=== PATIENT | female | born 1975 | race Caucasian/White ===

== ENCOUNTER 2024-03-18 07:40 | Day surgery (SDC) | payer OTHER ==
[2024-03-17 15:15] LABS: Absolute Basophils 0.1 K/uL (0-0.5); Absolute Eosinophils 0.1 K/uL (0-0.5); Absolute Lymphocytes (CBC) 3.2 K/uL (0.7-4.9); Absolute Monocytes 0.6 K/uL (0.1-1.3); Absolute Neutrophil 4.3 K/uL (1.8-8.0); Basophils % 0.9 % (0-1.3); Eosinophils % 1.2 % (0-4.4); Lymphocytes % 38.6 % (15.3-44.8); MCHC 34.9 g/dL (32.0-36.0); MCV 91.7 fL (80-100); MPV 6.8 fL (7.6-11.3); Monocytes % 6.7 % (3.3-12.3); Neutrophils % 52.6 % (41.7-73.7); Platelets 291 thou/uL (152-406); RBC Red Blood Cell Count 4.36 M/uL (3.86-4.86); Red Cell Distribution Width 12.4 % (12.1-15.2)
--- NOTE | 2024-03-17 15:21 | RAD REPORT ---
EXAM DESCRIPTION: RAD - Chest Pa And Lat (2 Views) - 03/17/2024 2:57 pm CLINICAL HISTORY: Pre op pending mass excisions Chest pain. COMPARISON: CHEST SINGLE VIEW dated 10/07/2009; CHEST SINGLE VIEW dated 10/06/2009 FINDINGS: The lungs are clear. The heart is upper limit of normal in size. No displaced fractures. M oderate dextroscoliosis thoracic spine. IMPRESSION: No acute or concerning finding suspected.
[2024-03-17 15:25] LABS: PT Prothrombin Time 11.1 SECONDS (9.5-12.5); PTT, Activated Partial Thromb 35.7 SECONDS (24.3-36.9); Protime INR 1.01
[2024-03-18] MEDS: Ringers Lactate 1,000 ML IV ONE (08:45)
[2024-03-18] MEDS ORDERED: FAMOTIDINE 20 MG/2 ML VIAL IV ONE (09:24)
[2024-03-18] MEDS ORDERED: SUGAMMADEX SODIUM 200 MG/2 ML VIAL IV ONE (09:24)
[2024-03-18] MEDS ORDERED: SUCCINYLCHOLINE 20 MG/ML (10 ML) IV ONE (09:24)
[2024-03-18] MEDS ORDERED: MIDAZOLAM HCL 2 MG/2 ML INJ ONE (09:29)
[2024-03-18] MEDS ORDERED: FENTANYL CITR 100 MCG/2 ML ONE (09:29)
[2024-03-18] MEDS ORDERED: propofoL 200 MG/20 ML VIAL IV ONE (09:29)
[2024-03-18] MEDS: ONDANSETRON 4 MG/2 ML VIAL ONE (09:29)
[2024-03-18] MEDS ORDERED: LIDOCAINE 1% MPF 5 ML VIAL ONE (09:45)
[2024-03-18] MEDS: CEFAZOLIN SODIUM 1 GM/VIAL ONE (10:04)
[2024-03-18] MEDS ORDERED: dexAMETHasone 4 MG/ML VIAL ONE (10:18)
[2024-03-18] MEDS ORDERED: Mastisol Adhesive Liq ONE (10:59)
--- NOTE | 2024-03-18 11:09 | P.BOP ---
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 Right post arm 3x3cm, Secondary procedure: 2. Left upper ant arm 3x3cm, 3. Left lower medial arm 2x2cm Other procedure(s): 4. Left lower lateral arm 2x2cm, 5. Upper back [id number] Estimated blood loss: <20cc Specimen: mass x 5 Findings: as above Anesthesia: General Complications: None Transferred to: Recovery Room Condition: Good
[2024-03-18] MEDS: FENTANYL CITR 100 MCG/2 ML ONE (11:39)
[2024-03-18] MEDS: PROMETHAZINE INJ 25 MG/ML AMP ONE (11:57)
[2024-03-18] MEDS: HYDROMORPHONE HCL 1 MG/ML INJ ONE ×2 (12:07→12:22)
[2024-03-18 12:51] VITALS: TEMP 97
--- NOTE | 2024-03-18 13:10 | EKG ---
Test Date: 2024-03-17 Test Time: 14:27:50 Operator Specialist Communications: PREO MEASUREMENT RESULTS: Intervals: Rate: 72 AK: 142 QRSD: 84 QT: 406 QTc: 444 Sophia: P: 52 AK: 142 QRS: 5 T: 35 INTERPRETIVE STATEMENTS: Normal sinus rhythm Normal ECG Compared to ECG 10/07/2009 06:32:13 Sinus arrhythmia no longer present Electronically Signed On 03-18-24 13:06:12 CDT by Eran Goins
[2024-03-18 14:07] VITALS: BP 140/100; O2SAT 98
== END 2024-03-18 13:39 | disposition home or self-care (01) ==
LOC: OR 07:40
PROVIDERS: ATTEND Surgery
PROC: 0JBD0ZZ Excision of Right Upper Arm Subcutaneous Tissue and Fascia, Open Approach (ICD-10-PCS; 2024-03-18)
PROC: 0JBF0ZZ Excision of Left Upper Arm Subcutaneous Tissue and Fascia, Open Approach (ICD-10-PCS; 2024-03-18)
PROC: 0JB70ZZ Excision of Back Subcutaneous Tissue and Fascia, Open Approach (ICD-10-PCS; 2024-03-18)
PROC: 0JBH0ZZ Excision of Left Lower Arm Subcutaneous Tissue and Fascia, Open Approach (ICD-10-PCS; principal; 2024-03-18 09:45)
DX: D17.22 Benign lipomatous neoplasm of skin and subcutaneous tissue of left arm (principal); D17.21 Benign lipomatous neoplasm of skin and subcutaneous tissue of right arm; D17.1 Benign lipomatous neoplasm of skin and subcutaneous tissue of trunk
CPT/HCPCS: 93005; 85025; 80048; 36415; 85610; 88304; 85730; 71046; 11403 ×2; 11402 ×2; 21931; J2550; J2704; J1100; J2001; J2250; J3010 ×2; J1170 ×2; J2405; J7120; J0690

== ENCOUNTER 2024-06-24 07:30 | Day surgery (SDC) | payer OTHER ==
[2024-06-19 11:54] LABS: Absolute Basophils 0.1 K/uL (0-0.5); Absolute Eosinophils 0.1 K/uL (0-0.5); Absolute Lymphocytes (CBC) 2.4 K/uL (0.7-4.9); Absolute Monocytes 0.5 K/uL (0.1-1.3); Absolute Neutrophil 4.3 K/uL (1.8-8.0); Basophils % 1.2 % (0-1.3); Eosinophils % 1.3 % (0-4.4); Hematocrit 43.2 % (36.0-45.0); Hemoglobin 14.6 g/dL (12.0-15.0); Lymphocytes % 32.4 % (15.3-44.8); MCHC 33.7 g/dL (32.0-36.0); MCV 91.9 fL (80-100); MPV 6.7 fL (7.6-11.3); Monocytes % 6.7 % (3.3-12.3); Neutrophils % 58.4 % (41.7-73.7); Platelets 288 thou/uL (152-406)
[2024-06-19 12:05] LABS: PT Prothrombin Time 11.1 SECONDS (9.4-12.5); PTT, Activated Partial Thromb 34.1 SECONDS (24.3-36.9); Protime INR 0.99
[2024-06-19 12:07] LABS: Anion Gap 8.1 mEq/L (5.0-15.0); Potassium 4.1 mEq/L (3.5-5.1)
[2024-06-24] MEDS ORDERED: propofoL 200 MG/20 ML VIAL IV ONE (08:11)
[2024-06-24] MEDS ORDERED: FENTANYL CITR 100 MCG/2 ML ONE (08:11)
[2024-06-24] MEDS ORDERED: ONDANSETRON 4 MG/2 ML VIAL ONE (08:11)
[2024-06-24] MEDS ORDERED: MIDAZOLAM HCL 2 MG/2 ML INJ ONE (08:12)
[2024-06-24] MEDS ORDERED: LIDOCAINE 2% MPF 5 ML VIAL ONE (08:12)
[2024-06-24] MEDS: Ringers Lactate 1,000 ML IV ONE (08:20)
[2024-06-24] MEDS: ONDANSETRON 4 MG/2 ML VIAL ONE (08:21)
[2024-06-24] MEDS: CEFAZOLIN SODIUM 1 GM/VIAL ONE (09:03)
[2024-06-24] MEDS ORDERED: dexAMETHasone 10 MG/ML VIAL ONE (09:42)
[2024-06-24] MEDS: Mastisol Adhesive Liq ONE (09:49)
--- NOTE | 2024-06-24 10:07 | P.BOP ---
Preoperative diagnosis: Right medial and lateral posterior elbow tender subq mass Postoperative diagnosis: sameq Primary procedure: 1. Excisional biopsy lateral posterior elbow tender subq mass 2x2cm Secondary procedure: 2. Excisional biopsy medial posterior elbow tender subq mass 2x2cm Estimated blood loss: <10cc Specimen: mass x 2 Findings: as above Anesthesia: General Complications: None Transferred to: Recovery Room Condition: Good
[2024-06-24] MEDS: HYDROMORPHONE HCL 1 MG/ML INJ ONE (10:12)
[2024-06-24] MEDS: PROMETHAZINE INJ 25 MG/ML AMP ONE (10:15)
--- NOTE | 2024-06-24 10:31 | OP ---
Date of Procedure: 06/24/2024 Surgeon: Gregory Jesus MD Preoperative Diagnosis: Right medial and lateral posterior elbow tender subcutaneous masses. Postoperative Diagnosis: Right medial and lateral posterior elbow tender subcutaneous masses. Procedures: 1.Excisional biopsy of lateral posterior elbow tender subcutaneous mass, 2 x 2 cm. 2.Excisional biopsy of medial posterior elbow tender subcutaneous mass, 2 x 2 cm. Estimated Blood Loss: Less than 10 cc. Anesthesia: General plus local. Findings: As above. Specimen: Mass x2. Indications: This is the case of a 49-year-old patient with 2 masses on the elbow giving her pain an d discomfort. She has been trying to do everything she can to minimize pain. It is getting worse. She wants them excised. The benefits, alternatives, and risks of excision fully explained, which inc lude, but not limited to, infection, bleeding, damage to adjacent structures, anesthesia complication , recurrence, AR, and even . She also understands this may not relieve any symptoms. She might need more than one surgical intervention. She understood, signed a consent. The area of concern wa s marked by me and the patient in the holding room. Description Of Procedure: The patient was brought to the operating room, placed in supine position. Anesthesia was done without complication. Right elbow, arm area was prepped and draped in a sterile fashion. A time-out was called. The local anesthetic was applied to the arm to minimize the chance of not feeling the mass, so we did the medial and lateral side, both of them using the same techniqu e, different incisions, though. An incision was made in the skin all the way down to subcutaneous ti ssue and then we identified a fatty tumor present. This fatty tumor was dissected free with the help of blunt dissection. Hemostasis was obtained. The mass was enucleated, sent to the pathologist and then we proceeded to close this deep layers with 3-0 chromic and then subcuticular 3-0 chromic and S [place] on top. The same mass was removed using the same technique, just with different incision . Sponge counts and instrument counts were correct. Hemostasis was obtained before closure and also local anesthetic was applied before closure. The patient sent to recovery in stable condition. DANYEL/FATOU Voice ID: [id number] Report ID: [id number]
--- NOTE | 2024-06-24 10:38 | DS ---
Diagnosis: Right medial and lateral posterior elbow tender subcutaneous masses. Procedure: Excisional biopsy of lateral and medial posterior elbow tender subcutaneous masses. Disposition: Home. Activity: As tolerated. Condition: Stable. Plan: Follow up in my office in 1 week. Call for appointment at [phone]. Keep area dry and keep i t intact until she see us again in the office. SERENE Voice ID: [id number] Report ID: [id number]
[2024-06-24] MEDS ORDERED: HYDROCODONE/APAP 10/325 TAB ONE (10:41)
[2024-06-24] MEDS: HYDROCODONE/APAP 10/325 TAB PO ONE (10:44)
[2024-06-24 11:30] VITALS: BP 123/86; TEMP 97; O2SAT 95
== END 2024-06-24 11:20 | disposition home or self-care (01) ==
LOC: OR 07:30
PROVIDERS: ATTEND Surgery
PROC: 0JBG0ZZ Excision of Right Lower Arm Subcutaneous Tissue and Fascia, Open Approach (ICD-10-PCS; principal; 2024-06-24 09:15)
DX: D17.21 Benign lipomatous neoplasm of skin and subcutaneous tissue of right arm (principal); M25.521 Pain in right elbow; I25.2 Old myocardial infarction; I10 Essential (primary) hypertension; E78.00 Pure hypercholesterolemia, unspecified; E78.5 Hyperlipidemia, unspecified; K52.9 Noninfective gastroenteritis and colitis, unspecified; Z79.01 Long term (current) use of anticoagulants; Z79.82 Long term (current) use of aspirin
CPT/HCPCS: 11402; 85025; 80048; 36415; 85610; 88305; 85730; J2550; J2704; J2001; J2250; J3010; J1100; J1170; J2405 ×2; J7120; J0690; 88304

== ENCOUNTER 2025-01-19 18:18 | Emergency (ER) | payer OTHER ==
--- OUTSIDE RECORDS SUMMARY | 2025-01-19 18:43 | XMS REPORT | Continuity of Care Document ---
Author Name Unknown Address [address] [facility] [address] [place] [address] [facility] thconnect Address [address] [facility] [address] [place] [address] Care Team Providers Care Torch Cutter Name Role Phone Shayedmitry Gaby MARION Primary Care Physician DARRYN SEYMOUR Attending Clinician Unavailable SHAYLA GARAY Attending Clinician SHAYLA Ortiz Attending Clinician Unav ailMINAL AshHKiki Attending Clinician Unavaila kristin LY, APRIL Attending Clinician Unavailable GIULIANA FIGUEROA Attending Clinician Unavailable Doctor Unassigned, Amesti Attending Clinician U efrain Manning MD, Minal K.HKiki Attending Clinician [phone] Avery milk collector, Shena Attending Clinician Unavaila kristin Garay MD, Shayla Attending Clinician + Giuliana Dueñas Attending Clinician + [phone] Aliyah ANP, April Attending Clinician [phone] GABY PRATHER Attending Clinician Unavailable Crescencio [employer]OM[employer] COACH, Gaby Attending Clinician +[phone] FRANCES RUBY Attending Clinician Unavailable FLAKO CAMPBELL Attending Clinician Unavailmauro stack Unknown, Attending Attending Clinician Unavailab le Yulisa [employer] COACH, Flako Attending Clinician [phone] OTILIO CHANDLER Attending Clinician Unavailable Reuben HOWELLhT, Karely Stack Attending Clinician Unava xeniaable Otilio Chandler DNP Attending Clinician [phone] Lab, Ang - Db Attending Clinician Unavailable Ashley Choe MA Attending Clinician Unavailab le Anejodee BALESP, Juan Miguel Attending Clinician [phone] VANDANA GREEN Attending Clinician Unavailable Norma [employer] COACH, Cynjasiel Attending Clinician [phone] JUAN MIGUEL ANGUIANO Attending Clinician Unavailable Arley [facility], Aleksandra Casarez Attending Clinician Unavailab JUDITH Leigh Attending Clinician Unavailable Jt [facility], Alexandra Attending Clinician Unavailable Darryn Seymour MD Attending Clinician [phone] Doctor Unassigned, Amesti Attending Clinician U CURTIS Boyd Attending Clinician Unavailable CURITS WISE Attending Clinician Unavailable Kerri CACERES, Sendil K.H. Attending Clinician +[phone] Aliyah LIVINGSTON, April Attending Clinician [phone] Robbi Torres MD Attending Clinician [phone] Gaby Cobos Attending Clinician [phone] Giuliana Dueñas Attending Clinician [phone] AARON SHELBY Attending Clinician Unavailable BEATRIZ SIMON Attending Clinician Unavailable Anene [employer]ACH, Juan Miguel Attending Clinician [phone] ALYSSIA ISABEL Attending Clinician Unavailable 2, Adc Lab Attending Clinician Unavailable Alyssia Isabel MD Attending Clinician [phone] Lab, Ang - Db Attending Clinician Unavailable Nurse, Clc Bls Neuro Attending Clinician Unavail able Alon ARNOLD, Yenifer Attending Clinician UnavailYASIR Bolanos Attending Clinician Unavailmauro Allen MD, Yasir Attending Clinician [phone] Lai [employer]ACH, Meme Attending Clinician [phone] Attending Clinician Unavailable Abedlrahman Warren Attending Clinician [phone] Unknown, Attending Attending Clinician Unavailab MEME Choi Attending Clinician Unavailable KAMILLE PLASCENCIA Attending Clinician Unavailable Kamille Plascencia MD Attending Clinician [phone] Kirsten [facility] Attending Clinician Unava Ashley Patrick RN Attending Clinician Unavailable MELODIE ASHRAF Attending Clinician UnavailJason Lorenzana MD Attending Clinician [phone] Vicky Nolan MD Attending Clinician [phone] Melodie Ashraf MD Attending Clinician [phone] Franklin Waddell PA-C Attending Clinician +[phone] FRANKLIN WADDELL Attending Clinician Unavailable Darryn Seymour MD Attending Clinician +[phone] Nurse, [facility] Bariatric Attending Clinician Unavail able BENITO KING Attending Clinician Unavailable Benito King MD Attending Clinician +[phone] Keren Meyer Attending Clinician [phone] KEREN PIMENTEL Attending Clinician Unavailable [facility]_SWHATBIC_Cone_S Attending Clinician Unavailab Rowdy Kenney MD Attending Clinician [phone] ROWDY LAM Attending Clinician Unavailable DANA JAIMES Attending Clinician Unavaila ble Counseling, Nutrition Attending Clinician Dana Bobby MD Attending Clinician + [phone] Salty Toussaint MD Attending Clinician [phone] GERARDO MARIE Attending Clinician UnavailGerardo Almaraz MD Attending Clinician [phone] Darshana Medina Attending Clinician +[phone] DARSHANA LANGSTON Attending Clinician Unavailable Loree Harper DO Attending Clinician +[phone] Shukri Mario Attending Clinician + [phone] Unassigned, Cath/Ep Attending Clinician Unavaila kristin Parra, Adc Lab Main Attending Clinician Unavailabl GRADY Lynne Attending Clinician Unavailable Jose Merchant MD, Grady Attending Clinician [phone] Sejal PT, Naomi Salvador Attending Clinician Unavail able Hali [facility], Favian Attending Clinician Unavailable VENKATESH ALVARADO Attending Clinician Unavailable Krysten Naylor PT Attending Clinician Unavailab thomas Simon MD, Beatriz Attending Clinician [phone] TRENT CHAWLA Attending Clinician Unavaila ROBBI Jones Attending Clinician Unavailable WILMAR MILLER Attending Clinician Unavailable VIN PEDRO Attending Clinician Unavailable ARACELY BEVERLY Attending Clinician Unavailabl AD Rico Attending Clinician UnavailAd Padron MD Attending Clinician [phone] Long Araujo MD Attending Clinician [phone] SHUKRI ANSARI Attending Clinician Unavailab [facility] Attending Clinician Un available Provider, [facility] Attending Clinician Unavailable HAROLDO VEGA Attending Clinician Unavailable JOVON CARO Attending Clinician Unavailabl CHELSI Wick Attending Clinician Unavailab Yady Staplse MA Attending Clinician Unavailabl e Vls-Lab Attending Clinician Unavailable LOREE HARPER Attending Clinician Unavailable LOREE HARPER Attending Clinician Unavailable MARIE MARTINO Attending Clinician Unavailable Nurse, Ken Cottrell Attending Clinician Unavailable Geeta Clark MD Attending Clinician + [phone] GEETA CLARK Attending Clinician UnavailKristopher Ortega MD Attending Clinician [phone] KRISTOPHER BLACKWELL Attending Clinician UnavailDARIUS Lema Attending Clinician Unavailable Keesha [employer]ACH, Lory Andres Attending Clinician [phone] LORY THAO Attending Clinician Unavailable GALILEO KINCAID Attending Clinician Unavailable Only, Ang Db Test Attending Clinician Unavailmauro Beverly MD, Aracely Contreras Attending Clinician [phone] Benito Eric Attending Clinician Unavailable Jonas CACERES, Karli Schmdi Attending Clinician [phone] René ACNDillon, Juliocesar Attending Clinician + [phone] Erlin Nguyễn Attending Clinician +[phone] ERLIN NGUYỄN Attending Clinician Unavailable Valentin CACERES, Veronica Quevedo Attending Clinician [phone] CIRSTY TEMPLE Attending Clinician Unavailable Provider, [facility] Attending Clinician Un available Shaun Bahena MD Attending Clinician + [phone] SHAUN BAHENA Attending Clinician UnavaYASIR Bowen Attending Clinician Unav ailable CELINA COWAN Attending Clinician Unavailable Chapo CACERES, Celina Attending Clinician [phone] Room, [facility] Uro Procedure Attending Clinician Unav ailable KARLI BARROS Attending Clinician Unavailable AFSANEH MARTIN Attending Clinician Unavailab le Pob1, Acute [facility] Attending Clinician Unav ailable Nurse, Bls Cbc Endo Attending Clinician Unavaila kristin Draw, Clc-Bls Lab Attending Clinician UnavailDannie MARION, Darius Anderson Attending Clinician [phone] Philip Suresh MD Attending Clinician [phone] MARII CATHERINE Attending Clinician Unavailable Marii Catherine NP Attending Clinician [phone] PHILIP SURESH Attending Clinician Unava ilable LILIAM JORDAN Attending Clinician Unavailable Rayne [employer]ACH, Mireille Attending Clinician [phone] Anesthesia-Yanira, Ep Lab Attending Clinician Unava ilable Outpt-Yanira, Ep Lab Attending Clinician Unavailmauro Evans RN, Shelly Attending Clinician Unavailmauro Mcwilliams [facility], Kamille Attending Clinician [phone] Eva Garces RN Attending Clinician ILAN LINDER Attending Clinician Unavailable Yeny CACERES, Mireille Martin Attending Clinician + Alice CACERES, Krysten Attending Clinician [phone] Ilan Linder MD Attending Clinician [phone] Katerina Saldana MD Attending Clinician [phone] 1, [facility] Lab Attending Clinician Unavailable DARRYN SEYMOUR Admitting Clinician Unavailable SHAYLA GARAY Admitting Clinician Unav Shayla Allen MD Admitting Clinician + VANDANA GREEN Admitting Clinician Unavailable MELODIE ASHRAF Admitting Clinician Unavailmauro Ashraf MD, Melodie Amin Admitting Clinician [phone] Darryn Seymour MD Admitting Clinician +[phone] [facility]_S Admitting Clinician Unavailab YASIR Haskins Admitting Clinician Unavailmauro MANNING, SENDIL K.H. Admitting Clinician Unavaildmitry Manning MD, Sendil K.H. Admitting Clinician +[phone] GERARDO MARIE Admitting Clinician UnavailAD Padron Admitting Clinician UnavailMEME Romero Admitting Clinician Unavailable ROBBI TORRES Admitting Clinician Unavailable AMBER CONNOR Admitting Clinician UnavailMARII Xie Admitting Clinician Unavailable GEETA CLARK Admitting Clinician UnavailALYSSIA [place] Admitting Clinician Unavailable ILAN LINDER Admitting Clinician Unavailable Payers Payer Name Policy Type Policy Number Effective Date Expirati on Date Source [employer] CHOICE [id number] 2020 00:00:00 [place] [id number] 2021 00:00:00 [employer] CLAIMS OFFICE [id number] [employer] (MEDICARE REPLACEMENT/ADVANT AGE - PPO) [id number] [employer] MEDICARE ADV [id number] 00:00:00 Problems Condition Name Condition Details Condition Category Status Onset Date Resolution Date Last Treatment Date Treating Clinician Comments Source Palpitatio ns Palpitatio ns Disease Active 2023-11 2- 00:00: 00 [facility] Near syncope Near syncope Disease Active 2023-11 2- 00:00: 00 [facility] LLQ pain LLQ pain Disease Active 2023-11 00:00: 00 [facility] Hx of endometrio sis Hx of endometrio sis Disease Active 2023-11 00:00: 00 [facility] Hx of emergency section Hx of emergency section Disease Active 2023-11 00:00: 00 [facility] Lipoma, unspecifie d site Lipoma, unspecifie d site Disease Active 7- 00:00: 00 [facility] Chest pain, unspecifie d type Chest pain, unspecifie d type Disease Active 2022-11 0-28 00:00: 00 [facility] Hemorrhagi c cystitis Hemorrhagi c cystitis Disease Active 9-06 00:00: 00 [facility] Acute non-recurr ent maxillary sinusitis Acute non-recurr ent maxillary sinusitis Disease Active 9-06 00:00: 00 [facility] Acute recurrent maxillary sinusitis Acute recurrent maxillary sinusitis Disease Active 9-06 00:00: 00 [facility] Allergy, initial encounter Allergy, initial encounter Disease Active 7-11 00:00: 00 [facility] Obesity Obesity Disease Active 6-13 00:00: 00 [facility] Morbid obesity Morbid obesity Disease Active 6-13 00:00: 00 [facility] Chronic diastolic heart failure Chronic diastolic heart failure Disease Active 2021-11 2-12 00:00: 00 Overview: Formattin g of this note might be different from the original. Added automatic ally from request for surgery [id number] [facility] Dyslipidem ia Dyslipidem ia Disease Active 2021-11 2-12 00:00: 00 Overview: Formattin g of this note might be different from the original. Added automatic ally from request for surgery [id number] [facility] Family history of premature CAD Family history of premature CAD Disease Active 2021-11 00:00: 00 Overview: Formattin g of this note might be different from the original. Added automatic ally from request for surgery [id number] [facility] ESPINO (dyspnea on exertion) ESPINO (dyspnea on exertion) Disease Active 2021-11 00:00: 00 Overview: Formattin g of this note might be different from the original. Added automatic ally from request for surgery [id number] [facility] Abnormal nuclear stress test Abnormal nuclear stress test Disease Active 2021-11 00:00: 00 Overview: Formattin g of this note might be different from the original. Added automatic ally from request for surgery [id number] [facility] Chronic bilateral low back pain without sciatica Chronic bilateral low back pain without sciatica Disease Active 2021-11 00:00: 00 [facility] Abnormal gait Abnormal gait Disease Active 2021-11 00:00: 00 [facility] Encounter for gynecologi edda examinatio n (general) (routine) with abnormal findings Encounter for gynecologi edda examinatio n (general) (routine) with abnormal findings Disease Active 2021-11 00:00: 00 [facility] Scapulotho racic bursitis of left shoulder Scapulotho racic bursitis of left shoulder Disease Active 2021-11 00:00: 00 [facility] Cellulitis of right lower extremity Cellulitis of right lower extremity Disease Active 2021-11 0-10 00:00: 00 [facility] Urinary symptom or sign Urinary symptom or sign Disease Active 8-17 00:00: 00 [facility] Acute vaginitis Acute vaginitis Disease Active 8-17 00:00: 00 [facility] Rash and other nonspecifi c skin eruption Rash and other nonspecifi c skin eruption Disease Active 8-17 00:00: 00 [facility] Skin tear of right elbow without complicati on, initial encounter Skin tear of right elbow without complicati on, initial encounter Disease Active 8-17 00:00: 00 [facility] Migraine without aura and without status migrainosu s, not intractabl e Migraine without aura and without status migrainosu s, not intractabl e Disease Active 3-02 00:00: 00 [facility] Intractabl e episodic tension-ty pe headache Intractabl e episodic tension-ty pe headache Disease Active 3-02 00:00: 00 [facility] Essential tremor Essential tremor Disease Active 3-02 00:00: 00 [facility] Abnormal liver function tests Abnormal liver function tests Disease Active 2-28 00:00: 00 [facility] Fatty liver Fatty liver Disease Active 2-25 00:00: 00 [facility] Microscopi c hematuria Microscopi c hematuria Disease Active 2-18 00:00: 00 [facility] RLQ abdominal pain RLQ abdominal pain Disease Active 9-27 00:00: 00 [facility] Chronic pain of both shoulders Chronic pain of both shoulders Disease Active 2019-11 0-30 00:00: 00 [facility] Chronic pain of both shoulders Chronic pain of both shoulders Disease Active 2019-11 0-30 00:00: 00 [facility] Premenopau ivon patient Premenopau ivon patient Disease Active 7 00:00: 00 [facility] Hair changes Hair changes Disease Active 7 00:00: 00 [facility] Euthyroid goiter Euthyroid goiter Disease Active 0 7- 00:00: 00 [facility] Adnexal mass Adnexal mass Disease Active 05-19 00:00: 00 Overview: Formattin g of this note might be different from the original. left [facility] Left nephrolith iasis Left nephrolith iasis Disease Active 7- 00:00: 00 [facility] Chronic inflammati on of colon Chronic inflammati on of colon Disease Active 05-19 00:00: 00 [facility] Intertrigo Intertrigo Disease Active 7 00:00: 00 [facility] Fatigue, unspecifie d type Fatigue, unspecifie d type Disease Active 05-09 00:00: 00 [facility] Low serum cortisol level Low serum cortisol level Disease Active 6 00:00: 00 [facility] Essential hypertensi on Essential hypertensi on Disease Active 2018-11 00:00: 00 [facility] Other hyperlipid emia Other hyperlipid emia Disease Active 2018-11 00:00: 00 [facility] Vertigo Vertigo Disease Active 03-18 00:00: 00 [facility] Amenorrhea Amenorrhea Disease Active 01-26 00:00: 00 [facility] Trigger finger of right thumb Trigger finger of right thumb Disease Active 2017-11 00:00: 00 [facility] Radial styloid tenosynovi tis Radial styloid tenosynovi tis Disease Active 2017-11 00:00: 00 [facility] HSV-2 seropositi ve HSV-2 seropositi ve Disease Active 01-10 00:00: 00 [facility] Care plan discussed with patient Care plan discussed with patient Disease Active 01-06 00:00: 00 Overview: Formattin g of this note might be different from the original. 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) Disease Active 2- 00:00: 00 [facility] POTS (postural orthostati c tachycardi a syndrome) POTS (postural orthostati c tachycardi a syndrome) Disease Active 1 00:00: 00 [facility] TIA (transient ischemic attack) TIA (transient ischemic attack) Disease Active 2016-11 0 00:00: 00 [facility] Glaucoma suspect of both eyes Glaucoma suspect of both eyes Disease Active 02-22 00:00: 00 [facility] Congenital nasolacrim al duct obstructio n, 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, bilateral Disease Active 02-22 00:00: 00 [facility] Glaucoma suspect of both eyes Glaucoma suspect of both eyes Disease Active 02-22 00:00: 00 [facility] Ischemic chest pain Ischemic chest pain Disease Active 01-14 00:00: 00 [facility] Chest pain Chest pain Disease Active 01-14 00:00: 00 [facility] Colon polyps Colon polyps Disease Active 12-22 00:00: 00 [facility] Pseudoseiz ures Pseudoseiz ures Disease Active 12-22 00:00: 00 [facility] Shaking Shaking Disease Active 12-22 00:00: 00 [facility] Depression Depression Disease Active 12-22 00:00: 00 [facility] Insomnia Insomnia Disease Active 12-19 00:00: 00 [facility] MARY on CPAP MARY on CPAP Disease Active 12-19 00:00: 00 [facility] Morbid obesity with BMI of 50.0-59.9, adult Morbid obesity with BMI of 50.0-59.9, adult Disease Active 2015-11 214 00:00: 00 [facility] Prinzmetal variant angina Prinzmetal variant angina Disease Active 11-18 00:00: 00 [facility] CAD (coronary artery disease) CAD (coronary artery disease) Disease Active [facility] Spinal stenosis Spinal stenosis Disease Active [facility] Atheroscle rosis of artery Atheroscle rosis of artery Disease Active [facility] Bulging lumbar disc Bulging lumbar disc Disease Active [facility] KS (mitral incompeten ce) KS (mitral incompeten ce) Disease Active [facility] Polycystic ovarian disease Polycystic ovarian disease Disease Active [facility] GERD (gastroeso phageal reflux disease) GERD (gastroeso phageal reflux disease) Disease Active [facility] Anxiety Anxiety Disease Active [facility] Agoraphobi a Agoraphobi a Disease Active [facility] Panic disorder Panic disorder Disease Active [facility] HTN (hypertens ion) HTN (hypertens ion) Disease Active [facility] Gastric polyp Gastric polyp Disease Active [facility] Asthma Asthma Disease Active Overview: Formattin g of this note might be different from the original. As a child [facility] Allergic rhinitis Allergic rhinitis Disease Active [facility] Dysuria Dysuria Disease Resolve d 2022-0 9-06 00:00: 00 2024-10-19 00:00:00 2024-10-19 11:45:59 [facility] Nausea Nausea Disease Resolve d 2022-0 7-11 00:00: 00 2024-10-19 00:00:00 2024-10-19 11:45:55 [facility] Diarrhea, unspecifie d type Diarrhea, unspecifie d type Disease Resolve d 2022-0 7-11 00:00: 00 2024-10-19 00:00:00 2024-10-19 11:46:00 [facility] Yeast infection Yeast infection Disease Resolve d 2021-1 0-10 00:00: 00 2024-10-19 00:00:00 2024-10-19 11:46:12 [facility] Urinary symptom or sign Urinary symptom or sign Disease Resolve d 2021-0 8-17 00:00: 00 2024-10-19 00:00:00 2024-10-19 11:46:17 [facility] Need for hepatitis A and B vaccinatio n Need for hepatitis A and B vaccinatio n Disease Resolve d 2021-0 3-14 00:00: 00 2024-10-19 00:00:00 2024-10-19 11:46:19 [facility] Nicotine use disorder Nicotine use disorder Disease Resolve d 2018-0 3-11 00:00: 00 2019-04-07 00:00:00 2019-04-07 18:20:55 [facility] Postprandi al vomiting Postprandi al vomiting Disease Resolve d 2016-0 2-04 00:00: 00 2018-01-06 00:00:00 2018-01-06 23:23:50 [facility] Allergies, Adverse Reactions, Alerts Allergy Name Allergy Type Status Severity Reaction(s) Onset Date Inactive Date Treating Clinician Comments Source ALBUTERO L DRUG INGREDI Active High Palpitations 2023-11- 00:00: 00 [facility] Albutero l Propensi ty to adverse reaction s to drug Active Palpitations 2023-11 00:00: 00 Prinzmeta l angina [facility] AMOXICIL PERLA-POT CLAVULAN ATE DRUG Active Med Rash 1- 00:00: 00 [facility] Amoxicil perla-Pot Clavulan ate Propensi ty to adverse reaction s Active Rash 2023-0 1-11 00:00: 00 [facility] BEE STING / VENOM DRUG INGREDI Active High Rash 0 6- 00:00: 00 [facility] Bee Sting / Venom Propensi ty to adverse reaction s Active Swelling 6- 00:00: 00 [facility] bupropio n DA Active U 2020-11 0-19 00:00: 00 [facility] soy FA Active U 2020-11 0- 00:00: 00 [facility] MUSHROOM S DA Active SV THROAT CLOSES 2020-11 0-19 00:00: 00 [facility] doxycycl ine DA Active SV 2020-11 0-19 00:00: 00 [facility] amitript yline DA Active SV 2020-11 0-19 00:00: 00 [facility] bupropio n DA Active U BAD THOUGHTS 2020-11 00:00: 00 [facility] soy FA Active U THROAT CLOSES 2020-11 00:00: 00 [facility] doxycycl ine DA Active SV 2020-11 0 00:00: 00 [facility] amitript yline DA Active SV 2020-11 00:00: 00 [facility] Doxycycl ine Propensi ty to adverse reaction s Active Shortness of Breath 02-17 00:00: 00 [facility] DOXYCYCL INE DRUG INGREDI Active SOB 02-17 00:00: 00 [facility] erythrom ycin base DA Active MO 06-09 00:00: 00 [facility] adhesive tape DA Active MO 06-09 00:00: 00 [facility] pregabal in DA Active MO 06-09 00:00: 00 [facility] adhesive tape DA Active MO BLISTERS 06-09 00:00: 00 [facility] pregabal in DA Active MO SUICIDAL THOUGHTS 06-09 00:00: 00 [facility] Amitript yline Propensi ty to adverse reaction s Active Other - See comments 07-07 00:00: 00 Made headaches worse [facility] AMITRIPT YLINE DRUG INGREDI Active Other-Cmnt 07-07 00:00: 00 [facility] Mushroom Propensi ty to adverse reaction s Active Unknown - See comments 01-16 00:00: 00 Allergy listed per nurses screen and pt's father - unable to confirm with pt, unknown reaction. [facility] Soy Propensi ty to adverse reaction s Active Swelling 01-16 00:00: 00 [facility] SOY DRUG INGREDI Active High N/V 01-16 00:00: 00 [facility] MUSHROOM DRUG INGREDI Active Unknown-Cmnt 01-16 00:00: 00 [facility] Pregabal in Propensi ty to adverse reaction s Active Other - See comments 2 00:00: 00 [facility] PREGABAL IN DRUG INGREDI Active Other-Cmnt 0 2 00:00: 00 [facility] Adhesive Tape-Erma icones Propensi ty to adverse reaction s Active Hives 0 02-27 00:00: 00 [facility] Erythrom ycin Propensi ty to adverse reaction s Active Swelling 02-27 00:00: 00 [facility] ADHESIVE TAPE-ERMA ICONES DRUG Active Hives 02-27 00:00: 00 [facility] ERYTHROM YCIN DRUG Active Hives 02-27 00:00: 00 [facility] erythrom ycin base DA Active SV 06-20 00:00: 00 [facility] erythrom ycin base DA Active SV HIVES THROAT SWELLS 06-20 00:00: 00 [facility] TAPE DA Active SV BAD RASH HIVES PAPER TAPE [place] 06-19 00:00: 00 [facility] Family History Family Member Diagnosis Comments Start Date Stop Date Sourc e Natural father Coronary Heart Disease [facility] Natural [facility] Maternal aunt [facility]ian [facility] Maternal grandfather Cataracts [facility] Maternal grandmother Arthritis [facility] Maternal grandmother Asthma [facility] Maternal grandmother Breast Cancer [facility] Maternal grandmother Cancer [facility] Maternal grandmother Cataracts [facility] Natural mother Arthritis Unive [facility] Natural [facility] Asthma [facility] Natural [facility] Natural mother Colon [facility] Natural mother Depression [facility] Natural mother Hypert[facility] Natural mother Kidney disease [facility] Natural mother Miscarriages / Stillbirths [facility] Natural mother Stroke [facility] Natural mother Thyroid [facility] Natural mother Uterine Cancer [facility] Paternal grandfather Cancer [facility] Paternal grandfather Coronary Heart Disease [facility] Paternal grandfather Stroke [facility] Paternal grandmother Diabetes [facility] Social History Social Habit Start Date Stop Date Quantity Comments Source History of tobacco use Passive smoker [facility] History SDOH Alcohol Std Drinks [facility] History SDOH Alcohol Binge [facility] History SDOH Social Connections Get Together [facility] History SDOH Social Connections [facility] History SDOH Social Connections Membership [facility] History SDOH Social Connections Meetings [facility] History of Social function 2024-12-02 00:00:00 2024-12-02 00:00:00 [facility] Alcoholic beverage intake 2024-12-02 00:00:00 2024-12-02 00:00:00 0 /d [facility] Cigarettes smoked current (pack per day) - Reported 2024-04-30 00:00:00 2024-04-30 00:00:00 [facility] Cigarette pack-years 2024-04-30 00:00:00 2024-04-30 00:00:00 [facility] Tobacco use and exposure 2024-04-30 00:00:00 2024-04-30 00:00:00 Smokeless tobacco non-user [facility] Alcohol intake 2024-02-18 00:00:00 2024-02-18 00:00:00 0 /d [facility] Education 2023-09-14 00:00:00 2023-09-14 00:00:00 17 [facility] History SDOH Alcohol Frequency 2023-05-01 00:00:00 2023-05-01 00:00:00 1 [facility] History SDOH Social Connections Phone 2023-05-01 00:00:00 2023-05-01 00:00:00 5 [facility] History SDOH Social Connections Living 2023-05-01 00:00:00 2023-05-01 00:00:00 7 [facility] History SDOH Physical Activity DPW 2023-05-01 00:00:00 2023-05-01 00:00:00 0 [facility] History SDOH Physical Activity MPS 2023-05-01 00:00:00 2023-05-01 00:00:00 0 [facility] History SDOH Financial 2023-05-01 00:00:00 2023-05-01 00:00:00 4 [facility] History SDOH Food Worry 2023-05-01 00:00:00 2023-05-01 00:00:00 1 [facility] History SDOH Food Scarcity 2023-05-01 00:00:00 2023-05-01 00:00:00 1 [facility] History SDOH Transport Med 2023-05-01 00:00:00 2023-05-01 00:00:00 2 [facility] History SDOH Transport Non-Med 2023-05-01 00:00:00 2023-05-01 00:00:00 2 [facility] History SDOH Housing Unable to Pay 2023-05-01 00:00:00 2023-05-01 00:00:00 2 [facility] History SDOH Housing Places Lived 2023-05-01 00:00:00 2023-05-01 00:00:00 1 [facility] History SDOH Housing Homeless Last Year 2023-05-01 00:00:00 2023-05-01 00:00:00 2 [facility] Exposure to SARS-CoV-2 (event) 2023-04-07 00:00:00 2023-04-17 15:45:00 Not sure [facility] Tobacco Comment 2022-07-05 00:00:00 2022-07-05 00:00:00 quit tobacco in 02/2018, quit vaping too 02/2019 [facility] Sex assigned at 1975 00:00:00 1975 00:00:00 [facility] Smoking Status Start Date Stop Date Source Ex-smoker 2024-04-30 00:00:00 2024-04-30 00:00:00 [facility] Medications Ordered Medication Name Filled Medication Name Start Date Stop Date Current Medication? Ordering Clinician Indication Dosage Frequency Signature (SIG) Comments Components Source losartan 25 mg tablet 01-15 00:00: 00 Yes [id number] 50mg Take 2 tablets by mouth in the morning and 2 tablets in the evening. [facility] losartan 25 mg tablet 01-01 00:00: 00 01-15 00:00 :00 No [id number] TAKE 1 TABLET BY MOUTH AT NOON. [facility] amLODIPine 5 mg tablet 12-18 00:00: 00 Yes [id number] 5mg Take 1 tablet by mouth in the morning. [facility] methylPREDN ISolone 4 mg tablets 12-01 00:00: 00 12-01 00:00 :00 Yes [id number] 84mg Take 21 tablets by mouth SEE-INSTRU CTIONS. follow package directions [facility] MONTELUKAST 10 mg tablet 11-30 00:00: 00 Yes [id number] 10mg TAKE 1 TABLET BY MOUTH EVERY EVENING [facility] ciprofloxac in-dexameth asone 0.3-0.1 % otic drops 11-20 00:00: [address] in right ear 2 (two) times daily. [facility] ciprofloxac in-dexameth asone 0.3-0.1 % otic drops 11-19 00:00: 00 11-30 05:59 :00 Yes [id number] 4[drp] Place 4 Drops in left ear in the morning and 4 Drops in the evening. Do all this for 10 days. [facility] LORATADINE 10 mg tablet 2023-11 2- 00:00: 00 Yes [id number] 10mg TAKE 1 TABLET BY MOUTH IN THE MORNING [facility] Ranolazine 1,000 mg tablet 2023-11 2 00:00: 00 Yes [id number] 1000mg Take 1 tablet by mouth in the morning and 1 tablet in the evening. [facility] nitroglycer in 0.4 mg sublingual tablet 2023-11 00:00: [id number] 1 tablet under the tongue every 5 (five) minutes as needed for Chest pain. [facility] isosorbide mononitrate 60 mg 24 hr tablet 2023-11 00:00: 00 Yes [id number] 120mg Take 2 tablets by mouth every morning. [facility] bumetanide 1 mg tablet 2023-11 00:00: 00 Yes [id number] 1mg Take 1 tablet by mouth every 2 (two) days. [facility] atorvastati n 80 mg tablet 2023-11 00:00: 00 Yes [id number] 80mg Take 1 tablet by mouth at bedtime. [facility] clopidogreL 75 mg tablet 2023-11 00:00: 00 Yes [id number] 75mg Take 1 tablet by mouth in the morning. [facility] spironolact one 50 mg tablet 2023-11 00:00: 00 Yes [id number] 50mg Take 1 tablet by mouth in the morning and 1 tablet in the evening. [facility] losartan 25 mg tablet 2023-11 00:00: 00 01-01 00:00 :00 No [id number] 50mg Take 2 tablets by mouth every morning and evening. [facility] diclofenac sodium 1 % gel 2023-11 00:00: 00 Yes [id number] 1g Apply 1 g to area(s) 4 (four) times daily as needed for Pain. [facility] iopamidol (ISOVUE 370-500 mL) injection 100 mL 2023-11 23:45: 00 10-14 22:54 :00 No [id number] 100mL 100 mL, Intravenou s, ONCE, 1 dose, On Sat10/14/24 at 1745, Routine [facility] levalbutero l 0.63 mg/3 mL nebulizer solution 2023-11 00:00: 00 Yes [id number] USE 1 VIAL BY NEBULATION THREE TIMES DAILY NEEDED FOR WHEEZING, SHORTNESS OF BREATH OR CHEST TIGHTNESS [facility] Nebulizer & Compressor For Neb Sonia 2023-11 00:00: 00 Yes [id number] Use as directed [facility] levalbutero l (XOPENEX HFA) 45 mcg/actuati on inhaler 2023-11 00:00: 00 12-02 00:00 :00 No [id number] 2{puff} Inhale 2 Puffs every 6 (six) hours as needed for Wheezing. [facility] benzonatate 200 mg capsule 2023-11 00:00: 00 Yes [id number] 200mg Take 1 capsule by mouth 3 (three) times daily as needed for Cough. [facility] albuterol (VENTOLIN HFA) 90 mcg/actuati on inhaler 2023-11 00:00: 00 12-02 00:00 :00 No [id number] 2{puff} Inhale 2 Puffs every 6 (six) hours as needed for Bronchospa sm. [facility] levalbutero l (XOPENEX HFA) 45 mcg/actuati on inhaler 2023-11 00:00: 00 10-14 00:00 :00 No [id number] 2{puff} Inhale 2 Puffs every 6 (six) hours as needed for Wheezing. [facility] benzonatate 200 mg capsule 2023-11 00:00: 00 10-09 00:00 :00 No [id number] 200mg Take 1 capsule by mouth 3 (three) times daily as needed for Cough. [facility] cephALEXin 500 mg capsule 2023-11 00:00: 00 10-09 05:59 :00 No [id number] 500mg Take 1 capsule by mouth 4 (four) times daily for 7 days. [facility] isosorbide mononitrate 60 mg 24 hr tablet 2023-11 0-31 00:00: 00 10-22 00:00 :00 No [id number] 120mg Take 2 tablets by mouth every morning. [facility] Ranolazine 1,000 mg tablet 2023-11 0- 00:00: 00 10-22 00:00 :00 No [id number] 1000mg Take 1 tablet by mouth in the morning and 1 tablet in the evening. [facility] MONTELUKAST 10 mg tablet 2023-11 0-14 00:00: 00 11-30 00:00 :00 No [id number] 10mg TAKE 1 TABLET BY MOUTH EVERY EVENING [facility] CLOPIDOGREL 75 mg tablet 930 00:00: 00 10-22 00:00 :00 No [id number] 75mg TAKE 1 TABLET BY MOUTH IN THE MORNING [facility] LORATADINE 10 mg tablet 07-30 00:00: 00 10-27 00:00 :00 No [id number] 10mg TAKE 1 TABLET BY MOUTH IN THE MORNING [facility] SPIRONOLACT ONE 50 mg tablet 15 00:00: 00 10-22 00:00 :00 No [id number] 50mg TAKE 1 TABLET BY MOUTH TWICE DAILY [facility] clopidogreL 75 mg tablet 14 00:00: 00 Yes [id number] 75mg TAKE 1 TABLET BY MOUTH IN THE MORNING [facility] isosorbide mononitrate 60 mg 24 hr tablet 8 00:00: 00 09-17 00:00 :00 No [id number] 120mg Take 2 tablets by mouth every morning. [facility] ranolazine 1,000 mg tablet 7 00:00: 00 09-09 00:00 :00 No [id number] 1000mg Take 1 tablet by mouth in the morning and 1 tablet in the evening. [facility] ondansetron 8 mg disintegrat ing tablet 19 00:00: 00 12-02 00:00 :00 No [id number] 8mg Take 1 tablet by mouth every 8 (eight) hours as needed for Nausea and Vomiting (N/V) (or migraine). [facility] MONTELUKAST 10 mg tablet 06-01 00:00: 00 Yes [id number] 10mg TAKE 1 TABLET BY MOUTH EVERY EVENING [facility] LOSARTAN 25 mg tablet 06-01 00:00: 00 10-22 00:00 :00 No [id number] 25mg TAKE 1 TABLET BY MOUTH IN THE MORNING AND IN THE EVENING [facility] LORATADINE 10 mg tablet 06-01 00:00: 00 07-30 00:00 :00 No [id number] 10mg TAKE 1 TABLET BY MOUTH IN THE MORNING [facility] triamcinolo ne acetonide (KENALOG) injection 20 mg 05-14 22:15: 00 05-14 21:05 :00 No [id number] 20mg 20 mg, Infiltrati on, ONCE, 1 dose, On Libertad 05/14/24 at 1715, Routine [facility] bupivacaine (preserv free) (SENSORCAIN E MPF) 0.25 % (2.5 mg/mL) injection 4 mL 05-14 22:15: 00 05-14 21:05 :00 No [id number] 4mL 4 mL, Infiltrati on, ONCE, 1 dose, On [place] 05/14/24 at 1715, Routine [facility] proMETHazin e 25 mg tablet 05-14 00:00: 00 Yes [id number] 25mg Take 1 tablet by mouth every 4 (four) hours as needed for Nausea and Vomiting (N/V). [facility] ubrogepant 100 mg tablet 05-14 00:00: 00 Yes [id number] Take 1 tablet by mouth at onset of migraine symptoms. may repeat in 2 hours if needed. Max of 2 tablets per 24 hours. [facility] primidone 250 mg tablet 05-14 00:00: 00 Yes [id number] 250mg Take 1 tablet by mouth every 8 (eight) hours as needed (tremor). [facility] methocarbam oL 750 mg tablet 05-14 00:00: 00 Yes [id number] 750mg Take 1 tablet by mouth 3 (three) times daily as needed. alternatin g with tizanidine [facility] cyanocobala min, vitamin B-12, 1,000 mcg Lozg 05-14 00:00: 00 Yes [id number] 1{each} Place 1 Each under the tongue in the morning. [facility] carBAMazepi ne 200 mg tablet 05-14 00:00: 00 Yes [id number] 200mg Take 1 tablet by mouth every 8 (eight) hours as needed (cranial neuralgia) . Do not take with gabapentin [facility] baclofen 10 mg tablet 05-14 00:00: 00 Yes [id number] 10mg Take 1 tablet by mouth 3 (three) times daily as needed (cranial neuralgia) . Alternate with methocarba mol and tizanidine [facility] atogepant (QULIPTA) 60 mg Tab tablet 05-14 00:00: 00 Yes [id number] 60mg Take 1 tablet by mouth in the morning. [facility] ATORVASTATI N 80 mg tablet 05-04 00:00: 00 10-22 00:00 :00 No [id number] 9108 80mg TAKE 1 TABLET BY MOUTH AT BEDTIME [facility] ATORVASTATI N 80 mg tablet 20 00:00: 00 Yes [id number] 80mg TAKE 1 TABLET BY MOUTH AT BEDTIME [facility] ranolazine 500 mg 12 hr tablet 5-09 00:00: 00 06-11 00:00 :00 No [id number] 500mg Take 1 tablet by mouth in the morning and 1 tablet in the evening. [facility] loratadine 10 mg tablet 03-12 00:00: 00 06-01 00:00 :00 No [id number] 10mg TAKE 1 TABLET BY MOUTH IN THE MORNING. [facility] Cholecalcif shabana, Vitamin D3, 1,250 mcg (50,000 unit) capsule 02-17 00:00: 12-02 00:00 :00 No [id number] 92493A Take 1 capsule by mouth weekly. For 6 month then restart OTC D3 [facility] cyanocobala min, vitamin B-12, 1,000 mcg Lozg 02-17 00:00: 05-14 00:00 :00 No [id number] 1{each} Place 1 Each under the tongue in the morning. [facility] baclofen 10 mg tablet 02-17 00:00: 05-14 00:00 :00 No [id number] 10mg Take 1 tablet by mouth 3 (three) times daily as needed (cranial neuralgia) . Alternate with methocarba mol and tizanidine [facility] carBAMazepi ne 200 mg tablet 02-17 00:00: 00 05-14 00:00 :00 No [id number] 200mg Take 1 tablet by mouth every 8 (eight) hours as needed (cranial neuralgia) . Do not take with gabapentin [facility] primidone 250 mg tablet 02-17 00:00: 00 05-14 00:00 :00 No [id number] 250mg Take 1 tablet by mouth every 8 (eight) hours as needed (tremor). [facility] MONTELUKAST 10 mg tablet 02-10 00:00: 00 06-01 00:00 :00 No [id number] 10mg TAKE 1 TABLET BY MOUTH EVERY EVENING [facility] LORATADINE 10 mg tablet 02-10 00:00: 00 03-12 00:00 :00 No [id number] 10mg TAKE 1 TABLET BY MOUTH IN THE MORNING. [facility] levalbutero l (XOPENEX HFA) 45 mcg/actuati on inhaler 01-20 00:00: 00 10-01 00:00 :00 No [id number] 2{puff} Inhale 2 Puffs every 6 (six) hours as needed for Wheezing. [facility] SPIRONOLACT ONE 50 mg tablet 01-19 00:00: 00 Yes [id number] 50mg TAKE 1 TABLET BY MOUTH TWICE DAILY [facility] atorvastati n 80 mg tablet 01-16 00:00: 00 Yes [id number] 80mg TAKE 1 TABLET BY MOUTH AT BEDTIME [facility] LORATADINE 10 mg tablet 01-16 00:00: 00 Yes [id number] 10mg TAKE 1 TABLET BY MOUTH IN THE MORNING. [facility] losartan 25 mg tablet 00:00: 00 Yes [id number] 25mg Take 1 tablet by mouth in the morning and 1 tablet in the evening. [facility] proMETHazin e 25 mg tablet 01-08 00:00: 00 05-14 00:00 :00 No 25mg Take 1 tablet by mouth every 4 (four) hours as needed for Nausea and Vomiting (N/V). [facility] cefdinir 300 mg capsule 12-30 00:00: 00 01-07 05:59 :00 No [id number] 300mg Take 1 capsule by mouth every 12 (twelve) hours for 7 days. [facility] ketorolac (TORADOL) injection 60 mg 12-26 20:30: 00 12-26 20:12 :00 No [id number] 60mg [facility] diphenhydrA MINE (BENADRYL) injection 50 mg 08 20:30: 00 12-26 20:10 :00 No [id number] 50mg [facility] proMETHazin e (PHENERGAN) injection 25 mg 2-08 20:30: 00 12-26 20:11 :00 No [id number] 25mg [facility] methylPREDN ISolone (MEDROL, [place],) 4 mg tablets 12-04 00:00: 00 12-01 00:00 :00 No [id number] Take by mouth SEE-INSTRU CTIONS. follow package directions [facility] loratadine 10 mg tablet 12-04 00:00: 01-16 00:00 :00 No [id number] 10mg Take 1 tablet by mouth in the morning. [facility] triamcinolo ne acetonide 0.1 % ointment 11-28 00:00: 00 Yes [id number] Apply to area(s) 2 (two) times daily. [facility] levalbutero l (XOPENEX HFA) 45 mcg/actuati on inhaler 11-28 00:00: 00 01-20 00:00 :00 No [id number] 2{puff} Inhale 2 Puffs every 6 (six) hours as needed for Wheezing. [facility] losartan 25 mg tablet 11-28 00:00: 00 00:00 :00 No [id number] 25mg Take 1 tablet by mouth every day at 1200 (noon). [facility] bromphenira mine-pseudo ephedrine-D M (BROMFED DM) 2-30-10 mg/5 mL syrup 11-28 00:00: 00 12-09 05:59 :00 No [id number] 5mL Take 5 mL by mouth 4 (four) times daily as needed for Cough for up to 10 days. [facility] azithromyci n 250 mg tablet 11-28 00:00: 00 12-05 05:59 :00 No [id number] 250mg Take 1 tablet by mouth in the morning for 6 days. Take 500 mg day 1, then 250 mg days 2 to 5. Denies allergy to Z-pack [facility] montelukast 10 mg tablet 11-25 00:00: 00 Yes [id number] 10mg TAKE 1 TABLET BY MOUTH EVERY EVENING [facility] amoxicillin -clavulanat e (AUGMENTIN) 875-125 mg per tablet 11-21 00:00: 00 11-28 00:00 :00 No [id number] 1{tbl} Take 1 tablet by mouth in the morning and 1 tablet in the evening. Do all this for 7 days. [facility] benzonatate (TESSALON PERLES) 100 mg capsule 11-21 00:00: 00 11-28 00:00 :00 No [id number] 100mg Take 1 capsule by mouth every 8 (eight) hours as needed for Cough. [facility] diltiazem (CARDIZEM CD) 120 mg 24 hr capsule 2022-11 00:00: 00 10-22 00:00 :00 No [id number] 120mg Take 1 capsule by mouth every evening. [facility] diltiazem (CARDIZEM CD) 120 mg 24 hr capsule 2022-11 00:00: 00 10-22 00:00 :00 No [id number] 120mg Take 1 capsule by mouth every evening. [facility] ranolazine 500 mg 12 hr tablet 2022-11 00:00: 00 03-26 00:00 :00 No [id number] 500mg Take 1 tablet by mouth in the morning and 1 tablet in the evening. [facility] spironolact one 50 mg tablet 2022-11 00:00: 00 01-19 00:00 :00 No [id number] 50mg Take 1 tablet by mouth in the morning. [facility] losartan 25 mg tablet 2022-11 00:00: 00 11-28 00:00 :00 No [id number] 25mg Take 1 tablet by mouth every day at 1200 (noon). [facility] azelastine 137 mcg (0.1 %) nasal spray 2022-11 00:00: 00 12-02 00:00 :00 No [id number] 1{spray } Use 1 [place] in each nostril in the morning and 1 [place] in the evening. Use in each nostril as directed [facility] amoxicillin -clavulanat e (AUGMENTIN) 875-125 mg per tablet 2022-11 00:00: 00 11-21 00:00 :00 No [id number] 1{tbl} Take 1 tablet by mouth in the morning and 1 tablet in the evening. [facility] ranolazine 500 mg 12 hr tablet 2022-11 2 00:00: 00 10-22 00:00 :00 No [id number] 500mg Take 1 tablet by mouth in the morning and 1 tablet in the evening. [facility] hydrOXYzine 10 mg tablet 2022-11 00:00: 00 11-28 00:00 :00 No 10mg Take 1 tablet by mouth every 6 (six) hours as needed for Anxiety. [facility] bromphenira mine-pseudo ephedrine-D M (BROMFED DM) 2-30-10 mg/5 mL syrup 2022-11 00:00: 00 11-21 00:00 :00 No [id number] 10mL Take 10 mL by mouth 4 (four) times daily as needed for Congestion /Allergies . [facility] diltiazem (CARDIZEM CD) 240 mg 24 hr capsule 2022-11 00:00: 00 11-03 00:00 :00 No [id number] 240mg Take 1 capsule by mouth every morning. [facility] diltiazem (CARDIZEM CD) 120 mg 24 hr capsule 2022-11 00:00: 00 10-31 00:00 :00 No [id number] 120mg Take 1 capsule by mouth every evening. [facility] ketorolac (TORADOL) injection 60 mg 2022-11 17:15: 00 10-03 16:26 :00 No [id number] 60mg [facility] proMETHazin e (PHENERGAN) injection 25 mg 2022-11 17:15: 00 10-03 16:28 :00 No [id number] 25mg [facility] diphenhydrA MINE (BENADRYL) injection 50 mg 2022-11 17:00: 00 10-03 16:25 :00 No [id number] 50mg [facility] gabapentin 600 mg tablet 2022-11 09:46: 51 Yes 600mg Take 1 tablet by mouth 5 (five) times daily. [facility] busPIRone 15 mg tablet 2022-11 09:46: 51 Yes 15mg Take 1 tablet by mouth in the morning and 1 tablet at noon and 1 tablet in the evening. [facility] methocarbam oL 750 mg tablet 2022-11 00:00: 00 05-14 00:00 :00 No [id number] 1 po TID prn alternatin g with tizanidine [facility] primidone 250 mg tablet 2022-11 00:00: 00 02-17 00:00 :00 No [id number] 1 tab po BID [facility] isosorbide mononitrate 60 mg 24 hr tablet 2022-11 00:00: 00 06-19 00:00 :00 No [id number] 120mg Take 2 tablets by mouth every morning. [facility] losartan 25 mg tablet 2022-11 00:00: 00 10-22 00:00 :00 No [id number] 25mg Take 1 tablet by mouth in the morning and 1 tablet in the evening. [facility] Ranolazine 1,000 mg tablet 2022-11 00:00: 00 10-18 00:00 :00 No [id number] 1000mg Take 1 tablet by mouth in the morning and 1 tablet in the evening. [facility] proMETHazin e (PHENERGAN) injection 25 mg 2022-11 22:45: 00 09-24 21:51 :00 No [id number] 25mg [facility] ketorolac (TORADOL) injection 60 mg 2022-11 22:30: 00 09-24 21:49 :00 No [id number] 60mg [facility] diphenhydrA MINE (BENADRYL) injection 50 mg 2022-11 22:30: 00 09-24 21:50 :00 No [id number] 50mg [facility] atogepant (QULIPTA) 60 mg Tab 2022-11 00:00: 00 05-14 00:00 :00 No [id number] 60mg Take 1 tablet by mouth in the morning. [facility] ubrogepant 100 mg tablet 2022-11 00:00: 00 05-14 00:00 :00 No [id number] 100mg Take 1 tablet by mouth at onset of migraine symptoms. may repeat in 2 hours if needed. Max of 2 tablets per 24 hours. [facility] diltiazem (CARDIZEM CD) 120 mg 24 hr capsule 2022-11 00:00: 00 10-14 00:00 :00 No [id number] 120mg Take 1 capsule by mouth every evening. [facility] diltiazem (CARDIZEM CD) 240 mg 24 hr capsule 2022-11 00:00: 00 10-14 00:00 :00 No [id number] 240mg Take 1 capsule by mouth every morning. [facility] isosorbide mononitrate 60 mg 24 hr tablet 2022-11 00:00: 00 09-26 00:00 :00 No [id number] 120mg Take 2 tablets by mouth every morning. [facility] losartan 25 mg tablet 2022-11 00:00: 00 09-26 00:00 :00 No [id number] 25mg Take 1 tablet by mouth in the morning and 1 tablet in the evening. [facility] Ranolazine 1,000 mg tablet 2022-11 00:00: 00 09-26 00:00 :00 No [id number] 1000mg Take 1 tablet by mouth in the morning and 1 tablet in the evening. [facility] atorvastati n (LIPITOR) tablet 80 mg 2022-11 02:00: 00 Yes 80mg 80 mg, Oral, QHS, First dose on 09/15/23 at 2100, Until Discontinu ed, Routine [facility] pantoprazol e (PROTONIX) EC tablet 40 mg 2022-11 01:00: 00 Yes 40mg 40 mg, Oral, BID, First dose on 09/15/23 at 2000, Until Discontinu ed [facility] montelukast (SINGULAIR) tablet 10 mg 2022-11 22:00: 00 Yes 10mg 10 mg, Oral, QPM, First dose on 09/15/23 at 1700, Until Discontinu ed, Routine [facility] primidone (MYSOLINE) tablet 50 mg 2022-11 17:00: 00 Yes 50mg 50 mg, Oral, Q6H, First dose on 09/15/23 at 1200, Until Discontinu ed, Routine [facility] sucralfate (CARAFATE) 100 mg/mL suspension 1,000 mg 2022-11 16:30: 00 Yes 1g 1,000 mg (1 g), Oral, AC+HS, First dose on 09/15/23 at 1130, Until Discontinu ed, Routine [facility] busPIRone (BUSPAR) tablet 15 mg 2022-11 16:15: 00 Yes 15mg 15 mg, Oral, TID, First dose on 09/15/23 at 1115, Until Discontinu ed, Routine [facility] diltiazem (CARDIZEM) tablet 60 mg 2022-11 15:15: 00 Yes 60mg 60 mg, Oral, Q6H, First dose on 09/15/23 at 1015, Until Discontinu ed, Routine [facility] gabapentin (NEURONTIN) tablet 600 mg 2022-11 15:00: 00 Yes 600mg 600 mg, Oral, 5X DAY, First dose on 09/15/23 at 1000, Until Discontinu ed, Routine [facility] losartan (COZAAR) tablet 25 mg 2022-11 14:00: 00 Yes 25mg 25 mg, Oral, QAM, First dose on 09/15/23 at 0900, Until Discontinu ed, Routine [facility] clopidogreL (PLAVIX) 75 mg tablet 75 mg 2022-11 14:00: 00 Yes 75mg 75 mg, Oral, DAILY, First dose on 09/15/23 at 0900, Until Discontinu ed, Routine [facility] aspirin chewable tablet 81 mg 2022-11 14:00: 00 Yes 81mg 81 mg, Oral, DAILY, First dose on 09/15/23 at 0900, Until Discontinu ed, Routine [facility] docusate (COLACE) capsule 100 mg 2022-11 14:00: 00 Yes 100mg 100 mg, Oral, DAILY, First dose on 09/15/23 at 0900, Until Discontinu ed, Routine [facility] enoxaparin (LOVENOX) injection 40 mg 2022-11 14:00: 00 Yes 40mg 40 mg, Subcutaneo us, DAILY, First dose on 09/15/23 at 0900, Until Discontinu ed, Routine [facility] gabapentin 600 mg tablet 2022-11 13:51: 12 Yes 600mg Take 1 tablet by mouth 5 (five) times daily. [facility] busPIRone 15 mg tablet 2022-11 13:51: 12 Yes 15mg Take 1 tablet by mouth in the morning and 1 tablet at noon and 1 tablet in the evening. [facility] HYDROcodone -acetaminop hen (NORCO) 10-325 mg tablet 1 tablet 2022-11 13:50: 51 Yes 1{tbl} 1 tablet, Oral, Q6HPRN, Starting on 09/15/23 at 0850, Until Discontinu ed, Pain (scale 7-10) [facility] sulfur hexafluorid e microsphr (LUMASON) injection 5 mL 2022-11 13:45: 00 09-15 13:34 :00 No [id number] 5mL 5 mL, Intravenou s, ONCE, 1 dose, On 09/15/23 at 0845, Routine
membership administrator approving Restricted medication : BEATRIZ SIMON [facility] ranolazine (RANEXA) 12 hr tablet 1,000 mg 2022-11 13:00: 00 Yes 1000mg 1,000 mg, Oral, BID, First dose on 09/15/23 at 0800, Until Discontinu ed [facility] isosorbide mononitrate (IMDUR) 24 hr tablet 60 mg 2022-11 13:00: 00 Yes 60mg 60 mg, Oral, BID, First dose on Sat09/15/23 at 0800, Until Discontinu ed, Routine [facility] magnesium oxide (MAG-OX 400) tablet 400 mg 2022-11 13:00: 00 Yes 400mg 400 mg, Oral, BID, First dose on Sat09/15/23 at 0800, Until Discontinu ed, Routine [facility] topiramate (TOPAMAX) tablet 50 mg 2022-11 13:00: 00 Yes 50mg 50 mg, Oral, BID, First dose on 09/15/23 at 0800, Until Discontinu ed, Routine
membership administrator approving Restricted medication : MELODIE ASHRAF [facility] Fluticasone -Salmeterol (ADVAIR) 500-50 mcg/dose inhalation disk 1 Puff 2022-11 13:00: 00 Yes 1{puff} 1 Puff, Inhalation , Q12H, First dose on Sat09/15/23 at 0800, Until Discontinu ed, [facility] tart[facility] (LOPRESSOR) tablet 12.5 mg 2022-11 13:00: 00 Yes 12.5mg 12.5 mg, Oral, BID, First dose on Sat09/15/23 at 0800, Until Discontinu ed, Routine [facility] tiZANidine (ZANAFLEX) tablet 4 mg 2022-11 12:39: 20 Yes 4mg 4 mg, Oral, Q6HPRN, Starting on Sat09/15/23 at 0739, Until Discontinu ed, Routine, Muscle Spasms [facility] nitroglycer in (NITROSTAT) sublingual tablet 0.4 mg 2022-11 12:38: 21 Yes .4mg 0.4 mg, Sublingual , Q5MIN PRN, 3 doses, Starting on 09/15/23 at 0738, Until Discontinu ed, Routine, Chest pain [facility] ondansetron (ZOFRAN) tablet 8 mg 2022-11 12:37: 40 Yes 8mg 8 mg, Oral, Q6HPRN, Starting on 09/15/23 at 0737, Until Discontinu ed, Routine, Nausea and Vomiting (N/V) [facility] proMETHazin e (PHENERGAN) tablet 25 mg 2022-11 12:37: 40 Yes 25mg 25 mg, Oral, Q6HPRN, Starting on 09/15/23 at 0737, Until Discontinu ed, Routine, Nausea and Vomiting (N/V), N/V or migraine headache [facility] benzonatate (TESSALON PERLES) capsule 200 mg 2022-11 12:37: 39 Yes 200mg 200 mg, Oral, Q8HPRN, Starting on 09/15/23 at 0737, Until Discontinu ed, Routine, Cough [facility] levalbutero l (XOPENEX) nebulizer solution 1.25 mg 2022-11 12:36: 16 Yes 1.25mg 1.25 mg, Inhalation , TIDPRN, Starting on 09/15/23 at 0736, Until Discontinu ed, Routine, Wheezing, Shortness of Breath [facility] diphenhydrA MINE (BENADRYL) tablet 25 mg 2022-11 07:45: 00 09-15 06:52 :00 No 25mg 25 mg, Oral, ONCE, 1 dose, On 09/15/23 at 0245, Routine [facility] NaCl 0.9% (NS) IV infusion 1,000 mL 2022-11 03:45: 00 Yes 1000mL at 50 mL/hr, IV Infusion, CONTINUOUS , Starting on 09/14/23 at 2245, Until Discontinu ed, Routine [facility] HYDROcodone -acetaminop hen (NORCO) 10-325 mg tablet 1 tablet 2022-11 03:28: 54 09-15 12:46 :36 No 1{tbl} 1 tablet, Oral, Q6HPRN, Starting on 09/14/23 at 2228, Until 09/15/23 at 0746, Routine, Pain (scale 7-10) [facility] HYDROcodone -acetaminop hen (NORCO 5) 5-325 mg tablet 1 tablet 2022-11 03:28: 52 09-17 03:27 :52 No 1{tbl} 1 tablet, Oral, Q6HPRN, Starting on 09/14/23 at 2228, Until 09/16/23 at 2227, Routine, Pain (scale 4-6) [facility] acetaminoph en (TYLENOL) tablet 650 mg 2022-11 03:28: 50 Yes 650mg 650 mg, Oral, Q6HPRN, Starting on 09/14/23 at 2228, Until Discontinu ed, Routine, Pain (scale 1-3) [facility] topiramate 50 mg tablet 2022-11 00:00: 00 09-24 00:00 :00 No [id number] 100mg Take 2 tablets by mouth in the morning and 2 tablets in the evening. [facility] diltiazem (CARDIZEM CD) 240 mg 24 hr capsule 2022-11 00:00: 00 09-18 00:00 :00 No [id number] 240mg Take 1 capsule by mouth in the morning for 30 days. [facility] FENTanyl PF (SUBLIMAZE (PF)) injection 50 mcg 2022-11 00:00: 00 09-15 00:34 :00 No 50ug 50 mcg, Slow IV Push, ONCE, 1 dose, On 09/14/23 at 1900, Routine [facility] levoFLOXaci n 750 mg tablet 07-24 00:00: 00 09-14 00:00 :00 No [id number] 750mg Take 1 tablet by mouth every 24 (twenty-fo ur) hours. [facility] fluconazole (DIFLUCAN) 150 mg tablet 07-24 00:00: 00 07-25 04:59 :00 No [id number] 150mg Take 1 tablet by mouth once now for 1 dose. [facility] amoxicillin -clavulanat e (AUGMENTIN) 875-125 mg per tablet 07-14 00:00: 00 09-15 00:00 :00 No [id number] 1{tbl} Take 1 tablet by mouth in the morning and 1 tablet in the evening. [facility] ondansetron 4 mg disintegrat ing tablet 07-05 00:00: 00 11-28 00:00 :00 No 4mg Take 1 tablet by mouth every 8 (eight) hours as needed for Nausea and Vomiting (N/V) for up to 45 doses. [facility] SPIRONOLACT ONE 50 mg tablet 07-04 00:00: 00 10-22 00:00 :00 No [id number] TAKE 1 TABLET BY MOUTH TWICE DAILY [facility] losartan 25 mg tablet 07-04 00:00: 00 09-18 00:00 :00 No [id number] 25mg TAKE 1 TABLET BY MOUTH DAILY [facility] LOSARTAN 25 mg tablet 06-21 00:00: 00 Yes [id number] TAKE 1 TABLET BY MOUTH IN THE MORNING AND IN THE EVENING [facility] clopidogreL 75 mg tablet 06-13 00:00: 00 Yes [id number] 75mg Take 1 tablet by mouth in the morning. [facility] Ranolazine 1,000 mg tablet 06-13 00:00: 00 09-18 00:00 :00 No [id number] 1000mg Take 1 tablet by mouth in the morning and 1 tablet in the evening. [facility] isosorbide mononitrate 60 mg 24 hr tablet 06-13 00:00: 00 09-18 00:00 :00 No [id number] 60mg Take 1 tablet by mouth in the morning and 1 tablet in the evening. [facility] losartan 25 mg tablet 06-13 00:00: 00 06-21 00:00 :00 No [id number] 25mg Take 1 tablet by mouth every morning and evening. [facility] ondansetron (ZOFRAN) 8 mg tablet 06-12 00:00: 00 10-18 00:00 :00 No [id number] 8mg Take 1 tablet by mouth every 6 (six) hours as needed for Nausea and Vomiting (N/V). [facility] sucralfate 100 mg/mL suspension 05-30 00:00: 00 Yes [facility] azelastine 137 mcg (0.1 %) nasal spray 05-28 00:00: 00 10-18 00:00 :00 No [id number] 1{spray } Use 1 [place] in each nostril in the morning and 1 [place] in the evening. Use in each nostril as directed [facility] gabapentin 600 mg tablet 05-23 14:16: 15 Yes 600mg Take 1 tablet by mouth 5 (five) times daily. [facility] busPIRone 15 mg tablet 05-23 14:16: 15 Yes 15mg Take 1 tablet by mouth in the morning and 1 tablet at noon and 1 tablet in the evening. [facility] proMETHazin e 25 mg tablet 05-23 00:00: 00 11-28 00:00 :00 No [id number] 25mg Take 1 tablet by mouth every 6 (six) hours as needed for Nausea and Vomiting (N/V) (N/V or migraine headache). [facility] primidone 50 mg tablet 05-23 00:00: 00 10-03 00:00 :00 No [id number] 2-3 tab po BID [facility] rimegepant (NURTEC ODT) 75 mg TbDL 05-23 00:00: 00 09-24 00:00 :00 No [id number] 75mg Dissolve 1 tablet by mouth every other day. [facility] topiramate 50 mg tablet 05-23 00:00: 00 09-14 00:00 :00 No [id number] 100mg Take 2 tablets by mouth in the morning and 2 tablets in the evening. [facility] sulfamethox azole-trime thoprim (BACTRIM DS) 800-160 mg per tablet 05-15 00:00: 00 05-23 04:59 :00 No 1{tbl} Take 1 tablet by mouth in the morning and 1 tablet in the evening. Do all this for 7 days. [facility] omeprazole 40 mg capsule 05-03 00:00: 00 Yes [id number] 40mg Take 1 capsule by mouth in the morning. [facility] gabapentin 600 mg tablet 05-01 17:44: 12 Yes 600mg Take 1 tablet by mouth 5 (five) times daily. [facility] busPIRone 15 mg tablet 05-01 17:44: 12 Yes 15mg Take 1 tablet by mouth in the morning and 1 tablet at noon and 1 tablet in the evening. [facility] gabapentin 600 mg tablet 05-01 12:45: 32 Yes 600mg Take 1 tablet by mouth 5 (five) times daily. [facility] busPIRone 15 mg tablet 05-01 12:45: 32 Yes 15mg Take 1 tablet by mouth in the morning and 1 tablet at noon and 1 tablet in the evening. [facility] enoxaparin (LOVENOX) injection 30 mg 05-01 01:00: 00 Yes 30mg 30 mg, Subcutaneo us, Q12H, First dose on Sat04/30/23 at 2000, Until Discontinu ed, Routine [facility] traMADoL 50 mg tablet 05-01 00:00: 00 09-14 00:00 :00 No [id number] 50mg Take 1 tablet by mouth every 6 (six) hours as needed for Pain (scale 7-10). Indication s: acute pain [facility] M-PAP 160 mg/5 mL liquid 05-01 00:00: 00 06-12 00:00 :00 No TAKE 10 ML BY MOUTH THREE TIMES DAILY. DO THIS FOR 3 DAYS [facility] ondansetron 4 mg disintegrat ing tablet 05-01 00:00: 00 05-16 04:59 :00 No [id number] 104 4mg Take 1 tablet by mouth every 8 (eight) hours as needed for Nausea and Vomiting (N/V) for up to 14 days. [facility] acetaminoph en 160 mg/5 mL (5 mL) oral suspension 05-01 00:00: 00 05-05 04:59 :00 No [id number] 104 325.001 6mg Take 10.1563 mL by mouth in the morning and 10.1563 mL at noon and 10.1563 mL in the evening. Do all this for 3 days. [facility] omeprazole (PRILOSEC) 2 mg/mL oral suspension 05-01 00:00: 00 05-03 00:00 :00 No [id number] 104 40mg Take 20 mL by mouth in the morning for 90 days. [facility] metoclopram janie HCl (REGLAN) injection 10 mg 04-30 23:00: 00 Yes 10mg 10 mg, Slow IV Push, Q6H, First dose on Sat04/30/23 at 1800, Until Discontinu ed, Routine [facility] ketorolac (TORADOL) injection 15 mg 04-30 23:00: 00 05-02 10:59 :00 No 15mg 15 mg, Slow IV Push, Q6H, 6 doses, First dose on Sat04/30/23 at 1800, Last dose on Sat05/02/23 at 0000, Routine [facility] losartan (COZAAR) tablet 25 mg 04-30 22:00: 00 Yes 25mg 25 mg, Oral, QAM+PM, First dose on Sat04/30/23 at 1700, Until Discontinu ed, Routine [facility] gabapentin (NEURONTIN) 300 mg/6 mL oral solution 600 mg 04-30 19:00: 00 Yes 600mg 600 mg, Oral, TID, First dose on Sat04/30/23 at 1400, Until Discontinu ed, Routine [facility] acetaminoph en ADULT (OFIRMEV) injection 1,000 mg 04-30 19:00: 00 05-01 10:13 :00 No 1000mg 1,000 mg, IV Infusion, at 400 mL/hr Administer over 15 Minutes, Q8H, 3 doses, First dose on Sat04/30/23 at 1400, Last dose on Sat05/01/23 at 0600, Routine
Indicatio n: Perioperat lars Patient [facility] HYDROmorpho ne (DILAUDID) injection 0.2 mg 04-30 18:43: 00 04-30 21:06 :07 No .2mg 0.2 mg, Slow IV Push, Q5MIN PRN, 10 doses, Starting on Sat04/30/23 at 1343, Until Sat04/30/23 at 1606, Routine, Pain (scale 7-10), PACU
Us e approved by (Faculty): PACU USE -ANESTHESI A SERVICE-HY DROMORPHON E INJECTIONS [facility] pantoprazol e (PROTONIX) injection 40 mg 04-30 18:00: 00 Yes 40mg 40 mg, Slow IV Push, DAILY, First dose on Sat04/30/23 at 1300, Until Discontinu ed [facility] D5W 0.45% NaCl (1/2NS) 1 L + KCL 20 mEq 04-30 18:00: 00 Yes 1000mL IV Infusion, at 100 mL/hr, CONTINUOUS , Starting on Sat04/30/23 at 1300, Until Discontinu ed, Routine [facility] oxyCODONE (ROXYCONE) 5 mg/5 mL solution 5 mg 04-30 17:51: 43 Yes 5mg 5 mg, Oral, Q6HPRN, Starting on Sat04/30/23 at 1251, Until Discontinu ed, Routine, Pain (scale 7-10)
F aculty member approving Restricted medication : DARRYN SEYMOUR [facility] ondansetron (ZOFRAN (PF)) injection 4 mg 04-30 17:51: 43 Yes 4mg 4 mg, Slow IV Push, Q6HPRN, Starting on Sat04/30/23 at 1251, Until Discontinu ed, Routine, Nausea and Vomiting (N/V) [facility] levalbutero l (XOPENEX HFA) inhaler 2 Puff 04-30 17:49: 57 Yes 2{puff} 2 Puff, Inhalation , Q6HPRN, Starting on Sat04/30/23 at 1249, Until Discontinu ed, Routine, Wheezing, Shortness of Breath
Is this order for a patient with suspected or confirmed COVID-19 infection? No
Does this order have Pulmonary/ Critical Care approval? No [facility] budesonide- formoteroL (SYMBICORT) 160-4.5 mcg/actuati on inhaler 2 Puff 04-30 17:48: 22 Yes 2{puff} 2 Puff, Inhalation , BIDPRN, Starting on Sat04/30/23 at 1248, Until Discontinu ed, coughing weezing [facility] bupivacaine (preserv free) (SENSORCAIN E MPF) 0.25 % (2.5 mg/mL) 30 mL, lidocaine-e pinephrine (XYLOCAINE WITH EPINEPHRINE ) 1 %-1:100,000 20 mL 04-30 15:47: 00 04-30 17:50 :17 No PRN, Starting on Sat04/30/23 at 1047, Intra-op [facility] heparin (porcine) injection 5,000 Units 04-30 13:30: 00 04-30 14:28 :00 No 5000U 5,000 Units, Subcutaneo us, ONCE, 1 dose, On Sat04/30/23 at 0830, Routine, DSU Pre-op [facility] traZODone 150 mg tablet 04-25 00:00: 00 Yes [facility] escitalopra m oxalate 10 mg tablet 04-25 00:00: 00 06-12 00:00 :00 No [facility] SPIRONOLACT ONE 50 mg tablet 5-24 00:00: 00 07-04 00:00 :00 No TAKE 1 TABLET BY MOUTH TWICE DAILY [facility] topiramate 50 mg tablet 03-25 00:00: 00 05-23 00:00 :00 No [id number] 100mg Take 2 tablets by mouth in the morning and 2 tablets in the evening. [facility] NITROGLYCER IN 0.4 mg sublingual tablet 03-18 00:00: 00 10-22 00:00 :[id number] 1 TABLET UNDER THE TONGUE EVERY 5 MINUTES NEEDED FOR CHEST PAIN. [facility] RANOLAZINE 1,000 mg tablet 03-18 00:00: 00 06-13 00:00 :00 No [id number] TAKE 1 TABLET BY MOUTH TWICE DAILY [facility] diazePAM 10 mg tablet 02-22 00:00: 00 02-23 04:59 :00 No [id number] 10mg Take 1 tablet by mouth once now for 1 dose. [facility] cefdinir 300 mg capsule 02-20 00:00: 00 02-28 04:59 :00 No [id number] 300mg Take 1 capsule by mouth every 12 (twelve) hours for 7 days. [facility] triamcinolo ne acetonide (KENALOG) injection 40 mg 02-04 20:30: 00 02-04 20:30 :00 No [id number] 40mg [facility] amoxicillin -clavulanat e (AUGMENTIN) 875-125 mg per tablet 01-28 00:00: 00 04-30 00:00 :00 No [id number] 1{tbl} Take 1 tablet by mouth in the morning and 1 tablet in the evening. [facility] amoxicillin -clavulanat e (AUGMENTIN) 875-125 mg per tablet 01-26 00:00: 00 02-06 04:59 :00 No [id number] 1{tbl} Take 1 tablet by mouth in the morning and 1 tablet in the evening. Do all this for 10 days. [facility] ATORVASTATI N 80 mg tablet 01-14 00:00: 00 01-16 00:00 :00 No [id number] 80mg TAKE 1 TABLET BY MOUTH AT BEDTIME [facility] LOSARTAN 25 mg tablet 01-14 00:00: 00 06-13 00:00 :00 No [id number] TAKE 1 TABLET BY MOUTH IN THE MORNING AND IN THE EVENING [facility] MONTELUKAST 10 mg tablet 2-14 00:00: 00 11-25 00:00 :00 No [id number] 10mg TAKE 1 TABLET BY MOUTH EVERY EVENING [facility] NITROGLYCER IN 0.4 mg sublingual tablet 12-21 00:00: 00 03-18 00:00 :[id number] 1 TABLET UNDER THE TONGUE EVERY 5 MINUTES NEEDED FOR CHEST PAIN. [facility] magnesium oxide 400 mg (241.3 mg magnesium) tablet 1- 00:00: 00 Yes [id number] 400mg Take 1 tablet by mouth in the morning and 1 tablet in the evening. [facility] iopamidol (ISOVUE 370-500 mL) injection 2021-11 17:06: 43 11-14 17:19 :18 No ONCE INTRA PROCEDURE, Starting on Sat11/14/22 at 1106, Until Sat11/14/22 at 1119, Routine, CV Intraproce dure [facility] lidocaine 1% (PF) (XYLOCAINE) injection 2021-11 16:24: 31 11-14 17:19 :18 No ONCE INTRA PROCEDURE, Starting on Sat11/14/22 at 1024, Until Sat11/14/22 at 1119, Routine, CV Intraproce dure [facility] gabapentin 600 mg tablet 2021-11 16:20: 43 Yes 600mg Take 600 mg by mouth 5 (five) times daily. [facility] Fluticasone -Salmeterol (ADVAIR DISKUS) 500-50 mcg/dose inhalation disk 2021-11 00:00: 00 Yes [id number] 1{puff} Inhale 1 Puff every 12 (twelve) hours. [facility] levalbutero l 0.63 mg/3 mL nebulizer solution 2021-11 00:00: 00 10-14 00:00 :00 No [id number] USE 1 VIAL BY NEBULATION THREE TIMES DAILY NEEDED FOR WHEEZING, SHORTNESS OF BREATH OR CHEST TIGHTNESS [facility] levalbutero l (XOPENEX HFA) 45 mcg/actuati on inhaler 2021-11 00:00: 00 11-28 00:00 :00 No [id number] 2{puff} Inhale 2 Puffs every 6 (six) hours as needed for Wheezing. [facility] benzonatate 100 mg capsule 2021-11 00:00: 00 10-18 00:00 :00 No [id number] 200mg Take 2 capsules by mouth every 8 (eight) hours as needed for Cough. [facility] guaiFENesin 400 mg tablet 2021-11 00:00: 00 06-12 00:00 :00 No [id number] 400mg Take 1 tablet by mouth every 4 (four) hours as needed for Cough. [facility] azelastine 137 mcg (0.1 %) nasal spray 2021-11 00:00: 00 04-30 00:00 :00 No [id number] 1{spray } Use 1 [place] in each nostril in the morning and 1 [place] in the evening. Use in each nostril as directed [facility] fluticasone propionate 50 mcg/actuati on nasal spray 2021-11 00:00: 00 04-30 00:00 :00 No [id number] 1{spray } Use 1 [place] in each nostril in the morning. [facility] tc 99m-tetrofo smin (MYOVIEW) injection 34.1 millicurie 2021-11 15:15: 00 10-23 15:10 :00 No [id number] 34.1mCi 34.1 millicurie , Intravenou s, ONCE, 1 dose, On Sat10/23/22 at 0915, Routine [facility] regadenoson (LEXISCAN) injection 0.4 mg 2021-11 15:00: 00 10-23 15:10 :00 No [id number] .4mg 0.4 mg, IV Push, ONCE, 1 dose, On Sat10/23/22 at 0900, Routine
membership administrator approving Restricted medication : BEATRIZ SIMON [facility] CLOPIDOGREL 75 mg tablet 2021-11 00:00: 00 05-01 00:00 :00 No [id number] TAKE 1 TABLET BY MOUTH DAILY [facility] ketorolac (TORADOL) injection 60 mg 2021-11 21:30: 00 10-15 20:52 :00 No [id number] 60mg [facility] proMETHazin e (PHENERGAN) injection 25 mg 2021-11 21:30: 00 10-15 20:51 :00 No [id number] 25mg [facility] diphenhydrA MINE (BENADRYL) injection 50 mg 2021-11 21:15: 00 10-15 20:53 :00 No [id number] 50mg [facility] proMETHazin e 25 mg tablet 2021-11 00:00: 00 05-23 00:00 :00 No [id number] 25mg Take 1 tablet by mouth every 6 (six) hours as needed for Nausea and Vomiting (N/V) (N/V or migraine headache). [facility] rimegepant (NURTEC ODT) 75 mg TbDL 2021-11 00:00: 00 05-23 00:00 :00 No [id number] 75mg Take 1 tablet by mouth every other day. [facility] SPIRONOLACT ONE 50 mg tablet 2021-11 00:00: 00 04-10 00:00 :00 No TAKE 1 TABLET BY MOUTH TWICE DAILY [facility] topiramate 50 mg tablet 2021-11 00:00: 00 03-25 00:00 :00 No [id number] 100mg Take 2 tablets by mouth in the morning and 2 tablets in the evening. [facility] ondansetron (ZOFRAN-ODT ) disintegrat ing tablet 4 mg 2021-11 22:14: 00 10-10 22:15 :00 No [id number] 4mg [facility] ondansetron (ZOFRAN (PF)) injection 4 mg 2021-11 22:04: 00 10-10 22:13 :43 No [id number] 4mg [facility] ketorolac (TORADOL) injection 60 mg 2021-11 22:03: 00 10-10 22:16 :00 No [id number] 60mg [facility] proMETHazin e 25 mg tablet 2021-11 00:00: 00 10-15 00:00 :00 No [id number] 25mg Take 1 tablet by mouth every 6 (six) hours as needed for Nausea and Vomiting (N/V) (N/V or migraine headache) for up to 5 days. [facility] isosorbide mononitrate 60 mg 24 hr tablet 2021-11 08:27: 01 09-28 00:00 :00 No 60mg Take 60 mg by mouth in the morning and 60 mg in the evening. [facility] isosorbide mononitrate 60 mg 24 hr tablet 2021-11 00:00: 00 06-13 00:00 :00 No [id number] TAKE 1 TABLET BY MOUTH TWICE DAILY [facility] Cholecalcif shabana, Vitamin D3, (VITAMIN D3) 25 mcg (1,000 unit) Chew 2021-11 00:00: 00 06-12 00:00 :00 No [id number] 1000U Take 1,000 Units by mouth daily. [facility] mupirocin 2 % ointment 2021-11 0-10 00:00: 00 09-11 04:59 :00 No [id number] Apply to area(s) 3 (three) times daily for 14 days. [facility] sulfamethox azole-trime thoprim (BACTRIM DS) 800-160 mg per tablet 2021-11 00:00: 00 09-04 04:59 :00 No [id number] 1{tbl} Take 1 tablet by mouth in the morning and 1 tablet in the evening. Do all this for 7 days. [facility] fluconazole (DIFLUCAN) 150 mg tablet 2021-11 00:00: 00 08-28 04:59 :00 No [id number] 150mg Take 1 tablet by mouth once now for 1 dose. [facility] fluconazole (DIFLUCAN) 150 mg tablet 2021-11 00:00: 00 08-25 04:59 :00 No [id number] 150mg Take 1 tablet by mouth once now for 1 dose. [facility] NITROSTAT 0.4 mg sublingual tablet 2021-11 0 00:00: 00 12-21 00:00 :00 [id number] 1 tablet under the tongue every 5 (five) minutes as needed for Chest pain. [facility] bumetanide 1 mg tablet 07-30 00:00: 00 05-01 00:00 :00 No [id number] 1mg Take 1 tablet by mouth every 2 (two) days. [facility] losartan 25 mg tablet 07-30 00:00: 00 01-14 00:00 :00 No [id number] 25mg Take 1 tablet by mouth in the morning and 1 tablet in the evening. [facility] isosorbide mononitrate 60 mg 24 hr tablet 07-28 00:16: 32 Yes 60mg Take 60 mg by mouth in the morning and 60 mg in the evening. [facility] bumetanide 1 mg tablet 07-28 00:00: 00 07-30 00:00 :00 No [id number] 1mg Take 1 tablet by mouth every 2 (two) days. [facility] losartan 25 mg tablet 07-26 00:00: 00 07-30 00:00 :00 No [id number] 25mg Take 1 tablet by mouth in the morning and 1 tablet in the evening. [facility] clopidogreL 75 mg tablet 07-19 00:00: 00 10-18 00:00 :00 No [id number] TAKE 1 TABLET BY MOUTH DAILY [facility] fluconazole (DIFLUCAN) 150 mg tablet 07-04 00:00: 00 06-12 00:00 :00 No [id number] Repeat dose in 72 hrs. [facility] triamcinolo ne acetonide 0.1 % ointment 07-04 00:00: 00 06-12 00:00 :00 No [id number] Apply to area(s) 2 (two) times daily. [facility] famotidine 40 mg tablet 06-18 00:00: 00 Yes [facility] magnesium oxide 400 mg (241.3 mg magnesium) tablet 06-15 00:00: 00 11-30 00:00 :00 No [id number] 400mg Take 1 tablet by mouth in the morning. [facility] cephALEXin (KEFLEX) 500 mg capsule 06-15 00:00: 00 08-27 00:00 :00 No [id number] 500mg Take 1 capsule by mouth 4 (four) times daily. [facility] busPIRone 10 mg tablet 05-30 00:00: 00 Yes 10mg Take 10 mg by mouth 3 (three) times daily as needed. [facility] busPIRone 10 mg tablet 05-30 00:00: 00 06-12 00:00 :00 No 15mg Take 1.5 tablets by mouth 3 (three) times daily as needed. [facility] pantoprazol e 40 mg EC tablet 05-28 00:00: 00 05-01 00:00 :00 No 40mg Take 40 mg by mouth in the morning and 40 mg in the evening. [facility] primidone 50 mg tablet 05-19 00:00: 00 05-23 00:00 :00 No [id number] 1-2 tab po BID [facility] ATORVASTATI N 80 mg tablet 05-17 00:00: 00 01-14 00:00 :00 No [id number] 80mg TAKE 1 TABLET BY MOUTH AT BEDTIME [facility] Ranolazine (RANEXA) 1,000 mg tablet 05-11 00:00: 00 03-18 00:00 :00 No [id number] 1000mg Take 1 tablet by mouth 2 (two) times daily. [facility] losartan 25 mg tablet 05-11 00:00: 00 07-26 00:00 :00 No [id number] 25mg Take 1 tablet by mouth daily. [facility] gabapentin 600 mg tablet 04-27 13:05: 25 Yes 600mg Take 1 tablet by mouth 5 (five) times daily. [facility] ranitidine 150 mg capsule 04-27 00:00: 00 10-18 00:00 :00 No [id number] 150mg Take 1 capsule by mouth 2 (two) times daily. [facility] DEXILANT 60 mg capsule 04-18 00:00: 00 Yes 1{capsu le} Take 1 capsule by mouth daily. [facility] DEXILANT 60 mg capsule 04-18 00:00: 00 Yes 60mg Take 1 capsule by mouth in the morning. [facility] sucralfate 1 gram tablet 04-17 00:00: 00 06-13 00:00 :00 No 1g Take 1 tablet by mouth in the morning and 1 tablet in the evening. [facility] spironolact one 50 mg tablet 04-17 00:00: 00 10-15 00:00 :00 No 50mg Take 1 tablet by mouth 2 (two) times daily. [facility] MAG-G tablet -08 00:00: 00 06-12 00:00 :00 No [id number] TAKE 1 TABLET BY MOUTH TWICE DAILY [facility] butalbital- acetaminoph en-caff 50-325-40 mg tablet 01-17 00:00: 00 05-23 00:00 :00 No [id number] 1{tbl} Take 1 tablet by mouth every 6 (six) hours as needed (migraine) . DO NOT TAKE WITH HYDROCODON E [facility] topiramate 50 mg tablet 01-17 00:00: 00 10-15 00:00 :00 No [id number] 50mg po QAM and 100mg QHS for 1 week, then 100mg po BID [facility] proMETHazin e 25 mg tablet 01-17 00:00: 00 10-10 00:00 :00 No [id number] 9105 25mg Take 1 tablet by mouth every 4 (four) hours as needed (N/V or migraine headache). [facility] montelukast 10 mg tablet 12-28 00:00: 00 Yes [id number] 10mg Take 1 tablet by mouth every evening. [facility] levalbutero l (XOPENEX HFA) 45 mcg/actuati on inhaler 12-28 00:00: 00 11-05 00:00 :00 No [id number] 2{puff} Inhale 2 Puffs every 6 (six) hours as needed for Wheezing. [facility] Fluticasone -Salmeterol (ADVAIR DISKUS) 500-50 mcg/dose inhalation disk 06-29 00:00: 00 11-05 00:00 :00 No [id number] 1{puff} Inhale 1 Puff every 12 (twelve) hours. [facility] levalbutero l 0.63 mg/3 mL nebulizer solution 06-16 00:00: 00 11-05 00:00 :00 No [id number] USE 1 VIAL BY NEBULATION THREE TIMES DAILY NEEDED FOR WHEEZING, SHORTNESS OF BREATH OR CHEST TIGHTNESS [facility] traZODone 100 mg tablet 14 00:00: 00 09-14 00:00 :00 No [id number] 105 50mg Take 0.5 tablets by mouth at bedtime as needed for Insomnia. [facility] nitroglycer in (NITROSTAT) 0.4 mg sublingual tablet 24 00:00: 00 08-20 00:00 :[id number] 1 tablet under the tongue every 5 (five) minutes as needed for Chest pain. [facility] HYDROcodone -acetaminop hen 7.5-325 mg per tablet 2018-11 00:00: 00 Yes TK 1 T PO BID. [facility] Diclofenac Sodium 1 % gel 2018-11 00:00: 00 10-19 00:00 :00 No TINA 2 GRAMS EXT AA QID [facility] aspirin 81 mg chewable tablet 2018-11 00:00: 00 Yes 81mg Take 1 tablet by mouth daily. [facility] tiZANidine 4 mg tablet 2018-11 00:00: 00 Yes TK 1 T PO TID [facility] Immunizations Ordered Immunization Name Filled Immunization Name Date Status Comments Source Influenza Virus Vaccine Quad IM, Preserv and ABX Free 6 MO-64 YRS 2022-09-04 00:00:00 Completed [facility] Influenza Virus Vaccine Quad IM, Preserv and ABX Free 6 MO-64 YRS 2022-09-04 00:00:00 Completed [facility] Influenza Virus Vaccine Quad IM, Preserv and ABX Free 6 MO-64 YRS 2022-09-04 00:00:00 Completed [facility] Influenza Virus Vaccine Quad IM, Preserv and ABX Free 6 MO-64 YRS 2022-09-04 00:00:00 Completed [facility] Influenza Virus Vaccine Quad IM, Preserv and ABX Free 6 MO-64 YRS 2022-09-04 00:00:00 Completed [facility] Influenza Virus Vaccine Quad IM, Preserv and ABX Free 6 MO-64 YRS 2022-09-04 00:00:00 Completed [facility] Influenza Virus Vaccine Quad IM, Preserv and ABX Free 6 MO-64 YRS 2022-09-04 00:00:00 Completed [facility] Influenza Virus Vaccine Quad IM, Preserv and ABX Free 6 MO-64 YRS 2022-09-04 00:00:00 Completed [facility] Influenza Virus Vaccine Quad IM, Preserv and ABX Free 6 MO-64 YRS 2022-09-04 00:00:00 Completed [facility] Influenza Virus Vaccine Quad IM, Preserv and ABX Free 6 MO-64 YRS 2022-09-04 00:00:00 Completed [facility] Influenza Virus Vaccine Quad IM, Preserv and ABX Free 6 MO-64 YRS 2022-09-04 00:00:00 Completed [facility] Influenza Virus Vaccine Quad IM, Preserv and ABX Free 6 MO-64 YRS 2022-09-04 00:00:00 Completed [facility] Influenza Virus Vaccine Quad IM, Preserv and ABX Free 6 MO-64 YRS 2022-09-04 00:00:00 Completed [facility] Influenza Virus Vaccine Quad IM, Preserv and ABX Free 6 MO-64 YRS 2022-09-04 00:00:00 Completed [facility] Influenza Virus Vaccine Quad IM, Preserv and ABX Free 6 MO-64 YRS 2022-09-04 00:00:00 Completed [facility] Influenza Virus Vaccine Quad IM, Preserv and ABX Free 6 MO-64 YRS 2022-09-04 00:00:00 Completed [facility] Influenza Virus Vaccine Quad IM, Preserv and ABX Free 6 MO-64 YRS 2022-09-04 00:00:00 Completed [facility] Influenza Virus Vaccine Quad IM, Preserv and ABX Free 6 MO-64 YRS 2022-09-04 00:00:00 Completed [facility] Influenza Virus Vaccine Quad IM, Preserv and ABX Free 6 MO-64 YRS 2022-09-04 00:00:00 Completed [facility] Influenza Virus Vaccine Quad IM, Preserv and ABX Free 6 MO-64 YRS 2022-09-04 00:00:00 Completed [facility] Influenza Virus Vaccine Quad IM, Preserv and ABX Free 6 MO-64 YRS 2022-09-04 00:00:00 Completed [facility] Influenza Virus Vaccine Quad IM, Preserv and ABX Free 6 MO-64 YRS 2022-09-04 00:00:00 Completed [facility] Influenza Virus Vaccine Quad IM, Preserv and ABX Free 6 MO-64 YRS 2022-09-04 00:00:00 Completed [facility] Influenza Virus Vaccine Quad IM, Preserv and ABX Free 6 MO-64 YRS 2022-09-04 00:00:00 Completed [facility] Influenza Virus Vaccine Quad IM, Preserv and ABX Free 6 MO-64 YRS 2022-09-04 00:00:00 Completed [facility] Influenza Virus Vaccine Quad IM, Preserv and ABX Free 6 MO-64 YRS 2022-09-04 00:00:00 Completed [facility] Influenza Virus Vaccine Quad IM, Preserv and ABX Free 6 MO-64 YRS 2022-09-04 00:00:00 Completed [facility] Influenza Virus Vaccine Quad IM, Preserv and ABX Free 6 MO-64 YRS 2022-09-04 00:00:00 Completed [facility] Influenza Virus Vaccine Quad IM, Preserv and ABX Free 6 MO-64 YRS 2022-09-04 00:00:00 Completed [facility] Influenza Virus Vaccine Quad IM, Preserv and ABX Free 6 MO-64 YRS 2022-09-04 00:00:00 Completed [facility] Influenza Virus Vaccine Quad IM, Preserv and ABX Free 6 MO-64 YRS 2022-09-04 00:00:00 Completed [facility] Influenza Virus Vaccine Quad IM, Preserv and ABX Free 6 MO-64 YRS 2022-09-04 00:00:00 Completed [facility] Influenza Virus Vaccine Quad IM, Preserv and ABX Free 6 MO-64 YRS 2022-09-04 00:00:00 Completed [facility] Influenza Virus Vaccine Quad IM, Preserv and ABX Free 6 MO-64 YRS 2022-09-04 00:00:00 Completed [facility] Influenza Virus Vaccine Quad IM, Preserv and ABX Free 6 MO-64 YRS 2022-09-04 00:00:00 Completed [facility] Influenza Virus Vaccine Quad IM, Preserv and ABX Free 6 MO-64 YRS 2022-09-04 00:00:00 Completed [facility] Influenza Virus Vaccine Quad IM, Preserv and ABX Free 6 MO-64 YRS 2022-09-04 00:00:00 Completed [facility] Influenza Virus Vaccine Quad IM, Preserv and ABX Free 6 MO-64 YRS 2022-09-04 00:00:00 Completed [facility] Influenza Virus Vaccine Quad IM, Preserv and ABX Free 6 MO-64 YRS 2022-09-04 00:00:00 Completed [facility] Influenza Virus Vaccine Quad IM, Preserv and ABX Free 6 MO-64 YRS 2022-09-04 00:00:00 Completed [facility] Influenza Virus Vaccine Quad IM, Preserv and ABX Free 6 MO-64 YRS 2022-09-04 00:00:00 Completed [facility] Influenza Virus Vaccine Quad IM, Preserv and ABX Free 6 MO-64 YRS 2022-09-04 00:00:00 Completed [facility] Influenza Virus Vaccine Quad IM, Preserv and ABX Free 6 MO-64 YRS 2022-09-04 00:00:00 Completed [facility] Influenza Virus Vaccine Quad IM, Preserv and ABX Free 6 MO-64 YRS 2022-09-04 00:00:00 Completed [facility] Influenza Virus Vaccine Quad IM, Preserv and ABX Free 6 MO-64 YRS 2022-09-04 00:00:00 Completed [facility] Influenza Virus Vaccine Quad IM, Preserv and ABX Free 6 MO-64 YRS 2022-09-04 00:00:00 Completed [facility] Influenza Virus Vaccine Quad IM, Preserv and ABX Free 6 MO-64 YRS 2022-09-04 00:00:00 Completed [facility] Influenza Virus Vaccine Quad IM, Preserv and ABX Free 6 MO-64 YRS 2022-09-04 00:00:00 Completed [facility] Influenza Virus Vaccine Quad IM, Preserv and ABX Free 6 MO-64 YRS 2022-09-04 00:00:00 Completed [facility] Influenza Virus Vaccine Quad IM, Preserv and ABX Free 6 MO-64 YRS 2022-09-04 00:00:00 Completed [facility] Influenza Virus Vaccine Quad IM, Preserv and ABX Free 6 MO-64 YRS 2022-09-04 00:00:00 Completed [facility] Influenza Virus Vaccine Quad IM, Preserv and ABX Free 6 MO-64 YRS 2022-09-04 00:00:00 Completed [facility] Influenza Virus Vaccine Quad IM, Preserv and ABX Free 6 MO-64 YRS 2022-09-04 00:00:00 Completed [facility] Influenza Virus Vaccine Quad IM, Preserv and ABX Free 6 MO-64 YRS 2022-09-04 00:00:00 Completed [facility] Influenza Virus Vaccine Quad IM, Preserv and ABX Free 6 MO-64 YRS 2022-09-04 00:00:00 Completed [facility] Influenza Virus Vaccine Quad IM, Preserv and ABX Free 6 MO-64 YRS 2022-09-04 00:00:00 Completed [facility] Influenza Virus Vaccine Quad IM, Preserv and ABX Free 6 MO-64 YRS 2022-09-04 00:00:00 Completed [facility] Influenza Virus Vaccine Quad IM, Preserv and ABX Free 6 MO-64 YRS 2022-09-04 00:00:00 Completed [facility] Influenza Virus Vaccine Quad IM, Preserv and ABX Free 6 MO-64 YRS 2022-09-04 00:00:00 Completed [facility] Influenza Virus Vaccine Quad IM, Preserv and ABX Free 6 MO-64 YRS 2022-09-04 00:00:00 Completed [facility] Influenza Virus Vaccine Quad IM, Preserv and ABX Free 6 MO-64 YRS 2022-09-04 00:00:00 Completed [facility] Influenza Virus Vaccine Quad IM, Preserv and ABX Free 6 MO-64 YRS 2022-09-04 00:00:00 Completed [facility] Influenza Virus Vaccine Quad IM, Preserv and ABX Free 6 MO-64 YRS 2022-09-04 00:00:00 Completed [facility] Influenza Virus Vaccine Quad IM, Preserv and ABX Free 6 MO-64 YRS 2022-09-04 00:00:00 Completed [facility] Influenza Virus Vaccine Quad IM, Preserv and ABX Free 6 MO-64 YRS 2022-09-04 00:00:00 Completed [facility] Influenza Virus Vaccine Quad IM, Preserv and ABX Free 6 MO-64 YRS 2022-09-04 00:00:00 Completed [facility] Influenza Virus Vaccine Quad IM, Preserv and ABX Free 6 MO-64 YRS 2022-09-04 00:00:00 Completed [facility] Influenza Virus Vaccine Quad IM, Preserv and ABX Free 6 MO-64 YRS 2022-09-04 00:00:00 Completed [facility] Influenza Virus Vaccine Quad IM, Preserv and ABX Free 6 MO-64 YRS 2022-09-04 00:00:00 Completed [facility] Influenza Virus Vaccine Quad IM, Preserv and ABX Free 6 MO-64 YRS 2022-09-04 00:00:00 Completed [facility] Influenza Virus Vaccine Quad IM, Preserv and ABX Free 6 MO-64 YRS 2022-09-04 00:00:00 Completed [facility] Influenza Virus Vaccine Quad IM, Preserv and ABX Free 6 MO-64 YRS 2022-09-04 00:00:00 Completed [facility] Influenza Virus Vaccine Quad IM, Preserv and ABX Free 6 MO-64 YRS 2022-09-04 00:00:00 Completed [facility] Influenza Virus Vaccine Quad IM, Preserv and ABX Free 6 MO-64 YRS 2022-09-04 00:00:00 Completed [facility] Influenza Virus Vaccine Quad IM, Preserv and ABX Free 6 MO-64 YRS 2022-09-04 00:00:00 Completed [facility] Influenza Virus Vaccine Quad IM, Preserv and ABX Free 6 MO-64 YRS 2022-09-04 00:00:00 Completed [facility] Influenza Virus Vaccine Quad IM, Preserv and ABX Free 6 MO-64 YRS 2022-09-04 00:00:00 Completed [facility] Influenza Virus Vaccine Quad IM, Preserv and ABX Free 6 MO-64 YRS 2022-09-04 00:00:00 Completed [facility] Influenza Virus Vaccine Quad IM, Preserv and ABX Free 6 MO-64 YRS 2022-09-04 00:00:00 Completed [facility] Influenza Virus Vaccine Quad IM, Preserv and ABX Free 6 MO-64 YRS 2022-09-04 00:00:00 Completed [facility] Influenza Virus Vaccine Quad IM, Preserv and ABX Free 6 MO-64 YRS 2022-09-04 00:00:00 Completed [facility] Influenza Virus Vaccine Quad IM, Preserv and ABX Free 6 MO-64 YRS 2022-09-04 00:00:00 Completed [facility] Influenza Virus Vaccine Quad IM, Preserv and ABX Free 6 MO-64 YRS 2022-09-04 00:00:00 Completed [facility] Influenza Virus Vaccine Quad IM, Preserv and ABX Free 6 MO-64 YRS 2022-09-04 00:00:00 Completed [facility] Influenza Virus Vaccine Quad IM, Preserv and ABX Free 6 MO-64 YRS 2022-09-04 00:00:00 Completed [facility] Influenza Virus Vaccine Quad IM, Preserv and ABX Free 6 MO-64 YRS 2022-09-04 00:00:00 Completed [facility] Influenza Virus Vaccine Quad IM, Preserv and ABX Free 6 MO-64 YRS 2022-09-04 00:00:00 Completed [facility] Influenza Virus Vaccine Quad IM, Preserv and ABX Free 6 MO-64 YRS 2022-09-04 00:00:00 Completed [facility] Influenza Virus Vaccine Quad IM, Preserv and ABX Free 6 MO-64 YRS 2022-09-04 00:00:00 Completed [facility] Influenza Virus Vaccine Quad IM, Preserv and ABX Free 6 MO-64 YRS 2022-09-04 00:00:00 Completed [facility] Influenza Virus Vaccine Quad IM, Preserv and ABX Free 6 MO-64 YRS 2022-09-04 00:00:00 Completed [facility] Influenza Virus Vaccine Quad IM, Preserv and ABX Free 6 MO-64 YRS 2022-09-04 00:00:00 Completed [facility] Influenza Virus Vaccine Quad IM, Preserv and ABX Free 6 MO-64 YRS 2022-09-04 00:00:00 Completed [facility] Influenza Virus Vaccine Quad IM, Preserv and ABX Free 6 MO-64 YRS 2022-09-04 00:00:00 Completed [facility] Influenza Virus Vaccine Quad IM, Preserv and ABX Free 6 MO-64 YRS 2022-09-04 00:00:00 Completed [facility] Influenza Virus Vaccine Quad IM, Preserv and ABX Free 6 MO-64 YRS 2022-09-04 00:00:00 Completed [facility] Influenza Virus Vaccine Quad IM, Preserv and ABX Free 6 MO-64 YRS 2022-09-04 00:00:00 Completed [facility] Influenza Virus Vaccine Quad IM, Preserv and ABX Free 6 MO-64 YRS (FLUCELVAX) 2022-09-04 00:00:00 Completed [facility] Influenza Virus Vaccine Quad IM, Preserv and ABX Free 6 MO-64 YRS (FLUCELVAX) 2022-09-04 00:00:00 Completed [facility] Influenza Virus Vaccine Quad IM, Preserv and ABX Free 6 MO-64 YRS (FLUCELVAX) 2022-09-04 00:00:00 Completed [facility] Twinrix (hep a/hep b) 2022-03-01 00:00:00 Completed [facility] Twinrix (hep a/hep b) 2022-03-01 00:00:00 Completed [facility] Twinrix (hep a/hep b) 2022-03-01 00:00:00 Completed [facility] Twinrix (hep a/hep b) 2022-03-01 00:00:00 Completed [facility] Twinrix (hep a/hep b) 2022-03-01 00:00:00 Completed [facility] Twinrix (hep a/hep b) 2022-03-01 00:00:00 Completed [facility] Twinrix (hep a/hep b) 2022-03-01 00:00:00 Completed [facility] Twinrix (hep a/hep b) 2022-03-01 00:00:00 Completed [facility] Twinrix (hep a/hep b) 2022-03-01 00:00:00 Completed [facility] Twinrix (hep a/hep b) 2022-03-01 00:00:00 Completed [facility] Twinrix (hep a/hep b) 2022-03-01 00:00:00 Completed [facility] Twinrix (hep a/hep b) 2022-03-01 00:00:00 Completed [facility] Twinrix (hep a/hep b) 2022-03-01 00:00:00 Completed [facility] Twinrix (hep a/hep b) 2022-03-01 00:00:00 Completed [facility] Twinrix (hep a/hep b) 2022-03-01 00:00:00 Completed [facility] Twinrix (hep a/hep b) 2022-03-01 00:00:00 Completed [facility] Twinrix (hep a/hep b) 2022-03-01 00:00:00 Completed [facility] Twinrix (hep a/hep b) 2022-03-01 00:00:00 Completed [facility] Twinrix (hep a/hep b) 2022-03-01 00:00:00 Completed [facility] Twinrix (hep a/hep b) 2022-03-01 00:00:00 Completed [facility] Twinrix (hep a/hep b) 2022-03-01 00:00:00 Completed [facility] Twinrix (hep a/hep b) 2022-03-01 00:00:00 Completed [facility] Twinrix (hep a/hep b) 2022-03-01 00:00:00 Completed [facility] Twinrix (hep a/hep b) 2022-03-01 00:00:00 Completed [facility] Twinrix (hep a/hep b) 2022-03-01 00:00:00 Completed [facility] Twinrix (hep a/hep b) 2022-03-01 00:00:00 Completed [facility] Twinrix (hep a/hep b) 2022-03-01 00:00:00 Completed [facility] Twinrix (hep a/hep b) 2022-03-01 00:00:00 Completed [facility] Twinrix (hep a/hep b) 2022-03-01 00:00:00 Completed [facility] Twinrix (hep a/hep b) 2022-03-01 00:00:00 Completed [facility] Twinrix (hep a/hep b) 2022-03-01 00:00:00 Completed [facility] Twinrix (hep a/hep b) 2022-03-01 00:00:00 Completed [facility] Twinrix (hep a/hep b) 2022-03-01 00:00:00 Completed [facility] Twinrix (hep a/hep b) 2022-03-01 00:00:00 Completed [facility] Twinrix (hep a/hep b) 2022-03-01 00:00:00 Completed [facility] Twinrix (hep a/hep b) 2022-03-01 00:00:00 Completed [facility] Twinrix (hep a/hep b) 2022-03-01 00:00:00 Completed [facility] Twinrix (hep a/hep b) 2022-03-01 00:00:00 Completed [facility] Twinrix (hep a/hep b) 2022-03-01 00:00:00 Completed [facility] Twinrix (hep a/hep b) 2022-03-01 00:00:00 Completed [facility] Twinrix (hep a/hep b) 2022-03-01 00:00:00 Completed [facility] Twinrix (hep a/hep b) 2022-03-01 00:00:00 Completed [facility] Twinrix (hep a/hep b) 2022-03-01 00:00:00 Completed [facility] Twinrix (hep a/hep b) 2022-03-01 00:00:00 Completed [facility] Twinrix (hep a/hep b) 2022-03-01 00:00:00 Completed [facility] Twinrix (hep a/hep b) 2022-03-01 00:00:00 Completed [facility] Twinrix (hep a/hep b) 2022-03-01 00:00:00 Completed [facility] Twinrix (hep a/hep b) 2022-03-01 00:00:00 Completed [facility] Twinrix (hep a/hep b) 2022-03-01 00:00:00 Completed [facility] Twinrix (hep a/hep b) 2022-03-01 00:00:00 Completed [facility] Twinrix (hep a/hep b) 2022-03-01 00:00:00 Completed [facility] Twinrix (hep a/hep b) 2022-03-01 00:00:00 Completed [facility] Twinrix (hep a/hep b) 2022-03-01 00:00:00 Completed [facility] Twinrix (hep a/hep b) 2022-03-01 00:00:00 Completed [facility] Twinrix (hep a/hep b) 2022-03-01 00:00:00 Completed [facility] Twinrix (hep a/hep b) 2022-03-01 00:00:00 Completed [facility] Twinrix (hep a/hep b) 2022-03-01 00:00:00 Completed [facility] Twinrix (hep a/hep b) 2022-03-01 00:00:00 Completed [facility] Twinrix (hep a/hep b) 2022-03-01 00:00:00 Completed [facility] Twinrix (hep a/hep b) 2022-03-01 00:00:00 Completed [facility] Twinrix (hep a/hep b) 2022-03-01 00:00:00 Completed [facility] Twinrix (hep a/hep b) 2022-03-01 00:00:00 Completed [facility] Twinrix (hep a/hep b) 2022-03-01 00:00:00 Completed [facility] (hep a/hep b) 2022-03-01 00:00:00 Completed [facility] (hep a/hep b) 2022-03-01 00:00:00 Completed [facility] (hep a/hep b) 2022-03-01 00:00:00 Completed [facility] (hep a/hep b) 2022-03-01 00:00:00 Completed [facility] (hep a/hep b) 2022-03-01 00:00:00 Completed [facility] (hep a/hep b) 2022-03-01 00:00:00 Completed [facility] (hep a/hep b) 2022-03-01 00:00:00 Completed [facility] (hep a/hep b) 2022-03-01 00:00:00 Completed [facility] (hep a/hep b) 2022-03-01 00:00:00 Completed [facility] (hep a/hep b) 2022-03-01 00:00:00 Completed [facility] (hep a/hep b) 2022-03-01 00:00:00 Completed [facility] (hep a/hep b) 2022-03-01 00:00:00 Completed [facility] (hep a/hep b) 2022-03-01 00:00:00 Completed [facility] (hep a/hep b) 2022-03-01 00:00:00 Completed [facility] (hep a/hep b) 2022-03-01 00:00:00 Completed [facility] (hep a/hep b) 2022-03-01 00:00:00 Completed [facility] (hep a/hep b) 2022-03-01 00:00:00 Completed [facility] (hep a/hep b) 2022-03-01 00:00:00 Completed [facility] (hep a/hep b) 2022-03-01 00:00:00 Completed [facility] (hep a/hep b) 2022-03-01 00:00:00 Completed [facility] (hep a/hep b) 2022-03-01 00:00:00 Completed [facility] (hep a/hep b) 2022-03-01 00:00:00 Completed [facility] (hep a/hep b) 2022-03-01 00:00:00 Completed [facility] (hep a/hep b) 2022-03-01 00:00:00 Completed [facility] (hep a/hep b) 2022-03-01 00:00:00 Completed [facility] (hep a/hep b) 2022-03-01 00:00:00 Completed [facility] (hep a/hep b) 2022-03-01 00:00:00 Completed [facility] (hep a/hep b) 2022-03-01 00:00:00 Completed [facility] (hep a/hep b) 2022-03-01 00:00:00 Completed [facility] (hep a/hep b) 2022-03-01 00:00:00 Completed [facility] (hep a/hep b) 2022-03-01 00:00:00 Completed [facility] (hep a/hep b) 2022-03-01 00:00:00 Completed [facility] (hep a/hep b) 2022-03-01 00:00:00 Completed [facility] (hep a/hep b) 2022-03-01 00:00:00 Completed [facility] (hep a/hep b) 2022-03-01 00:00:00 Completed [facility] (hep a/hep b) 2022-03-01 00:00:00 Completed [facility] (hep a/hep b) 2022-03-01 00:00:00 Completed [facility] (hep a/hep b) 2022-03-01 00:00:00 Completed [facility] (hep a/hep b) 2022-03-01 00:00:00 Completed [facility] (hep a/hep b) 2022-03-01 00:00:00 Completed [facility] (hep a/hep b) 2022-03-01 00:00:00 Completed [facility] (hep a/hep b) 2022-03-01 00:00:00 Completed [facility] (hep a/hep b) 2022-03-01 00:00:00 Completed [facility] (hep a/hep b) 2022-03-01 00:00:00 Completed [facility] (hep a/hep b) 2022-03-01 00:00:00 Completed [facility] (hep a/hep b) 2022-03-01 00:00:00 Completed [facility] (hep a/hep b) 2022-03-01 00:00:00 Completed [facility] (hep a/hep b) 2022-03-01 00:00:00 Completed [facility] (hep a/hep b) 2022-03-01 00:00:00 Completed [facility] (hep a/hep b) 2022-03-01 00:00:00 Completed [facility] (hep a/hep b) 2022-03-01 00:00:00 Completed [facility] (hep a/hep b) 2022-01-31 00:00:00 Completed [facility] Influenza Virus Vaccine Quad IM, Preserv and ABX Free 6 MO-64 YRS 2022-01-31 00:00:00 Completed [facility] (hep a/hep b) 2022-01-31 00:00:00 Completed [facility] Influenza Virus Vaccine Quad IM, Preserv and ABX Free 6 MO-64 YRS 2022-01-31 00:00:00 Completed [facility] (hep a/hep b) 2022-01-31 00:00:00 Completed [facility] Influenza Virus Vaccine Quad IM, Preserv and ABX Free 6 MO-64 YRS 2022-01-31 00:00:00 Completed [facility] (hep a/hep b) 2022-01-31 00:00:00 Completed [facility] Influenza Virus Vaccine Quad IM, Preserv and ABX Free 6 MO-64 YRS 2022-01-31 00:00:00 Completed [facility] (hep a/hep b) 2022-01-31 00:00:00 Completed [facility] Influenza Virus Vaccine Quad IM, Preserv and ABX Free 6 MO-64 YRS 2022-01-31 00:00:00 Completed [facility] (hep a/hep b) 2022-01-31 00:00:00 Completed [facility] Influenza Virus Vaccine Quad IM, Preserv and ABX Free 6 MO-64 YRS 2022-01-31 00:00:00 Completed [facility] (hep a/hep b) 2022-01-31 00:00:00 Completed [facility] Influenza Virus Vaccine Quad IM, Preserv and ABX Free 6 MO-64 YRS 2022-01-31 00:00:00 Completed [facility] (hep a/hep b) 2022-01-31 00:00:00 Completed [facility] Influenza Virus Vaccine Quad IM, Preserv and ABX Free 6 MO-64 YRS 2022-01-31 00:00:00 Completed [facility] (hep a/hep b) 2022-01-31 00:00:00 Completed [facility] Influenza Virus Vaccine Quad IM, Preserv and ABX Free 6 MO-64 YRS 2022-01-31 00:00:00 Completed [facility] (hep a/hep b) 2022-01-31 00:00:00 Completed [facility] Influenza Virus Vaccine Quad IM, Preserv and ABX Free 6 MO-64 YRS 2022-01-31 00:00:00 Completed [facility] (hep a/hep b) 2022-01-31 00:00:00 Completed [facility] Influenza Virus Vaccine Quad IM, Preserv and ABX Free 6 MO-64 YRS 2022-01-31 00:00:00 Completed [facility] (hep a/hep b) 2022-01-31 00:00:00 Completed [facility] Influenza Virus Vaccine Quad IM, Preserv and ABX Free 6 MO-64 YRS 2022-01-31 00:00:00 Completed [facility] (hep a/hep b) 2022-01-31 00:00:00 Completed [facility] Influenza Virus Vaccine Quad IM, Preserv and ABX Free 6 MO-64 YRS 2022-01-31 00:00:00 Completed [facility] (hep a/hep b) 2022-01-31 00:00:00 Completed [facility] Influenza Virus Vaccine Quad IM, Preserv and ABX Free 6 MO-64 YRS 2022-01-31 00:00:00 Completed [facility] (hep a/hep b) 2022-01-31 00:00:00 Completed [facility] Influenza Virus Vaccine Quad IM, Preserv and ABX Free 6 MO-64 YRS 2022-01-31 00:00:00 Completed [facility] (hep a/hep b) 2022-01-31 00:00:00 Completed [facility] Influenza Virus Vaccine Quad IM, Preserv and ABX Free 6 MO-64 YRS 2022-01-31 00:00:00 Completed [facility] (hep a/hep b) 2022-01-31 00:00:00 Completed [facility] Influenza Virus Vaccine Quad IM, Preserv and ABX Free 6 MO-64 YRS 2022-01-31 00:00:00 Completed [facility] (hep a/hep b) 2022-01-31 00:00:00 Completed [facility] Influenza Virus Vaccine Quad IM, Preserv and ABX Free 6 MO-64 YRS 2022-01-31 00:00:00 Completed [facility] (hep a/hep b) 2022-01-31 00:00:00 Completed [facility] Influenza Virus Vaccine Quad IM, Preserv and ABX Free 6 MO-64 YRS 2022-01-31 00:00:00 Completed [facility] (hep a/hep b) 2022-01-31 00:00:00 Completed [facility] Influenza Virus Vaccine Quad IM, Preserv and ABX Free 6 MO-64 YRS 2022-01-31 00:00:00 Completed [facility] (hep a/hep b) 2022-01-31 00:00:00 Completed [facility] Influenza Virus Vaccine Quad IM, Preserv and ABX Free 6 MO-64 YRS 2022-01-31 00:00:00 Completed [facility] (hep a/hep b) 2022-01-31 00:00:00 Completed [facility] Influenza Virus Vaccine Quad IM, Preserv and ABX Free 6 MO-64 YRS 2022-01-31 00:00:00 Completed [facility] (hep a/hep b) 2022-01-31 00:00:00 Completed [facility] Influenza Virus Vaccine Quad IM, Preserv and ABX Free 6 MO-64 YRS 2022-01-31 00:00:00 Completed [facility] (hep a/hep b) 2022-01-31 00:00:00 Completed [facility] Influenza Virus Vaccine Quad IM, Preserv and ABX Free 6 MO-64 YRS 2022-01-31 00:00:00 Completed [facility] (hep a/hep b) 2022-01-31 00:00:00 Completed [facility] Influenza Virus Vaccine Quad IM, Preserv and ABX Free 6 MO-64 YRS 2022-01-31 00:00:00 Completed [facility] (hep a/hep b) 2022-01-31 00:00:00 Completed [facility] Influenza Virus Vaccine Quad IM, Preserv and ABX Free 6 MO-64 YRS 2022-01-31 00:00:00 Completed [facility] (hep a/hep b) 2022-01-31 00:00:00 Completed [facility] Influenza Virus Vaccine Quad IM, Preserv and ABX Free 6 MO-64 YRS 2022-01-31 00:00:00 Completed [facility] (hep a/hep b) 2022-01-31 00:00:00 Completed [facility] Influenza Virus Vaccine Quad IM, Preserv and ABX Free 6 MO-64 YRS 2022-01-31 00:00:00 Completed [facility] (hep a/hep b) 2022-01-31 00:00:00 Completed [facility] Influenza Virus Vaccine Quad IM, Preserv and ABX Free 6 MO-64 YRS 2022-01-31 00:00:00 Completed [facility] (hep a/hep b) 2022-01-31 00:00:00 Completed [facility] Influenza Virus Vaccine Quad IM, Preserv and ABX Free 6 MO-64 YRS 2022-01-31 00:00:00 Completed [facility] (hep a/hep b) 2022-01-31 00:00:00 Completed [facility] Influenza Virus Vaccine Quad IM, Preserv and ABX Free 6 MO-64 YRS 2022-01-31 00:00:00 Completed [facility] (hep a/hep b) 2022-01-31 00:00:00 Completed [facility] Influenza Virus Vaccine Quad IM, Preserv and ABX Free 6 MO-64 YRS 2022-01-31 00:00:00 Completed [facility] (hep a/hep b) 2022-01-31 00:00:00 Completed [facility] Influenza Virus Vaccine Quad IM, Preserv and ABX Free 6 MO-64 YRS 2022-01-31 00:00:00 Completed [facility] (hep a/hep b) 2022-01-31 00:00:00 Completed [facility] Influenza Virus Vaccine Quad IM, Preserv and ABX Free 6 MO-64 YRS 2022-01-31 00:00:00 Completed [facility] (hep a/hep b) 2022-01-31 00:00:00 Completed [facility] Influenza Virus Vaccine Quad IM, Preserv and ABX Free 6 MO-64 YRS 2022-01-31 00:00:00 Completed [facility] (hep a/hep b) 2022-01-31 00:00:00 Completed [facility] Influenza Virus Vaccine Quad IM, Preserv and ABX Free 6 MO-64 YRS 2022-01-31 00:00:00 Completed [facility] (hep a/hep b) 2022-01-31 00:00:00 Completed [facility] Influenza Virus Vaccine Quad IM, Preserv and ABX Free 6 MO-64 YRS 2022-01-31 00:00:00 Completed [facility] (hep a/hep b) 2022-01-31 00:00:00 Completed [facility] Influenza Virus Vaccine Quad IM, Preserv and ABX Free 6 MO-64 YRS 2022-01-31 00:00:00 Completed [facility] (hep a/hep b) 2022-01-31 00:00:00 Completed [facility] Influenza Virus Vaccine Quad IM, Preserv and ABX Free 6 MO-64 YRS 2022-01-31 00:00:00 Completed [facility] (hep a/hep b) 2022-01-31 00:00:00 Completed [facility] Influenza Virus Vaccine Quad IM, Preserv and ABX Free 6 MO-64 YRS 2022-01-31 00:00:00 Completed [facility] (hep a/hep b) 2022-01-31 00:00:00 Completed [facility] Influenza Virus Vaccine Quad IM, Preserv and ABX Free 6 MO-64 YRS 2022-01-31 00:00:00 Completed [facility] (hep a/hep b) 2022-01-31 00:00:00 Completed [facility] Influenza Virus Vaccine Quad IM, Preserv and ABX Free 6 MO-64 YRS 2022-01-31 00:00:00 Completed [facility] (hep a/hep b) 2022-01-31 00:00:00 Completed [facility] Influenza Virus Vaccine Quad IM, Preserv and ABX Free 6 MO-64 YRS 2022-01-31 00:00:00 Completed [facility] (hep a/hep b) 2022-01-31 00:00:00 Completed [facility] Influenza Virus Vaccine Quad IM, Preserv and ABX Free 6 MO-64 YRS 2022-01-31 00:00:00 Completed [facility] (hep a/hep b) 2022-01-31 00:00:00 Completed [facility] Influenza Virus Vaccine Quad IM, Preserv and ABX Free 6 MO-64 YRS 2022-01-31 00:00:00 Completed [facility] (hep a/hep b) 2022-01-31 00:00:00 Completed [facility] Influenza Virus Vaccine Quad IM, Preserv and ABX Free 6 MO-64 YRS 2022-01-31 00:00:00 Completed [facility] (hep a/hep b) 2022-01-31 00:00:00 Completed [facility] Influenza Virus Vaccine Quad IM, Preserv and ABX Free 6 MO-64 YRS 2022-01-31 00:00:00 Completed [facility] (hep a/hep b) 2022-01-31 00:00:00 Completed [facility] Influenza Virus Vaccine Quad IM, Preserv and ABX Free 6 MO-64 YRS 2022-01-31 00:00:00 Completed [facility] (hep a/hep b) 2022-01-31 00:00:00 Completed [facility] Influenza Virus Vaccine Quad IM, Preserv and ABX Free 6 MO-64 YRS 2022-01-31 00:00:00 Completed [facility] (hep a/hep b) 2022-01-31 00:00:00 Completed [facility] Influenza Virus Vaccine Quad IM, Preserv and ABX Free 6 MO-64 YRS 2022-01-31 00:00:00 Completed [facility] (hep a/hep b) 2022-01-31 00:00:00 Completed [facility] Influenza Virus Vaccine Quad IM, Preserv and ABX Free 6 MO-64 YRS 2022-01-31 00:00:00 Completed [facility] (hep a/hep b) 2022-01-31 00:00:00 Completed [facility] Influenza Virus Vaccine Quad IM, Preserv and ABX Free 6 MO-64 YRS 2022-01-31 00:00:00 Completed [facility] (hep a/hep b) 2022-01-31 00:00:00 Completed [facility] Influenza Virus Vaccine Quad IM, Preserv and ABX Free 6 MO-64 YRS 2022-01-31 00:00:00 Completed [facility] (hep a/hep b) 2022-01-31 00:00:00 Completed [facility] Influenza Virus Vaccine Quad IM, Preserv and ABX Free 6 MO-64 YRS 2022-01-31 00:00:00 Completed [facility] (hep a/hep b) 2022-01-31 00:00:00 Completed [facility] Influenza Virus Vaccine Quad IM, Preserv and ABX Free 6 MO-64 YRS 2022-01-31 00:00:00 Completed [facility] (hep a/hep b) 2022-01-31 00:00:00 Completed [facility] Influenza Virus Vaccine Quad IM, Preserv and ABX Free 6 MO-64 YRS 2022-01-31 00:00:00 Completed [facility] (hep a/hep b) 2022-01-31 00:00:00 Completed [facility] Influenza Virus Vaccine Quad IM, Preserv and ABX Free 6 MO-64 YRS 2022-01-31 00:00:00 Completed [facility] (hep a/hep b) 2022-01-31 00:00:00 Completed [facility] Influenza Virus Vaccine Quad IM, Preserv and ABX Free 6 MO-64 YRS 2022-01-31 00:00:00 Completed [facility] (hep a/hep b) 2022-01-31 00:00:00 Completed [facility] Influenza Virus Vaccine Quad IM, Preserv and ABX Free 6 MO-64 YRS 2022-01-31 00:00:00 Completed [facility] (hep a/hep b) 2022-01-31 00:00:00 Completed [facility] Influenza Virus Vaccine Quad IM, Preserv and ABX Free 6 MO-64 YRS 2022-01-31 00:00:00 Completed [facility] (hep a/hep b) 2022-01-31 00:00:00 Completed [facility] Influenza Virus Vaccine Quad IM, Preserv and ABX Free 6 MO-64 YRS 2022-01-31 00:00:00 Completed [facility] (hep a/hep b) 2022-01-31 00:00:00 Completed [facility] Influenza Virus Vaccine Quad IM, Preserv and ABX Free 6 MO-64 YRS 2022-01-31 00:00:00 Completed [facility] (hep a/hep b) 2022-01-31 00:00:00 Completed [facility] Influenza Virus Vaccine Quad IM, Preserv and ABX Free 6 MO-64 YRS 2022-01-31 00:00:00 Completed [facility] (hep a/hep b) 2022-01-31 00:00:00 Completed [facility] Influenza Virus Vaccine Quad IM, Preserv and ABX Free 6 MO-64 YRS 2022-01-31 00:00:00 Completed [facility] (hep a/hep b) 2022-01-31 00:00:00 Completed [facility] Influenza Virus Vaccine Quad IM, Preserv and ABX Free 6 MO-64 YRS 2022-01-31 00:00:00 Completed [facility] (hep a/hep b) 2022-01-31 00:00:00 Completed [facility] Influenza Virus Vaccine Quad IM, Preserv and ABX Free 6 MO-64 YRS 2022-01-31 00:00:00 Completed [facility] (hep a/hep b) 2022-01-31 00:00:00 Completed [facility] Influenza Virus Vaccine Quad IM, Preserv and ABX Free 6 MO-64 YRS 2022-01-31 00:00:00 Completed [facility] (hep a/hep b) 2022-01-31 00:00:00 Completed [facility] Influenza Virus Vaccine Quad IM, Preserv and ABX Free 6 MO-64 YRS 2022-01-31 00:00:00 Completed [facility] (hep a/hep b) 2022-01-31 00:00:00 Completed [facility] Influenza Virus Vaccine Quad IM, Preserv and ABX Free 6 MO-64 YRS 2022-01-31 00:00:00 Completed [facility] (hep a/hep b) 2022-01-31 00:00:00 Completed [facility] Influenza Virus Vaccine Quad IM, Preserv and ABX Free 6 MO-64 YRS 2022-01-31 00:00:00 Completed [facility] (hep a/hep b) 2022-01-31 00:00:00 Completed [facility] Influenza Virus Vaccine Quad IM, Preserv and ABX Free 6 MO-64 YRS 2022-01-31 00:00:00 Completed [facility] (hep a/hep b) 2022-01-31 00:00:00 Completed [facility] Influenza Virus Vaccine Quad IM, Preserv and ABX Free 6 MO-64 YRS 2022-01-31 00:00:00 Completed [facility] (hep a/hep b) 2022-01-31 00:00:00 Completed [facility] Influenza Virus Vaccine Quad IM, Preserv and ABX Free 6 MO-64 YRS 2022-01-31 00:00:00 Completed [facility] (hep a/hep b) 2022-01-31 00:00:00 Completed [facility] Influenza Virus Vaccine Quad IM, Preserv and ABX Free 6 MO-64 YRS 2022-01-31 00:00:00 Completed [facility] (hep a/hep b) 2022-01-31 00:00:00 Completed [facility] Influenza Virus Vaccine Quad IM, Preserv and ABX Free 6 MO-64 YRS 2022-01-31 00:00:00 Completed [facility] (hep a/hep b) 2022-01-31 00:00:00 Completed [facility] Influenza Virus Vaccine Quad IM, Preserv and ABX Free 6 MO-64 YRS 2022-01-31 00:00:00 Completed [facility] (hep a/hep b) 2022-01-31 00:00:00 Completed [facility] Influenza Virus Vaccine Quad IM, Preserv and ABX Free 6 MO-64 YRS 2022-01-31 00:00:00 Completed [facility] (hep a/hep b) 2022-01-31 00:00:00 Completed [facility] Influenza Virus Vaccine Quad IM, Preserv and ABX Free 6 MO-64 YRS 2022-01-31 00:00:00 Completed [facility] (hep a/hep b) 2022-01-31 00:00:00 Completed [facility] Influenza Virus Vaccine Quad IM, Preserv and ABX Free 6 MO-64 YRS 2022-01-31 00:00:00 Completed [facility] (hep a/hep b) 2022-01-31 00:00:00 Completed [facility] Influenza Virus Vaccine Quad IM, Preserv and ABX Free 6 MO-64 YRS 2022-01-31 00:00:00 Completed [facility] (hep a/hep b) 2022-01-31 00:00:00 Completed [facility] Influenza Virus Vaccine Quad IM, Preserv and ABX Free 6 MO-64 YRS 2022-01-31 00:00:00 Completed [facility] (hep a/hep b) 2022-01-31 00:00:00 Completed [facility] Influenza Virus Vaccine Quad IM, Preserv and ABX Free 6 MO-64 YRS 2022-01-31 00:00:00 Completed [facility] (hep a/hep b) 2022-01-31 00:00:00 Completed [facility] Influenza Virus Vaccine Quad IM, Preserv and ABX Free 6 MO-64 YRS 2022-01-31 00:00:00 Completed [facility] (hep a/hep b) 2022-01-31 00:00:00 Completed [facility] Influenza Virus Vaccine Quad IM, Preserv and ABX Free 6 MO-64 YRS 2022-01-31 00:00:00 Completed [facility] (hep a/hep b) 2022-01-31 00:00:00 Completed [facility] Influenza Virus Vaccine Quad IM, Preserv and ABX Free 6 MO-64 YRS 2022-01-31 00:00:00 Completed [facility] (hep a/hep b) 2022-01-31 00:00:00 Completed [facility] Influenza Virus Vaccine Quad IM, Preserv and ABX Free 6 MO-64 YRS 2022-01-31 00:00:00 Completed [facility] (hep a/hep b) 2022-01-31 00:00:00 Completed [facility] Influenza Virus Vaccine Quad IM, Preserv and ABX Free 6 MO-64 YRS 2022-01-31 00:00:00 Completed [facility] (hep a/hep b) 2022-01-31 00:00:00 Completed [facility] Influenza Virus Vaccine Quad IM, Preserv and ABX Free 6 MO-64 YRS 2022-01-31 00:00:00 Completed [facility] (hep a/hep b) 2022-01-31 00:00:00 Completed [facility] Influenza Virus Vaccine Quad IM, Preserv and ABX Free 6 MO-64 YRS 2022-01-31 00:00:00 Completed [facility] (hep a/hep b) 2022-01-31 00:00:00 Completed [facility] Influenza Virus Vaccine Quad IM, Preserv and ABX Free 6 MO-64 YRS 2022-01-31 00:00:00 Completed [facility] (hep a/hep b) 2022-01-31 00:00:00 Completed [facility] Influenza Virus Vaccine Quad IM, Preserv and ABX Free 6 MO-64 YRS 2022-01-31 00:00:00 Completed [facility] (hep a/hep b) 2022-01-31 00:00:00 Completed [facility] Influenza Virus Vaccine Quad IM, Preserv and ABX Free 6 MO-64 YRS 2022-01-31 00:00:00 Completed [facility] (hep a/hep b) 2022-01-31 00:00:00 Completed [facility] Influenza Virus Vaccine Quad IM, Preserv and ABX Free 6 MO-64 YRS 2022-01-31 00:00:00 Completed [facility] (hep a/hep b) 2022-01-31 00:00:00 Completed [facility] Influenza Virus Vaccine Quad IM, Preserv and ABX Free 6 MO-64 YRS 2022-01-31 00:00:00 Completed [facility] (hep a/hep b) 2022-01-31 00:00:00 Completed [facility] Influenza Virus Vaccine Quad IM, Preserv and ABX Free 6 MO-64 YRS 2022-01-31 00:00:00 [facility] [facility] (hep a/hep b) 2022-01-31 00:00:00 Completed [facility] Influenza Virus Vaccine Quad IM, Preserv and ABX Free 6 MO-64 YRS 2022-01-31 00:00:00 Completed [facility] (hep a/hep b) 2022-01-31 00:00:00 Completed [facility] Influenza Virus Vaccine Quad IM, Preserv and ABX Free 6 MO-64 YRS 2022-01-31 00:00:00 Completed [facility] (hep a/hep b) 2022-01-31 00:00:00 Completed [facility] Influenza Virus Vaccine Quad IM, Preserv and ABX Free 6 MO-64 YRS 2022-01-31 00:00:00 Completed [facility] (hep a/hep b) 2022-01-31 00:00:00 Completed [facility] Influenza Virus Vaccine Quad IM, Preserv and ABX Free 6 MO-64 YRS 2022-01-31 00:00:00 Completed [facility] (hep a/hep b) 2022-01-31 00:00:00 Completed [facility] Influenza Virus Vaccine Quad IM, Preserv and ABX Free 6 MO-64 YRS 2022-01-31 00:00:00 Completed [facility] (hep a/hep b) 2022-01-31 00:00:00 Completed [facility] Influenza Virus Vaccine Quad IM, Preserv and ABX Free 6 MO-64 YRS 2022-01-31 00:00:00 Completed [facility] (hep a/hep b) 2022-01-31 00:00:00 Completed [facility] Influenza Virus Vaccine Quad IM, Preserv and ABX Free 6 MO-64 YRS 2022-01-31 00:00:00 Completed [facility] (hep a/hep b) 2022-01-31 00:00:00 Completed [facility] Influenza Virus Vaccine Quad IM, Preserv and ABX Free 6 MO-64 YRS 2022-01-31 00:00:00 Completed [facility] (hep a/hep b) 2022-01-31 00:00:00 Completed [facility] Influenza Virus Vaccine Quad IM, Preserv and ABX Free 6 MO-64 YRS 2022-01-31 00:00:00 Completed [facility] (hep a/hep b) 2022-01-31 00:00:00 Completed [facility] Influenza Virus Vaccine Quad IM, Preserv and ABX Free 6 MO-64 YRS 2022-01-31 00:00:00 Completed [facility] (hep a/hep b) 2022-01-31 00:00:00 Completed [facility] Influenza Virus Vaccine Quad IM, Preserv and ABX Free 6 MO-64 YRS 2022-01-31 00:00:00 Completed [facility] (hep a/hep b) 2022-01-31 00:00:00 Completed [facility] Influenza Virus Vaccine Quad IM, Preserv and ABX Free 6 MO-64 YRS 2022-01-31 00:00:00 Completed [facility] (hep a/hep b) 2022-01-31 00:00:00 Completed [facility] Influenza Virus Vaccine Quad IM, Preserv and ABX Free 6 MO-64 YRS 2022-01-31 00:00:00 Completed [facility] (hep a/hep b) 2022-01-31 00:00:00 Completed [facility] Influenza Virus Vaccine Quad IM, Preserv and ABX Free 6 MO-64 YRS 2022-01-31 00:00:00 Completed [facility] (hep a/hep b) 2022-01-31 00:00:00 Completed [facility] Influenza Virus Vaccine Quad IM, Preserv and ABX Free 6 MO-64 YRS 2022-01-31 00:00:00 Completed [facility] (hep a/hep b) 2022-01-31 00:00:00 Completed [facility] Influenza Virus Vaccine Quad IM, Preserv and ABX Free 6 MO-64 YRS 2022-01-31 00:00:00 Completed [facility] (hep a/hep b) 2022-01-31 00:00:00 Completed [facility] Influenza Virus Vaccine Quad IM, Preserv and ABX Free 6 MO-64 YRS (FLUCELVAX) 2022-01-31 00:00:00 Completed [facility] (hep a/hep b) 2022-01-31 00:00:00 Completed [facility] Influenza Virus Vaccine Quad IM, Preserv and ABX Free 6 MO-64 YRS (FLUCELVAX) 2022-01-31 00:00:00 Completed [facility] (hep a/hep b) 2022-01-31 00:00:00 Completed Influenza Virus Vaccine Quad IM, Preserv and ABX Free 6 MO-64 YRS (FLUCELVAX) 2022-01-31 00:00:00 Completed SARS-COV-2 COVID-19 MODERNA 12+ YRS VACCINE 2020-12-26 00:00:00 Completed [facility] SARS-COV-2 COVID-19 MODERNA 12+ YRS VACCINE 2020-12-26 00:00:00 Completed [facility] SARS-COV-2 COVID-19 MODERNA 12+ YRS VACCINE 2020-12-26 00:00:00 Completed [facility] SARS-COV-2 COVID-19 MODERNA 12+ YRS VACCINE 2020-12-26 00:00:00 Completed [facility] SARS-COV-2 COVID-19 MODERNA 12+ YRS VACCINE 2020-12-26 00:00:00 Completed [facility] SARS-COV-2 COVID-19 MODERNA 12+ YRS VACCINE 2020-12-26 00:00:00 Completed [facility] SARS-COV-2 COVID-19 MODERNA 12+ YRS VACCINE 2020-12-26 00:00:00 Completed [facility] SARS-COV-2 COVID-19 MODERNA 12+ YRS VACCINE 2020-12-26 00:00:00 Completed [facility] SARS-COV-2 COVID-19 MODERNA 12+ YRS VACCINE 2020-12-26 00:00:00 Completed [facility] SARS-COV-2 COVID-19 MODERNA 12+ YRS VACCINE 2020-12-26 00:00:00 Completed [facility] SARS-COV-2 COVID-19 MODERNA 12+ YRS VACCINE 2020-12-26 00:00:00 Completed [facility] SARS-COV-2 COVID-19 MODERNA 12+ YRS VACCINE 2020-12-26 00:00:00 Completed [facility] SARS-COV-2 COVID-19 MODERNA 12+ YRS VACCINE 2020-12-26 00:00:00 Completed [facility] SARS-COV-2 COVID-19 MODERNA 12+ YRS VACCINE 2020-12-26 00:00:00 Completed [facility] SARS-COV-2 COVID-19 MODERNA 12+ YRS VACCINE 2020-12-26 00:00:00 Completed [facility] SARS-COV-2 COVID-19 MODERNA 12+ YRS VACCINE 2020-12-26 00:00:00 Completed [facility] SARS-COV-2 COVID-19 MODERNA 12+ YRS VACCINE 2020-12-26 00:00:00 Completed [facility] SARS-COV-2 COVID-19 MODERNA 12+ YRS VACCINE 2020-12-26 00:00:00 Completed [facility] SARS-COV-2 COVID-19 MODERNA 12+ YRS VACCINE 2020-12-26 00:00:00 Completed [facility] SARS-COV-2 COVID-19 MODERNA 12+ YRS VACCINE 2020-12-26 00:00:00 Completed [facility] SARS-COV-2 COVID-19 MODERNA 12+ YRS VACCINE 2020-12-26 00:00:00 Completed [facility] SARS-COV-2 COVID-19 MODERNA 12+ YRS VACCINE 2020-12-26 00:00:00 Completed [facility] SARS-COV-2 COVID-19 MODERNA 12+ YRS VACCINE 2020-12-26 00:00:00 Completed [facility] SARS-COV-2 COVID-19 MODERNA 12+ YRS VACCINE 2020-12-26 00:00:00 Completed [facility] SARS-COV-2 COVID-19 MODERNA 12+ YRS VACCINE 2020-12-26 00:00:00 Completed [facility] SARS-COV-2 COVID-19 MODERNA 12+ YRS VACCINE 2020-12-26 00:00:00 Completed [facility] SARS-COV-2 COVID-19 MODERNA 12+ YRS VACCINE 2020-12-26 00:00:00 Completed [facility] SARS-COV-2 COVID-19 MODERNA 12+ YRS VACCINE 2020-12-26 00:00:00 Completed [facility] SARS-COV-2 COVID-19 MODERNA 12+ YRS VACCINE 2020-12-26 00:00:00 Completed [facility] SARS-COV-2 COVID-19 MODERNA 12+ YRS VACCINE 2020-12-26 00:00:00 Completed [facility] SARS-COV-2 COVID-19 MODERNA 12+ YRS VACCINE 2020-12-26 00:00:00 Completed [facility] SARS-COV-2 COVID-19 MODERNA 12+ YRS VACCINE 2020-12-26 00:00:00 Completed [facility] SARS-COV-2 COVID-19 MODERNA 12+ YRS VACCINE 2020-12-26 00:00:00 Completed [facility] SARS-COV-2 COVID-19 MODERNA 12+ YRS VACCINE 2020-12-26 00:00:00 Completed [facility] SARS-COV-2 COVID-19 MODERNA 12+ YRS VACCINE 2020-12-26 00:00:00 Completed [facility] SARS-COV-2 COVID-19 MODERNA 12+ YRS VACCINE 2020-12-26 00:00:00 Completed [facility] SARS-COV-2 COVID-19 MODERNA 12+ YRS VACCINE 2020-12-26 00:00:00 Completed [facility] SARS-COV-2 COVID-19 MODERNA 12+ YRS VACCINE 2020-12-26 00:00:00 Completed [facility] SARS-COV-2 COVID-19 MODERNA 12+ YRS VACCINE 2020-12-26 00:00:00 Completed [facility] SARS-COV-2 COVID-19 MODERNA 12+ YRS VACCINE 2020-12-26 00:00:00 Completed [facility] SARS-COV-2 COVID-19 MODERNA 12+ YRS VACCINE 2020-12-26 00:00:00 Completed [facility] SARS-COV-2 COVID-19 MODERNA 12+ YRS VACCINE 2020-12-26 00:00:00 Completed [facility] SARS-COV-2 COVID-19 MODERNA 12+ YRS VACCINE 2020-12-26 00:00:00 Completed [facility] SARS-COV-2 COVID-19 MODERNA 12+ YRS VACCINE 2020-12-26 00:00:00 Completed [facility] SARS-COV-2 COVID-19 MODERNA 12+ YRS VACCINE 2020-12-26 00:00:00 Completed [facility] SARS-COV-2 COVID-19 MODERNA 12+ YRS VACCINE 2020-12-26 00:00:00 Completed [facility] SARS-COV-2 COVID-19 MODERNA 12+ YRS VACCINE 2020-12-26 00:00:00 Completed [facility] SARS-COV-2 COVID-19 MODERNA 12+ YRS VACCINE 2020-12-26 00:00:00 Completed [facility] SARS-COV-2 COVID-19 MODERNA 12+ YRS VACCINE 2020-12-26 00:00:00 Completed [facility] SARS-COV-2 COVID-19 MODERNA 12+ YRS VACCINE 2020-12-26 00:00:00 Completed [facility] SARS-COV-2 COVID-19 MODERNA 12+ YRS VACCINE 2020-12-26 00:00:00 Completed [facility] SARS-COV-2 COVID-19 MODERNA 12+ YRS VACCINE 2020-12-26 00:00:00 Completed [facility] SARS-COV-2 COVID-19 MODERNA 12+ YRS VACCINE 2020-12-26 00:00:00 Completed [facility] SARS-COV-2 COVID-19 MODERNA 12+ YRS VACCINE 2020-12-26 00:00:00 Completed [facility] SARS-COV-2 COVID-19 MODERNA 12+ YRS VACCINE 2020-12-26 00:00:00 Completed [facility] SARS-COV-2 COVID-19 MODERNA 12+ YRS VACCINE 2020-12-26 00:00:00 Completed [facility] SARS-COV-2 COVID-19 MODERNA 12+ YRS VACCINE 2020-12-26 00:00:00 Completed [facility] SARS-COV-2 COVID-19 MODERNA 12+ YRS VACCINE 2020-12-26 00:00:00 Completed [facility] SARS-COV-2 COVID-19 MODERNA 12+ YRS VACCINE 2020-12-26 00:00:00 Completed [facility] SARS-COV-2 COVID-19 MODERNA 12+ YRS VACCINE 2020-12-26 00:00:00 Completed [facility] SARS-COV-2 COVID-19 MODERNA 12+ YRS VACCINE 2020-12-26 00:00:00 Completed [facility] SARS-COV-2 COVID-19 MODERNA 12+ YRS VACCINE 2020-12-26 00:00:00 Completed [facility] SARS-COV-2 COVID-19 MODERNA 12+ YRS VACCINE 2020-12-26 00:00:00 Completed [facility] SARS-COV-2 COVID-19 MODERNA 12+ YRS VACCINE 2020-12-26 00:00:00 Completed [facility] SARS-COV-2 COVID-19 MODERNA 12+ YRS VACCINE 2020-12-26 00:00:00 Completed [facility] SARS-COV-2 COVID-19 MODERNA 12+ YRS VACCINE 2020-12-26 00:00:00 Completed [facility] SARS-COV-2 COVID-19 MODERNA 12+ YRS VACCINE 2020-12-26 00:00:00 Completed [facility] SARS-COV-2 COVID-19 MODERNA 12+ YRS VACCINE 2020-12-26 00:00:00 Completed [facility] SARS-COV-2 COVID-19 MODERNA 12+ YRS VACCINE 2020-12-26 00:00:00 Completed [facility] SARS-COV-2 COVID-19 MODERNA 12+ YRS VACCINE 2020-12-26 00:00:00 Completed [facility] SARS-COV-2 COVID-19 MODERNA 12+ YRS VACCINE 2020-12-26 00:00:00 Completed [facility] SARS-COV-2 COVID-19 MODERNA 12+ YRS VACCINE 2020-12-26 00:00:00 Completed [facility] SARS-COV-2 COVID-19 MODERNA 12+ YRS VACCINE 2020-12-26 00:00:00 Completed [facility] SARS-COV-2 COVID-19 MODERNA 12+ YRS VACCINE 2020-12-26 00:00:00 Completed [facility] SARS-COV-2 COVID-19 MODERNA 12+ YRS VACCINE 2020-12-26 00:00:00 Completed [facility] SARS-COV-2 COVID-19 MODERNA 12+ YRS VACCINE 2020-12-26 00:00:00 Completed [facility] SARS-COV-2 COVID-19 MODERNA 12+ YRS VACCINE 2020-12-26 00:00:00 Completed [facility] SARS-COV-2 COVID-19 MODERNA 12+ YRS VACCINE 2020-12-26 00:00:00 Completed [facility] SARS-COV-2 COVID-19 MODERNA 12+ YRS VACCINE 2020-12-26 00:00:00 Completed [facility] SARS-COV-2 COVID-19 MODERNA 12+ YRS VACCINE 2020-12-26 00:00:00 Completed [facility] SARS-COV-2 COVID-19 MODERNA 12+ YRS VACCINE 2020-12-26 00:00:00 Completed [facility] SARS-COV-2 COVID-19 MODERNA 12+ YRS VACCINE 2020-12-26 00:00:00 Completed [facility] SARS-COV-2 COVID-19 MODERNA 12+ YRS VACCINE 2020-12-26 00:00:00 Completed [facility] SARS-COV-2 COVID-19 MODERNA 12+ YRS VACCINE 2020-12-26 00:00:00 Completed [facility] SARS-COV-2 COVID-19 MODERNA 12+ YRS VACCINE 2020-12-26 00:00:00 Completed [facility] SARS-COV-2 COVID-19 MODERNA 12+ YRS VACCINE 2020-12-26 00:00:00 Completed [facility] SARS-COV-2 COVID-19 MODERNA 12+ YRS VACCINE 2020-12-26 00:00:00 Completed [facility] SARS-COV-2 COVID-19 MODERNA 12+ YRS VACCINE 2020-12-26 00:00:00 Completed [facility] SARS-COV-2 COVID-19 MODERNA 12+ YRS VACCINE 2020-12-26 00:00:00 Completed [facility] SARS-COV-2 COVID-19 MODERNA 12+ YRS VACCINE 2020-12-26 00:00:00 Completed [facility] SARS-COV-2 COVID-19 MODERNA 12+ YRS VACCINE 2020-12-26 00:00:00 Completed [facility] SARS-COV-2 COVID-19 MODERNA 12+ YRS VACCINE 2020-12-26 00:00:00 Completed [facility] SARS-COV-2 COVID-19 MODERNA 12+ YRS VACCINE 2020-12-26 00:00:00 Completed [facility] SARS-COV-2 COVID-19 MODERNA 12+ YRS VACCINE 2020-12-26 00:00:00 Completed [facility] SARS-COV-2 COVID-19 MODERNA 12+ YRS VACCINE 2020-12-26 00:00:00 Completed [facility] SARS-COV-2 COVID-19 MODERNA 12+ YRS VACCINE 2020-12-26 00:00:00 Completed [facility] SARS-COV-2 COVID-19 MODERNA 12+ YRS VACCINE 2020-12-26 00:00:00 Completed [facility] SARS-COV-2 COVID-19 MODERNA 12+ YRS VACCINE 2020-12-26 00:00:00 Completed [facility] SARS-COV-2 COVID-19 MODERNA 12+ YRS VACCINE 2020-12-26 00:00:00 Completed [facility] SARS-COV-2 COVID-19 MODERNA 12+ YRS VACCINE 2020-12-26 00:00:00 Completed [facility] SARS-COV-2 COVID-19 MODERNA 12+ YRS VACCINE 2020-12-26 00:00:00 Completed [facility] SARS-COV-2 COVID-19 MODERNA 12+ YRS VACCINE 2020-12-26 00:00:00 Completed [facility] SARS-COV-2 COVID-19 MODERNA 12+ YRS VACCINE 2020-12-26 00:00:00 Completed [facility] SARS-COV-2 COVID-19 MODERNA 12+ YRS VACCINE 2020-12-26 00:00:00 Completed [facility] SARS-COV-2 COVID-19 MODERNA 12+ YRS VACCINE 2020-12-26 00:00:00 Completed [facility] SARS-COV-2 COVID-19 MODERNA 12+ YRS VACCINE 2020-12-26 00:00:00 Completed [facility] SARS-COV-2 COVID-19 MODERNA 12+ YRS VACCINE 2020-12-26 00:00:00 Completed [facility] SARS-COV-2 COVID-19 MODERNA 12+ YRS VACCINE 2020-12-26 00:00:00 Completed [facility] SARS-COV-2 COVID-19 MODERNA 12+ YRS VACCINE 2020-12-26 00:00:00 Completed [facility] SARS-COV-2 COVID-19 MODERNA 12+ YRS VACCINE 2020-12-26 00:00:00 Completed [facility] SARS-COV-2 COVID-19 MODERNA 12+ YRS VACCINE 2020-12-26 00:00:00 Completed [facility] SARS-COV-2 COVID-19 MODERNA 12+ YRS VACCINE 2020-12-26 00:00:00 Completed [facility] SARS-COV-2 COVID-19 MODERNA 12+ YRS VACCINE 2020-12-26 00:00:00 Completed [facility] SARS-COV-2 COVID-19 MODERNA 12+ YRS VACCINE 2020-12-26 00:00:00 Completed [facility] SARS-COV-2 COVID-19 MODERNA 12+ YRS VACCINE 2020-11-28 00:00:00 Completed [facility] SARS-COV-2 COVID-19 MODERNA 12+ YRS VACCINE 2020-11-28 00:00:00 Completed [facility] SARS-COV-2 COVID-19 MODERNA 12+ YRS VACCINE 2020-11-28 00:00:00 Completed [facility] SARS-COV-2 COVID-19 MODERNA 12+ YRS VACCINE 2020-11-28 00:00:00 Completed [facility] SARS-COV-2 COVID-19 MODERNA 12+ YRS VACCINE 2020-11-28 00:00:00 Completed [facility] SARS-COV-2 COVID-19 MODERNA 12+ YRS VACCINE 2020-11-28 00:00:00 Completed [facility] SARS-COV-2 COVID-19 MODERNA 12+ YRS VACCINE 2020-11-28 00:00:00 Completed [facility] SARS-COV-2 COVID-19 MODERNA 12+ YRS VACCINE 2020-11-28 00:00:00 Completed [facility] SARS-COV-2 COVID-19 MODERNA 12+ YRS VACCINE 2020-11-28 00:00:00 Completed [facility] SARS-COV-2 COVID-19 MODERNA 12+ YRS VACCINE 2020-11-28 00:00:00 Completed [facility] SARS-COV-2 COVID-19 MODERNA 12+ YRS VACCINE 2020-11-28 00:00:00 Completed [facility] SARS-COV-2 COVID-19 MODERNA 12+ YRS VACCINE 2020-11-28 00:00:00 Completed [facility] SARS-COV-2 COVID-19 MODERNA 12+ YRS VACCINE 2020-11-28 00:00:00 Completed [facility] SARS-COV-2 COVID-19 MODERNA 12+ YRS VACCINE 2020-11-28 00:00:00 Completed [facility] SARS-COV-2 COVID-19 MODERNA 12+ YRS VACCINE 2020-11-28 00:00:00 Completed [facility] SARS-COV-2 COVID-19 MODERNA 12+ YRS VACCINE 2020-11-28 00:00:00 Completed [facility] SARS-COV-2 COVID-19 MODERNA 12+ YRS VACCINE 2020-11-28 00:00:00 Completed [facility] SARS-COV-2 COVID-19 MODERNA 12+ YRS VACCINE 2020-11-28 00:00:00 Completed [facility] SARS-COV-2 COVID-19 MODERNA 12+ YRS VACCINE 2020-11-28 00:00:00 Completed [facility] SARS-COV-2 COVID-19 MODERNA 12+ YRS VACCINE 2020-11-28 00:00:00 Completed [facility] SARS-COV-2 COVID-19 MODERNA 12+ YRS VACCINE 2020-11-28 00:00:00 Completed [facility] SARS-COV-2 COVID-19 MODERNA 12+ YRS VACCINE 2020-11-28 00:00:00 Completed [facility] SARS-COV-2 COVID-19 MODERNA 12+ YRS VACCINE 2020-11-28 00:00:00 Completed [facility] SARS-COV-2 COVID-19 MODERNA 12+ YRS VACCINE 2020-11-28 00:00:00 Completed [facility] SARS-COV-2 COVID-19 MODERNA 12+ YRS VACCINE 2020-11-28 00:00:00 Completed [facility] SARS-COV-2 COVID-19 MODERNA 12+ YRS VACCINE 2020-11-28 00:00:00 Completed [facility] SARS-COV-2 COVID-19 MODERNA 12+ YRS VACCINE 2020-11-28 00:00:00 Completed [facility] SARS-COV-2 COVID-19 MODERNA 12+ YRS VACCINE 2020-11-28 00:00:00 Completed [facility] SARS-COV-2 COVID-19 MODERNA 12+ YRS VACCINE 2020-11-28 00:00:00 Completed [facility] SARS-COV-2 COVID-19 MODERNA 12+ YRS VACCINE 2020-11-28 00:00:00 Completed [facility] SARS-COV-2 COVID-19 MODERNA 12+ YRS VACCINE 2020-11-28 00:00:00 Completed [facility] SARS-COV-2 COVID-19 MODERNA 12+ YRS VACCINE 2020-11-28 00:00:00 Completed [facility] SARS-COV-2 COVID-19 MODERNA 12+ YRS VACCINE 2020-11-28 00:00:00 Completed [facility] SARS-COV-2 COVID-19 MODERNA 12+ YRS VACCINE 2020-11-28 00:00:00 Completed [facility] SARS-COV-2 COVID-19 MODERNA 12+ YRS VACCINE 2020-11-28 00:00:00 Completed [facility] SARS-COV-2 COVID-19 MODERNA 12+ YRS VACCINE 2020-11-28 00:00:00 Completed [facility] SARS-COV-2 COVID-19 MODERNA 12+ YRS VACCINE 2020-11-28 00:00:00 Completed [facility] SARS-COV-2 COVID-19 MODERNA 12+ YRS VACCINE 2020-11-28 00:00:00 Completed [facility] SARS-COV-2 COVID-19 MODERNA 12+ YRS VACCINE 2020-11-28 00:00:00 Completed [facility] SARS-COV-2 COVID-19 MODERNA 12+ YRS VACCINE 2020-11-28 00:00:00 Completed [facility] SARS-COV-2 COVID-19 MODERNA 12+ YRS VACCINE 2020-11-28 00:00:00 Completed [facility] SARS-COV-2 COVID-19 MODERNA 12+ YRS VACCINE 2020-11-28 00:00:00 Completed [facility] SARS-COV-2 COVID-19 MODERNA 12+ YRS VACCINE 2020-11-28 00:00:00 Completed [facility] SARS-COV-2 COVID-19 MODERNA 12+ YRS VACCINE 2020-11-28 00:00:00 Completed [facility] SARS-COV-2 COVID-19 MODERNA 12+ YRS VACCINE 2020-11-28 00:00:00 Completed [facility] SARS-COV-2 COVID-19 MODERNA 12+ YRS VACCINE 2020-11-28 00:00:00 Completed [facility] SARS-COV-2 COVID-19 MODERNA 12+ YRS VACCINE 2020-11-28 00:00:00 Completed [facility] SARS-COV-2 COVID-19 MODERNA 12+ YRS VACCINE 2020-11-28 00:00:00 Completed [facility] SARS-COV-2 COVID-19 MODERNA 12+ YRS VACCINE 2020-11-28 00:00:00 Completed [facility] SARS-COV-2 COVID-19 MODERNA 12+ YRS VACCINE 2020-11-28 00:00:00 Completed [facility] SARS-COV-2 COVID-19 MODERNA 12+ YRS VACCINE 2020-11-28 00:00:00 Completed [facility] SARS-COV-2 COVID-19 MODERNA 12+ YRS VACCINE 2020-11-28 00:00:00 Completed [facility] SARS-COV-2 COVID-19 MODERNA 12+ YRS VACCINE 2020-11-28 00:00:00 Completed [facility] SARS-COV-2 COVID-19 MODERNA 12+ YRS VACCINE 2020-11-28 00:00:00 Completed [facility] SARS-COV-2 COVID-19 MODERNA 12+ YRS VACCINE 2020-11-28 00:00:00 Completed [facility] SARS-COV-2 COVID-19 MODERNA 12+ YRS VACCINE 2020-11-28 00:00:00 Completed [facility] SARS-COV-2 COVID-19 MODERNA 12+ YRS VACCINE 2020-11-28 00:00:00 Completed [facility] SARS-COV-2 COVID-19 MODERNA 12+ YRS VACCINE 2020-11-28 00:00:00 Completed [facility] SARS-COV-2 COVID-19 MODERNA 12+ YRS VACCINE 2020-11-28 00:00:00 Completed [facility] SARS-COV-2 COVID-19 MODERNA 12+ YRS VACCINE 2020-11-28 00:00:00 Completed [facility] SARS-COV-2 COVID-19 MODERNA 12+ YRS VACCINE 2020-11-28 00:00:00 Completed [facility] SARS-COV-2 COVID-19 MODERNA 12+ YRS VACCINE 2020-11-28 00:00:00 Completed [facility] SARS-COV-2 COVID-19 MODERNA 12+ YRS VACCINE 2020-11-28 00:00:00 Completed [facility] SARS-COV-2 COVID-19 MODERNA 12+ YRS VACCINE 2020-11-28 00:00:00 Completed [facility] SARS-COV-2 COVID-19 MODERNA 12+ YRS VACCINE 2020-11-28 00:00:00 Completed [facility] SARS-COV-2 COVID-19 MODERNA 12+ YRS VACCINE 2020-11-28 00:00:00 Completed [facility] SARS-COV-2 COVID-19 MODERNA 12+ YRS VACCINE 2020-11-28 00:00:00 Completed [facility] SARS-COV-2 COVID-19 MODERNA 12+ YRS VACCINE 2020-11-28 00:00:00 Completed [facility] SARS-COV-2 COVID-19 MODERNA 12+ YRS VACCINE 2020-11-28 00:00:00 Completed [facility] SARS-COV-2 COVID-19 MODERNA 12+ YRS VACCINE 2020-11-28 00:00:00 Completed [facility] SARS-COV-2 COVID-19 MODERNA 12+ YRS VACCINE 2020-11-28 00:00:00 Completed [facility] SARS-COV-2 COVID-19 MODERNA 12+ YRS VACCINE 2020-11-28 00:00:00 Completed [facility] SARS-COV-2 COVID-19 MODERNA 12+ YRS VACCINE 2020-11-28 00:00:00 Completed [facility] SARS-COV-2 COVID-19 MODERNA 12+ YRS VACCINE 2020-11-28 00:00:00 Completed [facility] SARS-COV-2 COVID-19 MODERNA 12+ YRS VACCINE 2020-11-28 00:00:00 Completed [facility] SARS-COV-2 COVID-19 MODERNA 12+ YRS VACCINE 2020-11-28 00:00:00 Completed [facility] SARS-COV-2 COVID-19 MODERNA 12+ YRS VACCINE 2020-11-28 00:00:00 Completed [facility] SARS-COV-2 COVID-19 MODERNA 12+ YRS VACCINE 2020-11-28 00:00:00 Completed [facility] SARS-COV-2 COVID-19 MODERNA 12+ YRS VACCINE 2020-11-28 00:00:00 [facility] [place] SARS-COV-2 COVID-19 MODERNA 12+ YRS VACCINE 2020-11-28 00:00:00 Completed [facility] [place] SARS-COV-2 COVID-19 MODERNA 12+ YRS VACCINE 2020-11-28 00:00:00 Completed [facility] [place] SARS-COV-2 COVID-19 MODERNA 12+ YRS VACCINE 2020-11-28 00:00:00 Completed [facility] [place] SARS-COV-2 COVID-19 MODERNA 12+ YRS VACCINE 2020-11-28 00:00:00 Completed [facility] [place] SARS-COV-2 COVID-19 MODERNA 12+ YRS VACCINE 2020-11-28 00:00:00 Completed [facility] [place] SARS-COV-2 COVID-19 MODERNA 12+ YRS VACCINE 2020-11-28 00:00:00 Completed [facility] [place] SARS-COV-2 COVID-19 MODERNA 12+ YRS VACCINE 2020-11-28 00:00:00 Completed [facility] [place] SARS-COV-2 COVID-19 MODERNA 12+ YRS VACCINE 2020-11-28 00:00:00 Completed [facility] [place] SARS-COV-2 COVID-19 MODERNA 12+ YRS VACCINE 2020-11-28 00:00:00 Completed [facility] [place] SARS-COV-2 COVID-19 MODERNA 12+ YRS VACCINE 2020-11-28 00:00:00 Completed [facility] [place] SARS-COV-2 COVID-19 MODERNA 12+ YRS VACCINE 2020-11-28 00:00:00 Completed [facility] [place] SARS-COV-2 COVID-19 MODERNA 12+ YRS VACCINE 2020-11-28 00:00:00 Completed [facility] [place] SARS-COV-2 COVID-19 MODERNA 12+ YRS VACCINE 2020-11-28 00:00:00 Completed [facility] [place] SARS-COV-2 COVID-19 MODERNA 12+ YRS VACCINE 2020-11-28 00:00:00 Completed [facility] [place] SARS-COV-2 COVID-19 MODERNA 12+ YRS VACCINE 2020-11-28 00:00:00 Completed [facility] [place] SARS-COV-2 COVID-19 MODERNA 12+ YRS VACCINE 2020-11-28 00:00:00 Completed [facility] [place] SARS-COV-2 COVID-19 MODERNA 12+ YRS VACCINE 2020-11-28 00:00:00 Completed [facility] [place] SARS-COV-2 COVID-19 MODERNA 12+ YRS VACCINE 2020-11-28 00:00:00 Completed [facility] [place] SARS-COV-2 COVID-19 MODERNA 12+ YRS VACCINE 2020-11-28 00:00:00 Completed [facility] [place] SARS-COV-2 COVID-19 MODERNA 12+ YRS VACCINE 2020-11-28 00:00:00 Completed [facility] [place] SARS-COV-2 COVID-19 MODERNA 12+ YRS VACCINE 2020-11-28 00:00:00 Completed [facility] [place] SARS-COV-2 COVID-19 MODERNA 12+ YRS VACCINE 2020-11-28 00:00:00 Completed [facility] [place] SARS-COV-2 COVID-19 MODERNA 12+ YRS VACCINE 2020-11-28 00:00:00 Completed [facility] [place] SARS-COV-2 COVID-19 MODERNA 12+ YRS VACCINE 2020-11-28 00:00:00 Completed [facility] [place] SARS-COV-2 COVID-19 MODERNA 12+ YRS VACCINE 2020-11-28 00:00:00 Completed [facility] [place] SARS-COV-2 COVID-19 MODERNA 12+ YRS VACCINE 2020-11-28 00:00:00 Completed [facility] [place] SARS-COV-2 COVID-19 MODERNA 12+ YRS VACCINE 2020-11-28 00:00:00 Completed [facility] [place] SARS-COV-2 COVID-19 MODERNA 12+ YRS VACCINE 2020-11-28 00:00:00 Completed [facility] [place] SARS-COV-2 COVID-19 MODERNA 12+ YRS VACCINE 2020-11-28 00:00:00 Completed [facility] [place] SARS-COV-2 COVID-19 MODERNA 12+ YRS VACCINE 2020-11-28 00:00:00 Completed [facility] [place] SARS-COV-2 COVID-19 MODERNA 12+ YRS VACCINE 2020-11-28 00:00:00 Completed [facility] [place] SARS-COV-2 COVID-19 MODERNA 12+ YRS VACCINE 2020-11-28 00:00:00 Completed [facility] [place] SARS-COV-2 COVID-19 MODERNA 12+ YRS VACCINE 2020-11-28 00:00:00 Completed [facility] [place] SARS-COV-2 COVID-19 MODERNA 12+ YRS VACCINE 2020-11-28 00:00:00 Completed [facility] [place] SARS-COV-2 COVID-19 MODERNA 12+ YRS VACCINE 2020-11-28 00:00:00 Completed [facility] [place] Influenza Virus Vaccine 2020-08-18 00:00:00 Completed [facility] [place] Influenza Virus Vaccine 2020-08-18 00:00:00 Completed [facility] [place] Influenza Virus Vaccine 2020-08-18 00:00:00 Completed [facility] [place] Influenza Virus Vaccine 2020-08-18 00:00:00 Completed [facility] [place] Influenza Virus Vaccine 2020-08-18 00:00:00 Completed [facility] [place] Influenza Virus Vaccine 2020-08-18 00:00:00 Completed [facility] [place] Influenza Virus Vaccine 2020-08-18 00:00:00 Completed [facility] [place] Influenza Virus Vaccine 2020-08-18 00:00:00 Completed [facility] [place] Influenza Virus Vaccine 2020-08-18 00:00:00 Completed [facility] [place] Influenza Virus Vaccine 2020-08-18 00:00:00 Completed [facility] [place] Influenza Virus Vaccine 2020-08-18 00:00:00 Completed [facility] [place] Influenza Virus Vaccine 2020-08-18 00:00:00 Completed [facility] [place] Influenza Virus Vaccine 2020-08-18 00:00:00 Completed [facility] [place] Influenza Virus Vaccine 2020-08-18 00:00:00 Completed [facility] [place] Influenza Virus Vaccine 2020-08-18 00:00:00 Completed [facility] [place] Influenza Virus Vaccine 2020-08-18 00:00:00 Completed [facility] [place] Influenza Virus Vaccine 2020-08-18 00:00:00 Completed [facility] [place] Influenza Virus Vaccine 2020-08-18 00:00:00 Completed [facility] [place] Influenza Virus Vaccine 2020-08-18 00:00:00 Completed [facility] [place] Influenza Virus Vaccine 2020-08-18 00:00:00 Completed [facility] [place] Influenza Virus Vaccine 2020-08-18 00:00:00 Completed [facility] [place] Influenza Virus Vaccine 2020-08-18 00:00:00 Completed [facility] [place] Influenza Virus Vaccine 2020-08-18 00:00:00 Completed [facility] [place] Influenza Virus Vaccine 2020-08-18 00:00:00 Completed [facility] [place] Influenza Virus Vaccine 2020-08-18 00:00:00 Completed [facility] [place] Influenza Virus Vaccine 2020-08-18 00:00:00 Completed [facility] [place] Influenza Virus Vaccine 2020-08-18 00:00:00 Completed [facility] [place] Influenza Virus Vaccine 2020-08-18 00:00:00 Completed [facility] [place] Influenza Virus Vaccine 2020-08-18 00:00:00 Completed [facility] [place] Influenza Virus Vaccine 2020-08-18 00:00:00 Completed [facility] [place] Influenza Virus Vaccine 2020-08-18 00:00:00 Completed [facility] [place] Influenza Virus Vaccine 2020-08-18 00:00:00 Completed [facility] [place] Influenza Virus Vaccine 2020-08-18 00:00:00 Completed [facility] [place] Influenza Virus Vaccine 2020-08-18 00:00:00 Completed [facility] [place] Influenza Virus Vaccine 2020-08-18 00:00:00 Completed [facility] [place] Influenza Virus Vaccine 2020-08-18 00:00:00 Completed [facility] [place] Influenza Virus Vaccine 2020-08-18 00:00:00 Completed [facility] [place] Influenza Virus Vaccine 2020-08-18 00:00:00 Completed [facility] [place] Influenza Virus Vaccine 2020-08-18 00:00:00 Completed [facility] [place] Influenza Virus Vaccine 2020-08-18 00:00:00 Completed [facility] [place] Influenza Virus Vaccine 2020-08-18 00:00:00 Completed [facility] [place] Influenza Virus Vaccine 2020-08-18 00:00:00 Completed [facility] [place] Influenza Virus Vaccine 2020-08-18 00:00:00 Completed [facility] [place] Influenza Virus Vaccine 2020-08-18 00:00:00 Completed [facility] [place] Influenza Virus Vaccine 2020-08-18 00:00:00 Completed [facility] [place] Influenza Virus Vaccine 2020-08-18 00:00:00 Completed [facility] [place] Influenza Virus Vaccine 2020-08-18 00:00:00 Completed [facility] [place] Influenza Virus Vaccine 2020-08-18 00:00:00 Completed [facility] [place] Influenza Virus Vaccine 2020-08-18 00:00:00 Completed [facility] [place] Influenza Virus Vaccine 2020-08-18 00:00:00 Completed [facility] [place] Influenza Virus Vaccine 2020-08-18 00:00:00 Completed [facility] [place] Influenza Virus Vaccine 2020-08-18 00:00:00 Completed [facility] [place] Influenza Virus Vaccine 2020-08-18 00:00:00 Completed [facility] [place] Influenza Virus Vaccine 2020-08-18 00:00:00 Completed [facility] [place] Influenza Virus Vaccine 2020-08-18 00:00:00 Completed [facility] [place] Influenza Virus Vaccine 2020-08-18 00:00:00 Completed [facility] [place] Influenza Virus Vaccine 2020-08-18 00:00:00 Completed [facility] [place] Influenza Virus Vaccine 2020-08-18 00:00:00 Completed [facility] [place] Influenza Virus Vaccine 2020-08-18 00:00:00 Completed [facility] [place] Influenza Virus Vaccine 2020-08-18 00:00:00 Completed [facility] [place] Influenza Virus Vaccine 2020-08-18 00:00:00 Completed [facility] [place] Influenza Virus Vaccine 2020-08-18 00:00:00 Completed [facility] [place] Influenza Virus Vaccine 2020-08-18 00:00:00 Completed [facility] [place] Influenza Virus Vaccine 2020-08-18 00:00:00 Completed [facility] [place] Influenza Virus Vaccine 2020-08-18 00:00:00 Completed [facility] [place] Influenza Virus Vaccine 2020-08-18 00:00:00 Completed [facility] [place] Influenza Virus Vaccine 2020-08-18 00:00:00 Completed [facility] [place] Influenza Virus Vaccine 2020-08-18 00:00:00 Completed [facility] [place] Influenza Virus Vaccine 2020-08-18 00:00:00 Completed [facility] [place] Influenza Virus Vaccine 2020-08-18 00:00:00 Completed [facility] [place] Influenza Virus Vaccine 2020-08-18 00:00:00 Completed [facility] [place] Influenza Virus Vaccine 2020-08-18 00:00:00 Completed [facility] [place] Influenza Virus Vaccine 2020-08-18 00:00:00 Completed [facility] [place] Influenza Virus Vaccine 2020-08-18 00:00:00 Completed [facility] [place] Influenza Virus Vaccine 2020-08-18 00:00:00 Completed [facility] [place] Influenza Virus Vaccine 2020-08-18 00:00:00 Completed [facility] [place] Influenza Virus Vaccine 2020-08-18 00:00:00 Completed [facility] [place] Influenza Virus Vaccine 2020-08-18 00:00:00 Completed [facility] [place] Influenza Virus Vaccine 2020-08-18 00:00:00 Completed [facility] [place] Influenza Virus Vaccine 2020-08-18 00:00:00 Completed [facility] [place] Influenza Virus Vaccine 2020-08-18 00:00:00 Completed [facility] [place] Influenza Virus Vaccine 2020-08-18 00:00:00 Completed [facility] [place] Influenza Virus Vaccine 2020-08-18 00:00:00 Completed [facility] [place] Influenza Virus Vaccine 2020-08-18 00:00:00 Completed [facility] [place] Influenza Virus Vaccine 2020-08-18 00:00:00 Completed [facility] [place] Influenza Virus Vaccine 2020-08-18 00:00:00 Completed [facility] [place] Influenza Virus Vaccine 2020-08-18 00:00:00 Completed [facility] [place] Influenza Virus Vaccine 2020-08-18 00:00:00 Completed [facility] [place] Influenza Virus Vaccine 2020-08-18 00:00:00 Completed [facility] [place] Influenza Virus Vaccine 2020-08-18 00:00:00 Completed [facility] [place] Influenza Virus Vaccine 2020-08-18 00:00:00 Completed [facility] [place] Influenza Virus Vaccine 2020-08-18 00:00:00 Completed [facility] [place] Influenza Virus Vaccine 2020-08-18 00:00:00 Completed [facility] [place] Influenza Virus Vaccine 2020-08-18 00:00:00 Completed [facility] [place] Influenza Virus Vaccine 2020-08-18 00:00:00 Completed [facility] [place] Influenza Virus Vaccine 2020-08-18 00:00:00 Completed [facility] [place] Influenza Virus Vaccine 2020-08-18 00:00:00 Completed [facility] [place] Influenza Virus Vaccine 2020-08-18 00:00:00 Completed [facility] [place] Influenza Virus Vaccine 2020-08-18 00:00:00 Completed [facility] [place] Influenza Virus Vaccine 2020-08-18 00:00:00 Completed [facility] [place] Influenza Virus Vaccine 2020-08-18 00:00:00 Completed [facility] [place] Influenza Virus Vaccine 2020-08-18 00:00:00 Completed [facility] [place] Influenza Virus Vaccine 2020-08-18 00:00:00 Completed [facility] [place] Influenza Virus Vaccine 2020-08-18 00:00:00 Completed [facility] [place] Influenza Virus Vaccine 2020-08-18 00:00:00 Completed [facility] [place] Influenza Virus Vaccine 2020-08-18 00:00:00 Completed [facility] [place] Influenza Virus Vaccine 2020-08-18 00:00:00 Completed [facility] [place] Influenza Virus Vaccine 2020-08-18 00:00:00 Completed [facility] [place] Influenza Virus Vaccine 2020-08-18 00:00:00 Completed [facility] [place] Influenza Virus Vaccine 2020-08-18 00:00:00 Completed [facility] [place] Influenza Virus Vaccine 2020-08-18 00:00:00 Completed [facility] [place] Influenza Virus Vaccine 2020-08-18 00:00:00 Completed [facility] [place] Influenza Virus Vaccine 2020-08-18 00:00:00 Completed [facility] [place] Influenza Virus Vaccine 2020-08-18 00:00:00 Completed [facility] [place] Influenza Virus Vaccine 2020-08-18 00:00:00 Completed [facility] [place] Influenza Virus Vaccine Quad IM 3+ YRS 2018-10-13 00:00:00 Completed [facility] [place] Influenza Virus Vaccine Quad IM 3+ YRS 2018-10-13 00:00:00 Completed [facility] [place] Influenza Virus Vaccine Quad IM 3+ YRS 2018-10-13 00:00:00 Completed [facility] [place] Influenza Virus Vaccine Quad IM 3+ YRS 2018-10-13 00:00:00 Completed [facility] [place] Influenza Virus Vaccine Quad IM 3+ YRS 2018-10-13 00:00:00 Completed [facility] [place] Influenza Virus Vaccine Quad IM 3+ YRS 2018-10-13 00:00:00 Completed [facility] [place] Influenza Virus Vaccine Quad IM 3+ YRS 2018-10-13 00:00:00 Completed [facility] [place] Influenza Virus Vaccine Quad IM 3+ YRS 2018-10-13 00:00:00 Completed [facility] [place] Influenza Virus Vaccine Quad IM 3+ YRS 2018-10-13 00:00:00 Completed [facility] [place] Influenza Virus Vaccine Quad IM 3+ YRS 2018-10-13 00:00:00 Completed [facility] [place] Influenza Virus Vaccine Quad IM 3+ YRS 2018-10-13 00:00:00 Completed [facility] [place] Influenza Virus Vaccine Quad IM 3+ YRS 2018-10-13 00:00:00 Completed [facility] [place] Influenza Virus Vaccine Quad IM 3+ YRS 2018-10-13 00:00:00 Completed [facility] [place] Influenza Virus Vaccine Quad IM 3+ YRS 2018-10-13 00:00:00 Completed [facility] Influenza Virus Vaccine Quad IM 3+ YRS 2018-10-13 00:00:00 Completed [facility] [place] Influenza Virus Vaccine Quad IM 3+ YRS 2018-10-13 00:00:00 Completed [facility] [place] Influenza Virus Vaccine Quad IM 3+ YRS 2018-10-13 00:00:00 Completed [facility] [place] Influenza Virus Vaccine Quad IM 3+ YRS 2018-10-13 00:00:00 Completed [facility] [place] Influenza Virus Vaccine Quad IM 3+ YRS 2018-10-13 00:00:00 Completed [facility] [place] Influenza Virus Vaccine Quad IM 3+ YRS 2018-10-13 00:00:00 Completed [facility] [place] Influenza Virus Vaccine Quad IM 3+ YRS 2018-10-13 00:00:00 Completed [facility] [place] Influenza Virus Vaccine Quad IM 3+ YRS 2018-10-13 00:00:00 Completed [facility] [place] Influenza Virus Vaccine Quad IM 3+ YRS 2018-10-13 00:00:00 Completed [facility] [place] Influenza Virus Vaccine Quad IM 3+ YRS 2018-10-13 00:00:00 Completed [facility] [place] Influenza Virus Vaccine Quad IM 3+ YRS 2018-10-13 00:00:00 Completed [facility] [place] Influenza Virus Vaccine Quad IM 3+ YRS 2018-10-13 00:00:00 Completed [facility] [place] Influenza Virus Vaccine Quad IM 3+ YRS 2018-10-13 00:00:00 Completed [facility] [place] Influenza Virus Vaccine Quad IM 3+ YRS 2018-10-13 00:00:00 Completed [facility] [place] Influenza Virus Vaccine Quad IM 3+ YRS 2018-10-13 00:00:00 Completed [facility] Influenza Virus Vaccine Quad IM 3+ YRS 2018-10-13 00:00:00 Completed [facility] Influenza Virus Vaccine Quad IM 3+ YRS 2018-10-13 00:00:00 Completed [facility] Influenza Virus Vaccine Quad IM 3+ YRS 2018-10-13 00:00:00 Completed [facility] Influenza Virus Vaccine Quad IM 3+ YRS 2018-10-13 00:00:00 Completed [facility] Influenza Virus Vaccine Quad IM 3+ YRS 2018-10-13 00:00:00 Completed [facility] Influenza Virus Vaccine Quad IM 3+ YRS 2018-10-13 00:00:00 Completed [facility] Influenza Virus Vaccine Quad IM 3+ YRS 2018-10-13 00:00:00 Completed [facility] Influenza Virus Vaccine Quad IM 3+ YRS 2018-10-13 00:00:00 Completed [facility] [place] Influenza Virus Vaccine Quad IM 3+ YRS 2018-10-13 00:00:00 Completed [facility] [place] Influenza Virus Vaccine Quad IM 3+ YRS 2018-10-13 00:00:00 Completed [facility] [place] Influenza Virus Vaccine Quad IM 3+ YRS 2018-10-13 00:00:00 Completed [facility] [place] Influenza Virus Vaccine Quad IM 3+ YRS 2018-10-13 00:00:00 Completed [facility] [place] Influenza Virus Vaccine Quad IM 3+ YRS 2018-10-13 00:00:00 Completed [facility] [place] Influenza Virus Vaccine Quad IM 3+ YRS 2018-10-13 00:00:00 Completed [facility] [place] Influenza Virus Vaccine Quad IM 3+ YRS 2018-10-13 00:00:00 Completed [facility] [place] Influenza Virus Vaccine Quad IM 3+ YRS 2018-10-13 00:00:00 Completed [facility] Influenza Virus Vaccine Quad IM 3+ YRS 2018-10-13 00:00:00 Completed [facility] [place] Influenza Virus Vaccine Quad IM 3+ YRS 2018-10-13 00:00:00 Completed [facility] Influenza Virus Vaccine Quad IM 3+ YRS 2018-10-13 00:00:00 Completed [facility] [place] Influenza Virus Vaccine Quad IM 3+ YRS 2018-10-13 00:00:00 Completed [facility] Influenza Virus Vaccine Quad IM 3+ YRS 2018-10-13 00:00:00 Completed [facility] Influenza Virus Vaccine Quad IM 3+ YRS 2018-10-13 00:00:00 Completed [facility] Influenza Virus Vaccine Quad IM 3+ YRS 2018-10-13 00:00:00 Completed [facility] Influenza Virus Vaccine Quad IM 3+ YRS 2018-10-13 00:00:00 Completed [facility] Influenza Virus Vaccine Quad IM 3+ YRS 2018-10-13 00:00:00 Completed [facility] Influenza Virus Vaccine Quad IM 3+ YRS 2018-10-13 00:00:00 Completed [facility] Influenza Virus Vaccine Quad IM 3+ YRS 2018-10-13 00:00:00 Completed [facility] Influenza Virus Vaccine Quad IM 3+ YRS 2018-10-13 00:00:00 Completed [facility] Influenza Virus Vaccine Quad IM 3+ YRS 2018-10-13 00:00:00 Completed [facility] Influenza Virus Vaccine Quad IM 3+ YRS 2018-10-13 00:00:00 Completed [facility] Influenza Virus Vaccine Quad IM 3+ YRS 2018-10-13 00:00:00 Completed [facility] [place] Influenza Virus Vaccine Quad IM 3+ YRS 2018-10-13 00:00:00 Completed [facility] [place] Influenza Virus Vaccine Quad IM 3+ YRS 2018-10-13 00:00:00 Completed [facility] [place] Influenza Virus Vaccine Quad IM 3+ YRS 2018-10-13 00:00:00 Completed [facility] [place] Influenza Virus Vaccine Quad IM 3+ YRS 2018-10-13 00:00:00 Completed [facility] [place] Influenza Virus Vaccine Quad IM 3+ YRS 2018-10-13 00:00:00 Completed [facility] [place] Influenza Virus Vaccine Quad IM 3+ YRS 2018-10-13 00:00:00 Completed [facility] Influenza Virus Vaccine Quad IM 3+ YRS 2018-10-13 00:00:00 Completed [facility] [place] Influenza Virus Vaccine Quad IM 3+ YRS 2018-10-13 00:00:00 Completed [facility] [place] Influenza Virus Vaccine Quad IM 3+ YRS 2018-10-13 00:00:00 Completed [facility] Influenza Virus Vaccine Quad IM 3+ YRS 2018-10-13 00:00:00 Completed [facility] [place] Influenza Virus Vaccine Quad IM 3+ YRS 2018-10-13 00:00:00 Completed [facility] Influenza Virus Vaccine Quad IM 3+ YRS 2018-10-13 00:00:00 Completed [facility] Influenza Virus Vaccine Quad IM 3+ YRS 2018-10-13 00:00:00 Completed [facility] Influenza Virus Vaccine Quad IM 3+ YRS 2018-10-13 00:00:00 Completed [facility] Influenza Virus Vaccine Quad IM 3+ YRS 2018-10-13 00:00:00 Completed [facility] Influenza Virus Vaccine Quad IM 3+ YRS 2018-10-13 00:00:00 Completed [facility] Influenza Virus Vaccine Quad IM 3+ YRS 2018-10-13 00:00:00 Completed [facility] Influenza Virus Vaccine Quad IM 3+ YRS 2018-10-13 00:00:00 Completed [facility] Influenza Virus Vaccine Quad IM 3+ YRS 2018-10-13 00:00:00 Completed [facility] [place] Influenza Virus Vaccine Quad IM 3+ YRS 2018-10-13 00:00:00 Completed [facility] Influenza Virus Vaccine Quad IM 3+ YRS 2018-10-13 00:00:00 Completed [facility] Influenza Virus Vaccine Quad IM 3+ YRS 2018-10-13 00:00:00 Completed [facility] Influenza Virus Vaccine Quad IM 3+ YRS 2018-10-13 00:00:00 Completed [facility] Influenza Virus Vaccine Quad IM 3+ YRS 2018-10-13 00:00:00 Completed [facility] Influenza Virus Vaccine Quad IM 3+ YRS 2018-10-13 00:00:00 Completed [facility] Influenza Virus Vaccine Quad IM 3+ YRS 2018-10-13 00:00:00 Completed [facility] Influenza Virus Vaccine Quad IM 3+ YRS 2018-10-13 00:00:00 Completed [facility] Influenza Virus Vaccine Quad IM 3+ YRS 2018-10-13 00:00:00 Completed [facility] Influenza Virus Vaccine Quad IM 3+ YRS 2018-10-13 00:00:00 Completed [facility] Influenza Virus Vaccine Quad IM 3+ YRS 2018-10-13 00:00:00 Completed [facility] Influenza Virus Vaccine Quad IM 3+ YRS 2018-10-13 00:00:00 Completed [facility] Influenza Virus Vaccine Quad IM 3+ YRS 2018-10-13 00:00:00 Completed [facility] Influenza Virus Vaccine Quad IM 3+ YRS 2018-10-13 00:00:00 Completed [facility] Influenza Virus Vaccine Quad IM 3+ YRS 2018-10-13 00:00:00 Completed [facility] Influenza Virus Vaccine Quad IM 3+ YRS 2018-10-13 00:00:00 Completed [facility] Influenza Virus Vaccine Quad IM 3+ YRS 2018-10-13 00:00:00 Completed [facility] Influenza Virus Vaccine Quad IM 3+ YRS 2018-10-13 00:00:00 Completed [facility] Influenza Virus Vaccine Quad IM 3+ YRS 2018-10-13 00:00:00 Completed [facility] Influenza Virus Vaccine Quad IM 3+ YRS 2018-10-13 00:00:00 Completed [facility] Influenza Virus Vaccine Quad IM 3+ YRS 2018-10-13 00:00:00 Completed [facility] Influenza Virus Vaccine Quad IM 3+ YRS 2018-10-13 00:00:00 Completed [facility] Influenza Virus Vaccine Quad IM 3+ YRS 2018-10-13 00:00:00 Completed [facility] Influenza Virus Vaccine Quad IM 3+ YRS 2018-10-13 00:00:00 Completed [facility] Influenza Virus Vaccine Quad IM 3+ YRS 2018-10-13 00:00:00 Completed [facility] Influenza Virus Vaccine Quad IM 3+ YRS 2018-10-13 00:00:00 Completed [facility] Influenza Virus Vaccine Quad IM 3+ YRS 2018-10-13 00:00:00 Completed [facility] Influenza Virus Vaccine Quad IM 3+ YRS 2018-10-13 00:00:00 Completed [facility] Influenza Virus Vaccine Quad IM 3+ YRS 2018-10-13 00:00:00 Completed [facility] Influenza Virus Vaccine Quad IM 3+ YRS 2018-10-13 00:00:00 Completed [facility] Influenza Virus Vaccine Quad IM 3+ YRS 2018-10-13 00:00:00 Completed [facility] Influenza Virus Vaccine Quad IM 3+ YRS 2018-10-13 00:00:00 Completed [facility] Influenza Virus Vaccine Quad IM 3+ YRS 2018-10-13 00:00:00 Completed [facility] Influenza Virus Vaccine Quad IM 3+ YRS 2018-10-13 00:00:00 Completed [facility] Influenza Virus Vaccine Quad IM 3+ YRS 2018-10-13 00:00:00 Completed [facility] Influenza Virus Vaccine Quad IM 3+ YRS 2018-10-13 00:00:00 Completed Influenza Virus Vaccine Quad IM Multi-dose 6+ MO 2017-08-28 00:00:00 Completed [facility] Influenza Virus Vaccine Quad IM Multi-dose 6+ MO 2017-08-28 00:00:00 Completed [facility] Influenza Virus Vaccine Quad IM Multi-dose 6+ MO 2017-08-28 00:00:00 Completed [facility] Influenza Virus Vaccine Quad IM Multi-dose 6+ MO 2017-08-28 00:00:00 Completed [facility] Influenza Virus Vaccine Quad IM Multi-dose 6+ MO 2017-08-28 00:00:00 Completed [facility] Influenza Virus Vaccine Quad IM Multi-dose 6+ MO 2017-08-28 00:00:00 Completed [facility] Influenza Virus Vaccine Quad IM Multi-dose 6+ MO 2017-08-28 00:00:00 Completed [facility] Influenza Virus Vaccine Quad IM Multi-dose 6+ MO 2017-08-28 00:00:00 Completed [facility] Influenza Virus Vaccine Quad IM Multi-dose 6+ MO 2017-08-28 00:00:00 Completed [facility] Influenza Virus Vaccine Quad IM Multi-dose 6+ MO 2017-08-28 00:00:00 Completed [facility] Influenza Virus Vaccine Quad IM Multi-dose 6+ MO 2017-08-28 00:00:00 Completed [facility] Influenza Virus Vaccine Quad IM Multi-dose 6+ MO 2017-08-28 00:00:00 Completed [facility] Influenza Virus Vaccine Quad IM Multi-dose 6+ MO 2017-08-28 00:00:00 Completed [facility] Influenza Virus Vaccine Quad IM Multi-dose 6+ MO 2017-08-28 00:00:00 Completed [facility] Influenza Virus Vaccine Quad IM Multi-dose 6+ MO 2017-08-28 00:00:00 Completed [facility] Influenza Virus Vaccine Quad IM Multi-dose 6+ MO 2017-08-28 00:00:00 Completed [facility] Influenza Virus Vaccine Quad IM Multi-dose 6+ MO 2017-08-28 00:00:00 Completed [facility] Influenza Virus Vaccine Quad IM Multi-dose 6+ MO 2017-08-28 00:00:00 Completed [facility] Influenza Virus Vaccine Quad IM Multi-dose 6+ MO 2017-08-28 00:00:00 Completed [facility] Influenza Virus Vaccine Quad IM Multi-dose 6+ MO 2017-08-28 00:00:00 Completed [facility] Influenza Virus Vaccine Quad IM Multi-dose 6+ MO 2017-08-28 00:00:00 Completed [facility] Influenza Virus Vaccine Quad IM Multi-dose 6+ MO 2017-08-28 00:00:00 Completed [facility] Influenza Virus Vaccine Quad IM Multi-dose 6+ MO 2017-08-28 00:00:00 Completed [facility] Influenza Virus Vaccine Quad IM Multi-dose 6+ MO 2017-08-28 00:00:00 Completed [facility] Influenza Virus Vaccine Quad IM Multi-dose 6+ MO 2017-08-28 00:00:00 Completed [facility] Influenza Virus Vaccine Quad IM Multi-dose 6+ MO 2017-08-28 00:00:00 Completed [facility] Influenza Virus Vaccine Quad IM Multi-dose 6+ MO 2017-08-28 00:00:00 Completed [facility] Influenza Virus Vaccine Quad IM Multi-dose 6+ MO 2017-08-28 00:00:00 Completed [facility] Influenza Virus Vaccine Quad IM Multi-dose 6+ MO 2017-08-28 00:00:00 Completed [facility] Influenza Virus Vaccine Quad IM Multi-dose 6+ MO 2017-08-28 00:00:00 Completed [facility] Influenza Virus Vaccine Quad IM Multi-dose 6+ MO 2017-08-28 00:00:00 Completed [facility] Influenza Virus Vaccine Quad IM Multi-dose 6+ MO 2017-08-28 00:00:00 Completed [facility] Influenza Virus Vaccine Quad IM Multi-dose 6+ MO 2017-08-28 00:00:00 Completed [facility] Influenza Virus Vaccine Quad IM Multi-dose 6+ MO 2017-08-28 00:00:00 Completed [facility] Influenza Virus Vaccine Quad IM Multi-dose 6+ MO 2017-08-28 00:00:00 Completed [facility] Influenza Virus Vaccine Quad IM Multi-dose 6+ MO 2017-08-28 00:00:00 Completed [facility] Influenza Virus Vaccine Quad IM Multi-dose 6+ MO 2017-08-28 00:00:00 Completed [facility] Influenza Virus Vaccine Quad IM Multi-dose 6+ MO 2017-08-28 00:00:00 Completed [facility] Influenza Virus Vaccine Quad IM Multi-dose 6+ MO 2017-08-28 00:00:00 Completed [facility] Influenza Virus Vaccine Quad IM Multi-dose 6+ MO 2017-08-28 00:00:00 Completed [facility] Influenza Virus Vaccine Quad IM Multi-dose 6+ MO 2017-08-28 00:00:00 Completed [facility] Influenza Virus Vaccine Quad IM Multi-dose 6+ MO 2017-08-28 00:00:00 Completed [facility] Influenza Virus Vaccine Quad IM Multi-dose 6+ MO 2017-08-28 00:00:00 Completed [facility] Influenza Virus Vaccine Quad IM Multi-dose 6+ MO 2017-08-28 00:00:00 Completed [facility] Influenza Virus Vaccine Quad IM Multi-dose 6+ MO 2017-08-28 00:00:00 Completed [facility] Influenza Virus Vaccine Quad IM Multi-dose 6+ MO 2017-08-28 00:00:00 Completed [facility] Influenza Virus Vaccine Quad IM Multi-dose 6+ MO 2017-08-28 00:00:00 Completed [facility] Influenza Virus Vaccine Quad IM Multi-dose 6+ MO 2017-08-28 00:00:00 Completed [facility] Influenza Virus Vaccine Quad IM Multi-dose 6+ MO 2017-08-28 00:00:00 Completed [facility] Influenza Virus Vaccine Quad IM Multi-dose 6+ MO 2017-08-28 00:00:00 Completed [facility] Influenza Virus Vaccine Quad IM Multi-dose 6+ MO 2017-08-28 00:00:00 Completed [facility] Influenza Virus Vaccine Quad IM Multi-dose 6+ MO 2017-08-28 00:00:00 Completed [facility] Influenza Virus Vaccine Quad IM Multi-dose 6+ MO 2017-08-28 00:00:00 Completed [facility] Influenza Virus Vaccine Quad IM Multi-dose 6+ MO 2017-08-28 00:00:00 Completed [facility] Influenza Virus Vaccine Quad IM Multi-dose 6+ MO 2017-08-28 00:00:00 Completed [facility] Influenza Virus Vaccine Quad IM Multi-dose 6+ MO 2017-08-28 00:00:00 Completed [facility] Influenza Virus Vaccine Quad IM Multi-dose 6+ MO 2017-08-28 00:00:00 Completed [facility] Influenza Virus Vaccine Quad IM Multi-dose 6+ MO 2017-08-28 00:00:00 Completed [facility] Influenza Virus Vaccine Quad IM Multi-dose 6+ MO 2017-08-28 00:00:00 Completed [facility] Influenza Virus Vaccine Quad IM Multi-dose 6+ MO 2017-08-28 00:00:00 Completed [facility] Influenza Virus Vaccine Quad IM Multi-dose 6+ MO 2017-08-28 00:00:00 Completed [facility] Influenza Virus Vaccine Quad IM Multi-dose 6+ MO 2017-08-28 00:00:00 Completed [facility] Influenza Virus Vaccine Quad IM Multi-dose 6+ MO 2017-08-28 00:00:00 Completed [facility] Influenza Virus Vaccine Quad IM Multi-dose 6+ MO 2017-08-28 00:00:00 Completed [facility] Influenza Virus Vaccine Quad IM Multi-dose 6+ MO 2017-08-28 00:00:00 Completed [facility] Influenza Virus Vaccine Quad IM Multi-dose 6+ MO 2017-08-28 00:00:00 Completed [facility] Influenza Virus Vaccine Quad IM Multi-dose 6+ MO 2017-08-28 00:00:00 Completed [facility] Influenza Virus Vaccine Quad IM Multi-dose 6+ MO 2017-08-28 00:00:00 Completed [facility] Influenza Virus Vaccine Quad IM Multi-dose 6+ MO 2017-08-28 00:00:00 Completed [facility] Influenza Virus Vaccine Quad IM Multi-dose 6+ MO 2017-08-28 00:00:00 Completed [facility] Influenza Virus Vaccine Quad IM Multi-dose 6+ MO 2017-08-28 00:00:00 Completed [facility] Influenza Virus Vaccine Quad IM Multi-dose 6+ MO 2017-08-28 00:00:00 Completed [facility] Influenza Virus Vaccine Quad IM Multi-dose 6+ MO 2017-08-28 00:00:00 Completed [facility] Influenza Virus Vaccine Quad IM Multi-dose 6+ MO 2017-08-28 00:00:00 Completed [facility] Influenza Virus Vaccine Quad IM Multi-dose 6+ MO 2017-08-28 00:00:00 Completed [facility] Influenza Virus Vaccine Quad IM Multi-dose 6+ MO 2017-08-28 00:00:00 Completed [facility] Influenza Virus Vaccine Quad IM Multi-dose 6+ MO 2017-08-28 00:00:00 Completed [facility] Influenza Virus Vaccine Quad IM Multi-dose 6+ MO 2017-08-28 00:00:00 Completed [facility] Influenza Virus Vaccine Quad IM Multi-dose 6+ MO 2017-08-28 00:00:00 Completed [facility] Influenza Virus Vaccine Quad IM Multi-dose 6+ MO 2017-08-28 00:00:00 Completed [facility] Influenza Virus Vaccine Quad IM Multi-dose 6+ MO 2017-08-28 00:00:00 Completed [facility] Influenza Virus Vaccine Quad IM Multi-dose 6+ MO 2017-08-28 00:00:00 Completed [facility] Influenza Virus Vaccine Quad IM Multi-dose 6+ MO 2017-08-28 00:00:00 Completed [facility] Influenza Virus Vaccine Quad IM Multi-dose 6+ MO 2017-08-28 00:00:00 Completed [facility] Influenza Virus Vaccine Quad IM Multi-dose 6+ MO 2017-08-28 00:00:00 Completed [facility] Influenza Virus Vaccine Quad IM Multi-dose 6+ MO 2017-08-28 00:00:00 Completed [facility] Influenza Virus Vaccine Quad IM Multi-dose 6+ MO 2017-08-28 00:00:00 Completed [facility] Influenza Virus Vaccine Quad IM Multi-dose 6+ MO 2017-08-28 00:00:00 Completed [facility] Influenza Virus Vaccine Quad IM Multi-dose 6+ MO 2017-08-28 00:00:00 Completed [facility] Influenza Virus Vaccine Quad IM Multi-dose 6+ MO 2017-08-28 00:00:00 Completed [facility] Influenza Virus Vaccine Quad IM Multi-dose 6+ MO 2017-08-28 00:00:00 Completed [facility] Influenza Virus Vaccine Quad IM Multi-dose 6+ MO 2017-08-28 00:00:00 Completed [facility] Influenza Virus Vaccine Quad IM Multi-dose 6+ MO 2017-08-28 00:00:00 Completed [facility] Influenza Virus Vaccine Quad IM Multi-dose 6+ MO 2017-08-28 00:00:00 Completed [facility] Influenza Virus Vaccine Quad IM Multi-dose 6+ MO 2017-08-28 00:00:00 Completed [facility] Influenza Virus Vaccine Quad IM Multi-dose 6+ MO 2017-08-28 00:00:00 Completed [facility] Influenza Virus Vaccine Quad IM Multi-dose 6+ MO 2017-08-28 00:00:00 Completed [facility] Influenza Virus Vaccine Quad IM Multi-dose 6+ MO 2017-08-28 00:00:00 Completed [facility] Influenza Virus Vaccine Quad IM Multi-dose 6+ MO 2017-08-28 00:00:00 Completed [facility] Influenza Virus Vaccine Quad IM Multi-dose 6+ MO 2017-08-28 00:00:00 Completed [facility] Influenza Virus Vaccine Quad IM Multi-dose 6+ MO 2017-08-28 00:00:00 Completed [facility] Influenza Virus Vaccine Quad IM Multi-dose 6+ MO 2017-08-28 00:00:00 Completed [facility] Influenza Virus Vaccine Quad IM Multi-dose 6+ MO 2017-08-28 00:00:00 Completed [facility] Influenza Virus Vaccine Quad IM Multi-dose 6+ MO 2017-08-28 00:00:00 Completed [facility] Influenza Virus Vaccine Quad IM Multi-dose 6+ MO 2017-08-28 00:00:00 Completed [facility] Influenza Virus Vaccine Quad IM Multi-dose 6+ MO 2017-08-28 00:00:00 Completed [facility] Influenza Virus Vaccine Quad IM Multi-dose 6+ MO 2017-08-28 00:00:00 Completed [facility] Influenza Virus Vaccine Quad IM Multi-dose 6+ MO 2017-08-28 00:00:00 Completed [facility] Influenza Virus Vaccine Quad IM Multi-dose 6+ MO 2017-08-28 00:00:00 Completed [facility] Influenza Virus Vaccine Quad IM Multi-dose 6+ MO 2017-08-28 00:00:00 Completed [facility] Influenza Virus Vaccine Quad IM Multi-dose 6+ MO 2017-08-28 00:00:00 Completed [facility] Influenza Virus Vaccine Quad IM Multi-dose 6+ MO 2017-08-28 00:00:00 Completed [facility] Influenza Virus Vaccine Quad IM Multi-dose 6+ MO 2017-08-28 00:00:00 Completed [facility] Influenza Virus Vaccine Quad IM Multi-dose 6+ MO 2017-08-28 00:00:00 Completed [facility] Influenza Virus Vaccine Quad IM Multi-dose 6+ MO 2017-08-28 00:00:00 Completed Pneumococcal Polysaccharide, PPSV23 (PNEUMOVAX) 2016-12-27 00:00:00 Completed [facility] TDAP (ADACEL) VACCINE 2016-12-27 00:00:00 Completed [facility] Pneumococcal Polysaccharide, PPSV23 (PNEUMOVAX) 2016-12-27 00:00:00 Completed [facility] TDAP (ADACEL) VACCINE 2016-12-27 00:00:00 Completed [facility] Pneumococcal Polysaccharide, PPSV23 (PNEUMOVAX) 2016-12-27 00:00:00 Completed [facility] TDAP (ADACEL) VACCINE 2016-12-27 00:00:00 Completed [facility] Pneumococcal Polysaccharide, PPSV23 (PNEUMOVAX) 2016-12-27 00:00:00 Completed [facility] TDAP (ADACEL) VACCINE 2016-12-27 00:00:00 Completed [facility] Pneumococcal Polysaccharide, PPSV23 (PNEUMOVAX) 2016-12-27 00:00:00 Completed [facility] TDAP (ADACEL) VACCINE 2016-12-27 00:00:00 Completed [facility] Pneumococcal Polysaccharide, PPSV23 (PNEUMOVAX) 2016-12-27 00:00:00 Completed [facility] TDAP (ADACEL) VACCINE 2016-12-27 00:00:00 Completed [facility] Pneumococcal Polysaccharide, PPSV23 (PNEUMOVAX) 2016-12-27 00:00:00 Completed [facility] TDAP (ADACEL) VACCINE 2016-12-27 00:00:00 Completed [facility] Pneumococcal Polysaccharide, PPSV23 (PNEUMOVAX) 2016-12-27 00:00:00 Completed [facility] TDAP (ADACEL) VACCINE 2016-12-27 00:00:00 Completed [facility] Pneumococcal Polysaccharide, PPSV23 (PNEUMOVAX) 2016-12-27 00:00:00 Completed [facility] TDAP (ADACEL) VACCINE 2016-12-27 00:00:00 Completed [facility] Pneumococcal Polysaccharide, PPSV23 (PNEUMOVAX) 2016-12-27 00:00:00 Completed [facility] TDAP (ADACEL) VACCINE 2016-12-27 00:00:00 Completed [facility] Pneumococcal Polysaccharide, PPSV23 (PNEUMOVAX) 2016-12-27 00:00:00 Completed [facility] TDAP (ADACEL) VACCINE 2016-12-27 00:00:00 Completed [facility] Pneumococcal Polysaccharide, PPSV23 (PNEUMOVAX) 2016-12-27 00:00:00 Completed [facility] TDAP (ADACEL) VACCINE 2016-12-27 00:00:00 Completed [facility] Pneumococcal Polysaccharide, PPSV23 (PNEUMOVAX) 2016-12-27 00:00:00 Completed [facility] TDAP (ADACEL) VACCINE 2016-12-27 00:00:00 Completed [facility] Pneumococcal Polysaccharide, PPSV23 (PNEUMOVAX) 2016-12-27 00:00:00 Completed [facility] TDAP (ADACEL) VACCINE 2016-12-27 00:00:00 Completed [facility] Pneumococcal Polysaccharide, PPSV23 (PNEUMOVAX) 2016-12-27 00:00:00 Completed [facility] TDAP (ADACEL) VACCINE 2016-12-27 00:00:00 Completed [facility] Pneumococcal Polysaccharide, PPSV23 (PNEUMOVAX) 2016-12-27 00:00:00 Completed [facility] TDAP (ADACEL) VACCINE 2016-12-27 00:00:00 Completed [facility] Pneumococcal Polysaccharide, PPSV23 (PNEUMOVAX) 2016-12-27 00:00:00 Completed [facility] TDAP (ADACEL) VACCINE 2016-12-27 00:00:00 Completed [facility] Pneumococcal Polysaccharide, PPSV23 (PNEUMOVAX) 2016-12-27 00:00:00 Completed [facility] TDAP (ADACEL) VACCINE 2016-12-27 00:00:00 Completed [facility] Pneumococcal Polysaccharide, PPSV23 (PNEUMOVAX) 2016-12-27 00:00:00 Completed [facility] TDAP (ADACEL) VACCINE 2016-12-27 00:00:00 Completed [facility] Pneumococcal Polysaccharide, PPSV23 (PNEUMOVAX) 2016-12-27 00:00:00 Completed [facility] TDAP (ADACEL) VACCINE 2016-12-27 00:00:00 Completed [facility] Pneumococcal Polysaccharide, PPSV23 (PNEUMOVAX) 2016-12-27 00:00:00 Completed [facility] TDAP (ADACEL) VACCINE 2016-12-27 00:00:00 Completed [facility] Pneumococcal Polysaccharide, PPSV23 (PNEUMOVAX) 2016-12-27 00:00:00 Completed [facility] TDAP (ADACEL) VACCINE 2016-12-27 00:00:00 Completed [facility] Pneumococcal Polysaccharide, PPSV23 (PNEUMOVAX) 2016-12-27 00:00:00 Completed [facility] TDAP (ADACEL) VACCINE 2016-12-27 00:00:00 Completed [facility] Pneumococcal Polysaccharide, PPSV23 (PNEUMOVAX) 2016-12-27 00:00:00 Completed [facility] TDAP (ADACEL) VACCINE 2016-12-27 00:00:00 Completed [facility] Pneumococcal Polysaccharide, PPSV23 (PNEUMOVAX) 2016-12-27 00:00:00 Completed [facility] TDAP (ADACEL) VACCINE 2016-12-27 00:00:00 Completed [facility] Pneumococcal Polysaccharide, PPSV23 (PNEUMOVAX) 2016-12-27 00:00:00 Completed [facility] TDAP (ADACEL) VACCINE 2016-12-27 00:00:00 Completed [facility] Pneumococcal Polysaccharide, PPSV23 (PNEUMOVAX) 2016-12-27 00:00:00 Completed [facility] TDAP (ADACEL) VACCINE 2016-12-27 00:00:00 Completed [facility] Pneumococcal Polysaccharide, PPSV23 (PNEUMOVAX) 2016-12-27 00:00:00 Completed [facility] TDAP (ADACEL) VACCINE 2016-12-27 00:00:00 Completed [facility] Pneumococcal Polysaccharide, PPSV23 (PNEUMOVAX) 2016-12-27 00:00:00 Completed [facility] TDAP (ADACEL) VACCINE 2016-12-27 00:00:00 Completed [facility] Pneumococcal Polysaccharide, PPSV23 (PNEUMOVAX) 2016-12-27 00:00:00 Completed [facility] TDAP (ADACEL) VACCINE 2016-12-27 00:00:00 Completed [facility] Pneumococcal Polysaccharide, PPSV23 (PNEUMOVAX) 2016-12-27 00:00:00 Completed [facility] TDAP (ADACEL) VACCINE 2016-12-27 00:00:00 Completed [facility] Pneumococcal Polysaccharide, PPSV23 (PNEUMOVAX) 2016-12-27 00:00:00 Completed [facility] TDAP (ADACEL) VACCINE 2016-12-27 00:00:00 Completed [facility] Pneumococcal Polysaccharide, PPSV23 (PNEUMOVAX) 2016-12-27 00:00:00 Completed [facility] TDAP (ADACEL) VACCINE 2016-12-27 00:00:00 Completed [facility] Pneumococcal Polysaccharide, PPSV23 (PNEUMOVAX) 2016-12-27 00:00:00 Completed [facility] TDAP (ADACEL) VACCINE 2016-12-27 00:00:00 Completed [facility] Pneumococcal Polysaccharide, PPSV23 (PNEUMOVAX) 2016-12-27 00:00:00 Completed [facility] TDAP (ADACEL) VACCINE 2016-12-27 00:00:00 Completed [facility] Pneumococcal Polysaccharide, PPSV23 (PNEUMOVAX) 2016-12-27 00:00:00 Completed [facility] TDAP (ADACEL) VACCINE 2016-12-27 00:00:00 Completed [facility] Pneumococcal Polysaccharide, PPSV23 (PNEUMOVAX) 2016-12-27 00:00:00 Completed [facility] TDAP (ADACEL) VACCINE 2016-12-27 00:00:00 Completed [facility] Pneumococcal Polysaccharide, PPSV23 (PNEUMOVAX) 2016-12-27 00:00:00 Completed [facility] TDAP (ADACEL) VACCINE 2016-12-27 00:00:00 Completed [facility] Pneumococcal Polysaccharide, PPSV23 (PNEUMOVAX) 2016-12-27 00:00:00 Completed [facility] TDAP (ADACEL) VACCINE 2016-12-27 00:00:00 Completed [facility] Pneumococcal Polysaccharide, PPSV23 (PNEUMOVAX) 2016-12-27 00:00:00 Completed [facility] TDAP (ADACEL) VACCINE 2016-12-27 00:00:00 Completed [facility] Pneumococcal Polysaccharide, PPSV23 (PNEUMOVAX) 2016-12-27 00:00:00 Completed [facility] TDAP (ADACEL) VACCINE 2016-12-27 00:00:00 Completed [facility] Pneumococcal Polysaccharide, PPSV23 (PNEUMOVAX) 2016-12-27 00:00:00 Completed [facility] TDAP (ADACEL) VACCINE 2016-12-27 00:00:00 Completed [facility] Pneumococcal Polysaccharide, PPSV23 (PNEUMOVAX) 2016-12-27 00:00:00 Completed [facility] TDAP (ADACEL) VACCINE 2016-12-27 00:00:00 Completed [facility] Pneumococcal Polysaccharide, PPSV23 (PNEUMOVAX) 2016-12-27 00:00:00 Completed [facility] TDAP (ADACEL) VACCINE 2016-12-27 00:00:00 Completed [facility] Pneumococcal Polysaccharide, PPSV23 (PNEUMOVAX) 2016-12-27 00:00:00 Completed [facility] TDAP (ADACEL) VACCINE 2016-12-27 00:00:00 Completed [facility] Pneumococcal Polysaccharide, PPSV23 (PNEUMOVAX) 2016-12-27 00:00:00 Completed [facility] TDAP (ADACEL) VACCINE 2016-12-27 00:00:00 Completed [facility] Pneumococcal Polysaccharide, PPSV23 (PNEUMOVAX) 2016-12-27 00:00:00 Completed [facility] TDAP (ADACEL) VACCINE 2016-12-27 00:00:00 Completed [facility] Pneumococcal Polysaccharide, PPSV23 (PNEUMOVAX) 2016-12-27 00:00:00 Completed [facility] TDAP (ADACEL) VACCINE 2016-12-27 00:00:00 Completed [facility] Pneumococcal Polysaccharide, PPSV23 (PNEUMOVAX) 2016-12-27 00:00:00 Completed [facility] TDAP (ADACEL) VACCINE 2016-12-27 00:00:00 Completed [facility] Pneumococcal Polysaccharide, PPSV23 (PNEUMOVAX) 2016-12-27 00:00:00 Completed [facility] TDAP (ADACEL) VACCINE 2016-12-27 00:00:00 Completed [facility] Pneumococcal Polysaccharide, PPSV23 (PNEUMOVAX) 2016-12-27 00:00:00 Completed [facility] TDAP (ADACEL) VACCINE 2016-12-27 00:00:00 Completed [facility] Pneumococcal Polysaccharide, PPSV23 (PNEUMOVAX) 2016-12-27 00:00:00 Completed [facility] TDAP (ADACEL) VACCINE 2016-12-27 00:00:00 Completed [facility] Pneumococcal Polysaccharide, PPSV23 (PNEUMOVAX) 2016-12-27 00:00:00 Completed [facility] TDAP (ADACEL) VACCINE 2016-12-27 00:00:00 Completed [facility] Pneumococcal Polysaccharide, PPSV23 (PNEUMOVAX) 2016-12-27 00:00:00 Completed [facility] TDAP (ADACEL) VACCINE 2016-12-27 00:00:00 Completed [facility] Pneumococcal Polysaccharide, PPSV23 (PNEUMOVAX) 2016-12-27 00:00:00 Completed [facility] TDAP (ADACEL) VACCINE 2016-12-27 00:00:00 Completed [facility] Pneumococcal Polysaccharide, PPSV23 (PNEUMOVAX) 2016-12-27 00:00:00 Completed [facility] TDAP (ADACEL) VACCINE 2016-12-27 00:00:00 Completed [facility] Pneumococcal Polysaccharide, PPSV23 (PNEUMOVAX) 2016-12-27 00:00:00 [facility] [facility] TDAP (ADACEL) VACCINE 2016-12-27 00:00:00 Completed [facility] Pneumococcal Polysaccharide, PPSV23 (PNEUMOVAX) 2016-12-27 00:00:00 Completed [facility] TDAP (ADACEL) VACCINE 2016-12-27 00:00:00 Completed [facility] Pneumococcal Polysaccharide, PPSV23 (PNEUMOVAX) 2016-12-27 00:00:00 Completed [facility] TDAP (ADACEL) VACCINE 2016-12-27 00:00:00 Completed [facility] Pneumococcal Polysaccharide, PPSV23 (PNEUMOVAX) 2016-12-27 00:00:00 Completed [facility] TDAP (ADACEL) VACCINE 2016-12-27 00:00:00 Completed [facility] Pneumococcal Polysaccharide, PPSV23 (PNEUMOVAX) 2016-12-27 00:00:00 Completed [facility] TDAP (ADACEL) VACCINE 2016-12-27 00:00:00 Completed [facility] Pneumococcal Polysaccharide, PPSV23 (PNEUMOVAX) 2016-12-27 00:00:00 Completed [facility] TDAP (ADACEL) VACCINE 2016-12-27 00:00:00 Completed [facility] Pneumococcal Polysaccharide, PPSV23 (PNEUMOVAX) 2016-12-27 00:00:00 Completed [facility] TDAP (ADACEL) VACCINE 2016-12-27 00:00:00 Completed [facility] Pneumococcal Polysaccharide, PPSV23 (PNEUMOVAX) 2016-12-27 00:00:00 Completed [facility] TDAP (ADACEL) VACCINE 2016-12-27 00:00:00 Completed [facility] Pneumococcal Polysaccharide, PPSV23 (PNEUMOVAX) 2016-12-27 00:00:00 Completed [facility] TDAP (ADACEL) VACCINE 2016-12-27 00:00:00 Completed [facility] Pneumococcal Polysaccharide, PPSV23 (PNEUMOVAX) 2016-12-27 00:00:00 Completed [facility] TDAP (ADACEL) VACCINE 2016-12-27 00:00:00 Completed [facility] Pneumococcal Polysaccharide, PPSV23 (PNEUMOVAX) 2016-12-27 00:00:00 Completed [facility] TDAP (ADACEL) VACCINE 2016-12-27 00:00:00 Completed [facility] Pneumococcal Polysaccharide, PPSV23 (PNEUMOVAX) 2016-12-27 00:00:00 Completed [facility] TDAP (ADACEL) VACCINE 2016-12-27 00:00:00 Completed [facility] Pneumococcal Polysaccharide, PPSV23 (PNEUMOVAX) 2016-12-27 00:00:00 Completed [facility] TDAP (ADACEL) VACCINE 2016-12-27 00:00:00 Completed [facility] Pneumococcal Polysaccharide, PPSV23 (PNEUMOVAX) 2016-12-27 00:00:00 Completed [facility] TDAP (ADACEL) VACCINE 2016-12-27 00:00:00 Completed [facility] Pneumococcal Polysaccharide, PPSV23 (PNEUMOVAX) 2016-12-27 00:00:00 Completed [facility] TDAP (ADACEL) VACCINE 2016-12-27 00:00:00 Completed [facility] Pneumococcal Polysaccharide, PPSV23 (PNEUMOVAX) 2016-12-27 00:00:00 Completed [facility] TDAP (ADACEL) VACCINE 2016-12-27 00:00:00 Completed [facility] Pneumococcal Polysaccharide, PPSV23 (PNEUMOVAX) 2016-12-27 00:00:00 Completed [facility] TDAP (ADACEL) VACCINE 2016-12-27 00:00:00 Completed [facility] Pneumococcal Polysaccharide, PPSV23 (PNEUMOVAX) 2016-12-27 00:00:00 Completed [facility] TDAP (ADACEL) VACCINE 2016-12-27 00:00:00 Completed [facility] Pneumococcal Polysaccharide, PPSV23 (PNEUMOVAX) 2016-12-27 00:00:00 Completed [facility] TDAP (ADACEL) VACCINE 2016-12-27 00:00:00 Completed [facility] Pneumococcal Polysaccharide, PPSV23 (PNEUMOVAX) 2016-12-27 00:00:00 Completed [facility] TDAP (ADACEL) VACCINE 2016-12-27 00:00:00 Completed [facility] Pneumococcal Polysaccharide, PPSV23 (PNEUMOVAX) 2016-12-27 00:00:00 Completed [facility] TDAP (ADACEL) VACCINE 2016-12-27 00:00:00 Completed [facility] Pneumococcal Polysaccharide, PPSV23 (PNEUMOVAX) 2016-12-27 00:00:00 Completed [facility] TDAP (ADACEL) VACCINE 2016-12-27 00:00:00 Completed [facility] Pneumococcal Polysaccharide, PPSV23 (PNEUMOVAX) 2016-12-27 00:00:00 Completed [facility] TDAP (ADACEL) VACCINE 2016-12-27 00:00:00 Completed [facility] Pneumococcal Polysaccharide, PPSV23 (PNEUMOVAX) 2016-12-27 00:00:00 Completed [facility] TDAP (ADACEL) VACCINE 2016-12-27 00:00:00 Completed [facility] Pneumococcal Polysaccharide, PPSV23 (PNEUMOVAX) 2016-12-27 00:00:00 Completed [facility] TDAP (ADACEL) VACCINE 2016-12-27 00:00:00 Completed [facility] Pneumococcal Polysaccharide, PPSV23 (PNEUMOVAX) 2016-12-27 00:00:00 Completed [facility] TDAP (ADACEL) VACCINE 2016-12-27 00:00:00 Completed [facility] Pneumococcal Polysaccharide, PPSV23 (PNEUMOVAX) 2016-12-27 00:00:00 Completed [facility] TDAP (ADACEL) VACCINE 2016-12-27 00:00:00 Completed [facility] Pneumococcal Polysaccharide, PPSV23 (PNEUMOVAX) 2016-12-27 00:00:00 Completed [facility] TDAP (ADACEL) VACCINE 2016-12-27 00:00:00 Completed [facility] Pneumococcal Polysaccharide, PPSV23 (PNEUMOVAX) 2016-12-27 00:00:00 Completed [facility] TDAP (ADACEL) VACCINE 2016-12-27 00:00:00 Completed [facility] Pneumococcal Polysaccharide, PPSV23 (PNEUMOVAX) 2016-12-27 00:00:00 Completed [facility] TDAP (ADACEL) VACCINE 2016-12-27 00:00:00 Completed [facility] Pneumococcal Polysaccharide, PPSV23 (PNEUMOVAX) 2016-12-27 00:00:00 Completed [facility] TDAP (ADACEL) VACCINE 2016-12-27 00:00:00 Completed [facility] Pneumococcal Polysaccharide, PPSV23 (PNEUMOVAX) 2016-12-27 00:00:00 Completed [facility] TDAP (ADACEL) VACCINE 2016-12-27 00:00:00 Completed [facility] Pneumococcal Polysaccharide, PPSV23 (PNEUMOVAX) 2016-12-27 00:00:00 Completed [facility] TDAP (ADACEL) VACCINE 2016-12-27 00:00:00 Completed [facility] Pneumococcal Polysaccharide, PPSV23 (PNEUMOVAX) 2016-12-27 00:00:00 Completed [facility] TDAP (ADACEL) VACCINE 2016-12-27 00:00:00 Completed [facility] Pneumococcal Polysaccharide, PPSV23 (PNEUMOVAX) 2016-12-27 00:00:00 Completed [facility] TDAP (ADACEL) VACCINE 2016-12-27 00:00:00 Completed [facility] Pneumococcal Polysaccharide, PPSV23 (PNEUMOVAX) 2016-12-27 00:00:00 Completed [facility] TDAP (ADACEL) VACCINE 2016-12-27 00:00:00 Completed [facility] Pneumococcal Polysaccharide, PPSV23 (PNEUMOVAX) 2016-12-27 00:00:00 Completed [facility] TDAP (ADACEL) VACCINE 2016-12-27 00:00:00 Completed [facility] Pneumococcal Polysaccharide, PPSV23 (PNEUMOVAX) 2016-12-27 00:00:00 Completed [facility] TDAP (ADACEL) VACCINE 2016-12-27 00:00:00 Completed [facility] Pneumococcal Polysaccharide, PPSV23 (PNEUMOVAX) 2016-12-27 00:00:00 Completed [facility] TDAP (ADACEL) VACCINE 2016-12-27 00:00:00 Completed [facility] Pneumococcal Polysaccharide, PPSV23 (PNEUMOVAX) 2016-12-27 00:00:00 Completed [facility] TDAP (ADACEL) VACCINE 2016-12-27 00:00:00 Completed [facility] Pneumococcal Polysaccharide, PPSV23 (PNEUMOVAX) 2016-12-27 00:00:00 Completed [facility] TDAP (ADACEL) VACCINE 2016-12-27 00:00:00 Completed [facility] Pneumococcal Polysaccharide, PPSV23 (PNEUMOVAX) 2016-12-27 00:00:00 Completed [facility] TDAP (ADACEL) VACCINE 2016-12-27 00:00:00 Completed [facility] Pneumococcal Polysaccharide, PPSV23 (PNEUMOVAX) 2016-12-27 00:00:00 Completed [facility] TDAP (ADACEL) VACCINE 2016-12-27 00:00:00 Completed [facility] Pneumococcal Polysaccharide, PPSV23 (PNEUMOVAX) 2016-12-27 00:00:00 Completed [facility] TDAP (ADACEL) VACCINE 2016-12-27 00:00:00 Completed [facility] Pneumococcal Polysaccharide, PPSV23 (PNEUMOVAX) 2016-12-27 00:00:00 Completed [facility] TDAP (ADACEL) VACCINE 2016-12-27 00:00:00 Completed [facility] Pneumococcal Polysaccharide, PPSV23 (PNEUMOVAX) 2016-12-27 00:00:00 Completed [facility] TDAP (ADACEL) VACCINE 2016-12-27 00:00:00 Completed [facility] Pneumococcal Polysaccharide, PPSV23 (PNEUMOVAX) 2016-12-27 00:00:00 Completed [facility] TDAP (ADACEL) VACCINE 2016-12-27 00:00:00 Completed [facility] Pneumococcal Polysaccharide, PPSV23 (PNEUMOVAX) 2016-12-27 00:00:00 Completed [facility] TDAP (ADACEL) VACCINE 2016-12-27 00:00:00 Completed [facility] Pneumococcal Polysaccharide, PPSV23 (PNEUMOVAX) 2016-12-27 00:00:00 Completed [facility] TDAP (ADACEL) VACCINE 2016-12-27 00:00:00 Completed [facility] Pneumococcal Polysaccharide, PPSV23 (PNEUMOVAX) 2016-12-27 00:00:00 Completed [facility] TDAP (ADACEL) VACCINE 2016-12-27 00:00:00 Completed [facility] Pneumococcal Polysaccharide, PPSV23 (PNEUMOVAX) 2016-12-27 00:00:00 Completed [facility] TDAP (ADACEL) VACCINE 2016-12-27 00:00:00 Completed [facility] Pneumococcal Polysaccharide, PPSV23 (PNEUMOVAX) 2016-12-27 00:00:00 Completed [facility] TDAP (ADACEL) VACCINE 2016-12-27 00:00:00 Completed [facility] Pneumococcal Polysaccharide, PPSV23 (PNEUMOVAX) 2016-12-27 00:00:00 Completed [facility] TDAP (ADACEL) VACCINE 2016-12-27 00:00:00 Completed [facility] Pneumococcal Polysaccharide, PPSV23 (PNEUMOVAX) 2016-12-27 00:00:00 Completed [facility] TDAP (ADACEL) VACCINE 2016-12-27 00:00:00 Completed [facility] Pneumococcal Polysaccharide, PPSV23 (PNEUMOVAX) 2016-12-27 00:00:00 Completed [facility] TDAP (ADACEL) VACCINE 2016-12-27 00:00:00 Completed [facility] Pneumococcal Polysaccharide, PPSV23 (PNEUMOVAX) 2016-12-27 00:00:00 Completed [facility] TDAP (ADACEL) VACCINE 2016-12-27 00:00:00 Completed [facility] Pneumococcal Polysaccharide, PPSV23 (PNEUMOVAX) 2016-12-27 00:00:00 Completed [facility] TDAP (ADACEL) VACCINE 2016-12-27 00:00:00 Completed [facility] Pneumococcal Polysaccharide, PPSV23 (PNEUMOVAX) 2016-12-27 00:00:00 Completed [facility] TDAP (ADACEL) VACCINE 2016-12-27 00:00:00 Completed [facility] Pneumococcal Polysaccharide, PPSV23 (PNEUMOVAX) 2016-12-27 00:00:00 Completed [facility] TDAP (ADACEL) VACCINE 2016-12-27 00:00:00 Completed SARS-COV-2 COVID-19 MODERNA 12+ YRS VACCINE Unknown Completed [facility] Twinrix (hep a/hep b) Unknown Completed [facility] Influenza Virus Vaccine Quad IM, Preserv and ABX Free 6 MO-64 YRS (FLUCELVAX) Unknown Completed [facility] Pneumococcal Polysaccharide, PPSV23 (PNEUMOVAX) Unknown Completed [facility] TDAP (ADACEL) VACCINE Unknown Completed [facility] Influenza Virus Vaccine Quad IM Multi-dose 6+ MO Unknown Completed [facility] Influenza Virus Vaccine Quad IM 3+ YRS Unknown Completed [facility] Influenza Virus Vaccine Unknown Completed [facility] SARS-COV-2 COVID-19 MODERNA 12+ YRS VACCINE Unknown Completed [facility] Twinrix (hep a/hep b) Unknown Completed [facility] Influenza Virus Vaccine Quad IM, Preserv and ABX Free 6 MO-64 YRS (FLUCELVAX) Unknown Completed [facility] Pneumococcal Polysaccharide, PPSV23 (PNEUMOVAX) Unknown Completed [facility] TDAP (ADACEL) VACCINE Unknown Completed [facility] Influenza Virus Vaccine Quad IM Multi-dose 6+ MO Unknown Completed [facility] Influenza Virus Vaccine Quad IM 3+ YRS Unknown Completed [facility] Influenza Virus Vaccine Unknown Completed [facility] SARS-COV-2 COVID-19 MODERNA 12+ YRS VACCINE Unknown Completed [facility] Twinrix (hep a/hep b) Unknown Completed [facility] Influenza Virus Vaccine Quad IM, Preserv and ABX Free 6 MO-64 YRS (FLUCELVAX) Unknown Completed [facility] Pneumococcal Polysaccharide, PPSV23 (PNEUMOVAX) Unknown Completed [facility] TDAP (ADACEL) VACCINE Unknown Completed [facility] Influenza Virus Vaccine Quad IM Multi-dose 6+ MO Unknown Completed [facility] Influenza Virus Vaccine Quad IM 3+ YRS Unknown Completed [facility] Influenza Virus Vaccine Unknown Completed [facility] SARS-COV-2 COVID-19 MODERNA 12+ YRS VACCINE Unknown Completed [facility] Twinrix (hep a/hep b) Unknown Completed [facility] Influenza Virus Vaccine Quad IM, Preserv and ABX Free 6 MO-64 YRS (FLUCELVAX) Unknown Completed [facility] Pneumococcal Polysaccharide, PPSV23 (PNEUMOVAX) Unknown Completed [facility] TDAP (ADACEL) VACCINE Unknown Completed [facility] Influenza Virus Vaccine Quad IM Multi-dose 6+ MO Unknown Completed [facility] Influenza Virus Vaccine Quad IM 3+ YRS Unknown Completed [facility] Influenza Virus Vaccine Unknown Completed [facility] SARS-COV-2 COVID-19 MODERNA 12+ YRS VACCINE Unknown Completed [facility] Twinrix (hep a/hep b) Unknown Completed [facility] Influenza Virus Vaccine Quad IM, Preserv and ABX Free 6 MO-64 YRS (FLUCELVAX) Unknown Completed [facility] Pneumococcal Polysaccharide, PPSV23 (PNEUMOVAX) Unknown Completed [facility] TDAP (ADACEL) VACCINE Unknown Completed [facility] Influenza Virus Vaccine Quad IM Multi-dose 6+ MO Unknown Completed [facility] Influenza Virus Vaccine Quad IM 3+ YRS Unknown Completed [facility] Influenza Virus Vaccine Unknown Completed [facility] SARS-COV-2 COVID-19 MODERNA 12+ YRS VACCINE Unknown Completed [facility] Twinrix (hep a/hep b) Unknown Completed [facility] Influenza Virus Vaccine Quad IM, Preserv and ABX Free 6 MO-64 YRS (FLUCELVAX) Unknown Completed [facility] Pneumococcal Polysaccharide, PPSV23 (PNEUMOVAX) Unknown Completed [facility] TDAP (ADACEL) VACCINE Unknown Completed [facility] Influenza Virus Vaccine Quad IM Multi-dose 6+ MO Unknown Completed [facility] Influenza Virus Vaccine Quad IM 3+ YRS Unknown Completed [facility] Influenza Virus Vaccine Unknown Completed [facility] SARS-COV-2 COVID-19 MODERNA 12+ YRS VACCINE Unknown Completed [facility] Twinrix (hep a/hep b) Unknown Completed [facility] Influenza Virus Vaccine Quad IM, Preserv and ABX Free 6 MO-64 YRS (FLUCELVAX) Unknown Completed [facility] Pneumococcal Polysaccharide, PPSV23 (PNEUMOVAX) Unknown Completed [facility] TDAP (ADACEL) VACCINE Unknown Completed [facility] Influenza Virus Vaccine Quad IM Multi-dose 6+ MO Unknown Completed [facility] Influenza Virus Vaccine Quad IM 3+ YRS Unknown Completed [facility] Influenza Virus Vaccine Unknown Completed [facility] SARS-COV-2 COVID-19 MODERNA 12+ YRS VACCINE Unknown Completed [facility] Twinrix (hep a/hep b) Unknown Completed [facility] Influenza Virus Vaccine Quad IM, Preserv and ABX Free 6 MO-64 YRS (FLUCELVAX) Unknown Completed [facility] Pneumococcal Polysaccharide, PPSV23 (PNEUMOVAX) Unknown Completed [facility] TDAP (ADACEL) VACCINE Unknown Completed [facility] Influenza Virus Vaccine Quad IM Multi-dose 6+ MO Unknown Completed [facility] Influenza Virus Vaccine Quad IM 3+ YRS Unknown Completed [facility] Influenza Virus Vaccine Unknown Completed [facility] SARS-COV-2 COVID-19 MODERNA 12+ YRS VACCINE Unknown Completed [facility] Pneumococcal Polysaccharide, PPSV23 (PNEUMOVAX) Unknown Completed [facility] TDAP (ADACEL) VACCINE Unknown Completed [facility] Influenza Virus Vaccine Quad IM Multi-dose 6+ MO Unknown Completed [facility] Influenza Virus Vaccine Quad IM 3+ YRS Unknown Completed [facility] Influenza Virus Vaccine Unknown Completed [facility] SARS-COV-2 COVID-19 MODERNA 12+ YRS VACCINE Unknown Completed [facility] Pneumococcal Polysaccharide, PPSV23 (PNEUMOVAX) Unknown Completed [facility] TDAP (ADACEL) VACCINE Unknown Completed [facility] Influenza Virus Vaccine Quad IM Multi-dose 6+ MO Unknown Completed [facility] Influenza Virus Vaccine Quad IM 3+ YRS Unknown Completed [facility] Influenza Virus Vaccine Unknown Completed [facility] Pneumococcal Polysaccharide, PPSV23 (PNEUMOVAX) Unknown Completed [facility] TDAP (ADACEL) VACCINE Unknown Completed [facility] Influenza Virus Vaccine Quad IM Multi-dose 6+ MO Unknown Completed [facility] Influenza Virus Vaccine Quad IM 3+ YRS Unknown Completed [facility] Pneumococcal Polysaccharide, PPSV23 (PNEUMOVAX) Unknown Completed [facility] TDAP (ADACEL) VACCINE Unknown Completed [facility] Influenza Virus Vaccine Quad IM Multi-dose 6+ MO Unknown Completed [facility] Influenza Virus Vaccine Quad IM 3+ YRS Unknown Completed [facility] Influenza Virus Vaccine Unknown Completed [facility] SARS-COV-2 COVID-19 MODERNA 12+ YRS VACCINE Unknown Completed [facility] Twinrix (hep a/hep b) Unknown Completed [facility] Influenza Virus Vaccine Quad IM, Preserv and ABX Free 6 MO-64 YRS (FLUCELVAX) Unknown Completed [facility] Pneumococcal Polysaccharide, PPSV23 (PNEUMOVAX) Unknown Completed [facility] TDAP (ADACEL) VACCINE Unknown Completed [facility] Influenza Virus Vaccine Quad IM Multi-dose 6+ MO Unknown Completed [facility] Influenza Virus Vaccine Quad IM 3+ YRS Unknown Completed [facility] Influenza Virus Vaccine Unknown Completed [facility] SARS-COV-2 COVID-19 MODERNA 12+ YRS VACCINE Unknown Completed [facility] Twinrix (hep a/hep b) Unknown Completed [facility] Influenza Virus Vaccine Quad IM, Preserv and ABX Free 6 MO-64 YRS (FLUCELVAX) Unknown Completed [facility] Pneumococcal Polysaccharide, PPSV23 (PNEUMOVAX) Unknown Completed [facility] TDAP (ADACEL) VACCINE Unknown Completed [facility] Influenza Virus Vaccine Quad IM Multi-dose 6+ MO Unknown Completed [facility] Influenza Virus Vaccine Quad IM 3+ YRS Unknown Completed [facility] Influenza Virus Vaccine Unknown Completed [facility] SARS-COV-2 COVID-19 MODERNA 12+ YRS VACCINE Unknown Completed [facility] Twinrix (hep a/hep b) Unknown Completed [facility] Influenza Virus Vaccine Quad IM, Preserv and ABX Free 6 MO-64 YRS (FLUCELVAX) Unknown Completed [facility] Pneumococcal Polysaccharide, PPSV23 (PNEUMOVAX) Unknown Completed [facility] TDAP (ADACEL) VACCINE Unknown Completed [facility] Influenza Virus Vaccine Quad IM Multi-dose 6+ MO Unknown Completed [facility] Influenza Virus Vaccine Quad IM 3+ YRS Unknown Completed [facility] Influenza Virus Vaccine Unknown Completed [facility] SARS-COV-2 COVID-19 MODERNA 12+ YRS VACCINE Unknown Completed [facility] Twinrix (hep a/hep b) Unknown Completed [facility] Influenza Virus Vaccine Quad IM, Preserv and ABX Free 6 MO-64 YRS (FLUCELVAX) Unknown Completed [facility] Pneumococcal Polysaccharide, PPSV23 (PNEUMOVAX) Unknown Completed [facility] TDAP (ADACEL) VACCINE Unknown Completed [facility] Influenza Virus Vaccine Quad IM Multi-dose 6+ MO Unknown Completed [facility] Influenza Virus Vaccine Quad IM 3+ YRS Unknown Completed [facility] Influenza Virus Vaccine Unknown Completed [facility] SARS-COV-2 COVID-19 MODERNA 12+ YRS VACCINE Unknown Completed [facility] Twinrix (hep a/hep b) Unknown Completed [facility] Influenza Virus Vaccine Quad IM, Preserv and ABX Free 6 MO-64 YRS (FLUCELVAX) Unknown Completed [facility] Pneumococcal Polysaccharide, PPSV23 (PNEUMOVAX) Unknown Completed [facility] TDAP (ADACEL) VACCINE Unknown Completed [facility] Influenza Virus Vaccine Quad IM Multi-dose 6+ MO Unknown Completed [facility] Influenza Virus Vaccine Quad IM 3+ YRS Unknown Completed [facility] Influenza Virus Vaccine Unknown Completed [facility] SARS-COV-2 COVID-19 MODERNA 12+ YRS VACCINE Unknown Completed [facility] Twinrix (hep a/hep b) Unknown Completed [facility] Influenza Virus Vaccine Quad IM, Preserv and ABX Free 6 MO-64 YRS (FLUCELVAX) Unknown Completed [facility] Pneumococcal Polysaccharide, PPSV23 (PNEUMOVAX) Unknown Completed [facility] TDAP (ADACEL) VACCINE Unknown Completed [facility] Influenza Virus Vaccine Quad IM Multi-dose 6+ MO Unknown Completed [facility] Influenza Virus Vaccine Quad IM 3+ YRS Unknown Completed [facility] Influenza Virus Vaccine Unknown Completed [facility] SARS-COV-2 COVID-19 MODERNA 12+ YRS VACCINE Unknown Completed [facility] Twinrix (hep a/hep b) Unknown Completed [facility] Influenza Virus Vaccine Quad IM, Preserv and ABX Free 6 MO-64 YRS (FLUCELVAX) Unknown Completed [facility] Pneumococcal Polysaccharide, PPSV23 (PNEUMOVAX) Unknown Completed [facility] TDAP (ADACEL) VACCINE Unknown Completed [facility] Influenza Virus Vaccine Quad IM Multi-dose 6+ MO Unknown Completed [facility] Influenza Virus Vaccine Quad IM 3+ YRS Unknown Completed [facility] Influenza Virus Vaccine Unknown Completed [facility] SARS-COV-2 COVID-19 MODERNA 12+ YRS VACCINE Unknown Completed [facility] Twinrix (hep a/hep b) Unknown Completed [facility] Influenza Virus Vaccine Quad IM, Preserv and ABX Free 6 MO-64 YRS (FLUCELVAX) Unknown Completed [facility] Pneumococcal Polysaccharide, PPSV23 (PNEUMOVAX) Unknown Completed [facility] TDAP (ADACEL) VACCINE Unknown Completed [facility] Influenza Virus Vaccine Quad IM Multi-dose 6+ MO Unknown Completed [facility] Influenza Virus Vaccine Quad IM 3+ YRS Unknown Completed [facility] Influenza Virus Vaccine Unknown Completed [facility] SARS-COV-2 COVID-19 MODERNA 12+ YRS VACCINE Unknown Completed [facility] Twinrix (hep a/hep b) Unknown Completed [facility] Influenza Virus Vaccine Quad IM, Preserv and ABX Free 6 MO-64 YRS (FLUCELVAX) Unknown Completed [facility] Pneumococcal Polysaccharide, PPSV23 (PNEUMOVAX) Unknown Completed [facility] TDAP (ADACEL) VACCINE Unknown Completed [facility] Influenza Virus Vaccine Quad IM Multi-dose 6+ MO Unknown Completed [facility] Influenza Virus Vaccine Quad IM 3+ YRS Unknown Completed [facility] Influenza Virus Vaccine Unknown Completed [facility] SARS-COV-2 COVID-19 MODERNA 12+ YRS VACCINE Unknown Completed [facility] Twinrix (hep a/hep b) Unknown Completed [facility] Influenza Virus Vaccine Quad IM, Preserv and ABX Free 6 MO-64 YRS (FLUCELVAX) Unknown Completed [facility] Pneumococcal Polysaccharide, PPSV23 (PNEUMOVAX) Unknown Completed [facility] TDAP (ADACEL) VACCINE Unknown Completed [facility] Influenza Virus Vaccine Quad IM Multi-dose 6+ MO Unknown Completed [facility] Influenza Virus Vaccine Quad IM 3+ YRS Unknown Completed [facility] Influenza Virus Vaccine Unknown Completed [facility] SARS-COV-2 COVID-19 MODERNA 12+ YRS VACCINE Unknown Completed [facility] Twinrix (hep a/hep b) Unknown Completed [facility] Influenza Virus Vaccine Quad IM, Preserv and ABX Free 6 MO-64 YRS (FLUCELVAX) Unknown Completed [facility] Pneumococcal Polysaccharide, PPSV23 (PNEUMOVAX) Unknown Completed [facility] TDAP (ADACEL) VACCINE Unknown Completed [facility] Influenza Virus Vaccine Quad IM Multi-dose 6+ MO Unknown Completed [facility] Influenza Virus Vaccine Quad IM 3+ YRS Unknown Completed [facility] Influenza Virus Vaccine Unknown Completed [facility] SARS-COV-2 COVID-19 MODERNA 12+ YRS VACCINE Unknown Completed [facility] Twinrix (hep a/hep b) Unknown Completed [facility] Influenza Virus Vaccine Quad IM, Preserv and ABX Free 6 MO-64 YRS (FLUCELVAX) Unknown Completed [facility] Pneumococcal Polysaccharide, PPSV23 (PNEUMOVAX) Unknown Completed [facility] TDAP (ADACEL) VACCINE Unknown Completed [facility] Influenza Virus Vaccine Quad IM Multi-dose 6+ MO Unknown Completed [facility] Influenza Virus Vaccine Quad IM 3+ YRS Unknown Completed [facility] Influenza Virus Vaccine Unknown Completed [facility] SARS-COV-2 COVID-19 MODERNA 12+ YRS VACCINE Unknown Completed [facility] Twinrix (hep a/hep b) Unknown Completed [facility] Influenza Virus Vaccine Quad IM, Preserv and ABX Free 6 MO-64 YRS (FLUCELVAX) Unknown Completed [facility] Pneumococcal Polysaccharide, PPSV23 (PNEUMOVAX) Unknown Completed [facility] TDAP (ADACEL) VACCINE Unknown Completed [facility] Influenza Virus Vaccine Quad IM Multi-dose 6+ MO Unknown Completed [facility] Influenza Virus Vaccine Quad IM 3+ YRS Unknown Completed [facility] Influenza Virus Vaccine Unknown Completed [facility] SARS-COV-2 COVID-19 MODERNA 12+ YRS VACCINE Unknown Completed [facility] Twinrix (hep a/hep b) Unknown Completed [facility] Influenza Virus Vaccine Quad IM, Preserv and ABX Free 6 MO-64 YRS (FLUCELVAX) Unknown Completed [facility] Pneumococcal Polysaccharide, PPSV23 (PNEUMOVAX) Unknown Completed [facility] TDAP (ADACEL) VACCINE Unknown Completed [facility] Influenza Virus Vaccine Quad IM Multi-dose 6+ MO Unknown Completed [facility] Influenza Virus Vaccine Quad IM 3+ YRS Unknown Completed [facility] Influenza Virus Vaccine Unknown Completed [facility] SARS-COV-2 COVID-19 MODERNA 12+ YRS VACCINE Unknown Completed [facility] Twinrix (hep a/hep b) Unknown Completed [facility] Influenza Virus Vaccine Quad IM, Preserv and ABX Free 6 MO-64 YRS (FLUCELVAX) Unknown Completed [facility] Pneumococcal Polysaccharide, PPSV23 (PNEUMOVAX) Unknown Completed [facility] TDAP (ADACEL) VACCINE Unknown Completed [facility] Influenza Virus Vaccine Quad IM Multi-dose 6+ MO Unknown Completed [facility] Influenza Virus Vaccine Quad IM 3+ YRS Unknown Completed [facility] Influenza Virus Vaccine Unknown Completed [facility] SARS-COV-2 COVID-19 MODERNA 12+ YRS VACCINE Unknown Completed [facility] Twinrix (hep a/hep b) Unknown Completed [facility] Influenza Virus Vaccine Quad IM, Preserv and ABX Free 6 MO-64 YRS (FLUCELVAX) Unknown Completed [facility] Pneumococcal Polysaccharide, PPSV23 (PNEUMOVAX) Unknown Completed [facility] TDAP (ADACEL) VACCINE Unknown Completed [facility] Influenza Virus Vaccine Quad IM Multi-dose 6+ MO Unknown Completed [facility] Influenza Virus Vaccine Quad IM 3+ YRS Unknown Completed [facility] Influenza Virus Vaccine Unknown Completed [facility] SARS-COV-2 COVID-19 MODERNA 12+ YRS VACCINE Unknown Completed [facility] Twinrix (hep a/hep b) Unknown Completed [facility] Influenza Virus Vaccine Quad IM, Preserv and ABX Free 6 MO-64 YRS (FLUCELVAX) Unknown Completed [facility] Pneumococcal Polysaccharide, PPSV23 (PNEUMOVAX) Unknown Completed [facility] TDAP (ADACEL) VACCINE Unknown Completed [facility] Influenza Virus Vaccine Quad IM Multi-dose 6+ MO Unknown Completed [facility] Influenza Virus Vaccine Quad IM 3+ YRS Unknown Completed [facility] Influenza Virus Vaccine Unknown Completed [facility] SARS-COV-2 COVID-19 MODERNA 12+ YRS VACCINE Unknown Completed [facility] Twinrix (hep a/hep b) Unknown Completed [facility] Influenza Virus Vaccine Quad IM, Preserv and ABX Free 6 MO-64 YRS (FLUCELVAX) Unknown Completed [facility] Pneumococcal Polysaccharide, PPSV23 (PNEUMOVAX) Unknown Completed [facility] TDAP (ADACEL) VACCINE Unknown Completed [facility] Influenza Virus Vaccine Quad IM Multi-dose 6+ MO Unknown Completed [facility] Influenza Virus Vaccine Quad IM 3+ YRS Unknown Completed [facility] Influenza Virus Vaccine Unknown Completed [facility] Pneumococcal Polysaccharide, PPSV23 (PNEUMOVAX) Unknown [facility] TDAP (ADACEL) VACCINE Unknown Completed [facility] Influenza Virus Vaccine Quad IM Multi-dose 6+ MO Unknown Completed [facility] Influenza Virus Vaccine Quad IM 3+ YRS Unknown Completed [facility] Influenza Virus Vaccine Unknown Completed [facility] SARS-COV-2 COVID-19 MODERNA 12+ YRS VACCINE Unknown Completed [facility] Twinrix (hep a/hep b) Unknown Completed [facility] Influenza Virus Vaccine Quad IM, Preserv and ABX Free 6 MO-64 YRS (FLUCELVAX) Unknown Completed [facility] Pneumococcal Polysaccharide, PPSV23 (PNEUMOVAX) Unknown Completed [facility] TDAP (ADACEL) VACCINE Unknown Completed [facility] Influenza Virus Vaccine Quad IM Multi-dose 6+ MO Unknown Completed [facility] Influenza Virus Vaccine Quad IM 3+ YRS Unknown Completed [facility] Influenza Virus Vaccine Unknown Completed [facility] SARS-COV-2 COVID-19 MODERNA 12+ YRS VACCINE Unknown Completed [facility] Twinrix (hep a/hep b) Unknown Completed [facility] Influenza Virus Vaccine Quad IM, Preserv and ABX Free 6 MO-64 YRS (FLUCELVAX) Unknown Completed [facility] Pneumococcal Polysaccharide, PPSV23 (PNEUMOVAX) Unknown Completed [facility] TDAP (ADACEL) VACCINE Unknown Completed [facility] Influenza Virus Vaccine Quad IM Multi-dose 6+ MO Unknown Completed [facility] Influenza Virus Vaccine Quad IM 3+ YRS Unknown Completed [facility] Influenza Virus Vaccine Unknown Completed [facility] SARS-COV-2 COVID-19 MODERNA 12+ YRS VACCINE Unknown Completed [facility] Twinrix (hep a/hep b) Unknown Completed [facility] Influenza Virus Vaccine Quad IM, Preserv and ABX Free 6 MO-64 YRS (FLUCELVAX) Unknown Completed [facility] SARS-COV-2 COVID-19 MODERNA 12+ YRS VACCINE Unknown Completed [facility] Twinrix (hep a/hep b) Unknown Completed [facility] Influenza Virus Vaccine Quad IM, Preserv and ABX Free 6 MO-64 YRS (FLUCELVAX) Unknown Completed [facility] Pneumococcal Polysaccharide, PPSV23 (PNEUMOVAX) Unknown Completed [facility] TDAP (ADACEL) VACCINE Unknown Completed [facility] Influenza Virus Vaccine Quad IM Multi-dose 6+ MO Unknown Completed [facility] Influenza Virus Vaccine Quad IM 3+ YRS Unknown Completed [facility] Influenza Virus Vaccine Unknown Completed [facility] SARS-COV-2 COVID-19 MODERNA 12+ YRS VACCINE Unknown Completed [facility] Twinrix (hep a/hep b) Unknown Completed [facility] Influenza Virus Vaccine Quad IM, Preserv and ABX Free 6 MO-64 YRS (FLUCELVAX) Unknown Completed [facility] Pneumococcal Polysaccharide, PPSV23 (PNEUMOVAX) Unknown Completed [facility] TDAP (ADACEL) VACCINE Unknown Completed [facility] Influenza Virus Vaccine Quad IM Multi-dose 6+ MO Unknown Completed [facility] Influenza Virus Vaccine Quad IM 3+ YRS Unknown Completed [facility] Influenza Virus Vaccine Unknown Completed [facility] SARS-COV-2 COVID-19 MODERNA 12+ YRS VACCINE Unknown Completed [facility] Twinrix (hep a/hep b) Unknown Completed [facility] Influenza Virus Vaccine Quad IM, Preserv and ABX Free 6 MO-64 YRS (FLUCELVAX) Unknown Completed [facility] Pneumococcal Polysaccharide, PPSV23 (PNEUMOVAX) Unknown Completed [facility] TDAP (ADACEL) VACCINE Unknown Completed [facility] Influenza Virus Vaccine Quad IM Multi-dose 6+ MO Unknown Completed [facility] Influenza Virus Vaccine Quad IM 3+ YRS Unknown Completed [facility] Influenza Virus Vaccine Unknown Completed [facility] SARS-COV-2 COVID-19 MODERNA 12+ YRS VACCINE Unknown Completed [facility] Twinrix (hep a/hep b) Unknown Completed [facility] Influenza Virus Vaccine Quad IM, Preserv and ABX Free 6 MO-64 YRS (FLUCELVAX) Unknown Completed [facility] Pneumococcal Polysaccharide, PPSV23 (PNEUMOVAX) Unknown Completed [facility] TDAP (ADACEL) VACCINE Unknown Completed [facility] Influenza Virus Vaccine Quad IM Multi-dose 6+ MO Unknown Completed [facility] Influenza Virus Vaccine Quad IM 3+ YRS Unknown Completed [facility] Influenza Virus Vaccine Unknown Completed [facility] SARS-COV-2 COVID-19 MODERNA 12+ YRS VACCINE Unknown Completed [facility] Twinrix (hep a/hep b) Unknown Completed [facility] Influenza Virus Vaccine Quad IM, Preserv and ABX Free 6 MO-64 YRS (FLUCELVAX) Unknown Completed [facility] Pneumococcal Polysaccharide, PPSV23 (PNEUMOVAX) Unknown Completed [facility] TDAP (ADACEL) VACCINE Unknown Completed [facility] Influenza Virus Vaccine Quad IM Multi-dose 6+ MO Unknown Completed [facility] Influenza Virus Vaccine Quad IM 3+ YRS Unknown Completed [facility] Influenza Virus Vaccine Unknown Completed [facility] SARS-COV-2 COVID-19 MODERNA 12+ YRS VACCINE Unknown Completed [facility] Twinrix (hep a/hep b) Unknown Completed [facility] Influenza Virus Vaccine Quad IM, Preserv and ABX Free 6 MO-64 YRS (FLUCELVAX) Unknown Completed [facility] Pneumococcal Polysaccharide, PPSV23 (PNEUMOVAX) Unknown Completed [facility] TDAP (ADACEL) VACCINE Unknown Completed [facility] Influenza Virus Vaccine Quad IM Multi-dose 6+ MO Unknown Completed [facility] Influenza Virus Vaccine Quad IM 3+ YRS Unknown Completed [facility] Influenza Virus Vaccine Unknown Completed [facility] SARS-COV-2 COVID-19 MODERNA 12+ YRS VACCINE Unknown Completed [facility] Twinrix (hep a/hep b) Unknown Completed [facility] Influenza Virus Vaccine Quad IM, Preserv and ABX Free 6 MO-64 YRS (FLUCELVAX) Unknown Completed [facility] Pneumococcal Polysaccharide, PPSV23 (PNEUMOVAX) Unknown Completed [facility] TDAP (ADACEL) VACCINE Unknown Completed [facility] Influenza Virus Vaccine Quad IM Multi-dose 6+ MO Unknown Completed [facility] Influenza Virus Vaccine Quad IM 3+ YRS Unknown Completed [facility] Influenza Virus Vaccine Unknown Completed [facility] SARS-COV-2 COVID-19 MODERNA 12+ YRS VACCINE Unknown Completed [facility] Twinrix (hep a/hep b) Unknown Completed [facility] Influenza Virus Vaccine Quad IM, Preserv and ABX Free 6 MO-64 YRS (FLUCELVAX) Unknown Completed [facility] Pneumococcal Polysaccharide, PPSV23 (PNEUMOVAX) Unknown Completed [facility] TDAP (ADACEL) VACCINE Unknown Completed [facility] Influenza Virus Vaccine Quad IM Multi-dose 6+ MO Unknown Completed [facility] Influenza Virus Vaccine Quad IM 3+ YRS Unknown Completed [facility] Influenza Virus Vaccine Unknown Completed [facility] SARS-COV-2 COVID-19 MODERNA 12+ YRS VACCINE Unknown Completed [facility] Twinrix (hep a/hep b) Unknown Completed [facility] Influenza Virus Vaccine Quad IM, Preserv and ABX Free 6 MO-64 YRS (FLUCELVAX) Unknown Completed [facility] Pneumococcal Polysaccharide, PPSV23 (PNEUMOVAX) Unknown Completed [facility] TDAP (ADACEL) VACCINE Unknown Completed [facility] Influenza Virus Vaccine Quad IM Multi-dose 6+ MO Unknown Completed [facility] Influenza Virus Vaccine Quad IM 3+ YRS Unknown Completed [facility] Influenza Virus Vaccine Unknown Completed [facility] SARS-COV-2 COVID-19 MODERNA 12+ YRS VACCINE Unknown Completed [facility] Twinrix (hep a/hep b) Unknown Completed [facility] Influenza Virus Vaccine Quad IM, Preserv and ABX Free 6 MO-64 YRS (FLUCELVAX) Unknown Completed [facility] Pneumococcal Polysaccharide, PPSV23 (PNEUMOVAX) Unknown Completed [facility] TDAP (ADACEL) VACCINE Unknown Completed [facility] Influenza Virus Vaccine Quad IM Multi-dose 6+ MO Unknown Completed [facility] Influenza Virus Vaccine Quad IM 3+ YRS Unknown Completed [facility] Influenza Virus Vaccine Unknown Completed [facility] SARS-COV-2 COVID-19 MODERNA 12+ YRS VACCINE Unknown Completed [facility] Twinrix (hep a/hep b) Unknown Completed [facility] Influenza Virus Vaccine Quad IM, Preserv and ABX Free 6 MO-64 YRS (FLUCELVAX) Unknown Completed [facility] Pneumococcal Polysaccharide, PPSV23 (PNEUMOVAX) Unknown Completed [facility] TDAP (ADACEL) VACCINE Unknown Completed [facility] Influenza Virus Vaccine Quad IM Multi-dose 6+ MO Unknown Completed [facility] Influenza Virus Vaccine Quad IM 3+ YRS Unknown Completed [facility] Influenza Virus Vaccine Unknown Completed [facility] Pneumococcal Polysaccharide, PPSV23 (PNEUMOVAX) Unknown Completed [facility] TDAP (ADACEL) VACCINE Unknown Completed [facility] Influenza Virus Vaccine Quad IM Multi-dose 6+ MO Unknown Completed [facility] Influenza Virus Vaccine Quad IM 3+ YRS Unknown Completed [facility] Influenza Virus Vaccine Unknown Completed [facility] SARS-COV-2 COVID-19 MODERNA 12+ YRS VACCINE Unknown Completed [facility] Twinrix (hep a/hep b) Unknown Completed [facility] Influenza Virus Vaccine Quad IM, Preserv and ABX Free 6 MO-64 YRS (FLUCELVAX) Unknown Completed [facility] SARS-COV-2 COVID-19 MODERNA 12+ YRS VACCINE Unknown Completed [facility] Twinrix (hep a/hep b) Unknown Completed [facility] Influenza Virus Vaccine Quad IM, Preserv and ABX Free 6 MO-64 YRS (FLUCELVAX) Unknown Completed [facility] Pneumococcal Polysaccharide, PPSV23 (PNEUMOVAX) Unknown Completed [facility] TDAP (ADACEL) VACCINE Unknown Completed [facility] Influenza Virus Vaccine Quad IM Multi-dose 6+ MO Unknown Completed [facility] Influenza Virus Vaccine Quad IM 3+ YRS Unknown Completed [facility] Influenza Virus Vaccine Unknown Completed [facility] SARS-COV-2 COVID-19 MODERNA 12+ YRS VACCINE Unknown Completed [facility] Twinrix (hep a/hep b) Unknown Completed [facility] Influenza Virus Vaccine Quad IM, Preserv and ABX Free 6 MO-64 YRS (FLUCELVAX) Unknown Completed [facility] Pneumococcal Polysaccharide, PPSV23 (PNEUMOVAX) Unknown Completed [facility] TDAP (ADACEL) VACCINE Unknown Completed [facility] Influenza Virus Vaccine Quad IM Multi-dose 6+ MO Unknown Completed [facility] Influenza Virus Vaccine Quad IM 3+ YRS Unknown Completed [facility] Influenza Virus Vaccine Unknown Completed [facility] SARS-COV-2 COVID-19 MODERNA 12+ YRS VACCINE Unknown Completed [facility] Twinrix (hep a/hep b) Unknown Completed [facility] Influenza Virus Vaccine Quad IM, Preserv and ABX Free 6 MO-64 YRS (FLUCELVAX) Unknown Completed [facility] Pneumococcal Polysaccharide, PPSV23 (PNEUMOVAX) Unknown Completed [facility] TDAP (ADACEL) VACCINE Unknown Completed [facility] Influenza Virus Vaccine Quad IM Multi-dose 6+ MO Unknown Completed [facility] Influenza Virus Vaccine Quad IM 3+ YRS Unknown Completed [facility] Influenza Virus Vaccine Unknown Completed [facility] Pneumococcal Polysaccharide, PPSV23 (PNEUMOVAX) Unknown Completed [facility] TDAP (ADACEL) VACCINE Unknown Completed [facility] Influenza Virus Vaccine Quad IM Multi-dose 6+ MO Unknown Completed [facility] Influenza Virus Vaccine Quad IM 3+ YRS Unknown Completed [facility] Influenza Virus Vaccine Unknown Completed [facility] SARS-COV-2 COVID-19 MODERNA 12+ YRS VACCINE Unknown Completed [facility] Twinrix (hep a/hep b) Unknown Completed [facility] Influenza Virus Vaccine Quad IM, Preserv and ABX Free 6 MO-64 YRS (FLUCELVAX) Unknown Completed [facility] Pneumococcal Polysaccharide, PPSV23 (PNEUMOVAX) Unknown Completed [facility] TDAP (ADACEL) VACCINE Unknown Completed [facility] Influenza Virus Vaccine Quad IM Multi-dose 6+ MO Unknown Completed [facility] Influenza Virus Vaccine Quad IM 3+ YRS Unknown Completed [facility] Influenza Virus Vaccine Unknown Completed [facility] SARS-COV-2 COVID-19 MODERNA 12+ YRS VACCINE Unknown Completed [facility] Twinrix (hep a/hep b) Unknown Completed [facility] Influenza Virus Vaccine Quad IM, Preserv and ABX Free 6 MO-64 YRS (FLUCELVAX) Unknown Completed [facility] Pneumococcal Polysaccharide, PPSV23 (PNEUMOVAX) Unknown Completed [facility] TDAP (ADACEL) VACCINE Unknown Completed [facility] Influenza Virus Vaccine Quad IM Multi-dose 6+ MO Unknown Completed [facility] Influenza Virus Vaccine Quad IM 3+ YRS Unknown Completed [facility] Influenza Virus Vaccine Unknown Completed [facility] SARS-COV-2 COVID-19 MODERNA 12+ YRS VACCINE Unknown Completed [facility] Twinrix (hep a/hep b) Unknown Completed [facility] Influenza Virus Vaccine Quad IM, Preserv and ABX Free 6 MO-64 YRS (FLUCELVAX) Unknown Completed [facility] SARS-COV-2 COVID-19 MODERNA 12+ YRS VACCINE Unknown Completed [facility] Twinrix (hep a/hep b) Unknown Completed [facility] Influenza Virus Vaccine Quad IM, Preserv and ABX Free 6 MO-64 YRS (FLUCELVAX) Unknown Completed [facility] Pneumococcal Polysaccharide, PPSV23 (PNEUMOVAX) Unknown Completed [facility] TDAP (ADACEL) VACCINE Unknown Completed [facility] Influenza Virus Vaccine Quad IM Multi-dose 6+ MO Unknown Completed [facility] Influenza Virus Vaccine Quad IM 3+ YRS Unknown Completed [facility] Influenza Virus Vaccine Unknown Completed [facility] SARS-COV-2 COVID-19 MODERNA 12+ YRS VACCINE Unknown Completed [facility] Twinrix (hep a/hep b) Unknown Completed [facility] Influenza Virus Vaccine Quad IM, Preserv and ABX Free 6 MO-64 YRS (FLUCELVAX) Unknown Completed [facility] Pneumococcal Polysaccharide, PPSV23 (PNEUMOVAX) Unknown Completed [facility] TDAP (ADACEL) VACCINE Unknown Completed [facility] Influenza Virus Vaccine Quad IM Multi-dose 6+ MO Unknown Completed [facility] Influenza Virus Vaccine Quad IM 3+ YRS Unknown Completed [facility] Influenza Virus Vaccine Unknown Completed [facility] SARS-COV-2 COVID-19 MODERNA 12+ YRS VACCINE Unknown Completed [facility] Twinrix (hep a/hep b) Unknown Completed [facility] Influenza Virus Vaccine Quad IM, Preserv and ABX Free 6 MO-64 YRS (FLUCELVAX) Unknown Completed [facility] Pneumococcal Polysaccharide, PPSV23 (PNEUMOVAX) Unknown Completed [facility] TDAP (ADACEL) VACCINE Unknown Completed [facility] Influenza Virus Vaccine Quad IM Multi-dose 6+ MO Unknown Completed [facility] Influenza Virus Vaccine Quad IM 3+ YRS Unknown Completed [facility] Influenza Virus Vaccine Unknown Completed [facility] SARS-COV-2 COVID-19 MODERNA 12+ YRS VACCINE Unknown Completed [facility] Twinrix (hep a/hep b) Unknown Completed [facility] Influenza Virus Vaccine Quad IM, Preserv and ABX Free 6 MO-64 YRS (FLUCELVAX) Unknown Completed [facility] Pneumococcal Polysaccharide, PPSV23 (PNEUMOVAX) Unknown Completed [facility] TDAP (ADACEL) VACCINE Unknown Completed [facility] Influenza Virus Vaccine Quad IM Multi-dose 6+ MO Unknown Completed [facility] Influenza Virus Vaccine Quad IM 3+ YRS Unknown Completed [facility] Influenza Virus Vaccine Unknown Completed [facility] SARS-COV-2 COVID-19 MODERNA 12+ YRS VACCINE Unknown Completed [facility] Twinrix (hep a/hep b) Unknown Completed [facility] Influenza Virus Vaccine Quad IM, Preserv and ABX Free 6 MO-64 YRS (FLUCELVAX) Unknown Completed [facility] Pneumococcal Polysaccharide, PPSV23 (PNEUMOVAX) Unknown Completed [facility] TDAP (ADACEL) VACCINE Unknown Completed [facility] Influenza Virus Vaccine Quad IM Multi-dose 6+ MO Unknown Completed [facility] Influenza Virus Vaccine Quad IM 3+ YRS Unknown Completed [facility] Influenza Virus Vaccine Unknown Completed [facility] SARS-COV-2 COVID-19 MODERNA 12+ YRS VACCINE Unknown Completed [facility] Twinrix (hep a/hep b) Unknown Completed [facility] Influenza Virus Vaccine Quad IM, Preserv and ABX Free 6 MO-64 YRS (FLUCELVAX) Unknown Completed [facility] Pneumococcal Polysaccharide, PPSV23 (PNEUMOVAX) Unknown Completed [facility] TDAP (ADACEL) VACCINE Unknown Completed [facility] Influenza Virus Vaccine Quad IM Multi-dose 6+ MO Unknown Completed [facility] Influenza Virus Vaccine Quad IM 3+ YRS Unknown Completed [facility] Influenza Virus Vaccine Unknown Completed [facility] SARS-COV-2 COVID-19 MODERNA 12+ YRS VACCINE Unknown Completed [facility] Twinrix (hep a/hep b) Unknown Completed [facility] Influenza Virus Vaccine Quad IM, Preserv and ABX Free 6 MO-64 YRS (FLUCELVAX) Unknown Completed [facility] Pneumococcal Polysaccharide, PPSV23 (PNEUMOVAX) Unknown Completed [facility] TDAP (ADACEL) VACCINE Unknown Completed [facility] Influenza Virus Vaccine Quad IM Multi-dose 6+ MO Unknown Completed [facility] Influenza Virus Vaccine Quad IM 3+ YRS Unknown Completed [facility] Influenza Virus Vaccine Unknown Completed [facility] SARS-COV-2 COVID-19 MODERNA 12+ YRS VACCINE Unknown Completed [facility] Twinrix (hep a/hep b) Unknown Completed [facility] Influenza Virus Vaccine Quad IM, Preserv and ABX Free 6 MO-64 YRS (FLUCELVAX) Unknown Completed [facility] Pneumococcal Polysaccharide, PPSV23 (PNEUMOVAX) Unknown Completed [facility] TDAP (ADACEL) VACCINE Unknown Completed [facility] Influenza Virus Vaccine Quad IM Multi-dose 6+ MO Unknown Completed [facility] Influenza Virus Vaccine Quad IM 3+ YRS Unknown Completed [facility] Influenza Virus Vaccine Unknown Completed [facility] SARS-COV-2 COVID-19 MODERNA 12+ YRS VACCINE Unknown Completed [facility] Twinrix (hep a/hep b) Unknown Completed [facility] Influenza Virus Vaccine Quad IM, Preserv and ABX Free 6 MO-64 YRS (FLUCELVAX) Unknown Completed [facility] Pneumococcal Polysaccharide, PPSV23 (PNEUMOVAX) Unknown Completed [facility] TDAP (ADACEL) VACCINE Unknown Completed [facility] Influenza Virus Vaccine Quad IM Multi-dose 6+ MO Unknown Completed [facility] Influenza Virus Vaccine Quad IM 3+ YRS Unknown Completed [facility] Influenza Virus Vaccine Unknown Completed [facility] SARS-COV-2 COVID-19 MODERNA 12+ YRS VACCINE Unknown Completed [facility] Twinrix (hep a/hep b) Unknown Completed [facility] Influenza Virus Vaccine Quad IM, Preserv and ABX Free 6 MO-64 YRS (FLUCELVAX) Unknown Completed [facility] Pneumococcal Polysaccharide, PPSV23 (PNEUMOVAX) Unknown Completed [facility] TDAP (ADACEL) VACCINE Unknown Completed [facility] Influenza Virus Vaccine Quad IM Multi-dose 6+ MO Unknown Completed [facility] Influenza Virus Vaccine Quad IM 3+ YRS Unknown Completed [facility] Influenza Virus Vaccine Unknown Completed [facility] SARS-COV-2 COVID-19 MODERNA 12+ YRS VACCINE Unknown Completed [facility] Twinrix (hep a/hep b) Unknown Completed [facility] Influenza Virus Vaccine Quad IM, Preserv and ABX Free 6 MO-64 YRS (FLUCELVAX) Unknown Completed [facility] Pneumococcal Polysaccharide, PPSV23 (PNEUMOVAX) Unknown Completed [facility] TDAP (ADACEL) VACCINE Unknown Completed [facility] Influenza Virus Vaccine Quad IM Multi-dose 6+ MO Unknown Completed [facility] Influenza Virus Vaccine Quad IM 3+ YRS Unknown Completed [facility] Influenza Virus Vaccine Unknown Completed [facility] SARS-COV-2 COVID-19 MODERNA 12+ YRS VACCINE Unknown Completed [facility] Twinrix (hep a/hep b) Unknown Completed [facility] Influenza Virus Vaccine Quad IM, Preserv and ABX Free 6 MO-64 YRS (FLUCELVAX) Unknown Completed [facility] Pneumococcal Polysaccharide, PPSV23 (PNEUMOVAX) Unknown Completed [facility] TDAP (ADACEL) VACCINE Unknown Completed [facility] Influenza Virus Vaccine Quad IM Multi-dose 6+ MO Unknown Completed [facility] Influenza Virus Vaccine Quad IM 3+ YRS Unknown Completed [facility] Influenza Virus Vaccine Unknown Completed [facility] SARS-COV-2 COVID-19 MODERNA 12+ YRS VACCINE Unknown Completed [facility] Twinrix (hep a/hep b) Unknown Completed [facility] Influenza Virus Vaccine Quad IM, Preserv and ABX Free 6 MO-64 YRS (FLUCELVAX) Unknown Completed [facility] Pneumococcal Polysaccharide, PPSV23 (PNEUMOVAX) Unknown Completed [facility] TDAP (ADACEL) VACCINE Unknown Completed [facility] Influenza Virus Vaccine Quad IM Multi-dose 6+ MO Unknown Completed [facility] Influenza Virus Vaccine Quad IM 3+ YRS Unknown Completed [facility] Influenza Virus Vaccine Unknown Completed [facility] SARS-COV-2 COVID-19 MODERNA 12+ YRS VACCINE Unknown Completed [facility] Twinrix (hep a/hep b) Unknown Completed [facility] Influenza Virus Vaccine Quad IM, Preserv and ABX Free 6 MO-64 YRS (FLUCELVAX) Unknown Completed [facility] Pneumococcal Polysaccharide, PPSV23 (PNEUMOVAX) Unknown Completed [facility] TDAP (ADACEL) VACCINE Unknown Completed [facility] Influenza Virus Vaccine Quad IM Multi-dose 6+ MO Unknown Completed [facility] Influenza Virus Vaccine Quad IM 3+ YRS Unknown Completed [facility] Influenza Virus Vaccine Unknown Completed [facility] SARS-COV-2 COVID-19 MODERNA 12+ YRS VACCINE Unknown Completed [facility] Twinrix (hep a/hep b) Unknown Completed [facility] Influenza Virus Vaccine Quad IM, Preserv and ABX Free 6 MO-64 YRS (FLUCELVAX) Unknown Completed [facility] Pneumococcal Polysaccharide, PPSV23 (PNEUMOVAX) Unknown Completed [facility] TDAP (ADACEL) VACCINE Unknown Completed [facility] Influenza Virus Vaccine Quad IM Multi-dose 6+ MO Unknown Completed [facility] Influenza Virus Vaccine Quad IM 3+ YRS Unknown Completed [facility] Influenza Virus Vaccine Unknown Completed [facility] SARS-COV-2 COVID-19 MODERNA 12+ YRS VACCINE Unknown Completed [facility] Twinrix (hep a/hep b) Unknown Completed [facility] Influenza Virus Vaccine Quad IM, Preserv and ABX Free 6 MO-64 YRS (FLUCELVAX) Unknown Completed [facility] Pneumococcal Polysaccharide, PPSV23 (PNEUMOVAX) Unknown Completed [facility] TDAP (ADACEL) VACCINE Unknown Completed [facility] Influenza Virus Vaccine Quad IM Multi-dose 6+ MO Unknown Completed [facility] Influenza Virus Vaccine Quad IM 3+ YRS Unknown Completed [facility] Influenza Virus Vaccine Unknown Completed [facility] SARS-COV-2 COVID-19 MODERNA 12+ YRS VACCINE Unknown Completed [facility] Twinrix (hep a/hep b) Unknown Completed [facility] Influenza Virus Vaccine Quad IM, Preserv and ABX Free 6 MO-64 YRS (FLUCELVAX) Unknown Completed [facility] Pneumococcal Polysaccharide, PPSV23 (PNEUMOVAX) Unknown Completed [facility] TDAP (ADACEL) VACCINE Unknown Completed [facility] Influenza Virus Vaccine Quad IM Multi-dose 6+ MO Unknown Completed [facility] Influenza Virus Vaccine Quad IM 3+ YRS Unknown Completed [facility] Influenza Virus Vaccine Unknown Completed [facility] SARS-COV-2 COVID-19 MODERNA 12+ YRS VACCINE Unknown Completed [facility] Twinrix (hep a/hep b) Unknown Completed [facility] Influenza Virus Vaccine Quad IM, Preserv and ABX Free 6 MO-64 YRS (FLUCELVAX) Unknown Completed [facility] Pneumococcal Polysaccharide, PPSV23 (PNEUMOVAX) Unknown Completed [facility] TDAP (ADACEL) VACCINE Unknown Completed [facility] Influenza Virus Vaccine Quad IM Multi-dose 6+ MO Unknown Completed [facility] Influenza Virus Vaccine Quad IM 3+ YRS Unknown Completed [facility] Influenza Virus Vaccine Unknown Completed [facility] SARS-COV-2 COVID-19 MODERNA 12+ YRS VACCINE Unknown Completed [facility] Twinrix (hep a/hep b) Unknown Completed [facility] Influenza Virus Vaccine Quad IM, Preserv and ABX Free 6 MO-64 YRS (FLUCELVAX) Unknown Completed [facility] Pneumococcal Polysaccharide, PPSV23 (PNEUMOVAX) Unknown Completed [facility] TDAP (ADACEL) VACCINE Unknown Completed [facility] Influenza Virus Vaccine Quad IM Multi-dose 6+ MO Unknown Completed [facility] Influenza Virus Vaccine Quad IM 3+ YRS Unknown Completed [facility] Influenza Virus Vaccine Unknown Completed [facility] Pneumococcal Polysaccharide, PPSV23 (PNEUMOVAX) Unknown Completed [facility] TDAP (ADACEL) VACCINE Unknown Completed [facility] Influenza Virus Vaccine Quad IM Multi-dose 6+ MO Unknown Completed [facility] Influenza Virus Vaccine Quad IM 3+ YRS Unknown Completed [facility] Influenza Virus Vaccine Unknown Completed [facility] SARS-COV-2 COVID-19 MODERNA 12+ YRS VACCINE Unknown Completed [facility] Twinrix (hep a/hep b) Unknown Completed [facility] Influenza Virus Vaccine Quad IM, Preserv and ABX Free 6 MO-64 YRS (FLUCELVAX) Unknown Completed [facility] SARS-COV-2 COVID-19 MODERNA 12+ YRS VACCINE Unknown Completed [facility] Twinrix (hep a/hep b) Unknown Completed [facility] Influenza Virus Vaccine Quad IM, Preserv and ABX Free 6 MO-64 YRS (FLUCELVAX) Unknown Completed [facility] Pneumococcal Polysaccharide, PPSV23 (PNEUMOVAX) Unknown Completed [facility] TDAP (ADACEL) VACCINE Unknown Completed [facility] Influenza Virus Vaccine Quad IM Multi-dose 6+ MO Unknown Completed [facility] Influenza Virus Vaccine Quad IM 3+ YRS Unknown Completed [facility] Influenza Virus Vaccine Unknown Completed [facility] SARS-COV-2 COVID-19 MODERNA 12+ YRS VACCINE Unknown Completed [facility] Twinrix (hep a/hep b) Unknown Completed [facility] Influenza Virus Vaccine Quad IM, Preserv and ABX Free 6 MO-64 YRS (FLUCELVAX) Unknown Completed [facility] Pneumococcal Polysaccharide, PPSV23 (PNEUMOVAX) Unknown Completed [facility] TDAP (ADACEL) VACCINE Unknown Completed [facility] Influenza Virus Vaccine Quad IM Multi-dose 6+ MO Unknown Completed [facility] Influenza Virus Vaccine Quad IM 3+ YRS Unknown Completed [facility] Influenza Virus Vaccine Unknown Completed [facility] SARS-COV-2 COVID-19 MODERNA 12+ YRS VACCINE Unknown Completed [facility] Twinrix (hep a/hep b) Unknown Completed [facility] Influenza Virus Vaccine Quad IM, Preserv and ABX Free 6 MO-64 YRS (FLUCELVAX) Unknown Completed [facility] Pneumococcal Polysaccharide, PPSV23 (PNEUMOVAX) Unknown Completed [facility] TDAP (ADACEL) VACCINE Unknown Completed [facility] Influenza Virus Vaccine Quad IM Multi-dose 6+ MO Unknown Completed [facility] Influenza Virus Vaccine Quad IM 3+ YRS Unknown Completed [facility] Influenza Virus Vaccine Unknown Completed [facility] SARS-COV-2 COVID-19 MODERNA 12+ YRS VACCINE Unknown Completed [facility] Twinrix (hep a/hep b) Unknown Completed [facility] Influenza Virus Vaccine Quad IM, Preserv and ABX Free 6 MO-64 YRS (FLUCELVAX) Unknown Completed [facility] Pneumococcal Polysaccharide, PPSV23 (PNEUMOVAX) Unknown Completed [facility] TDAP (ADACEL) VACCINE Unknown Completed [facility] Influenza Virus Vaccine Quad IM Multi-dose 6+ MO Unknown Completed [facility] Influenza Virus Vaccine Quad IM 3+ YRS Unknown Completed [facility] Influenza Virus Vaccine Unknown Completed [facility] SARS-COV-2 COVID-19 MODERNA 12+ YRS VACCINE Unknown Completed [facility] Twinrix (hep a/hep b) Unknown Completed [facility] Influenza Virus Vaccine Quad IM, Preserv and ABX Free 6 MO-64 YRS (FLUCELVAX) Unknown Completed [facility] Pneumococcal Polysaccharide, PPSV23 (PNEUMOVAX) Unknown Completed [facility] TDAP (ADACEL) VACCINE Unknown Completed [facility] Influenza Virus Vaccine Quad IM Multi-dose 6+ MO Unknown Completed [facility] Influenza Virus Vaccine Quad IM 3+ YRS Unknown Completed [facility] Influenza Virus Vaccine Unknown Completed [facility] SARS-COV-2 COVID-19 MODERNA 12+ YRS VACCINE Unknown Completed [facility] Twinrix (hep a/hep b) Unknown Completed [facility] Influenza Virus Vaccine Quad IM, Preserv and ABX Free 6 MO-64 YRS (FLUCELVAX) Unknown Completed [facility] Pneumococcal Polysaccharide, PPSV23 (PNEUMOVAX) Unknown Completed [facility] TDAP (ADACEL) VACCINE Unknown Completed [facility] Influenza Virus Vaccine Quad IM Multi-dose 6+ MO Unknown Completed [facility] Influenza Virus Vaccine Quad IM 3+ YRS Unknown Completed [facility] Influenza Virus Vaccine Unknown Completed [facility] SARS-COV-2 COVID-19 MODERNA 12+ YRS VACCINE Unknown Completed [facility] Twinrix (hep a/hep b) Unknown Completed [facility] Influenza Virus Vaccine Quad IM, Preserv and ABX Free 6 MO-64 YRS (FLUCELVAX) Unknown Completed [facility] Pneumococcal Polysaccharide, PPSV23 (PNEUMOVAX) Unknown Completed [facility] TDAP (ADACEL) VACCINE Unknown Completed [facility] Influenza Virus Vaccine Quad IM Multi-dose 6+ MO Unknown Completed [facility] Influenza Virus Vaccine Quad IM 3+ YRS Unknown Completed [facility] Influenza Virus Vaccine Unknown Completed [facility] SARS-COV-2 COVID-19 MODERNA 12+ YRS VACCINE Unknown Completed [facility] Twinrix (hep a/hep b) Unknown Completed [facility] Influenza Virus Vaccine Quad IM, Preserv and ABX Free 6 MO-64 YRS (FLUCELVAX) Unknown Completed [facility] Pneumococcal Polysaccharide, PPSV23 (PNEUMOVAX) Unknown Completed [facility] TDAP (ADACEL) VACCINE Unknown Completed [facility] Influenza Virus Vaccine Quad IM Multi-dose 6+ MO Unknown Completed [facility] Influenza Virus Vaccine Quad IM 3+ YRS Unknown Completed [facility] Influenza Virus Vaccine Unknown Completed [facility] SARS-COV-2 COVID-19 MODERNA 12+ YRS VACCINE Unknown Completed [facility] Twinrix (hep a/hep b) Unknown Completed [facility] Influenza Virus Vaccine Quad IM, Preserv and ABX Free 6 MO-64 YRS (FLUCELVAX) Unknown Completed [facility] Pneumococcal Polysaccharide, PPSV23 (PNEUMOVAX) Unknown Completed [facility] TDAP (ADACEL) VACCINE Unknown Completed [facility] Influenza Virus Vaccine Quad IM Multi-dose 6+ MO Unknown Completed [facility] Influenza Virus Vaccine Quad IM 3+ YRS Unknown Completed [facility] Influenza Virus Vaccine Unknown Completed [facility] SARS-COV-2 COVID-19 MODERNA 12+ YRS VACCINE Unknown Completed [facility] Twinrix (hep a/hep b) Unknown Completed [facility] Influenza Virus Vaccine Quad IM, Preserv and ABX Free 6 MO-64 YRS (FLUCELVAX) Unknown Completed [facility] Pneumococcal Polysaccharide, PPSV23 (PNEUMOVAX) Unknown Completed [facility] TDAP (ADACEL) VACCINE Unknown Completed [facility] Influenza Virus Vaccine Quad IM Multi-dose 6+ MO Unknown Completed [facility] Influenza Virus Vaccine Quad IM 3+ YRS Unknown Completed [facility] Influenza Virus Vaccine Unknown Completed [facility] SARS-COV-2 COVID-19 MODERNA 12+ YRS VACCINE Unknown Completed [facility] Twinrix (hep a/hep b) Unknown Completed [facility] Influenza Virus Vaccine Quad IM, Preserv and ABX Free 6 MO-64 YRS (FLUCELVAX) Unknown Completed [facility] Pneumococcal Polysaccharide, PPSV23 (PNEUMOVAX) Unknown Completed [facility] TDAP (ADACEL) VACCINE Unknown Completed [facility] Influenza Virus Vaccine Quad IM Multi-dose 6+ MO Unknown Completed [facility] Influenza Virus Vaccine Quad IM 3+ YRS Unknown Completed [facility] Influenza Virus Vaccine Unknown Completed [facility] SARS-COV-2 COVID-19 MODERNA 12+ YRS VACCINE Unknown Completed [facility] Twinrix (hep a/hep b) Unknown Completed [facility] Influenza Virus Vaccine Quad IM, Preserv and ABX Free 6 MO-64 YRS (FLUCELVAX) Unknown Completed [facility] Pneumococcal Polysaccharide, PPSV23 (PNEUMOVAX) Unknown Completed [facility] TDAP (ADACEL) VACCINE Unknown Completed [facility] Influenza Virus Vaccine Quad IM Multi-dose 6+ MO Unknown Completed [facility] Influenza Virus Vaccine Quad IM 3+ YRS Unknown Completed [facility] Influenza Virus Vaccine Unknown Completed [facility] SARS-COV-2 COVID-19 MODERNA 12+ YRS VACCINE Unknown Completed [facility] Twinrix (hep a/hep b) Unknown Completed [facility] Influenza Virus Vaccine Quad IM, Preserv and ABX Free 6 MO-64 YRS (FLUCELVAX) Unknown Completed [facility] Pneumococcal Polysaccharide, PPSV23 (PNEUMOVAX) Unknown Completed [facility] TDAP (ADACEL) VACCINE Unknown Completed [facility] Influenza Virus Vaccine Quad IM Multi-dose 6+ MO Unknown Completed [facility] Influenza Virus Vaccine Quad IM 3+ YRS Unknown Completed [facility] Influenza Virus Vaccine Unknown Completed [facility] SARS-COV-2 COVID-19 MODERNA 12+ YRS VACCINE Unknown Completed [facility] Twinrix (hep a/hep b) Unknown Completed [facility] Influenza Virus Vaccine Quad IM, Preserv and ABX Free 6 MO-64 YRS (FLUCELVAX) Unknown Completed [facility] Pneumococcal Polysaccharide, PPSV23 (PNEUMOVAX) Unknown Completed [facility] TDAP (ADACEL) VACCINE Unknown Completed [facility] Influenza Virus Vaccine Quad IM Multi-dose 6+ MO Unknown Completed [facility] Influenza Virus Vaccine Quad IM 3+ YRS Unknown Completed [facility] Influenza Virus Vaccine Unknown Completed [facility] SARS-COV-2 COVID-19 MODERNA 12+ YRS VACCINE Unknown Completed [facility] Twinrix (hep a/hep b) Unknown Completed [facility] Influenza Virus Vaccine Quad IM, Preserv and ABX Free 6 MO-64 YRS (FLUCELVAX) Unknown Completed [facility] Pneumococcal Polysaccharide, PPSV23 (PNEUMOVAX) Unknown Completed [facility] TDAP (ADACEL) VACCINE Unknown Completed [facility] Influenza Virus Vaccine Quad IM Multi-dose 6+ MO Unknown Completed [facility] Influenza Virus Vaccine Quad IM 3+ YRS Unknown Completed [facility] Influenza Virus Vaccine Unknown Completed [facility] SARS-COV-2 COVID-19 MODERNA 12+ YRS VACCINE Unknown Completed [facility] Twinrix (hep a/hep b) Unknown Completed [facility] Influenza Virus Vaccine Quad IM, Preserv and ABX Free 6 MO-64 YRS (FLUCELVAX) Unknown Completed [facility] Pneumococcal Polysaccharide, PPSV23 (PNEUMOVAX) Unknown Completed [facility] TDAP (ADACEL) VACCINE Unknown Completed [facility] Influenza Virus Vaccine Quad IM Multi-dose 6+ MO Unknown Completed [facility] Influenza Virus Vaccine Quad IM 3+ YRS Unknown Completed [facility] Influenza Virus Vaccine Unknown Completed [facility] SARS-COV-2 COVID-19 MODERNA 12+ YRS VACCINE Unknown Completed [facility] Twinrix (hep a/hep b) Unknown Completed [facility] Influenza Virus Vaccine Quad IM, Preserv and ABX Free 6 MO-64 YRS (FLUCELVAX) Unknown Completed [facility] Pneumococcal Polysaccharide, PPSV23 (PNEUMOVAX) Unknown Completed [facility] TDAP (ADACEL) VACCINE Unknown Completed [facility] Influenza Virus Vaccine Quad IM Multi-dose 6+ MO Unknown Completed [facility] Influenza Virus Vaccine Quad IM 3+ YRS Unknown Completed [facility] Influenza Virus Vaccine Unknown Completed [facility] SARS-COV-2 COVID-19 MODERNA 12+ YRS VACCINE Unknown Completed [facility] Twinrix (hep a/hep b) Unknown Completed [facility] Influenza Virus Vaccine Quad IM, Preserv and ABX Free 6 MO-64 YRS (FLUCELVAX) Unknown Completed [facility] Pneumococcal Polysaccharide, PPSV23 (PNEUMOVAX) Unknown Completed [facility] TDAP (ADACEL) VACCINE Unknown Completed [facility] Influenza Virus Vaccine Quad IM Multi-dose 6+ MO Unknown Completed [facility] Influenza Virus Vaccine Quad IM 3+ YRS Unknown Completed [facility] Influenza Virus Vaccine Unknown Completed [facility] SARS-COV-2 COVID-19 MODERNA 12+ YRS VACCINE Unknown Completed [facility] Twinrix (hep a/hep b) Unknown Completed [facility] Influenza Virus Vaccine Quad IM, Preserv and ABX Free 6 MO-64 YRS (FLUCELVAX) Unknown Completed [facility] Pneumococcal Polysaccharide, PPSV23 (PNEUMOVAX) Unknown Completed [facility] TDAP (ADACEL) VACCINE Unknown Completed [facility] Influenza Virus Vaccine Quad IM Multi-dose 6+ MO Unknown Completed [facility] Influenza Virus Vaccine Quad IM 3+ YRS Unknown Completed [facility] Influenza Virus Vaccine Unknown Completed [facility] SARS-COV-2 COVID-19 MODERNA 12+ YRS VACCINE Unknown Completed [facility] Twinrix (hep a/hep b) Unknown Completed [facility] Influenza Virus Vaccine Quad IM, Preserv and ABX Free 6 MO-64 YRS (FLUCELVAX) Unknown Completed [facility] Pneumococcal Polysaccharide, PPSV23 (PNEUMOVAX) Unknown Completed [facility] TDAP (ADACEL) VACCINE Unknown Completed [facility] Influenza Virus Vaccine Quad IM Multi-dose 6+ MO Unknown Completed [facility] Influenza Virus Vaccine Quad IM 3+ YRS Unknown Completed [facility] Influenza Virus Vaccine Unknown Completed [facility] SARS-COV-2 COVID-19 MODERNA 12+ YRS VACCINE Unknown Completed [facility] Twinrix (hep a/hep b) Unknown Completed [facility] Influenza Virus Vaccine Quad IM, Preserv and ABX Free 6 MO-64 YRS (FLUCELVAX) Unknown Completed [facility] Pneumococcal Polysaccharide, PPSV23 (PNEUMOVAX) Unknown Completed [facility] TDAP (ADACEL) VACCINE Unknown Completed [facility] Influenza Virus Vaccine Quad IM Multi-dose 6+ MO Unknown Completed [facility] Influenza Virus Vaccine Quad IM 3+ YRS Unknown Completed [facility] Influenza Virus Vaccine Unknown Completed [facility] SARS-COV-2 COVID-19 MODERNA 12+ YRS VACCINE Unknown Completed [facility] Twinrix (hep a/hep b) Unknown Completed [facility] Influenza Virus Vaccine Quad IM, Preserv and ABX Free 6 MO-64 YRS (FLUCELVAX) Unknown Completed [facility] Pneumococcal Polysaccharide, PPSV23 (PNEUMOVAX) Unknown Completed [facility] TDAP (ADACEL) VACCINE Unknown Completed [facility] Influenza Virus Vaccine Quad IM Multi-dose 6+ MO Unknown Completed [facility] Influenza Virus Vaccine Quad IM 3+ YRS Unknown Completed [facility] Influenza Virus Vaccine Unknown Completed [facility] SARS-COV-2 COVID-19 MODERNA 12+ YRS VACCINE Unknown Completed [facility] Twinrix (hep a/hep b) Unknown Completed [facility] Influenza Virus Vaccine Quad IM, Preserv and ABX Free 6 MO-64 YRS (FLUCELVAX) Unknown Completed [facility] Pneumococcal Polysaccharide, PPSV23 (PNEUMOVAX) Unknown Completed [facility] TDAP (ADACEL) VACCINE Unknown Completed [facility] Influenza Virus Vaccine Quad IM Multi-dose 6+ MO Unknown Completed [facility] Influenza Virus Vaccine Quad IM 3+ YRS Unknown Completed [facility] Influenza Virus Vaccine Unknown Completed [facility] SARS-COV-2 COVID-19 MODERNA 12+ YRS VACCINE Unknown Completed [facility] Twinrix (hep a/hep b) Unknown Completed [facility] Influenza Virus Vaccine Quad IM, Preserv and ABX Free 6 MO-64 YRS (FLUCELVAX) Unknown Completed [facility] Pneumococcal Polysaccharide, PPSV23 (PNEUMOVAX) Unknown Completed [facility] TDAP (ADACEL) VACCINE Unknown Completed [facility] Influenza Virus Vaccine Quad IM Multi-dose 6+ MO Unknown Completed [facility] Influenza Virus Vaccine Quad IM 3+ YRS Unknown Completed [facility] Influenza Virus Vaccine Unknown Completed [facility] SARS-COV-2 COVID-19 MODERNA 12+ YRS VACCINE Unknown Completed [facility] Twinrix (hep a/hep b) Unknown Completed [facility] Influenza Virus Vaccine Quad IM, Preserv and ABX Free 6 MO-64 YRS (FLUCELVAX) Unknown Completed [facility] Pneumococcal Polysaccharide, PPSV23 (PNEUMOVAX) Unknown Completed [facility] TDAP (ADACEL) VACCINE Unknown Completed [facility] Influenza Virus Vaccine Quad IM Multi-dose 6+ MO Unknown Completed [facility] Influenza Virus Vaccine Quad IM 3+ YRS Unknown Completed [facility] Influenza Virus Vaccine Unknown Completed [facility] SARS-COV-2 COVID-19 MODERNA 12+ YRS VACCINE Unknown Completed [facility] Twinrix (hep a/hep b) Unknown Completed [facility] Influenza Virus Vaccine Quad IM, Preserv and ABX Free 6 MO-64 YRS (FLUCELVAX) Unknown Completed [facility] Vital Signs Vital Name Observation Time Observation Value Comments S ource Systolic blood pressure 2024-12-18 13:40:00 136 mm[Hg] [facility] Diastolic blood pressure 2024-12-18 13:40:00 103 mm[Hg] [facility] Heart rate 2024-12-18 13:40:00 74 /min [facility] Oxygen saturation in Arterial blood by Pulse oximetry 2024-12-18 13:40:00 97 /min [facility] Respiratory rate 2024-12-18 13:17:00 17 /min [facility] Systolic blood pressure 2024-12-18 13:40:00 136 mm[Hg] [facility] Diastolic blood pressure 2024-12-18 13:40:00 103 mm[Hg] [facility] Heart rate 2024-12-18 13:40:00 74 /min [facility] Oxygen saturation in Arterial blood by Pulse oximetry 2024-12-18 13:40:00 97 /min [facility] Respiratory rate 2024-12-18 13:17:00 17 /min [facility] Systolic blood pressure 2024-12-02 22:04:00 111 mm[Hg] [facility] Diastolic blood pressure 2024-12-02 22:04:00 84 mm[Hg] [facility] Heart rate 2024-12-02 22:04:00 89 /min [facility] Respiratory rate 2024-12-02 22:04:00 18 /min [facility] Body height 2024-12-02 22:04:00 152.4 cm [facility] Body weight 2024-12-02 22:04:00 93.532 kg [facility] BMI 2024-12-02 22:04:00 40.27 kg/m2 [facility] Oxygen saturation in Arterial blood by Pulse oximetry 2024-12-02 22:04:00 97 /min [facility] Systolic blood pressure 2024-12-02 19:04:00 138 mm[Hg] [facility] Diastolic blood pressure 2024-12-02 19:04:00 104 mm[Hg] [facility] Heart rate 2024-12-02 19:03:00 89 /min [facility] Body height 2024-12-02 19:03:00 152.4 cm [facility] Body weight 2024-12-02 19:03:00 92.987 kg [facility] BMI 2024-12-02 19:03:00 40.04 kg/m2 [facility] Oxygen saturation in Arterial blood by Pulse oximetry 2024-12-02 19:03:00 97 /min [facility] Systolic blood pressure 2024-11-19 22:44:00 136 mm[Hg] [facility] Diastolic blood pressure 2024-11-19 22:44:00 102 mm[Hg] [facility] Heart rate 2024-11-19 22:43:00 82 /min [facility] Body temperature 2024-11-19 22:43:00 36.56 Cecily [facility] Respiratory rate 2024-11-19 22:43:00 20 /min [facility] Body weight 2024-11-19 22:43:00 92.897 kg [facility] BMI 2024-11-19 22:43:00 40.00 kg/m2 [facility] Oxygen saturation in Arterial blood by Pulse oximetry 2024-11-19 22:43:00 96 /min [facility] Systolic blood pressure 2024-11-12 19:45:00 124 mm[Hg] [facility] Diastolic blood pressure 2024-11-12 19:45:00 89 mm[Hg] [facility] Heart rate 2024-11-12 19:45:00 83 /min [facility] Respiratory rate 2024-11-12 19:44:00 19 /min [facility] Body height 2024-11-12 19:44:00 152.4 cm [facility] Body weight 2024-11-12 19:44:00 92.262 kg [facility] BMI 2024-11-12 19:44:00 39.72 kg/m2 [facility] Oxygen saturation in Arterial blood by Pulse oximetry 2024-11-12 19:44:00 99 /min [facility] Systolic blood pressure 2024-10-22 16:23:00 137 mm[Hg] [facility] Diastolic blood pressure 2024-10-22 16:23:00 101 mm[Hg] [facility] Heart rate 2024-10-22 16:23:00 87 /min [facility] Oxygen saturation in Arterial blood by Pulse oximetry 2024-10-22 16:23:00 98 /min [facility] Body temperature 2024-10-22 16:15:00 36.33 Cecily [facility] Respiratory rate 2024-10-22 16:15:00 17 /min [facility] Body height 2024-10-22 16:15:00 152.4 cm [facility] Body weight 2024-10-22 16:15:00 91.797 kg [facility] BMI 2024-10-22 16:15:00 39.52 kg/m2 [facility] Systolic blood pressure 2024-10-19 16:43:00 130 mm[Hg] [facility] Diastolic blood pressure 2024-10-19 16:43:00 89 mm[Hg] [facility] Heart rate 2024-10-19 16:38:00 82 /min [facility] Respiratory rate 2024-10-19 16:38:00 18 /min [facility] Body height 2024-10-19 16:38:00 152.4 cm [facility] Body weight 2024-10-19 16:38:00 92.398 kg [facility] BMI 2024-10-19 16:38:00 39.78 kg/m2 [facility] Systolic blood pressure 2024-10-14 17:04:00 123 mm[Hg] [facility] Diastolic blood pressure 2024-10-14 17:04:00 83 mm[Hg] [facility] Heart rate 2024-10-14 17:04:00 81 /min [facility] Body temperature 2024-10-14 17:04:00 37.06 Cecily [facility] Respiratory rate 2024-10-14 17:04:00 17 /min [facility] Body height 2024-10-14 17:04:00 152.4 cm [facility] Body weight 2024-10-14 17:04:00 92.216 kg [facility] BMI 2024-10-14 17:04:00 39.70 kg/m2 [facility] Oxygen saturation in Arterial blood by Pulse oximetry 2024-10-14 17:04:00 98 /min [facility] Systolic blood pressure 2024-10-10 18:52:05 133 mm[Hg] [facility] Diastolic blood pressure 2024-10-10 18:52:05 97 mm[Hg] [facility] Heart rate 2024-10-10 18:52:05 75 /min [facility] Body temperature 2024-10-10 18:52:05 36.67 Cecily [facility] Respiratory rate 2024-10-10 18:52:05 16 /min [facility] Oxygen saturation in Arterial blood by Pulse oximetry 2024-10-10 18:52:05 97 /min [facility] Body height 2024-10-10 17:13:00 152.4 cm [facility] Body weight 2024-10-10 17:13:00 90.719 kg [facility] BMI 2024-10-10 17:13:00 39.06 kg/m2 [facility] Systolic blood pressure 2024-10-01 20:23:00 133 mm[Hg] [facility] Diastolic blood pressure 2024-10-01 20:23:00 97 mm[Hg] [facility] Heart rate 2024-10-01 20:22:00 82 /min [facility] Body temperature 2024-10-01 20:22:00 36.94 Cecily [facility] Body height 2024-10-01 20:22:00 152.4 cm [facility] 2024-10-01 20:22:00 90.719 kg [facility] BMI 2024-10-01 20:22:00 39.06 kg/m2 [facility] Oxygen saturation in Arterial blood by Pulse oximetry 2024-10-01 20:22:00 97 /min [facility] Systolic blood pressure 2024-06-01 15:29:00 148 mm[Hg] [facility] Diastolic blood pressure 2024-06-01 15:29:00 105 mm[Hg] [facility] Heart rate 2024-06-01 15:29:00 79 /min [facility] Body temperature 2024-06-01 15:28:00 36.78 Cecily [facility] Respiratory rate 2024-06-01 15:28:00 18 /min [facility] Body height 2024-06-01 15:28:00 152.4 cm [facility] Body weight 2024-06-01 15:28:00 94.892 kg [facility] BMI 2024-06-01 15:28:00 40.86 kg/m2 [facility] Oxygen saturation in Arterial blood by Pulse oximetry 2024-06-01 15:28:00 100 /min [facility] Systolic blood pressure 2024-05-29 18:22:00 130 mm[Hg] [facility] Diastolic blood pressure 2024-05-29 18:22:00 63 mm[Hg] [facility] Heart rate 2024-05-29 18:21:00 96 /min [facility] Body temperature 2024-05-29 18:21:00 37.11 Cecily [facility] Respiratory rate 2024-05-29 18:21:00 18 /min [facility] Body height 2024-05-29 18:21:00 152.4 cm [facility] Body weight 2024-05-29 18:21:00 94.575 kg [facility] BMI 2024-05-29 18:21:00 40.72 kg/m2 [facility] Oxygen saturation in Arterial blood by Pulse oximetry 2024-05-29 18:21:00 98 /min [facility] Systolic blood pressure 2024-05-14 20:32:00 138 mm[Hg] [facility] Diastolic blood pressure 2024-05-14 20:32:00 93 mm[Hg] [facility] Heart rate 2024-05-14 20:30:00 87 /min [facility] Body height 2024-05-14 20:30:00 152.4 cm [facility] Body weight 2024-05-14 20:30:00 97.614 kg [facility] BMI 2024-05-14 20:30:00 42.03 kg/m2 [facility] Oxygen saturation in Arterial blood by Pulse oximetry 2024-05-14 20:30:00 98 /min [facility] Systolic blood pressure 2024-04-30 21:09:00 130 mm[Hg] [facility] Diastolic blood pressure 2024-04-30 21:09:00 80 mm[Hg] [facility] Heart rate 2024-04-30 20:44:00 74 /min [facility] Body temperature 2024-04-30 20:44:00 36.78 Cecily [facility] Respiratory rate 2024-04-30 20:44:00 20 /min [facility] Body height 2024-04-30 20:44:00 152.4 cm [facility] Body weight 2024-04-30 20:44:00 98.567 kg [facility] BMI 2024-04-30 20:44:00 42.44 kg/m2 [facility] Oxygen saturation in Arterial blood by Pulse oximetry 2024-04-30 20:44:00 98 /min [facility] Systolic blood pressure 2024-02-18 17:58:00 139 mm[Hg] [facility] Diastolic blood pressure 2024-02-18 17:58:00 98 mm[Hg] [facility] Heart rate 2024-02-18 17:58:00 93 /min [facility] Body temperature 2024-02-18 17:58:00 36.11 Cecily [facility] Body height 2024-02-18 17:58:00 152.4 cm [facility] Body weight 2024-02-18 17:58:00 99.383 kg [facility] BMI 2024-02-18 17:58:00 42.79 kg/m2 [facility] Oxygen saturation in Arterial blood by Pulse oximetry 2024-02-18 17:58:00 96 /min [facility] Systolic blood pressure 2023-12-30 20:06:00 145 mm[Hg] [facility] Diastolic blood pressure 2023-12-30 20:06:00 94 mm[Hg] [facility] Heart rate 2023-12-30 20:05:00 82 /min [facility] Body temperature 2023-12-30 20:05:00 36.56 Cecily [facility] Respiratory rate 2023-12-30 20:05:00 18 /min [facility] Body height 2023-12-30 20:05:00 152.4 cm [facility] Body weight 2023-12-30 20:05:00 102.195 kg [facility] BMI 2023-12-30 20:05:00 44.00 kg/m2 [facility] Oxygen saturation in Arterial blood by Pulse oximetry 2023-12-30 20:05:00 98 /min [facility] Systolic blood pressure 2023-12-26 20:15:00 124 mm[Hg] [facility] Diastolic blood pressure 2023-12-26 20:15:00 89 mm[Hg] [facility] Heart rate 2023-12-26 19:55:00 73 /min [facility] Body weight 2023-12-26 19:55:00 102.059 kg [facility] BMI 2023-12-26 19:55:00 43.94 kg/m2 [facility] Systolic blood pressure 2023-12-04 19:20:00 102 mm[Hg] [facility] Diastolic blood pressure 2023-12-04 19:20:00 74 mm[Hg] [facility] Heart rate 2023-12-04 19:20:00 76 /min [facility] Body temperature 2023-12-04 19:20:00 36.72 Cecily [facility] Body height 2023-12-04 19:20:00 152.4 cm [facility] Body weight 2023-12-04 19:20:00 102.422 kg [facility] BMI 2023-12-04 19:20:00 44.10 kg/m2 [facility] Oxygen saturation in Arterial blood by Pulse oximetry 2023-12-04 19:20:00 96 /min [facility] Systolic blood pressure 2023-11-28 17:37:00 133 mm[Hg] [facility] Diastolic blood pressure 2023-11-28 17:37:00 98 mm[Hg] [facility] Heart rate 2023-11-28 17:31:00 79 /min [facility] Body temperature 2023-11-28 17:31:00 36.5 Cecily [facility] Body height 2023-11-28 17:31:00 165.1 cm [facility] Body weight 2023-11-28 17:31:00 98.431 kg [facility] BMI 2023-11-28 17:31:00 36.11 kg/m2 [facility] Oxygen saturation in Arterial blood by Pulse oximetry 2023-11-28 17:31:00 94 /min [facility] Systolic blood pressure 2023-11-21 20:01:00 131 mm[Hg] [facility] Diastolic blood pressure 2023-11-21 20:01:00 86 mm[Hg] [facility] Heart rate 2023-11-21 20:01:00 76 /min [facility] Body temperature 2023-11-21 20:01:00 37.22 Cecily [facility] Respiratory rate 2023-11-21 20:01:00 20 /min [facility] Body weight 2023-11-21 20:01:00 100.789 kg [facility] BMI 2023-11-21 20:01:00 43.40 kg/m2 [facility] Oxygen saturation in Arterial blood by Pulse oximetry 2023-11-21 20:01:00 96 /min [facility] Systolic blood pressure 2023-11-13 21:14:00 124 mm[Hg] [facility] Diastolic blood pressure 2023-11-13 21:14:00 86 mm[Hg] [facility] Heart rate 2023-11-13 21:14:00 77 /min [facility] Body temperature 2023-11-13 21:14:00 37.06 Cecily [facility] Respiratory rate 2023-11-13 21:14:00 16 /min [facility] Body height 2023-11-13 21:14:00 152.4 cm [facility] Body weight 2023-11-13 21:14:00 103.375 kg [facility] BMI 2023-11-13 21:14:00 44.51 kg/m2 [facility] Oxygen saturation in Arterial blood by Pulse oximetry 2023-11-13 21:14:00 98 /min [facility] Systolic blood pressure 2023-10-22 18:42:00 128 mm[Hg] [facility] Diastolic blood pressure 2023-10-22 18:42:00 85 mm[Hg] [facility] Heart rate 2023-10-22 18:42:00 70 /min [facility] Body temperature 2023-10-22 18:42:00 36.44 Cecily [facility] Respiratory rate 2023-10-22 18:42:00 19 /min [facility] Body height 2023-10-22 18:42:00 152.4 cm [facility] Body weight 2023-10-22 18:42:00 107.82 kg [facility] BMI 2023-10-22 18:42:00 46.42 kg/m2 [facility] Oxygen saturation in Arterial blood by Pulse oximetry 2023-10-22 18:42:00 94 /min [facility] Systolic blood pressure 2023-10-18 16:46:00 128 mm[Hg] [facility] Diastolic blood pressure 2023-10-18 16:46:00 86 mm[Hg] [facility] Heart rate 2023-10-18 16:46:00 73 /min [facility] Body temperature 2023-10-18 16:46:00 36.78 Cecily [facility] Respiratory rate 2023-10-18 16:46:00 16 /min [facility] Body height 2023-10-18 16:46:00 152.4 cm [facility] Body weight 2023-10-18 16:46:00 108.818 kg [facility] BMI 2023-10-18 16:46:00 46.85 kg/m2 [facility] Oxygen saturation in Arterial blood by Pulse oximetry 2023-10-18 16:46:00 95 /min [facility] Systolic blood pressure 2023-10-14 20:26:00 105 mm[Hg] [facility] Diastolic blood pressure 2023-10-14 20:26:00 74 mm[Hg] [facility] Heart rate 2023-10-14 20:26:00 72 /min [facility] Body temperature 2023-10-14 20:26:00 36.61 Cecily [facility] Respiratory rate 2023-10-14 20:26:00 16 /min [facility] Body weight 2023-10-14 20:26:00 108.41 kg [facility] BMI 2023-10-14 20:26:00 46.68 kg/m2 [facility] Oxygen saturation in Arterial blood by Pulse oximetry 2023-10-14 20:26:00 96 /min [facility] Systolic blood pressure 2023-10-03 15:47:00 139 mm[Hg] [facility] Diastolic blood pressure 2023-10-03 15:47:00 91 mm[Hg] [facility] Heart rate 2023-10-03 15:46:00 74 /min [facility] Body temperature 2023-10-03 15:46:00 36.17 Cecily [facility] Body height 2023-10-03 15:46:00 152.4 cm [facility] Body weight 2023-10-03 15:46:00 110.723 kg [facility] BMI 2023-10-03 15:46:00 47.67 kg/m2 [facility] Oxygen saturation in Arterial blood by Pulse oximetry 2023-10-03 15:46:00 97 /min [facility] Systolic blood pressure 2023-09-24 21:01:00 122 mm[Hg] [facility] Diastolic blood pressure 2023-09-24 21:01:00 79 mm[Hg] [facility] Heart rate 2023-09-24 21:01:00 75 /min [facility] Body height 2023-09-24 21:01:00 152.4 cm [facility] Body weight 2023-09-24 21:01:00 112.129 kg [facility] BMI 2023-09-24 21:01:00 48.28 kg/m2 [facility] Oxygen saturation in Arterial blood by Pulse oximetry 2023-09-24 21:01:00 94 /min [facility] Systolic blood pressure 2023-09-23 18:12:00 118 mm[Hg] [facility] Diastolic blood pressure 2023-09-23 18:12:00 83 mm[Hg] [facility] Heart rate 2023-09-23 18:12:00 70 /min [facility] Body temperature 2023-09-23 18:12:00 36.67 Cecily [facility] Respiratory rate 2023-09-23 18:12:00 17 /min [facility] Body weight 2023-09-23 18:12:00 111.358 kg [facility] BMI 2023-09-23 18:12:00 47.95 kg/m2 [facility] Oxygen saturation in Arterial blood by Pulse oximetry 2023-09-23 18:12:00 96 /min [facility] Systolic blood pressure 2023-09-18 14:41:00 134 mm[Hg] [facility] Diastolic blood pressure 2023-09-18 14:41:00 92 mm[Hg] [facility] Heart rate 2023-09-18 14:41:00 71 /min [facility] Body temperature 2023-09-18 14:40:00 36.33 Cecily [facility] Respiratory rate 2023-09-18 14:40:00 20 /min [facility] Body height 2023-09-18 14:40:00 152.4 cm [facility] Body weight 2023-09-18 14:40:00 112.084 kg [facility] BMI 2023-09-18 14:40:00 48.26 kg/m2 [facility] Oxygen saturation in Arterial blood by Pulse oximetry 2023-09-18 14:40:00 98 /min [facility] Systolic blood pressure 2023-09-15 16:15:00 131 mm[Hg] [facility] Diastolic blood pressure 2023-09-15 16:15:00 89 mm[Hg] [facility] Heart rate 2023-09-15 16:15:00 65 /min [facility] Body temperature 2023-09-15 16:15:00 36 Cecily [facility] Respiratory rate 2023-09-15 16:15:00 18 /min [facility] Oxygen saturation in Arterial blood by Pulse oximetry 2023-09-15 16:15:00 92 /min [facility] Body weight 2023-09-15 08:33:00 112.991 kg [facility] BMI 2023-09-15 08:33:00 48.65 kg/m2 [facility] Body height 2023-09-14 22:38:00 152.4 cm [facility] Systolic blood pressure 2023-07-24 16:09:00 108 mm[Hg] [facility] Diastolic blood pressure 2023-07-24 16:09:00 77 mm[Hg] [facility] Heart rate 2023-07-24 16:09:00 82 /min [facility] Body temperature 2023-07-24 16:09:00 36.83 Cecily [facility] Body height 2023-07-24 16:09:00 152.4 cm [facility] Body weight 2023-07-24 16:09:00 114.306 kg [facility] BMI 2023-07-24 16:09:00 49.22 kg/m2 [facility] Oxygen saturation in Arterial blood by Pulse oximetry 2023-07-24 16:09:00 98 /min [facility] Systolic blood pressure 2023-07-11 22:30:00 121 mm[Hg] [facility] Diastolic blood pressure 2023-07-11 22:30:00 84 mm[Hg] [facility] Heart rate 2023-07-11 22:30:00 91 /min [facility] Body temperature 2023-07-11 22:30:00 36.78 Cecily [facility] Respiratory rate 2023-07-11 22:30:00 18 /min [facility] Body weight 2023-07-11 22:30:00 102.059 kg [facility] BMI 2023-07-11 22:30:00 43.94 kg/m2 [facility] Oxygen saturation in Arterial blood by Pulse oximetry 2023-07-11 22:30:00 95 /min [facility] Systolic blood pressure 2023-06-13 19:18:00 121 mm[Hg] [facility] Diastolic blood pressure 2023-06-13 19:18:00 73 mm[Hg] [facility] Heart rate 2023-06-13 19:18:00 80 /min [facility] Body height 2023-06-13 19:18:00 152.4 cm [facility] Body weight 2023-06-13 19:18:00 119.205 kg [facility] BMI 2023-06-13 19:18:00 51.32 kg/m2 [facility] Oxygen saturation in Arterial blood by Pulse oximetry 2023-06-13 19:18:00 94 /min [facility] Systolic blood pressure 2023-06-12 18:47:00 131 mm[Hg] [facility] Diastolic blood pressure 2023-06-12 18:47:00 86 mm[Hg] [facility] Heart rate 2023-06-12 18:47:00 86 /min [facility] Body temperature 2023-06-12 18:47:00 36.22 Cecily [facility] Respiratory rate 2023-06-12 18:47:00 18 /min [facility] Body height 2023-06-12 18:47:00 152.4 cm [facility] Body weight 2023-06-12 18:47:00 119.024 kg [facility] BMI 2023-06-12 18:47:00 51.25 kg/m2 [facility] Oxygen saturation in Arterial blood by Pulse oximetry 2023-06-12 18:47:00 94 /min [facility] Systolic blood pressure 2023-05-28 19:13:00 120 mm[Hg] [facility] Diastolic blood pressure 2023-05-28 19:13:00 88 mm[Hg] [facility] Heart rate 2023-05-28 19:12:00 82 /min [facility] Respiratory rate 2023-05-28 19:12:00 18 /min [facility] Body height 2023-05-28 19:12:00 152.4 cm [facility] Body weight 2023-05-28 19:12:00 120.022 kg [facility] BMI 2023-05-28 19:12:00 51.68 kg/m2 [facility] Oxygen saturation in Arterial blood by Pulse oximetry 2023-05-28 19:12:00 96 /min [facility] Systolic blood pressure 2023-05-23 19:13:00 139 mm[Hg] [facility] Diastolic blood pressure 2023-05-23 19:13:00 84 mm[Hg] [facility] Heart rate 2023-05-23 19:13:00 88 /min [facility] Body temperature 2023-05-23 19:13:00 36.67 Cecily [facility] Body height 2023-05-23 19:13:00 152.4 cm [facility] Body weight 2023-05-23 19:13:00 119.75 kg [facility] BMI 2023-05-23 19:13:00 51.56 kg/m2 [facility] Oxygen saturation in Arterial blood by Pulse oximetry 2023-05-23 19:13:00 94 /min [facility] Systolic blood pressure 2023-05-23 15:42:00 137 mm[Hg] [facility] Diastolic blood pressure 2023-05-23 15:42:00 87 mm[Hg] [facility] Heart rate 2023-05-23 15:42:00 85 /min [facility] Body temperature 2023-05-23 15:42:00 36.28 Cecily [facility] Body height 2023-05-23 15:42:00 152.4 cm [facility] Body weight 2023-05-23 15:42:00 121.337 kg [facility] BMI 2023-05-23 15:42:00 52.24 kg/m2 [facility] Oxygen saturation in Arterial blood by Pulse oximetry 2023-05-23 15:42:00 94 /min [facility] Systolic blood pressure 2023-05-15 16:41:00 102 mm[Hg] [facility] Diastolic blood pressure 2023-05-15 16:41:00 64 mm[Hg] [facility] Heart rate 2023-05-15 16:41:00 94 /min [facility] Body temperature 2023-05-15 16:41:00 36.06 Cecily [facility] Body height 2023-05-15 16:41:00 152.4 cm [facility] Body weight 2023-05-15 16:41:00 121.927 kg [facility] BMI 2023-05-15 16:41:00 52.50 kg/m2 [facility] Oxygen saturation in Arterial blood by Pulse oximetry 2023-05-15 16:41:00 94 /min [facility] Oxygen saturation in Arterial blood by Pulse oximetry 2023-05-01 16:52:00 96 /min [facility] Systolic blood pressure 2023-05-01 16:37:00 150 mm[Hg] [facility] Diastolic blood pressure 2023-05-01 16:37:00 103 mm[Hg] [facility] Heart rate 2023-05-01 16:37:00 78 /min [facility] Body temperature 2023-05-01 16:37:00 36.72 Eccily [facility] Respiratory rate 2023-05-01 16:37:00 18 /min [facility] Body height 2023-04-30 21:32:00 152.4 cm [facility] Body weight 2023-04-30 21:32:00 129.275 kg [facility] BMI 2023-04-30 21:32:00 55.66 kg/m2 [facility] Systolic blood pressure 2023-04-30 12:21:00 138 mm[Hg] [facility] Diastolic blood pressure 2023-04-30 12:21:00 76 mm[Hg] [facility] Heart rate 2023-04-30 12:21:00 83 /min [facility] Body temperature 2023-04-30 12:21:00 36.5 Cecily [facility] Body height 2023-04-30 12:21:00 152.4 cm [facility] Body weight 2023-04-30 12:21:00 129.3 kg [facility] BMI 2023-04-30 12:21:00 55.66 kg/m2 [facility] Oxygen saturation in Arterial blood by Pulse oximetry 2023-04-30 12:21:00 96 /min [facility] Systolic blood pressure 2023-04-17 20:58:00 117 mm[Hg] [facility] Diastolic blood pressure 2023-04-17 20:58:00 73 mm[Hg] [facility] Heart rate 2023-04-17 20:58:00 82 /min [facility] Body temperature 2023-04-17 20:58:00 36 Cecily [facility] Body height 2023-04-17 20:58:00 152.4 cm [facility] Body weight 2023-04-17 20:58:00 127.688 kg [facility] BMI 2023-04-17 20:58:00 54.98 kg/m2 [facility] Oxygen saturation in Arterial blood by Pulse oximetry 2023-04-17 20:58:00 91 /min [facility] Systolic blood pressure 2023-03-18 15:26:00 121 mm[Hg] [facility] Diastolic blood pressure 2023-03-18 15:26:00 67 mm[Hg] [facility] Heart rate 2023-03-18 15:26:00 75 /min [facility] Body temperature 2023-03-18 15:26:00 36 Cecily [facility] Body height 2023-03-18 15:26:00 152.4 cm [facility] Body weight 2023-03-18 15:26:00 132.269 kg [facility] BMI 2023-03-18 15:26:00 56.95 kg/m2 [facility] Oxygen saturation in Arterial blood by Pulse oximetry 2023-03-18 15:26:00 93 /min [facility] Systolic blood pressure 2023-02-20 20:29:00 125 mm[Hg] [facility] Diastolic blood pressure 2023-02-20 20:29:00 80 mm[Hg] [facility] Heart rate 2023-02-20 20:29:00 88 /min [facility] Body temperature 2023-02-20 20:29:00 37.06 Cecily [facility] Respiratory rate 2023-02-20 20:29:00 18 /min [facility] Body height 2023-02-20 20:29:00 152.4 cm [facility] Body weight 2023-02-20 20:29:00 130.182 kg [facility] BMI 2023-02-20 20:29:00 56.05 kg/m2 [facility] Oxygen saturation in Arterial blood by Pulse oximetry 2023-02-20 20:29:00 95 /min [facility] Systolic blood pressure 2023-02-20 15:36:00 107 mm[Hg] [facility] Diastolic blood pressure 2023-02-20 15:36:00 74 mm[Hg] [facility] Heart rate 2023-02-20 15:36:00 83 /min [facility] Body temperature 2023-02-20 15:36:00 35.78 Cecily [facility] Body height 2023-02-20 15:36:00 152.4 cm [facility] Body weight 2023-02-20 15:36:00 129.865 kg [facility] BMI 2023-02-20 15:36:00 55.91 kg/m2 [facility] Systolic blood pressure 2023-02-15 17:23:00 108 mm[Hg] [facility] Diastolic blood pressure 2023-02-15 17:23:00 67 mm[Hg] [facility] Heart rate 2023-02-15 17:23:00 83 /min [facility] Body temperature 2023-02-15 17:23:00 36.94 Cecily [facility] Respiratory rate 2023-02-15 17:23:00 18 /min [facility] Body weight 2023-02-15 17:23:00 131.997 kg [facility] BMI 2023-02-15 17:23:00 56.83 kg/m2 [facility] Oxygen saturation in Arterial blood by Pulse oximetry 2023-02-15 17:23:00 95 /min [facility] Body temperature 2023-02-04 19:04:00 35.61 Cecily [facility] Body height 2023-02-04 19:04:00 152.4 cm [facility] Body weight 2023-02-04 19:04:00 134.31 kg [facility] BMI 2023-02-04 19:04:00 57.83 kg/m2 [facility] Systolic blood pressure 2023-01-26 21:46:00 116 mm[Hg] [facility] Diastolic blood pressure 2023-01-26 21:46:00 83 mm[Hg] [facility] Heart rate 2023-01-26 21:46:00 86 /min [facility] Body temperature 2023-01-26 21:46:00 37 Cecily [facility] Respiratory rate 2023-01-26 21:46:00 24 /min [facility] Body height 2023-01-26 21:46:00 152.4 cm [facility] Body weight 2023-01-26 21:46:00 132.45 kg [facility] BMI 2023-01-26 21:46:00 57.03 kg/m2 [facility] Oxygen saturation in Arterial blood by Pulse oximetry 2023-01-26 21:46:00 94 /min [facility] Systolic blood pressure 2023-01-09 22:45:00 131 mm[Hg] [facility] Diastolic blood pressure 2023-01-09 22:45:00 89 mm[Hg] [facility] Heart rate 2023-01-09 22:44:00 86 /min [facility] Body temperature 2023-01-09 22:44:00 36.39 Cecily [facility] Body height 2023-01-09 22:44:00 152.4 cm [facility] Body weight 2023-01-09 22:44:00 132.178 kg [facility] BMI 2023-01-09 22:44:00 56.91 kg/m2 [facility] Oxygen saturation in Arterial blood by Pulse oximetry 2023-01-09 22:44:00 94 /min [facility] Body height 2022-12-13 20:21:00 152.4 cm [facility] Body weight 2022-12-13 20:21:00 134.265 kg [facility] BMI 2022-12-13 20:21:00 57.81 kg/m2 [facility] Systolic blood pressure 2022-12-11 14:41:00 132 mm[Hg] [facility] Diastolic blood pressure 2022-12-11 14:41:00 90 mm[Hg] [facility] Heart rate 2022-12-11 14:30:00 90 /min [facility] Body weight 2022-12-11 14:30:00 132.768 kg [facility] BMI 2022-12-11 14:30:00 57.16 kg/m2 [facility] Oxygen saturation in Arterial blood by Pulse oximetry 2022-12-11 14:30:00 96 /min [facility] Systolic blood pressure 2022-12-06 16:31:00 117 mm[Hg] [facility] Diastolic blood pressure 2022-12-06 16:31:00 71 mm[Hg] [facility] Heart rate 2022-12-06 16:31:00 86 /min [facility] Body temperature 2022-12-06 16:31:00 36.06 Cecily [facility] Body height 2022-12-06 16:31:00 152.4 cm [facility] Body weight 2022-12-06 16:31:00 132.722 kg [facility] BMI 2022-12-06 16:31:00 57.14 kg/m2 [facility] Oxygen saturation in Arterial blood by Pulse oximetry 2022-12-06 16:31:00 91 /min [facility] Systolic blood pressure 2022-11-29 21:17:00 133 mm[Hg] [facility] Diastolic blood pressure 2022-11-29 21:17:00 80 mm[Hg] [facility] Heart rate 2022-11-29 21:17:00 87 /min [facility] Body height 2022-11-29 21:17:00 152.4 cm [facility] Body weight 2022-11-29 21:17:00 134.854 kg [facility] BMI 2022-11-29 21:17:00 58.06 kg/m2 [facility] Oxygen saturation in Arterial blood by Pulse oximetry 2022-11-29 21:17:00 92 /min [facility] Body temperature 2022-11-29 21:14:00 36.39 Cecily [facility] Systolic blood pressure 2022-11-14 21:30:00 131 mm[Hg] [facility] Diastolic blood pressure 2022-11-14 21:30:00 101 mm[Hg] [facility] Respiratory rate 2022-11-14 21:30:00 22 /min [facility] Oxygen saturation in Arterial blood by Pulse oximetry 2022-11-14 21:30:00 94 /min [facility] Respiratory rate 2022-11-14 16:44:45 0 /min [facility] Oxygen saturation in Arterial blood by Pulse oximetry 2022-11-14 16:44:45 99 /min [facility] Body height 2022-11-07 19:56:00 152.4 cm [facility] Body weight 2022-11-07 19:56:00 131.543 kg [facility] BMI 2022-11-07 19:56:00 56.64 kg/m2 [facility] Body height 2022-11-05 21:55:00 152.4 cm [facility] Body weight 2022-11-05 21:55:00 131.543 kg [facility] BMI 2022-11-05 21:55:00 56.64 kg/m2 [facility] Systolic blood pressure 2022-10-30 18:07:00 136 mm[Hg] [facility] Diastolic blood pressure 2022-10-30 18:07:00 86 mm[Hg] [facility] Heart rate 2022-10-30 18:07:00 87 /min [facility] Body temperature 2022-10-30 18:07:00 37.17 Cecily [facility] Respiratory rate 2022-10-30 18:07:00 17 /min [facility] Body height 2022-10-30 18:07:00 152.4 cm [facility] Body weight 2022-10-30 18:07:00 133.04 kg [facility] BMI 2022-10-30 18:07:00 57.28 kg/m2 [facility] Oxygen saturation in Arterial blood by Pulse oximetry 2022-10-30 18:07:00 95 /min [facility] Systolic blood pressure 2022-10-15 20:01:00 124 mm[Hg] [facility] Diastolic blood pressure 2022-10-15 20:01:00 88 mm[Hg] [facility] Heart rate 2022-10-15 19:34:00 85 /min [facility] Body temperature 2022-10-15 19:34:00 36.56 Cecily [facility] Body height 2022-10-15 19:34:00 152.4 cm [facility] Body weight 2022-10-15 19:34:00 131.543 kg [facility] BMI 2022-10-15 19:34:00 56.64 kg/m2 [facility] Oxygen saturation in Arterial blood by Pulse oximetry 2022-10-15 19:34:00 93 /min [facility] Systolic blood pressure 2022-10-10 21:45:00 128 mm[Hg] [facility] Diastolic blood pressure 2022-10-10 21:45:00 84 mm[Hg] [facility] Heart rate 2022-10-10 21:45:00 82 /min [facility] Body temperature 2022-10-10 21:45:00 36.67 Cecily [facility] Respiratory rate 2022-10-10 21:45:00 18 /min [facility] Body height 2022-10-10 21:45:00 152.4 cm [facility] Body weight 2022-10-10 21:45:00 133.358 kg [facility] BMI 2022-10-10 21:45:00 57.42 kg/m2 [facility] Oxygen saturation in Arterial blood by Pulse oximetry 2022-10-10 21:45:00 95 /min [facility] Systolic blood pressure 2022-10-08 22:22:00 128 mm[Hg] [facility] Diastolic blood pressure 2022-10-08 22:22:00 81 mm[Hg] [facility] Heart rate 2022-10-08 22:22:00 87 /min [facility] Body temperature 2022-10-08 22:22:00 37 Cecily [facility] Body height 2022-10-08 22:22:00 152.4 cm [facility] Body weight 2022-10-08 22:22:00 132.904 kg [facility] BMI 2022-10-08 22:22:00 57.22 kg/m2 [facility] Oxygen saturation in Arterial blood by Pulse oximetry 2022-10-08 22:22:00 97 /min [facility] Systolic blood pressure 2022-10-02 15:12:00 114 mm[Hg] [facility] Diastolic blood pressure 2022-10-02 15:12:00 81 mm[Hg] [facility] Heart rate 2022-10-02 15:12:00 88 /min [facility] Oxygen saturation in Arterial blood by Pulse oximetry 2022-10-02 15:11:00 94 /min [facility] Respiratory rate 2022-10-02 15:07:00 19 /min [facility] Body height 2022-10-02 15:07:00 152.4 cm [facility] Body weight 2022-10-02 15:07:00 133.675 kg [facility] BMI 2022-10-02 15:07:00 57.55 kg/m2 [facility] Systolic blood pressure 2022-09-28 19:51:00 125 mm[Hg] [facility] Diastolic blood pressure 2022-09-28 19:51:00 75 mm[Hg] [facility] Heart rate 2022-09-28 19:51:00 90 /min [facility] Body temperature 2022-09-28 19:51:00 35.56 Cecily [facility] Body height 2022-09-28 19:51:00 152.4 cm [facility] Body weight 2022-09-28 19:51:00 132.722 kg [facility] BMI 2022-09-28 19:51:00 57.14 kg/m2 [facility] Oxygen saturation in Arterial blood by Pulse oximetry 2022-09-28 19:51:00 96 /min [facility] Systolic blood pressure 2022-08-27 19:30:00 103 mm[Hg] [facility] Diastolic blood pressure 2022-08-27 19:30:00 68 mm[Hg] [facility] Heart rate 2022-08-27 19:30:00 98 /min [facility] Body temperature 2022-08-27 19:30:00 37.06 Cecily [facility] Body height 2022-08-27 19:30:00 152.4 cm [facility] Body weight 2022-08-27 19:30:00 129.003 kg [facility] BMI 2022-08-27 19:30:00 55.54 kg/m2 [facility] Oxygen saturation in Arterial blood by Pulse oximetry 2022-08-27 19:30:00 95 /min [facility] Systolic blood pressure 2022-07-26 19:15:00 124 mm[Hg] [facility] Diastolic blood pressure 2022-07-26 19:15:00 91 mm[Hg] [facility] Heart rate 2022-07-26 19:15:00 90 /min [facility] Oxygen saturation in Arterial blood by Pulse oximetry 2022-07-26 19:15:00 92 /min [facility] Body temperature 2022-07-26 19:14:00 36.56 Cecily [facility] Respiratory rate 2022-07-26 19:14:00 19 /min [facility] Body height 2022-07-26 19:14:00 152.4 cm [facility] Body weight 2022-07-26 19:14:00 135.671 kg [facility] BMI 2022-07-26 19:14:00 58.41 kg/m2 [facility] Systolic blood pressure 2022-06-15 19:21:00 165 mm[Hg] [facility] Diastolic blood pressure 2022-06-15 19:21:00 95 mm[Hg] [facility] Heart rate 2022-06-15 19:21:00 116 /min [facility] Body temperature 2022-06-15 19:21:00 37.06 Cecily [facility] Respiratory rate 2022-06-15 19:21:00 18 /min [facility] Body height 2022-06-15 19:21:00 152.4 cm [facility] Body weight 2022-06-15 19:21:00 133.584 kg [facility] BMI 2022-06-15 19:21:00 57.52 kg/m2 [facility] Oxygen saturation in Arterial blood by Pulse oximetry 2022-06-15 19:21:00 95 /min [facility] Systolic blood pressure 2024-12-18 13:40:00 136 mm[Hg] [facility] Diastolic blood pressure 2024-12-18 13:40:00 103 mm[Hg] [facility] Heart rate 2024-12-18 13:40:00 74 /min [facility] Oxygen saturation in Arterial blood by Pulse oximetry 2024-12-18 13:40:00 97 /min [facility] Respiratory rate 2024-12-18 13:17:00 17 /min [facility] Body height 2024-12-02 22:04:00 152.4 cm [facility] Body weight 2024-12-02 22:04:00 93.532 kg [facility] BMI 2024-12-02 22:04:00 40.27 kg/m2 [facility] Body temperature 2024-11-19 22:43:00 36.56 Cecily [facility] Procedures Procedure Date / Time Performed Performing Clinician Source ELECTROPHYSIOLOGY PROCEDURE 2024-12-18 13:37:02 Shayla Garay [facility] ELECTROPHYSIOLOGY PROCEDURE 2024-12-18 [facility] 2024-12-18 13:37:02 Surya [facility] TEST, SERUM 2024-12-18 13:08:00 Surya [facility] BASIC METABOLIC PANEL (NA, K, CL, CO2, GLUCOSE, BUN, CREATININE, CA) 2024-12-18 13:08:00 Surya [facility] CBC WITH DIFF 2024-12-18 13:08:00 Surya [facility] PROTHROMBIN TIME / INR 2024-12-18 13:08:00 [facility]24-12-18 13:08:00 S[facility] BASIC METABOLIC PANEL (NA, K, CL, CO2, GLUCOSE, BUN, CREATININE, CA) 2024-12-18 [facility]:08[facility]24[facility]12[facility]18 [facility] 2024-12-18 13:08:00 [facility] / INR 2024-12-18 13:08:00 [facility]a [facility] CBC WITH DIFF 2024-12-18 13:08:00 [facility] BASIC METABOLIC PANEL (NA, K, CL, CO2, GLUCOSE, BUN, CREATININE, CA) 2024-12-18 13:08:00 [facility] TEST, SERUM 2024-12-18 13:08:00 Shayla Garay [facility] POCT MOLECULAR STREP 2024-11-19 22:42:00 Unknown, Attending [facility] POCT MOLECULAR STREP 2024-11-19 22:42:00 Unknown, Attending [facility] HB ECG ROUTINE & RHYTHM STRIP 2024-10-22 16:19:50 Minal Manning [facility] CT ABDOMEN PELVIS W CONTRAST 2024-10-14 22:52:27 Gaby Prather [facility] CT ABDOMEN PELVIS W CONTRAST 2024-10-14 22:52:27 Gaby Prather [facility] MAGNESIUM 2024-10-14 18:13:00 Minal Manning [facility] THYROID STIMULATING HORMONE 2024-10-14 18:13:00 Gaby Prather [facility] COMP. METABOLIC PANEL (55679) 2024-10-14 18:13:00 Minal Manning.Rahul [facility] N-TERMINAL PRO-BNP 2024-10-14 18:13:00 Minal Manning.HKiki [facility] CBC WITH DIFF 2024-10-14 18:13:00 Gaby Prather [facility] N-TERMINAL PRO-BNP 2024-10-14 18:13:00 Minal Manning.HKiki [facility] COMP. METABOLIC PANEL (24017) 2024-10-14 18:13:00 Minal Manning.Rahul [facility] MAGNESIUM 2024-10-14 18:13:00 Minal Manning K.Rahul [facility] THYROID STIMULATING HORMONE 2024-10-14 18:13:00 Gaby Prather [facility] LIPID PANEL (40180)(TOTAL CHOLESTEROL, TRIGLYCERIDES, HDL) 2024-10-14 18:13:00 Minal Manning.HKiki [facility] XR CHEST 2 VW 2024-10-10 18:08:12 Vandana Green [facility] FOREIGN BODY REMOVAL - EMBEDDED 2024-10-10 17:32:59 Vandana Green [facility] FOREIGN BODY REMOVAL - EMBEDDED 2024-10-10 17:32:59 Vandana Green [facility] POCT MOLECULAR FLU 2024-10-01 20:33:00 Annmarie Juan Miguel [facility] PHYSICIAN ORDERS 2024-03-03 19:00:48 Doctor Unassigned, Amesti [facility] EXTERNAL PROVIDER RECORDS 2023-12-31 06:01:00 Doctor Unassigned, Amesti [facility] COMP. METABOLIC PANEL (76950) 2023-12-06 17:44:00 Yasir Allen [facility] SEDIMENTATION RATE 2023-12-06 17:44:00 Tiffany [facility] CBC WITH DIFF 2023-12-06 17:44:00 Yasir Allen [facility] PHYSICIAN ORDERS 2023-12-06 06:01:00 Doctor Unassigned, Amesti [facility] POCT MOLECULAR FLU 2023-11-13 21:25:00 Unknown, Attending [facility] POCT MOLECULAR STREP 2023-11-13 21:20:00 Unknown, Attending [facility] CONSENT/REFUSAL FOR DIAGNOSIS AND TREATMENT 2023-10-22 18:33:51 Doctor Unassigned, Amesti [facility] MAGNESIUM 2023-10-18 17:24:00 Minal Manning.H. [facility] COMP. METABOLIC PANEL ([id number]) 2023-10-18 17:24:00 Minal Manning K.H. [facility] LIPID PANEL (97443)(TOTAL CHOLESTEROL, TRIGLYCERIDES, HDL) 2023-10-18 17:24:00 Minal Manning K.Rahul [facility] CBC WITH DIFF 2023-10-18 17:24:00 Minal Manning.H. [facility] N-TERMINAL PRO-BNP 2023-10-18 17:24:00 Minal Manning.H. [facility] POCT MOLECULAR STREP 2023-10-14 20:35:00 Unknown, Attending [facility] POCT MOLECULAR FLU 2023-10-14 20:25:00 Unknown, Attending [facility] POCT SARS-COV-2 ANTIGEN (BINAX NOW) 2023-09-23 18:26:00 Keren Pimentel [facility] POCT MOLECULAR FLU 2023-09-23 18:12:00 Unknown, Attending [facility] POCT MOLECULAR STREP 2023-09-23 18:09:00 Unknown, Attending [facility] TRANSTHORACIC ECHO (TTE) COMPLETE W/ CONTRAST 2023-09-15 13:42:00 Melodie Ashraf [facility] TROPONIN I 2023-09-15 10:24:00 Melodie Ashraf [facility] LIPID PANEL (46890)(TOTAL CHOLESTEROL, TRIGLYCERIDES, HDL) 2023-09-15 10:24:00 Melodie Ashraf [facility] TROPONIN I 2023-09-15 04:49:00 Melodie Ashraf [facility] XR CHEST 1 VW 2023-09-15 00:08:00 Jason Colon [facility] EKG-12 LEAD 2023-09-14 23:51:16 Jason Colon [facility] TROPONIN I 2023-09-14 23:44:00 Jason Colon [facility] BASIC METABOLIC PANEL (NA, K, CL, CO2, GLUCOSE, BUN, CREATININE, CA) 2023-09-14 23:44:00 Jason Colon [facility] CBC WITH DIFF 2023-09-14 23:44:00 Jason Colon [facility] CONSENT/REFUSAL FOR DIAGNOSIS AND TREATMENT 2023-09-14 22:21:07 Doctor Unassigned, Amesti [facility] AUTHORIZATION FOR RELEASE OF PHI 2023-08-08 05:01:00 Doctor Unassigned, Amesti [facility] POCT URINALYSIS 2023-07-24 16:43:00 Gaby Prather [facility] POCT URINALYSIS 2023-07-11 23:04:00 Franklin Waddell [facility] REFERRAL- REQUEST/RESPONSE 2023-07-05 05:01:00 Doctor Unassigned, Amesti [facility] HB ECG ROUTINE & RHYTHM STRIP 2023-06-13 19:11:29 Minal Manning [facility] PHOSPHORUS 2023-05-01 11:05:00 GaryFreemanin [facility] MAGNESIUM 2023-05-01 11:05:00 Gary [facility] BASIC METABOLIC PANEL (NA, K, CL, CO2, GLUCOSE, BUN, CREATININE, CA) 2023-05-01 11:05:00 Gary [facility] CBC WITH DIFF 2023-05-01 11:05:00 Gary [facility] PHOSPHORUS 2023-05-01 11:05:00 Gary [facility] MAGNESIUM 2023-05-01 11:05:00 Gary [facility] BASIC METABOLIC PANEL (NA, K, CL, CO2, GLUCOSE, BUN, CREATININE, CA) 2023-05-01 11:05:00 Mireille Vega [facility] CBC WITH DIFF 2023-05-01 11:05:00 Gary [facility] LAPAROSCOPIC ROBOTIC ASSISTED GASTRIC SLEEVE 2023-04-30 14:41:00 Lion [facility] LAPAROSCOPIC ROBOTIC ASSISTED GASTRIC SLEEVE 2023-04-30 14:41:00 Lion [facility] POCT TEST 2023-04-30 12:34:00 Trey [facility] POCT TEST 2023-04-30 12:34:00 Trey [facility] CONSENT/REFUSAL FOR DIAGNOSIS AND TREATMENT 2023-04-30 12:12:48 Doctor Unassigned, Amesti [facility] CONSENT/REFUSAL FOR DIAGNOSIS AND TREATMENT 2023-04-30 12:12:48 Doctor Unassigned, Amesti [facility] ASSIGNMENT OF BENEFITS 2023-04-30 12:11:49 Doctor Unassigned, Amesti [facility] ASSIGNMENT OF BENEFITS 2023-04-30 12:11:49 Doctor Unassigned, Amesti [facility] HOSPITAL ADMISSION 2023-04-30 05:01:00 Doctor Unassigned, Amesti [facility] EXTERNAL PROVIDER RECORDS 2023-04-17 05:01:00 Doctor Unassigned, Amesti [facility] EXTERNAL PROVIDER RECORDS 2023-02-18 05:01:00 Doctor Unassigned, Amesti [facility] POCT MOLECULAR STREP 2023-02-15 17:22:00 Unknown, Attending [facility] POCT URINALYSIS 2023-02-15 17:21:00 Shaun Jasso [facility] XR HAND 3+ VW RIGHT 2023-02-04 19:38:00 Betarbet, Flaquita [facility] XR WRIST 3+ VW RIGHT 2023-02-04 19:38:00 Betarbet, [facility] [place] [facility] POCT SARS-COV-2 ANTIGEN (BINAX NOW) 2023-01-26 21:59:00 Keren Pimentel [facility] POCT MOLECULAR STREP 2023-01-26 21:50:00 Unknown, Attending [facility] POCT HEMOGLOBIN A1C TEST 2022-12-11 14:44:00 Rowdy Lam [facility] MAGNESIUM 2022-11-29 22:02:00 Minal Manning [facility] CBC WITH DIFF 2022-11-29 22:02:00 Minal Manning [facility] PROTHROMBIN TIME / INR 2022-11-29 22:02:00 Minal Manning [facility] ACTIVATED PARTIAL THRMPLAS HEBER 2022-11-29 22:02:00 Minal Manning [facility] N-TERMINAL PRO-BNP 2022-11-29 22:02:00 Minal Manning [facility] CARDIAC CATHETERIZATION 2022-11-14 17:06:57 Minal Manning [facility] CARDIAC CATHETERIZATION 2022-11-14 17:06:57 Minal Manning [facility] CARDIAC CATHETERIZATION 2022-11-14 17:06:57 Minal Manning [facility] CARDIAC CATHETERIZATION 2022-11-14 17:06:57 Minal Manning [facility] CATH PROCEDURE LOG 2022-11-14 16:24:57 Minal Manning [facility] CATH PROCEDURE LOG 2022-11-14 16:24:57 Mianl Manning [facility] OUTPATIENT CARDIAC CATHETERIZATION DOCUMENTS 2022-11-14 06:01:00 Doctor Unassigned, Amesti [facility] NUCLEAR STRESS TEST CARDIOLOGY (DO NOT SCHED) 2022-10-23 15:02:31 Minal Manning [facility] NUCLEAR STRESS TEST CARDIOLOGY (DO NOT SCHED) 2022-10-23 15:02:31 Minal Manning [facility] NUCLEAR STRESS TEST CARDIOLOGY (DO NOT SCHED) 2022-10-23 15:02:31 Minal Manning [facility] NUCLEAR STRESS TEST CARDIOLOGY (DO NOT SCHED) 2022-10-23 15:02:31 Minal Manning [facility] EMG/NCV 2022-10-22 17:27:00 Gerardo Marie [facility] ASSIGNMENT OF BENEFITS 2022-10-22 16:23:42 Doctor Unassigned, Amesti [facility] MEDICAL RELEASE/CLEARANCE FORMS 2022-10-18 06:01:00 Doctor Unassigned, Amesti [facility] OP CLINIC NOTES/CONSULTS 2022-10-09 06:01:00 Doctor Unassigned, Amesti [facility] HIGH RISK HPV-THIN PREP 2022-10-08 23:07:00 Gaby Prather [facility] PAP SMEAR-LIQUID BASED-CP 2022-10-08 23:07:00 Gaby Prather [facility] PHYSICIAN ORDERS 2022-10-01 06:01:00 Doctor Unassigned, Amesti [facility] EXTERNAL PROVIDER RECORDS 2022-09-25 06:01:00 Doctor Unassigned, Amesti [facility] POCT URINALYSIS 2022-08-27 19:40:00 Gaby Prather [facility] EXTERNAL PROVIDER RECORDS 2022-08-16 05:01:00 Doctor Unassigned, Amesti [facility] MEDICAL RELEASE/CLEARANCE FORMS 2022-07-30 05:01:00 Doctor Unassigned, Amesti [facility] HCV ANTIBODY 2022-01-22 16:31:00 Geeta Clark [facility] HIV 1/2 AG-AB WITH REFLEX 2022-01-22 16:31:00 Geeta Clark [facility] BI DIAGNOSTIC TOMOSYNTHESIS BILATERAL 2021-10-17 20:35:09 Aracely Beverly [facility] Encounters Start Date/Time End Date/Time Encounter Type Admission Type Attending [facility] Care Facility Care Department Encounter ID Source 2023-01-31 14:34:34 Inpatient R DARRYN SEYMOUR [facility] [id number] [facility] 2021-09-19 01:12:48 Emergency [facility] [id number] [facility] 2024-12-11 00:00:00 2025-01-16 18:18:39 Patient Secure Msg Doctor Unassigned, Amesti Doctor Unassigned, Amesti [facility] 1.2.840.114 350.1.13.10 4.2.7.2.686 [id number] [facility] 2025-01-15 00:00:00 2025-01-15 12:06:36 Telephone Minal Manning [facility] 1.2840.114 350.1.13.10 4.2.7.2.686 [id number] [facility] 2025-01-12 15:36:04 2025-01-12 15:36:04 Outpatient [facility] [id number] Deangelo Fernando 2025-01-05 00:00:00 2025-01-05 19:46:17 Letter (Out) [facility] 1.2.840.114 350.1.13.10 4.2.7.2.686 [id number] [facility] 2024-03-03 00:00:00 2025-01-02 02:19:06 Orders Only Doctor Unassigned, Amesti Doctor Unassigned, Amesti [facility] 1.2.840.114 350.1.13.10 4.2.7.2.686 [id number] [facility] 2025-01-01 00:00:00 2025-01-01 11:10:10 Minal Andrade 1.2.840.1 09694.1.1 3.104.2.7 .3.820021 .8 [id number] [facility] 2024-12-30 00:00:00 2024-12-30 17:07:24 Specialty Pharmacy Avery Shena 1.2.840.1 83195.1.1 3.104.2.7 .3.346828 .8 [id number] [facility] 2024-12-30 00:00:00 2024-12-30 00:00:00 Patient Secure Msg Doctor Unassigned, Amesti 1.2.840.1 68187.1.1 3.104.2.7 .3.686860 .8 [id number] [facility] 2024-12-30 00:00:00 2024-12-30 00:00:00 Patient Secure Msg Doctor Unassigned, Amesti 1.2.840.1 26019.1.1 3.104.2.7 .3.537875 .8 [id number] [facility] 2024-12-21 00:00:00 2024-12-21 12:12:12 Telephone Kole Garay 1.2.840.1 96486.1.1 3.104.2.7 .3.489043 .8 [id number] [facility] 2024-12-21 11:58:51 2024-12-21 11:58:51 Outpatient [facility] [id number] Deangelo Azeb Abdullahi 2024-12-18 06:27:00 2024-12-18 08:18:00 Outpatient R KOLE GARAY CHOCKALINGA M [facility] [id number] [facility] 2024-12-18 06:27:00 2024-12-18 08:18:00 Hospital Encounter Kole Garay 1.2.840.1 09862.1.1 3.104.2.7 .3.176085 .8 [id number] [facility] 2024-12-18 07:30:00 2024-12-18 08:15:00 Surgery Kole Garay 1.2.840.1 73387.1.1 3.104.2.7 .3.359493 .8 [id number] [facility] 2024-12-15 00:00:00 2024-12-15 15:55:36 Telephone Giuliana Figueroa 1.2.840.1 14554.1.1 3.104.2.7 .3.714219 .8 [id number] [facility] 2024-12-14 15:30:00 2024-12-14 23:59:00 Outpatient R KOLE GARAY CHOCKALINGA M [facility] [id number] [facility] 2024-12-14 15:30:00 2024-12-14 23:59:00 Hospital Encounter Kole Garay 1.2.840.1 76415.1.1 3.104.2.7 .3.658514 .8 [id number] [facility] 2024-12-14 00:00:00 2024-12-14 00:00:00 Travel 1.2.840.1 92184.1.1 3.104.2.7 .3.959049 .8 1.2.840.114 350.1.13.10 4.2.7.3.698 084.8 [id number] [facility] 2024-12-09 15:30:00 2024-12-09 15:30:00 Outpatient R KOLE GARAY CHOCKALINGA M [facility] [id number] [facility] 2023-03-25 00:00:00 2024-12-03 09:56:57 Ref[address] Pip[address]ibay [facility] 1.2.840.114 350.1.13.10 4.2.7.2.686 [id number] [facility] 2024-12-02 16:30:00 2024-12-02 16:30:30 Office Visit CarolinaGiuliana mata 1.2.840.1 87222.1.1 3.104.2.7 .3.491644 .8 [id number] [facility] 2024-12-02 13:00:00 2024-12-02 13:30:00 Office Visit April Ly 1.2.840.1 86208.1.1 3.104.2.7 .3.095634 .8 [id number] [facility] 2024-12-02 13:00:00 2024-12-02 13:00:00 Outpatient R APRIL LY [facility] [id number] [facility] 2024-12-02 00:00:00 2024-12-02 00:00:00 Travel 1.2.840.1 22736.1.1 3.104.2.7 .3.342193 .8 1.2.840.114 350.1.13.10 4.2.7.3.698 084.8 [id number] [facility] 2024-12-01 16:30:00 2024-12-01 16:30:00 Outpatient R PIPAPRIL GARIBAY [facility] [id number] [facility] 2024-11-13 00:00:00 2024-12-01 09:04:09 Telephone PipApril garibay 1.2.840.1 07810.1.1 3.104.2.7 .3.432058 .8 [id number] [facility] 2024-11-29 00:00:2024-11-30 12:21:57 RefGaby Moreira 1.2.840.1 37302.1.1 3.104.2.7 .3.691528 .8 [id number] [facility] 2024-11-26 15:30:00 2024-11-26 15:30:00 Outpatient KOLE DOTY CHOCKALINGA M [facility] [id number] [facility] 2024-11-19 16:20:00 2024-11-19 17:11:02 Outpatient R FLAKO CAMPBELL [facility] [id number] [facility] 2024-11-19 16:20:00 2024-11-19 17:11:02 Urgent Care Unknown, Attending Flako Campbell 1.2.840.1 09426.1.1 3.104.2.7 .3.472862 .8 [id number] [facility] 2024-11-19 00:00:00 2024-11-19 11:58:48 Telephone Kole Garay 1.2.840.1 31807.1.1 3.104.2.7 .3.766302 .8 [id number] [facility] 2024-11-19 00:00:00 2024-11-19 00:00:00 Travel 1.2.840.1 34535.1.1 3.104.2.7 .3.622934 .8 1.2.840.114 350.1.13.10 4.2.7.3.698 084.8 [id number] [facility] 2024-11-16 00:00:00 2024-11-16 00:00:00 Outpatient OTILIO COLBERT [facility] [id number] [facility] 2024-11-12 14:00:00 2024-11-12 14:21:35 Outpatient KOLE DOTY CHOCKALINGA M [facility] [id number] [facility] 2024-11-12 14:00:00 2024-11-12 14:21:35 Office Visit Surya Kole alex [facility] 1.2.840.114 350.1.13.10 4.2.7.2.686 [id number] [facility] 2024-11-12 00:00:00 2024-11-12 00:00:00 Travel 1.2.840.1 18138.1.1 3.104.2.7 .3.752678 .8 1.2.840.114 350.1.13.10 4.2.7.3.698 084.8 [id number] [facility] 2024-11-09 10:00:00 2024-11-09 10:00:00 Outpatient R [facility] [id number] [facility] 2024-11-05 00:00:00 2024-11-05 10:39:03 Specialty Pharmacy Karely Alexis 1.2.840.1 08208.1.1 3.104.2.7 .3.232911 .8 [id number] [facility] 2024-11-05 00:00:00 2024-11-05 00:00:00 Outpatient R OTILIO CHANDLER [facility] [id number] [facility] 2024-11-02 10:00:00 2024-11-02 10:00:00 Outpatient R [facility] [id number] [facility] 2024-10-29 00:00:00 2024-10-29 00:00:00 Outpatient R OTILIO CHANDLER [facility] [id number] [facility] 2024-10-28 00:00:00 2024-10-28 15:13:32 Minal Andrade 1.2.840.1 70947.1.1 3.104.2.7 .3.231033 .8 [id number] [facility] 2024-10-26 00:00:00 2024-10-27 09:03:17 Refill Gaby Prather 1.2.840.1 01443.1.1 3.104.2.7 .3.470299 .8 [id number] [facility] 2024-10-22 10:30:00 2024-10-22 10:39:44 Outpatient R MINAL MANNING [facility] [id number] [facility] 2024-10-22 10:30:00 2024-10-22 10:39:44 Office Visit Minal Manning 1.2.840.1 70164.1.1 3.104.2.7 .3.853990 .8 [id number] [facility] 2024-10-22 00:00:00 2024-10-22 00:00:00 Travel 1.2.840.1 33362.1.1 3.104.2.7 .3.102345 .8 1.2.840.114 350.1.13.10 4.2.7.3.698 084.8 [id number] [facility] 2024-10-21 13:00:00 2024-10-21 13:00:00 Outpatient R MINAL MANNING [facility] [id number] [facility] 2024-10-20 00:00:00 2024-10-20 16:38:16 Specialty Pharmacy Karely Alexis 1.2.840.1 71860.1.1 3.104.2.7 .3.067955 .8 [id number] [facility] 2024-10-20 14:22:08 2024-10-20 14:22:08 Outpatient [facility] [id number] Deangelo Fernando 2024-10-14 00:00:00 2024-10-19 11:30:40 Telephone Gaby Prather 1.2.840.1 58299.1.1 3.104.2.7 .3.611101 .8 [id number] [facility] 2024-10-19 10:45:00 2024-10-19 11:08:25 Outpatient R OTILIO CHANDLER [facility] [id number] [facility] 2024-10-19 10:45:00 2024-10-19 11:08:25 Office Visit Otilio Chandler 1.2.840.1 44060.1.1 3.104.2.7 .3.205280 .8 [id number] [facility] 2024-10-19 00:00:00 2024-10-19 00:00:00 Travel 1.2.840.1 68961.1.1 3.104.2.7 .3.469671 .8 1.2.840.114 350.1.13.10 4.2.7.3.698 084.8 [id number] [facility] 2024-10-16 00:00:00 2024-10-16 09:01:13 Telephone Minal Manning 1.2.840.1 49874.1.1 3.104.2.7 .3.722763 .8 [id number] [facility] 2024-10-14 15:19:49 2024-10-14 23:59:00 Hospital Encounter Gaby Prather 1.2.840.1 60678.1.1 3.104.2.7 .3.976217 .8 [id number] [facility] 2024-10-14 00:00:00 2024-10-14 14:47:02 Telephone Gaby Prather 1.2.840.1 01958.1.1 3.104.2.7 .3.974631 .8 [id number] [facility] 2024-10-14 12:00:00 2024-10-14 12:23:57 Hepatology Physician Visit Gaby Prather Lab, Ang - Db 1.2.840.1 63010.1.1 3.104.2.7 .3.459426 .8 [id number] [facility] 2024-10-14 11:30:00 2024-10-14 11:48:42 Outpatient R CRESCENCIOGABY [facility] [id number] [facility] 2024-10-14 11:30:00 2024-10-14 11:48:42 Office Visit ShayeGaby andres 1.2.840.1 87915.1.1 3.104.2.7 .3.390550 .8 [id number] [facility] 2024-10-14 00:00:00 2024-10-14 00:00:00 Travel 1.2.840.1 35554.1.1 3.104.2.7 .3.203038 .8 1.2.840.114 350.1.13.10 4.2.7.3.698 084.8 [id number] [facility] 2024-10-12 14:00:00 2024-10-12 14:00:00 Outpatient R MINAL MANNING [facility] [id number] [facility] 2024-10-12 00:00:00 2024-10-12 09:42:46 Pre Visit Outreach Ashley Choe 1.2.840.1 52204.1.1 3.104.2.7 .3.453618 .8 [id number] [facility] 2024-10-09 00:00:00 2024-10-11 09:00:15 Telephone Juan Miguel Anguiano 1.2.840.1 43668.1.1 3.104.2.7 .3.505458 .8 [id number] [facility] 2024-10-10 11:14:00 2024-10-10 12:57:00 Emergency X VANDANA GREEN [facility] ERT [id number] [facility] 2024-10-10 11:14:00 2024-10-10 12:57:00 Emergency Vandana Green 1.2.840.1 04435.1.1 3.104.2.7 .3.690072 .8 [id number] [facility] 2024-10-10 00:00:00 2024-10-10 00:00:00 Travel 1.2.840.1 96223.1.1 3.104.2.7 .3.161831 .8 1.2.840.114 350.1.13.10 4.2.7.3.698 084.8 [id number] [facility] 2024-10-05 00:00:00 2024-10-07 09:03:34 Telephone Shayedmitry Gaby 1.2.840.1 68958.1.1 3.104.2.7 .3.914970 .8 [id number] [facility] 2024-10-05 00:00:00 2024-10-05 10:56:50 Pre Visit Outreach Ashley Choe 1.2.840.1 94902.1.1 3.104.2.7 .3.468991 .8 [id number] [facility] 2024-10-01 14:30:00 2024-10-01 14:58:57 Outpatient R JUAN MIGUEL ANGUIANO [facility] [id number] [facility] 2024-10-01 14:30:00 2024-10-01 14:58:57 Office Visit Juan Miguel Anguiano [facility] 1.2840.114 350.1.13.10 4.2.7.2.686 [id number] [facility] 2024-09-25 00:00:00 2024-09-25 15:28:35 Specialty Pharmacy Aleksandra Tubbs Mai, Ngoc Mai [facility] 1.2840.114 350.1.13.10 4.2.7.2.686 [id number] [facility] 2024-09-17 00:00:00 2024-09-17 11:58:44 [facility]ill [facility] 1.2.840.114 350.1.13.10 4.2.7.2.686 [id number] [id number] [facility] 2024-09-09 00:00:00 2024-09-09 15:09:47 Telephone Minal Manning [facility] 1.2.840.114 350.1.13.10 4.2.7.2.686 [id number] [facility] 2024-08-25 14:07:02 2024-08-25 14:07:02 Outpatient [facility] [id number] Fernando 2024-08-07 16:00:00 2024-08-07 16:00:00 Outpatient R JUDITH CASAS [facility] [id number] [facility] 2024-08-06 15:00:00 2024-08-06 15:00:00 Outpatient R APRIL LY [facility] [id number] [facility] 2024-07-30 00:00:00 2024-07-30 08:59:55 Refill Gaby Prather [facility] 1.2.840.114 350.1.13.10 4.2.7.2.686 [id number] [facility] 2024-07-27 13:59:39 2024-07-27 13:59:39 Outpatient [facility] [id number] Deangelo Fernando 2024-07-23 15:30:00 2024-07-23 15:30:00 Outpatient R MINAL MANNING [facility] [id number] [facility] 2024-07-20 00:00:00 2024-07-20 15:52:27 Specialty Pharmacy Alexandra Waters, Alexandra [facility] 1.2.840.114 350.1.13.10 4.2.7.2.686 [id number] [id number] [facility] 2024-06-11 00:00:00 2024-07-18 18:25:39 Patient Secure Msg Doctor Unassigned, Amesti Doctor Unassigned, Amesti [facility] 1.2.840.114 350.1.13.10 4.2.7.2.686 [id number] [facility] 2024-07-13 00:00:00 2024-07-13 13:56:18 Telephone Darryn Seymour [facility] 1.2.840.114 350.1.13.10 4.2.7.2.686 [id number] [facility] 2024-07-07 00:00:00 2024-07-07 15:27:02 Telephone Darryn Seymour [facility] 1.2.840.114 350.1.13.10 4.2.7.2.686 [id number] [facility] 2024-07-06 00:00:00 2024-07-06 11:30:40 Telephone Minal Manning [facility] 1.2.840.114 350.1.13.10 4.2.7.2.686 [id number] [id number] [facility] 2024-07-02 00:00:00 2024-07-02 12:43:35 Telephone Minal Manning [facility] 1.2.840.114 350.1.13.10 4.2.7.2.686 [id number] [id number] [facility] 2024-05-14 00:00:00 2024-07-01 15:22:32 Telephone April yL [facility] 1.2.840.114 350.1.13.10 4.2.7.2.686 [id number] [id number] [facility] 2024-06-19 00:00:00 2024-06-26 08:02:46 Refill Minal Manning [facility] 1.2840.114 350.1.13.10 4.2.7.2.686 [id number] 059 [id number] [facility] 2024-06-15 00:00:00 2024-06-15 16:21:47 Telephone Alexandra Waters Sudha [facility] 1.2840.114 350.1.13.10 4.2.7.2.686 [id number] [facility] 2024 00:00:00 2024-06-13 18:26:38 Patient Secure Msg Doctor Unassigned, Amesti [facility] MEDICAL OFFICE BUILDING 1.2840.114 350.1.13.10 4.2.7.2.686 [id number] [facility] 2024-06-13 00:00:00 2024-06-13 00:00:00 Outpatient Jesús WISE, CURTIS FUNES [facility] [id number] [facility] 2024-06-03 00:00:00 2024-06-11 11:05:59 Telephone Minal Manning [facility] BUILDING 1.2840.114 350.1.13.10 4.2.7.2.686 [id number] 059 [id number] [facility] 2024-06-05 00:00:00 2024-06-05 14:10:24 Telephone April Ly [facility] MEDICAL OFFICE BUILDING 1.2840.114 350.1.13.10 4.2.7.2.686 [id number] 092 [id number] [facility] 2022-06-01 00:00:00 2024-06-02 21:59:56 [address] Rob[address] Torres [facility] 1.114 350.1.13.10 4.2.7.2.686 [id number] 072 [id number] [facility] 2024-06-01 10:30:00 2024-06-01 11:23:00 Outpatient R CURTIS WISE BAIJING [facility] [id number] [facility] 2024-06-01 10:30:00 2024-06-01 11:23:00 Office Visit Curtis Wise [facility] 1.114 350.1.13.10 4.2.7.2.686 [id number] [facility] 2024-05-31 00:00:00 2024-06-01 10:00:06 Refill Crescencio [facility] MEDICAL OFFICE BUILDING 1.84.114 350.1.13.10 4.2.7.2.686 [id number] [id number] [facility] 2024-04-27 00:00:00 2024-05-30 18:21:04 Patient Secure Msg Doctor Unassigned, Amesti [facility] MEDICAL OFFICE BUILDING 1.84.114 350.1.13.10 4.2.7.2.686 [id number] [id number] [facility] 2024-05-29 13:30:00 2024-05-29 13:43:58 Outpatient R GABY PRATHER [facility] [id number] [facility] 2024-05-29 13:30:00 2024-05-29 13:43:58 [facility] MEDICAL OFFICE BUILDING 1.84.114 350.1.13.10 4.2.7.2.686 [id number] 044 [id number] [facility] 2024-05-26 13:00:00 2024-05-26 13:00:00 Outpatient R CURTIS WISE BAIJING [facility] [id number] [facility] 2024-05-19 00:00:00 2024-05-19 00:00:00 Outpatient R CAROLINA, GIULIANA [facility] [id number] [facility] 2024-05-18 00:00:00 2024-05-18 16:23:34 Refill Pipes [facility] MEDICAL OFFICE BUILDING 1.2.840.114 350.1.13.10 4.2.7.2.686 [id number] 092 [id number] [facility] 2024-05-14 15:00:00 2024-05-14 16:26:46 Outpatient R ALIYAH [facility] [id number] [facility] 2024-05-14 15:00:00 2024-05-14 16:26:46 Office Visit Piplani [facility] MEDICAL OFFICE BUILDING 1.2.840.114 350.1.13.10 4.2.7.2.686 [id number] 092 [id number] [facility] 2024-05-14 13:00:00 2024-05-14 13:00:00 Outpatient R ALIYAH [facility] [id number] [facility] 2024-05-04 00:00:00 2024-05-04 15:16:41 Telephone Minal Manning [facility] BUILDING 1.2.840.114 350.1.13.10 4.2.7.2.686 [id number] 059 [id number] [facility] 2024-04-30 15:30:00 2024-04-30 16:08:17 Outpatient R ELIZABETH FIGUEROALIE [facility] [id number] [facility] 2024-04-30 15:30:00 2024-04-30 16:08:17 Office Visit CarolinaGiuliana [facility] 1.2.840.114 350.1.13.10 4.2.7.2.686 [id number] 044 [id number] [facility] 2024-04-27 13:00:00 2024-04-27 13:00:00 Outpatient APRIL ESQUIVEL [facility] [id number] [facility] 2024-04-06 14:00:00 2024-04-06 14:00:00 Outpatient OSVALDO DE LA FUENTEDmitry [facility] [id number] [facility] 2024-03-31 14:42:45 2024-03-31 14:42:45 Outpatient GARTH LIANG [id number] Deangelo Fernando 2024-03-30 15:30:00 2024-03-30 15:30:00 Outpatient GABY CORBETT [facility] [id number] [facility] 2024-03-26 15:20:00 2024-03-26 15:20:00 Outpatient BEATRIZ JOHNSON [facility] [id number] [facility] 2024-03-26 00:00:00 2024-03-26 11:42:41 Telephone Minal ManningHKiki [facility] 1.2.840.114 350.1.13.10 4.2.7.2.686 [id number] 059 [id number] [facility] 2024-03-16 00:00:00 2024-03-16 00:00:00 Telephone Minal Manning KKikiHKiki [facility] 1.2.840.114 350.1.13.10 4.2.7.2.686 [id number] 059 [id number] [facility] 2024-03-13 11:30:00 2024-03-13 11:30:00 Outpatient AARON DE LA FUENTE [facility] [id number] [facility] 2024-03-13 00:00:00 2024-03-13 00:00:00 Telephone Minal Manning [facility] BUILDING 1.2.840.114 350.1.13.10 4.2.7.2.686 [id number] 059 [id number] [facility] 2024-03-12 00:00:00 2024-03-12 00:00:00 Refill Giuliana Figueroa [facility] 1.2.840.114 350.1.13.10 4.2.7.2.686 [id number] 044 [id number] [facility] 2024-03-12 00:00:00 2024-03-12 00:00:00 Telephone Minal ManningHKiki [facility] BUILDING 1.2.840.114 350.1.13.10 4.2.7.2.686 [id number] 059 [id number] [facility] 2024-02-28 13:00:00 2024-02-28 13:00:00 Outpatient R AARON SHELBY [facility] [id number] [facility] 2024-02-18 13:00:00 2024-02-18 13:30:00 Office Visit Hernandezlani [facility] MEDICAL OFFICE BUILDING 1.2.840.114 350.1.13.10 4.2.7.2.686 [id number] 092 [id number] [facility] 2024-02-18 13:00:00 2024-02-18 13:00:00 Outpatient R ALIYAH [facility] [id number] [facility] 2024-01-31 00:00:00 2024-01-31 00:00:00 Telephone Minal ManningHKiki [facility] BUILDING 1.2.840.114 350.1.13.10 4.2.7.2.686 [id number] 059 [id number] [facility] 2024-01-28 08:37:32 2024-01-28 08:37:32 Outpatient [facility] [id number] Deangelo Fernando 2024-01-21 00:00:00 2024-01-21 00:00:00 Refill Juan Miguel Anguiano [facility] 1.2.840.114 350.1.13.10 4.2.7.2.686 [id number] 044 [id number] [facility] 2024-01-17 00:00:00 2024-01-17 00:00:00 Refill Minal Manning [facility] BUILDING 1.2.840.114 350.1.13.10 4.2.7.2.686 [id number] 059 [id number] [facility] 2024-01-17 00:00:00 2024-01-17 00:00:00 Refill Giuliana Figueroa [facility] OFF[facility] BU[facility] 1..840.114 350.1.13.10 4.2.7.2.686 [id number] 044 [id number] [facility] 2024-01-17 00:00:00 2024-01-17 00:00:00 Refill Minal ManningHKiki [facility] BUILDING 1.2.840.114 350.1.13.10 4.2.7.2.686 [id number] 059 [id number] [facility] 2024-01-16 11:45:00 2024-01-16 13:33:36 Outpatient R ALYSSIA ISABEL [facility] [id number] [facility] 2024-01-16 11:45:00 2024-01-16 12:00:00 Hepatology Physician Visit 2, Adc Lab Alyssia Isabel [facility] BUILDING 1.2.840.114 350.1.13.10 4.2.7.2.686 [id number] [facility] 2024-01-16 00:00:00 2024-01-16 00:00:00 Telephone Minal ManningH. [facility] BUILDING 1.2840.114 350.1.13.10 4.2.7.2.686 [id number] 059 [id number] [facility] 2024-01-07 00:00:00 2024-01-07 00:00:00 Telephone Aliyah [facility] MEDICAL OFFICE BUILDING 1.84.114 350.1.13.10 4.2.7.2.686 [id number] 092 [id number] [facility] 2024-01-06 08:30:00 2024-01-06 08:30:00 Outpatient Jesús LY [facility] [id number] [facility] 2024-01-03 00:00:00 2024-01-03 00:00:00 Telephone Minal Manning [facility] 1.840.114 350.1.13.10 4.2.7.2.686 [id number] 059 [id number] [facility] 2024-01-02 13:58:01 2024-01-02 13:58:01 Outpatient [facility] [id number] 0215 Deangelo Fernando 2023-12-31 00:00:00 2023-12-31 00:00:00 Patient Secure Msg Doctor Unassigned, Amesti [facility] 1.84.114 350.1.13.10 4.2.7.2.686 [id number] 044 [id number] [facility] 2023-12-31 00:00:00 2023-12-31 00:00:00 Orders Only Doctor Unassigned, Amesti [facility] 1..114 350.1.13.10 4.2.7.2.686 [id number] [id number] [facility] 2023-12-30 14:30:00 2023-12-30 14:45:00 Hepatology Physician Visit Lab, Ken - Simba Crescencio [facility] OFFICE BUILDING 1.84.114 350.1.13.10 4.2.7.2.686 [id number] 353 [id number] [facility] 2023-12-30 14:00:00 2023-12-30 14:33:45 Outpatient R CRESCENCIO [facility] [id number] [facility] 2023-12-30 14:00:00 2023-12-30 14:33:45 Office Visit Crescencio [facility] BUILDING 1.84.114 350.1.13.10 4.2.7.2.686 [id number] 044 [id number] [facility] 2023-12-26 14:00:00 2023-12-26 14:30:00 Nurse Visit Nurse, Lisandra Schultzs Neuro D[facility] 1.840.114 350.1.13.10 4.2.7.2.686 [id number] 092 [id number] [facility] 2023-12-26 14:00:00 2023-12-26 14:00:00 [id number] 2023-12-26 11:15:00 2023-12-26 11:15:00 Hepatology Physician Visit 2, Adc Lab Alyssia Isabel Alex [facility] BUILDING 1.84.114 350.1.13.10 4.2.7.2.686 [id number] [facility] 2023-12-26 00:00:00 2023-12-26 00:00:00 [facility] 1.2.840.114 350.1.13.10 4.2.7.2.686 [id number] 019 [id number] [facility] 2023-12-26 00:00:00 2023-12-26 00:00:00 [facility] 1.2.840.114 350.1.13.10 4.2.7.2.686 [id number] 019 [id number] [facility] 2023-12-26 00:00:00 2023-12-26 00:00:00 Telephone Pipes, [facility] MEDICAL OFFICE BUILDING 1.2.840.114 350.1.13.10 4.2.7.2.686 [id number] 092 [id number] [facility] 2023-12-26 00:00:00 2023-12-26 00:00:00 Telephone Pipes, [facility] MEDICAL OFFICE BUILDING 1.2.840.114 350.1.13.10 4.2.7.2.686 [id number] 092 [id number] [facility] 2023-12-25 00:00:00 2023-12-25 00:00:00 Telephone Gaby Prather [facility] 1.2.840.114 350.1.13.10 4.2.7.2.686 [id number] 044 [id number] [facility] 2023-12-25 00:00:00 2023-12-25 00:00:00 Telephone [facility] 1.2.840.114 350.1.13.10 4.2.7.2.686 [id number] 059 [id number] [facility] 2023-12-06 11:15:00 2023-12-06 11:53:49 Outpatient YASIR STEEL [facility] [id number] [facility] 2023-12-06 11:15:00 2023-12-06 11:53:49 Hepatology Physician Visit 2, Adc Lab Yasir Allen [facility] 1..114 350.1.13.10 4.2.7.2.686 [id number] [facility] 2023-12-06 00:00:00 2023-12-06 00:00:00 Tele[address] Rees [facility] 1..114 350.1.13.10 4.2.7.2.686 [id number] [facility] 2023-12-06 00:00:00 2023-12-06 00:00:00 Orders Only Doctor Unassigned, Amesti [facility] 1.0.114 350.1.13.10 4.2.7.2.686 [id number] [id number] [facility] 2023-12-04 13:00:00 2023-12-04 13:34:44 Outpatient R GIULIANA FIGUEROA [facility] [id number] [facility] 2023-12-04 13:00:00 2023-12-04 13:34:44 Office Visit Giuliana Figueroa [facility] MEDICAL OFFICE BUILDING 1.84.114 350.1.13.10 4.2.7.2.686 [id number] 044 [id number] [facility] 2023-11-28 11:30:00 2023-11-28 11:46:25 Outpatient R JUAN MIGUEL ANGUIANO [facility] [id number] [facility] 2023-11-28 11:30:00 2023-11-28 11:46:25 [facility] MEDICAL OFFICE BUILDING 1.284.114 350.1.13.10 4.2.7.2.686 [id number] 044 [id number] [facility] 2023-11-28 00:00:00 2023-11-28 00:00:00 Refill [facility]inal [facility] 1..840.114 350.1.13.10 4.2.7.2.686 [id number] 059 [id number] [facility] 2023-11-25 00:00:00 2023-11-25 00:00:00 Refill Gaby Prather [facility] MEDICAL OFFICE BUILDING 1..840.114 350.1.13.10 4.2.7.2.686 [id number] 044 [id number] [facility] 2023-11-21 14:00:00 2023-11-21 14:41:10 Outpatient R GIULIANA FIGUEROA [facility] [id number] [facility] 2023-11-21 14:00:00 2023-11-21 14:41:10 Office Visit Giuliana Figueroa [facility]?SHAHAB [facility] MEDICAL OFFICE BUILDING 1..840.114 350.1.13.10 4.2.7.2.686 [id number] 044 [id number] [facility] 2023-11-13 15:20:00 2023-11-13 15:48:[address] [facility] [id number] [facility] 2023-11-13 15:20:00 2023-11-13 15:48:[address] Unknown, Attending [facility]?SHAHAB [facility] MEDICAL OFFICE BUILDING 1..840.114 350.1.13.10 4.2.7.2.686 [id number] [facility] 2023-11-06 13:38:14 2023-11-06 13:38:14 Outpatient [facility] [id number] Deangelo Fernando 2023-10-31 00:00:00 2023-10-31 00:00:00 Telephone Minal Manning [facility] BUILDING 1.2.840.114 350.1.13.10 4.2.7.2.686 [id number] 059 [id number] [facility] 2023-10-30 11:30:00 2023-10-30 11:30:00 Outpatient R COLETTE REESIKA [facility] [id number] [facility] 2023-10-29 08:30:00 2023-10-29 08:30:00 Outpatient R [facility] [id number] [facility] 2023-10-29 00:00:00 2023-10-29 00:00:00 Telephone Minal Manning [facility] BUILDING 1.2.840.114 350.1.13.10 4.2.7.2.686 [id number] 059 [id number] [facility] 2023-10-24 00:00:00 2023-10-24 00:00:00 Telephone Minal Manning [facility] 1.2.840.114 350.1.13.10 4.2.7.2.686 [id number] 059 [id number] [facility] 2023-10-22 13:00:00 2023-10-22 13:06:08 Outpatient R MINAL MANNING [facility] [id number] [facility] 2023-10-22 13:00:00 2023-10-22 13:06:08 Office Visit Minal Manning [facility] 1.2.840.114 350.1.13.10 4.2.7.2.686 [id number] [id number] [facility] 2023-10-22 00:00:00 2023-10-22 00:00:00 Orders Only Doctor Unassigned, Amesti [facility] 1.2840.114 350.1.13.10 4.2.7.2.686 [id number] [id number] [facility] 2023-10-18 11:30:00 2023-10-18 11:30:00 Hepatology Physician Visit Lab, Giuliana Cutler [facility] MEDICAL OFFICE BUILDING 1..840.114 350.1.13.10 4.2.7.2.686 [id number] [facility] 2023-10-18 11:30:00 2023-10-18 11:28:03 Outpatient R GIULIANA FIGUEROA [facility] [id number] [facility] 2023-10-18 11:00:00 2023-10-18 11:10:20 Office Visit Giuliana Figueroa [facility] MEDICAL OFFICE BUILDING 1.840.114 350.1.13.10 4.2.7.2.686 [id number] 044 [id number] [facility] 2023-10-18 10:45:00 2023-10-18 10:59:39 Outpatient R ELIZABETH FIGUEROALIE [facility] [id number] [facility] 2023-10-18 10:45:00 2023-10-18 10:59:39 Hepatology Physician Visit Lab, Giuliana Cutler [facility] MEDICAL OFFICE BUILDING 1.840.114 350.1.13.10 4.2.7.2.686 [id number] 353 [id number] [facility] 2023-10-18 00:00:00 2023-10-18 00:00:00 Telephone Giuliana Figueroa [facility] MEDICAL OFFICE BUILDING 1.840.114 350.1.13.10 4.2.7.2.686 [id number] 044 [id number] [facility] 2023-10-17 15:00:00 2023-10-17 15:00:00 Outpatient R GIULIANA FIGUEROA [facility] [id number] [facility] 2023-10-17 11:21:44 2023-10-17 11:21:44 Outpatient [facility] [id number] Deangelo Fernando 2023-10-16 00:00:00 2023-10-16 00:00:00 Telephone Minal Manning [facility] 1..840.114 350.1.13.10 4.2.7.2.686 [id number] 059 [id number] [facility] 2023-10-14 14:00:00 2023-10-14 15:10:37 Outpatient R KAMILLE PLASCENCIA [facility] [id number] [facility] 2023-10-14 14:00:00 2023-10-14 14:20:00 Urgent Care Kamille Plascencia Unknown, Attending [facility]?KRISTINDmitry [facility] MEDICAL OFFICE BUILDING 1..840.114 350.1.13.10 4.2.7.2.686 [id number] [facility] 2023-10-14 14:00:00 2023-10-14 14:00:00 Outpatient R MINAL MANNING [facility] [id number] [facility] 2023-10-14 00:00:00 2023-10-14 00:00:00 Telephone Gaby Prather [facility] MEDICAL OFFICE BUILDING 1..840.114 350.1.13.10 4.2.7.2.686 [id number] 044 [id number] [facility] 2023-10-14 00:00:00 2023-10-14 00:00:00 Telephone Minal Manning [facility] BUILDING 1.2.840.114 350.1.13.10 4.2.7.2.686 [id number] 059 [id number] [facility] 2023-10-11 00:00:00 2023-10-11 00:00:00 Telephone Minal Manning [facility] NAL BUILDING 1.2.840.114 350.1.13.10 4.2.7.2.686 [id number] 059 [id number] [facility] 2023-10-03 10:00:00 2023-10-03 10:17:05 Outpatient R PIPLANI, [facility] [id number] [facility] 2023-10-03 10:00:00 2023-10-03 10:17:05 [facility] 1.2.840.114 350.1.13.10 4.2.7.2.686 [id number] 092 [id number] [facility] 2023-09-30 00:00:00 2023-09-30 00:00:00 Telephone Shaun Curtis [facility] MEDICAL OFFICE BUILDING 1.2.840.114 350.1.13.10 4.2.7.2.686 [id number] 092 [id number] [facility] 2023-09-30 00:00:00 2023-09-30 00:00:00 Telephone Pipes, [facility] MEDICAL OFFICE BUILDING 1.2.840.114 350.1.13.10 4.2.7.2.686 [id number] 092 [id number] [facility] 2023-09-27 00:00:00 2023-09-27 00:00:00 Telephone Pipes, [facility] MEDICAL OFFICE BUILDING 1.2.840.114 350.1.13.10 4.2.7.2.686 [id number] 092 [id number] [facility] 2023-09-27 00:00:00 2023-09-27 00:00:00 Telephone Pipes, [facility] MEDICAL OFFICE BUILDING 1.2.840.114 350.1.13.10 4.2.7.2.686 [id number] 092 [id number] [facility] 2023-09-26 16:42:57 2023-09-26 16:42:57 Outpatient SFA [facility] [id number] Deangelo Fernando 2023-09-26 00:00:00 2023-09-26 00:00:00 Telephone Minal Manning [facility] NAL BUILDING 1.2.840.114 350.1.13.10 4.2.7.2.686 [id number] 059 [id number] [facility] 2023-09-24 15:00:00 2023-09-24 15:40:06 Outpatient R HERNANDEZLANI [facility] [id number] [facility] 2023-09-24 15:00:00 2023-09-24 15:40:06 Office Visit Aliyah [facility] MEDICAL OFFICE BUILDING 1.2.840.114 350.1.13.10 4.2.7.2.686 [id number] [id number] [facility] 2023-09-23 14:30:00 2023-09-23 14:30:00 Outpatient R HERNANDEZLANI APRIL [facility] [id number] [facility] 2023-09-23 10:40:00 2023-09-23 12:52:[address] [facility] [id number] [facility] 2023-09-23 10:40:00 2023-09-23 12:52:[address] Unknown, Attending [facility] MED[facility] OFFICE BUILDING 1.2.840.114 350.1.13.10 4.2.7.2.686 [id number] [facility] 2023-09-18 09:30:00 2023-09-18 10:05:58 Outpatient R MINAL MANNING [facility] [id number] [facility] 2023-09-18 09:30:00 2023-09-18 10:05:58 Office Visit Minal Manning [facility] PROFNOAH [facility] ROSALINE 1.0.114 350.1.13.10 4.2.7.2.686 [id number] [facility] 2023-09-17 00:00:00 2023-09-17 00:00:00 Transition of Care Fernandes Ashley GONZALES 1.2840.114 350.1.13.10 4.2.7.2.686 [id number] [facility] 2023-09-14 17:41:00 2023-09-15 13:44:00 Outpatient MELODIE COKER [facility] [id number] [facility] 2023-09-14 17:41:00 2023-09-15 13:44:00 Emergency Jason Colon Wakili S Khan, Mohammad A. [facility] 1..114 350.1.13.10 4.2.7.2.686 [id number] [facility] 2023-09-04 14:30:00 2023-09-04 14:30:00 Outpatient GABY CORBETT [facility] [id number] [facility] 2023-09-03 00:00:00 2023-09-03 00:00:[address] [facility] 1..114 350.1.13.10 4.2.7.2.686 [id number] [facility] 2023-08-29 15:19:41 2023-08-29 15:19:41 Outpatient [facility] [id number] Deangelo Fernando 2023-08-08 00:00:00 2023-08-08 00:00:00 Orders Only Doctor Unassigned, Amesti [facility] 1.0.114 350.1.13.10 4.2.7.2.686 [id number] [facility] 2023-08-02 00:00:00 2023-08-02 00:00:00 Telephone Minal Mannign [facility] NAL BUILDING 1.2.840.114 350.1.13.10 4.2.7.2.686 [id number] [facility] 2023-07-25 16:17:56 2023-07-25 16:17:56 Outpatient [facility] [id number] Deangelo Fernando 2023-07-24 11:00:00 2023-07-24 11:26:42 Outpatient R GABY PRATHER [facility] [id number] [facility] 2023-07-24 11:00:00 2023-07-24 11:26:42 Office Visit Gaby Prather [facility] OFFICE BUILDING 1.2840.114 350.1.13.10 4.2.7.2.686 [id number] [facility] 2023-07-24 00:00:00 2023-07-24 00:00:00 Telephone Crescencio Gaby [facility] OFFICE BUILDING 1.2.840.114 350.1.13.10 4.2.7.2.686 [id number] [facility] 2023-07-14 00:00:00 2023-07-14 00:00:00 Case Management [facility] 1.84.114 350.1.13.10 4.2.7.2.686 [id number] [facility] 2023-07-11 17:05:00 2023-07-11 18:12:03 Outpatient R FRANKLIN WADDELL [facility] [id number] [facility] 2023-07-11 17:05:00 2023-07-11 18:12:03 Urgent Care Franklin Waddell Unknown, Attending [facility] MED[facility] OFFICE BUILDING 1.2.840.114 350.1.13.10 4.2.7.2.686 [id number] [facility] 2023-07-05 00:00:00 2023-07-05 00:00:00 Telephone [address] Seymour [facility] 1.2.840.114 350.1.13.10 4.2.7.2.686 [id number] [facility] 2023-07-05 00:00:00 2023-07-05 00:00:00 Telephone [address] Rees [facility] [place] [facility] 1.2.840.114 350.1.13.10 4.2.7.2.686 [id number] [facility] 2023-07-05 00:00:00 2023-07-05 00:00:00 Orders Only Doctor Unassigned, Amesti [facility] 1.2840.114 350.1.13.10 4.2.7.2.686 [id number] [id number] [facility] 2023-07-04 00:00:00 2023-07-04 00:00:00 Refill Minal Manning [facility] PROFESSIO NAL BUILDING 1.2.840.114 350.1.13.10 4.2.7.2.686 [id number] [id number] [facility] 2023-06-27 17:06:38 2023-06-27 17:06:38 Outpatient SFA GARTH [id number] Deangelo Fernando 2023-06-24 15:00:00 2023-06-24 15:00:00 Outpatient MINAL GRAHAM [facility] [id number] [facility] 2023-06-21 00:00:00 2023-06-21 00:00:00 Refill Minal ManningClaudetteKkii [facility] 1.2.840.114 350.1.13.10 4.2.7.2.686 [id number] 059 [id number] [facility] 2023-06-13 14:00:00 2023-06-13 14:35:19 Outpatient R MINAL MANNING [facility] [id number] [facility] 2023-06-13 14:00:00 2023-06-13 14:35:19 [facility] 1.2.840.114 350.1.13.10 4.2.7.2.686 [id number] [id number] [facility] 2023-06-12 14:00:00 2023-06-12 14:30:00 Office Visit Meme Rees [facility] 1..840.114 350.1.13.10 4.2.7.2.686 [id number] [facility] 2023-06-12 14:00:00 2023-06-12 14:00:00 Outpatient R MEME REES [facility] [id number] [facility] 2023-05-28 14:30:00 2023-05-28 15:05:37 Outpatient R GABY PRATHER [facility] [id number] [facility] 2023-05-28 14:30:00 2023-05-28 15:05:37 Office Visit Gaby Prather [facility] 1.2.840.114 350.1.13.10 4.2.7.2.686 [id number] [id number] [facility] 2023-05-27 13:30:00 2023-05-27 13:30:00 Outpatient R GABY PRATHER [facility] [id number] [facility] 2023-05-23 14:30:00 2023-05-23 15:00:00 [facility] 1.2.840.114 350.1.13.10 4.2.7.2.686 [id number] [id number] [facility] 2023-05-23 10:15:00 2023-05-23 12:20:34 Outpatient R LION [facility] [id number] [facility] 2023-05-23 10:15:00 2023-05-23 12:20:34 Office Visit [facility] SPECIALTY [facility] 1.2.840.114 350.1.13.10 4.2.7.2.686 [id number] [facility] 2023-05-23 00:00:00 2023-05-23 00:00:00 Refill Pipes, [facility] MEDICAL OFFICE BUILDING 1.2.840.114 350.1.13.10 4.2.7.2.686 [id number] [id number] [facility] 2023-05-15 11:30:00 2023-05-15 12:00:00 Office Visit Nurse, Evelina Bariatric Lion [facility] [place] [facility] 1.2.840.114 350.1.13.10 4.2.7.2.686 [id number] [facility] 2023-05-15 11:30:00 2023-05-15 11:30:00 Outpatient R LION [facility] [id number] [facility] 2023-05-11 00:00:00 2023-05-11 00:00:00 Telephone Lion [facility] 1.2.840.114 350.1.13.10 4.2.7.2.686 [id number] [facility] 2023-05-03 00:00:00 2023-05-03 00:00:00 Clinic Assessment Meme Rees [facility]ARE [facility] 1.2.840.114 350.1.13.10 4.2.7.2.686 [id number] [facility] 2023-05-02 00:00:00 2023-05-02 00:00:00 Transition of Care Ashley Fernandes 1.2.840.114 350.1.13.10 4.2.7.2.686 [id number] [facility] 2023-04-30 07:10:00 2023-05-01 15:30:00 Inpatient R LION [facility] [id number] [facility] 2023-04-30 07:10:00 2023-05-01 15:30:00 Hospital Encounter Lion, [facility] 1.2.840.114 350.1.13.10 4.2.7.2.686 [id number] [facility] 2023-05-01 00:00:00 2023-05-01 00:00:00 Telephone Lion [facility] 1.2.840.114 350.1.13.10 4.2.7.2.686 [id number] 253 [id number] [facility] 2023-04-30 09:05:00 2023-04-30 11:29:00 [place] 1.2.840.114 350.1.13.10 4.2.7.2.686 [id number] [facility] 2023-04-30 00:00:00 2023-04-30 00:00:00 Orders Only Doctor Unassigned, Amesti [facility] 1.2.840.114 350.1.13.10 4.2.7.2.686 [id number] 009 [id number] [facility] 2023-04-24 00:00:00 2023-04-24 00:00:00 Patient Secure Msg Doctor Unassigned, Amesti [facility] 1.2.840.114 350.1.13.10 4.2.7.2.686 [id number] [facility] 2023-04-17 16:15:00 2023-04-17 16:22:17 Outpatient MEME HOWE [facility] [id number] [facility] 2023-04-17 16:15:00 2023-04-17 16:22:17 Office Visit Meme Rees [facility] 1..840.114 350.1.13.10 4.2.7.2.686 [id number] [facility] 2023-04-17 00:00:00 2023-04-17 00:00:00 Orders Only Doctor Unassigned, Amesti [facility] 1.2.840.114 350.1.13.10 4.2.7.2.686 [id number] [facility] 2023-04-12 10:50:00 2023-04-12 10:50:00 Outpatient MEME HOWE [facility] [id number] [facility] 2023-04-10 00:00:00 2023-04-10 00:00:00 Minal Andrade [facility] 1..840.114 350.1.13.10 4.2.7.2.686 [id number] [facility] 2023-04-01 14:00:00 2023-04-01 14:00:00 Outpatient MINAL GRAHAM [facility] [id number] [facility] 2023-03-18 10:15:00 2023-03-18 10:42:39 Outpatient MEME HOWE [facility] [id number] [facility] 2023-03-18 10:15:00 2023-03-18 10:42:39 Office Visit Meme Rees [facility] SPECIAL[facility]ARE [facility] 1..114 350.1.13.10 4.2.7.2.686 [id number] [facility] 2023-03-17 00:00:00 2023-03-17 00:00:00 Refill Minal Manning [facility] BUILDING 1.114 350.1.13.10 4.2.7.2.686 [id number] 059 [id number] [facility] 2023-03-16 00:00:00 2023-03-16 00:00:00 Refill Kerri Sendxenia [facility] 1.84.114 350.1.13.10 4.2.7.2.686 [id number] [id number] [facility] 2023-02-26 13:00:00 2023-02-26 13:00:00 Outpatient R APRIL LY [facility] [id number] [facility] 2023-02-20 15:00:00 2023-02-20 15:20:[address] Unknown, Attending [facility] 1.84.114 350.1.13.10 4.2.7.2.686 [id number] [facility] 2023-02-20 10:00:00 2023-02-20 10:59:25 Outpatient R MEME REES [facility] [id number] [facility] 2023-02-20 10:00:00 2023-02-20 10:59:25 Office Visit Lai Meme [facility] SPECIAL[facility]ARE [facility] 1.114 350.1.13.10 4.2.7.2.686 [id number] [facility] 2023-02-20 00:00:00 2023-02-20 00:00:00 Telephone RashawnashlyBenito olmos [facility] PRIMARY CARE [place] 1.840.114 350.1.13.10 4.2.7.2.686 [id number] [facility] 2023-02-18 13:00:00 2023-02-18 13:00:00 Outpatient R APRIL LY [facility] [id number] [facility] 2023-02-18 00:00:00 2023-02-18 00:00:00 Orders Only Doctor Unassigned, Amesti [facility] 1.840.114 350.1.13.10 4.2.7.2.686 [id number] [facility] 2023-02-15 12:00:00 2023-02-15 12:36:[address] [facility] [id number] [facility] 2023-02-15 12:00:00 2023-02-15 12:36:[address] Unknown, Attending [facility]?SHAHAB [facility] MEDICAL OFFICE BUILDING 1.840.114 350.1.13.10 4.2.7.2.686 [id number] [facility] 2023-02-12 14:00:00 2023-02-12 14:00:00 Outpatient R APRIL LY [facility] [id number] [facility] 2023-02-04 14:28:41 2023-02-04 23:59:00 Outpatient R BENITO KING [facility] [id number] [facility] 2023-02-04 14:28:41 2023-02-04 23:59:00 Hospital Encounter Benito King [facility] PRIMARY CARE [place] 1.840.114 350.1.13.10 4.2.7.2.686 [id number] [facility] 2023-02-04 14:00:00 2023-02-04 15:40:31 Office Visit Benito King [facility] PRIMARY CARE [place] 1..114 350.1.13.10 4.2.7.2.686 [id number] [facility] 2023-01-31 13:45:00 2023-01-31 14:29:08 Outpatient DARRYN VYAS [facility] [id number] [facility] 2023-01-28 00:00:00 2023-01-28 00:00:00 Telephone Gaby Prather [facility]?SHAHAB [facility] MEDICAL OFFICE BUILDING 1.84.114 350.1.13.10 4.2.7.2.686 [id number] [facility] 2023-01-26 15:20:00 2023-01-26 15:40:00 Urgent Care Keren Pimentel, Attending [facility] 1.84.114 350.1.13.10 4.2.7.2.686 [id number] 370 [id number] [facility] 2023-01-26 15:20:00 2023-01-26 15:20:00 Outpatient R KEREN PIMENTEL [facility] [id number] [facility] 2023-01-26 00:00:00 2023-01-26 00:00:00 Patient Secure Msg Keren Pimentel [facility]?SHAHAB [facility] MEDICAL OFFICE BUILDING 1.84.114 350.1.13.10 4.2.7.2.686 [id number] [facility] 2023-01-18 00:00:00 2023-01-18 00:00:00 Minal Andrade [facility] 1.84.114 350.1.13.10 4.2.7.2.686 [id number] 059 [id number] [facility] 2023-01-14 00:00:00 2023-01-14 00:00:00 Refill ManningMinal peter [facility] BU[facility] 1..840.114 350.1.13.10 4.2.7.2.686 [id number] 059 [id number] [facility] 2023-01-13 00:00:00 2023-01-13 00:00:00 Refill ManningMinal peter [facility] BUILDING 1..840.114 350.1.13.10 4.2.7.2.686 [id number] 059 [id number] [facility] 2023-01-11 00:00:00 2023-01-11 00:00:00 Outpatient GC_SWHATBIC _[facility] [id number] [facility] 2023-01-09 16:15:00 2023-01-09 17:10:00 Outpatient R MEME REES [facility] [id number] [facility] 2023-01-09 16:15:00 2023-01-09 17:10:00 Office Visit Meme Rees [facility] SPECIAL[facility] .840.114 350.1.13.10 4.2.7.2.686 [id number] [facility] 2022-12-21 09:45:00 2022-12-21 10:00:00 Hepatology Physician Visit Lab, [facility] 1..840.114 350.1.13.10 4.2.7.2.686 [id number] [facility] 2022-12-21 09:45:00 2022-12-21 09:45:00 Outpatient R ROWDY LAM [facility] [id number] [facility] 2022-12-21 00:00:00 2022-12-21 00:00:00 Refill Minal Manning [facility] 1.2.840.114 350.1.13.10 4.2.7.2.686 [id number] 059 [id number] [facility] 2022-12-20 08:18:00 2022-12-20 23:59:00 [facility] 1.2.840.114 350.1.13.10 4.2.7.2.686 [id number] [facility] 2022-12-20 00:00:00 2022-12-20 23:59:00 [facility] [id number] [facility] 2022-12-19 08:33:00 2022-12-19 23:59:00 [facility] 1.2.840.114 350.1.13.10 4.2.7.2.686 [id number] [id number] [facility] 2022-12-19 00:00:00 2022-12-19 23:59:00 Outpatient [address]IR STEEL [facility] ACO [id number] [facility] 2022-12-14 00:00:00 2022-12-14 00:00:00 Telephone Minal Manning [facility] 1.2.840.114 350.1.13.10 4.2.7.2.686 [id number] [facility] 2022-12-13 11:30:00 2022-12-13 12:08:30 Outpatient DANA HAWLEY [facility] [id number] [facility] 2022-12-13 11:30:00 2022-12-13 12:08:30 Family Support Coordinator Visit Counseling, Dana Bauer [facility] PRIMARY CARE PAVILLION 1.84114 350.1.13.10 4.2.7.2.686 [id number] [facility] 2022-12-11 09:30:00 2022-12-11 09:45:00 Hepatology Physician Visit Lab, Ang - Db Genaro [facility]SHAAHB [facility] MEDICAL OFFICE BUILDING 1.84.114 350.1.13.10 4.2.7.2.686 [id number] [facility] 2022-12-11 08:30:00 2022-12-11 09:31:36 Outpatient R GENARO [facility] [id number] [facility] 2022-12-11 08:30:00 2022-12-11 09:31:36 Office Visit Genaro [facility] OFFICE BUILDING 1.84.114 350.1.13.10 4.2.7.2.686 [id number] [facility] 2022-12-06 10:00:00 2022-12-06 10:51:45 Outpatient R MEME REES [facility] [id number] [facility] 2022-12-06 10:00:00 2022-12-06 10:51:45 Office Visit Lai Meme [facility] SPECIAL[facility]ARE [facility] .84.114 350.1.13.10 4.2.7.2.686 [id number] [facility] 2022-12-05 00:00:00 2022-12-05 00:00:00 Outpatient R GABY PRATHER [facility] [id number] [facility] 2022-12-04 00:00:00 2022-12-04 00:00:00 Telephone Minal Manning [facility] NAL BUILDING 1.84.114 350.1.13.10 4.2.7.2.686 [id number] [facility] 2022-11-30 14:24:24 2022-11-30 23:59:00 Outpatient R MINAL MANNING [facility] [id number] [facility] 2022-11-30 00:00:00 2022-11-30 00:00:00 Telephone Minal Manning [facility] BUILDING 1.2.840.114 350.1.13.10 4.2.7.2.686 [id number] [facility] 2022-11-29 15:45:00 2022-11-29 16:08:46 Hepatology Physician Visit 2, Adc Lab Minal Manning [facility] BUILDING 1.2.840.114 350.1.13.10 4.2.7.2.686 [id number] [facility] 2022-11-29 15:00:00 2022-11-29 15:41:26 Outpatient R MINAL MANNING [facility] [id number] [facility] 2022-11-29 15:00:00 2022-11-29 15:41:26 Office Visit Minal Manning [facility] 1.2.840.114 350.1.13.10 4.2.7.2.686 [id number] [facility] 2022-11-28 13:45:00 2022-11-28 13:45:00 Outpatient R MEME REES [facility] [id number] [facility] 2022-11-26 15:00:00 2022-11-26 15:00:00 Outpatient R MINAL MANNING [facility] [id number] [facility] 2022-11-19 00:00:00 2022-11-19 00:00:00 Telephone Minal ManningKiki [facility] 1..840.114 350.1.13.10 4.2.7.2.686 [id number] [facility] 2022-11-16 00:00:00 2022-11-16 00:00:00 Outpatient GC_SWHATBIC [facility] PRIV PRIV [id number] [facility] 2022-11-14 06:13:00 2022-11-14 16:20:00 Outpatient R MINAL MANNING [facility] [id number] [facility] 2022-11-14 06:13:00 2022-11-14 16:20:00 Hospital Encounter Minal Manning [facility] 1.2840.114 350.1.13.10 4.2.7.2.686 [id number] [facility] 2022-11-14 09:49:00 2022-11-14 10:49:00 Surgery Salty Toussaint [facility] 1.2.840.114 350.1.13.10 4.2.7.2.686 [id number] [facility] 2022-11-14 00:00:00 2022-11-14 00:00:00 Orders Only Doctor Unassigned, Amesti [facility] 1.2.840.114 350.1.13.10 4.2.7.2.686 [id number] [facility] 2022-11-07 14:00:00 2022-11-07 14:38:09 Outpatient R GERARDO MARIE [facility] [id number] [facility] 2022-11-07 14:00:00 2022-11-07 14:38:09 Office Visit Gerardo Marie [facility] 1.2.840.114 350.1.13.10 4.2.7.2.686 [id number] [facility] 2022-11-05 16:15:00 2022-11-05 16:30:00 Office Visit Darshana Langston [facility] 1.2.840.114 350.1.13.10 4.2.7.2.686 [id number] [facility] 2022-11-05 16:15:00 2022-11-05 16:15:00 Outpatient R DARSHANA LANGSTON [facility] [id number] [facility] 2022-11-05 00:00:00 2022-11-05 00:00:00 [facility] BUILDING 1.2.840.114 350.1.13.10 4.2.7.2.686 [id number] [facility] 2022-11-01 00:00:00 2022-11-01 00:00:00 Refill [facility] NAL BUILDING 1.2.840.114 350.1.13.10 4.2.7.2.686 [id number] [facility] 2022-10-31 00:00:00 2022-10-31 00:00:00 Refill [facility] NAL BUILDING 1.2.840.114 350.1.13.10 4.2.7.2.686 [id number] [facility] 2022-10-30 11:20:00 2022-10-30 11:40:00 Urgent Care Kamille Plascencia Unknown, Attending Shukri Ansari [facility] 1.2.840.114 350.1.13.10 4.2.7.2.686 [id number] [facility] 2022-10-30 11:20:00 2022-10-30 11:20:00 Outpatient R KAMILLE PLASCENCIA [facility] [id number] [facility] 2022-10-29 00:00:00 2022-10-29 00:00:00 Telephone Unassigned, Cath/Ep SHOBHA [facility] 1.2.840.114 350.1.13.10 4.2.7.2.686 [id number] [facility] 2022-10-25 00:00:00 2022-10-25 00:00:00 Telephone Gaby Prather [facility] 1.2840.114 350.1.13.10 4.2.7.2.686 [id number] [facility] 2022-10-25 00:00:00 2022-10-25 00:00:00 Telephone Minal Manning [facility] 1.2840.114 350.1.13.10 4.2.7.2.686 [id number] [facility] 2022-10-24 08:30:00 2022-10-24 08:45:00 Hepatology Physician Visit Pob, Adc Lab Main Minal Manning [facility] PROFESSIO NAL BUILDING 1.2.840.114 350.1.13.10 4.2.7.2.686 [id number] [facility] 2022-10-24 08:30:00 2022-10-24 08:30:00 Outpatient R MINAL MANNING [facility] [id number] [facility] 2022-10-23 08:05:39 2022-10-23 23:59:00 Hospital Encounter Minal Manning [facility] 1.2840.114 350.1.13.10 4.2.7.2.686 [id number] [facility] 2022-10-23 08:05:28 2022-10-23 23:59:00 Hospital Encounter Minal Manning [facility] 1.0.114 350.1.13.10 4.2.7.2.686 [id number] [facility] 2022-10-23 08:05:18 2022-10-23 23:59:00 [facility] 1.20.114 350.1.13.10 4.2.7.2.686 [id number] [facility] 2022-10-23 08:05:07 2022-10-23 23:59:00 Outpatient R KERRI [facility] [id number] [facility] 2022-10-23 08:05:07 2022-10-23 23:59:00 [facility] 1..114 350.1.13.10 4.2.7.2.686 [id number] [facility] 2022-10-22 10:25:05 2022-10-22 23:59:00 Outpatient R [facility] [id number] [facility] 2022-10-22 10:25:05 2022-10-22 23:59:00 [facility] 1.114 350.1.13.10 4.2.7.2.686 [id number] [facility] 2022-10-22 00:00:00 2022-10-22 00:00:00 Outpatient GC_SWHATBIC _[facility]_S PRIV PRIV [id number] [facility] 2022-10-22 00:00:00 2022-10-22 00:00:00 Orders Only Doctor Unassigned, Amesti [facility] 1..114 350.1.13.10 4.2.7.2.686 [id number] [facility] 2022-10-21 00:00:00 2022-10-21 00:00:00 Outpatient GC_SWMARUTBIC _[facility] PRIV PRIV [id number] [facility] 2022-10-19 00:00:00 2022-10-19 00:00:00 Outpatient GC_SWMARUTBIC _[facility]_S PRIV PRIV [id number] [facility] 2022-10-18 13:45:00 2022-10-18 14:30:00 Ancillary Visit Naomi Post Craig L [facility] 1.2.840.114 350.1.13.10 4.2.7.2.686 [id number] [facility] 2022-10-18 13:45:00 2022-10-18 13:45:00 Outpatient GERARDO DUQUE [facility] [id number] [facility] 2022-10-18 00:00:00 2022-10-18 00:00:00 Minal Andrade [facility] 1.2.840.114 350.1.13.10 4.2.7.2.686 [id number] [facility] 2022-10-18 00:00:00 2022-10-18 00:00:00 Orders Only Doctor Unassigned, Amesti [facility] 1..840.114 350.1.13.10 4.2.7.2.686 [id number] [facility] 2022-10-17 16:00:00 2022-10-17 16:00:00 Outpatient GERARDO DUQUE [facility] [id number] [facility] 2022-10-16 00:00:00 2022-10-16 00:00:00 Outpatient GC_SWMARUTBIC _[facility]_S PRIV PRIV [id number] [facility] 2022-10-16 00:00:00 2022-10-16 00:00:00 Telephone Favian Lal [facility] 1.2.840.114 350.1.13.10 4.2.7.2.686 [id number] [facility] 2022-10-15 14:00:00 2022-10-15 14:49:55 Outpatient R HERNANDEZLANI [facility] [id number] [facility] 2022-10-15 14:00:00 2022-10-15 14:49:55 [facility] 1.2840.114 350.1.13.10 4.2.7.2.686 [id number] [facility] 2022-10-15 00:00:00 2022-10-15 00:00:00 Minal Andrade [facility]ILD[facility] 1.2840.114 350.1.13.10 4.2.7.2.686 [id number] [facility] 2022-10-10 16:00:00 2022-10-10 16:13:[address] [facility] [id number] [facility] 2022-10-10 16:00:00 2022-10-10 16:13:[address] Unknown, Attending [facility] MED[facility] OFFICE BUILDING 1.2840.114 350.1.13.10 4.2.7.2.686 [id number] [facility] 2022-10-10 00:00:00 2022-10-10 00:00:00 Telephone Piplani [facility] MEDICAL OFFICE BUILDING 1.2840.114 350.1.13.10 4.2.7.2.686 [id number] [facility] 2022-10-09 14:30:00 2022-10-09 16:25:40 [facility] 1.2840.114 350.1.13.10 4.2.7.2.686 [id number] [facility] 2022-10-09 00:00:00 2022-10-09 00:00:00 Orders Only Doctor Unassigned, Amesti [facility] 1.0.114 350.1.13.10 4.2.7.2.686 [id number] [facility] 2022-10-08 16:30:00 2022-10-08 17:06:34 Outpatient GABY CORBETT [facility] [id number] [facility] 2022-10-08 16:30:00 2022-10-08 17:06:34 Office Visit Gaby Prather [facility] 1.84.114 350.1.13.10 4.2.7.2.686 [id number] 044 [id number] [facility] 2022-10-05 00:00:00 2022-10-05 00:00:00 Patient Secure Msg Doctor Unassigned, Amesti [facility] 1.20.114 350.1.13.10 4.2.7.2.686 [id number] [facility] 2022-10-04 13:00:00 2022-10-04 13:00:00 Outpatient R VENKATESH ALVARADO [facility] [id number] [facility] 2022-10-04 00:00:00 2022-10-04 00:00:00 Refill Pipes, April [facility] 1.284.114 350.1.13.10 4.2.7.2.686 [id number] [facility] 2022-10-02 09:00:00 2022-10-02 09:44:55 Outpatient R MINAL MANNING [facility] [id number] [facility] 2022-10-02 09:00:00 2022-10-02 09:44:55 Office [facility] 1.20.114 350.1.13.10 4.2.7.2.686 [id number] [id number] [facility] 2022-10-01 13:00:00 2022-10-01 14:53:46 Ancillary Visit Krysten Naylor Craig L [facility] BUILD[facility] 1..114 350.1.13.10 4.2.7.2.686 [id number] [facility] 2022-10-01 00:00:00 2022-10-01 00:00:00 Orders Only Doctor Unassigned, Amesti [facility] 1..114 350.1.13.10 4.2.7.2.686 [id number] 009 [id number] [facility] 2022-09-28 13:45:00 2022-09-28 14:19:45 Outpatient R MEME REES [facility] [id number] [facility] 2022-09-28 13:45:00 2022-09-28 14:19:45 Office Visit Meme Rees [facility] 1..114 350.1.13.10 4.2.7.2.686 [id number] [facility] 2022-09-28 00:00:00 2022-09-28 00:00:00 Refill Minal Manning [facility] 1.2.114 350.1.13.10 4.2.7.2.686 [id number] 059 [id number] [facility] 2022-09-25 00:00:00 2022-09-25 00:00:00 Orders Only Doctor Unassigned, Amesti [facility] 1.2.840.114 350.1.13.10 4.2.7.2.686 [id number] [facility] 2022-09-25 00:00:00 2022-09-25 00:00:00 Telephone Meme Rees [facility] 1.2.840.114 350.1.13.10 4.2.7.2.686 [id number] [facility] 2022-09-25 00:00:00 2022-09-25 00:00:00 Telephone [address] Rees [facility] 1.2840.114 350.1.13.10 4.2.7.2.686 [id number] [facility] 2022-09-24 00:00:00 2022-09-24 00:00:00 Case Management Lai [facility] 1.2.840.114 350.1.13.10 4.2.7.2.686 [id number] [facility] 2022-09-18 00:00:00 2022-09-18 00:00:[address] [facility] 1.2.840.114 350.1.13.10 4.2.7.2.686 [id number] [facility] 2022-09-07 15:00:00 2022-09-07 15:00:00 Outpatient MINAL GRAHAM [facility] [id number] [facility] 2022-09-06 00:00:00 2022-09-06 00:00:[address] [facility] 1.2840.114 350.1.13.10 4.2.7.2.686 [id number] [facility] 2022-09-06 00:00:00 2022-09-06 00:00:00 Patient Secure Beatriz Ch [facility] BUILD[facility] 1.2.840.114 350.1.13.10 4.2.7.2.686 [id number] [id number] [facility] 2022-09-04 07:51:32 2022-09-04 23:59:00 Outpatient R MINAL MANNING [facility] [id number] [facility] 2022-09-04 00:00:00 2022-09-04 00:00:00 Telephone Minal Manning [facility] BUILD[facility] 1..840.114 350.1.13.10 4.2.7.2.686 [id number] 059 [id number] [facility] 2022-09-03 14:45:00 2022-09-03 14:45:00 Outpatient R CHAWLA TRENT [facility] [id number] [facility] 2022-09-03 13:30:00 2022-09-03 13:30:00 Outpatient R GABY PRATHER [facility] [id number] [facility] 2022-09-03 00:00:00 2022-09-03 00:00:00 Telephone Minal Manning [facility] BUILD[facility] 1..840.114 350.1.13.10 4.2.7.2.686 [id number] [id number] [facility] 2022-09-03 00:00:00 2022-09-03 00:00:00 Telephone Minal Manning [facility] MED[facility] OFF[facility] BU[facility] 1.2.840.114 350.1.13.10 4.2.7.2.686 [id number] 059 [id number] [facility] 2022-08-27 14:30:00 2022-08-27 15:04:03 Outpatient R GABY PRATHER [facility] [id number] [facility] 2022-08-27 14:30:00 2022-08-27 15:00:00 Office Visit Gaby Prather [facility] 1.2840.114 350.1.13.10 4.2.7.2.686 [id number] [id number] [facility] 2022-08-23 00:00:00 2022-08-23 00:00:00 Telephone Gaby Prather [facility] 1.284.114 350.1.13.10 4.2.7.2.686 [id number] [id number] [facility] 2022-08-22 14:45:00 2022-08-22 14:45:00 Outpatient R TRENT CHAWLA [facility] [id number] [facility] 2022-08-21 00:00:00 2022-08-21 00:00:00 Telephone Minal Manning [facility] BUILD[facility] 1.284.114 350.1.13.10 4.2.7.2.686 [id number] [id number] [facility] 2022-08-20 00:00:00 2022-08-20 00:00:00 Refill Minal Manning [facility] BUILD[facility] 1.2840.114 350.1.13.10 4.2.7.2.686 [id number] [id number] [facility] 2022-08-16 00:00:00 2022-08-16 00:00:00 Orders Only Doctor Unassigned, Amesti [facility] 1.2840.114 350.1.13.10 4.2.7.2.686 [id number] [facility] 2022-08-15 08:30:00 2022-08-15 08:30:00 Outpatient R GRADY GARCIA [facility] [id number] [facility] 2022-08-15 00:00:00 2022-08-15 00:00:00 Telephone Meme Rees [facility] ..840.114 350.1.13.10 4.2.7.2.686 [id number] [facility] 2022-08-08 16:00:00 2022-08-08 16:00:00 Outpatient R MINAL MANNING [facility] [id number] [facility] 2022-08-08 16:00:00 2022-08-08 16:00:00 Outpatient R MINAL MANNING [facility] [id number] [facility] 2022-08-03 13:30:00 2022-08-03 13:30:00 Outpatient R MELISSA CHINMAYADRIANOLIVE MELISSA CHINMAYADRIANOLIVE [facility] [id number] [facility] 2022-08-03 11:00:00 2022-08-03 11:00:00 Outpatient R MELISSA CHINMAYLOBO TORRES ROBBI [facility] [id number] [facility] 2022-08-02 00:00:00 2022-08-02 00:00:00 Telephone Minal ManningHKiki [facility] 1.2.840.114 350.1.13.10 4.2.7.2.686 [id number] [id number] [facility] 2022-08-01 13:00:00 2022-08-01 13:00:00 Outpatient R GERARDO MARIE [facility] [id number] [facility] 2022-07-30 00:00:00 2022-07-30 00:00:00 Telephone Minal Manning [facility] 1.2.840.114 350.1.13.10 4.2.7.2.686 [id number] 059 [id number] [facility] 2022-07-30 00:00:00 2022-07-30 00:00:00 Orders Only Doctor Unassigned, Amesti [facility] 1.2.840.114 350.1.13.10 4.2.7.2.686 [id number] [id number] [facility] 2022-07-27 00:00:00 2022-07-27 00:00:00 Telephone Minal Manning [facility] 1.2.840.114 350.1.13.10 4.2.7.2.686 [id number] 059 [id number] [facility] 2022-07-26 14:00:00 2022-07-26 14:35:05 Outpatient R MINAL MANNING [facility] [id number] [facility] 2022-07-26 14:00:00 2022-07-26 14:35:05 Office Visit Minal Manning [facility] 1.2.840.114 350.1.13.10 4.2.7.2.686 [id number] [id number] [facility] 2022-07-26 14:00:00 2022-07-26 14:00:00 Outpatient R MINAL MANNING [facility] [id number] [facility] 2022-07-26 14:00:00 2022-07-26 14:00:00 Outpatient R MINAL MANNING [facility] [id number] [facility] 2022-07-26 14:00:00 2022-07-26 14:00:00 Outpatient R MINAL MANNING [facility] [id number] [facility] 2022-07-26 00:00:00 2022-07-26 00:00:00 Telephone Meme Rees [facility] SPECIALTY [facility] 1.2.840.114 350.1.13.10 4.2.7.2.686 [id number] [facility] 2022-07-25 10:15:00 2022-07-25 11:58:02 Outpatient R WILMAR MILLER [facility] [id number] [facility] 2022-07-25 00:00:00 2022-07-25 00:00:00 Travel 1.2.840.1 57724.1.1 3.104.2.7 .3.870828 .8 1.2.840.114 350.1.13.10 4.2.7.3.698 084.8 [id number] [facility] 2022-07-19 13:30:00 2022-07-19 13:30:00 Outpatient R VIN PEDRO [facility] [id number] [facility] 2022-07-19 00:00:00 2022-07-19 00:00:00 Minal Andrade 1.2.840.1 28977.1.1 3.104.2.7 .3.758078 .8 [id number] [facility] 2022-07-18 13:00:00 2022-07-18 13:00:00 Outpatient GERARDO DUQUE [facility] [id number] [facility] 2022-07-18 13:00:00 2022-07-18 13:00:00 Outpatient R GERARDO MARIE [facility] [id number] [facility] 2022-07-18 00:00:00 2022-07-18 00:00:00 Outpatient R BEATRIZ SIMON [facility] [id number] [facility] 2022-07-17 13:30:00 2022-07-17 13:30:00 Outpatient R ARACELY BEVERLY [facility] [id number] [facility] 2022-07-13 10:19:50 2022-07-13 23:59:00 Outpatient R AD VALLES [facility] [id number] [facility] 2022-07-13 10:19:50 2022-07-13 23:59:00 Hospital Encounter Ad Valles 1.2.840.1 54427.1.1 3.104.2.7 .3.967790 .8 [id number] [facility] 2022-07-11 09:26:56 2022-07-11 23:59:00 Outpatient R MEME REES [facility] [id number] [facility] 2022-07-11 09:26:56 2022-07-11 23:59:00 Hospital Encounter LaiMeme 1.2.840.1 04176.1.1 3.104.2.7 .3.676369 .8 [id number] [facility] 2022-07-11 00:00:00 2022-07-11 00:00:00 Outpatient R MEME REES [facility] [id number] [facility] 2022-07-11 00:00:00 2022-07-11 00:00:00 Orders Only Doctor Unassigned, Amesti 1.2.840.1 98678.1.1 3.104.2.7 .3.275655 .8 [id number] [facility] 2022-07-11 00:00:00 2022-07-11 00:00:00 Travel 1.2.840.1 07679.1.1 3.104.2.7 .3.334690 .8 1.2.840.114 350.1.13.10 4.2.7.3.698 084.8 [id number] [facility] 2022-07-10 12:00:00 2022-07-10 12:00:00 Outpatient R APRIL LY [facility] [id number] [facility] 2022-07-10 00:00:00 2022-07-10 00:00:00 Telephone Gaby Prather 1.2.840.1 43615.1.1 3.104.2.7 .3.537727 .8 [id number] [facility] 2022-07-06 14:30:00 2022-07-06 14:30:00 [facility] [id number] [facility] 2022-07-06 14:30:00 2022-07-06 14:30:00 Outpatient R FRANK [facility] [id number] [facility] 2022-07-06 00:00:00 2022-07-06 00:00:00 Telephone Gaby Prather 1.2.840.1 17665.1.1 3.104.2.7 .3.223382 .8 [id number] [facility] 2022-07-05 15:45:00 2022-07-05 16:04:27 Outpatient R VENKATESH ALVARADO [facility] [id number] [facility] 2022-07-05 15:45:00 2022-07-05 16:04:27 Office Visit Venkatesh Alvarado 1.2.840.1 01754.1.1 3.104.2.7 .3.358035 .8 [id number] [facility] 2022-07-05 15:45:00 2022-07-05 15:45:00 Outpatient R VENKATESH ALVARADO [facility] [id number] [facility] 2022-07-04 10:30:00 2022-07-04 11:21:21 Office Visit Gaby Prather 1.2.840.1 97334.1.1 3.104.2.7 .3.757752 .8 [id number] [facility] 2022-07-04 10:30:00 2022-07-04 11:00:00 Office Visit Gaby Prather [facility] MED[facility] OFFICE BUILDING 1.2.840.114 350.1.13.10 4.2.7.2.686 [id number] [facility] 2022-07-04 10:30:00 2022-07-04 10:30:00 Outpatient R SHAYEFRANCISCA AndresIE [facility] [id number] [facility] 2022-07-04 10:30:00 2022-07-04 10:30:00 Outpatient R SHAYEFRANCISCA AndresIE [facility] [id number] [facility] 2022-07-04 09:30:00 2022-07-04 09:30:00 Hepatology Physician Visit Lab, Ang - Db CrescencioGaby [facility] BUILDING 1.2840.114 350.1.13.10 4.2.7.2.686 [id number] [facility] 2022-07-04 09:30:00 2022-07-04 09:30:00 Hepatology Physician Visit Gaby Prather Lab, Ang - Db 1.2.840.1 06693.1.1 3.104.2.7 .3.167230 .8 [id number] [facility] 2022-07-04 00:00:00 2022-07-04 00:00:00 Telephone CrescencioGaby [facility] OFF[facility] BUILDING 1.2840.114 350.1.13.10 4.2.7.2.686 [id number] 044 [id number] [facility] 2022-07-04 00:00:00 2022-07-04 00:00:00 Telephone Gaby Prather 1.2.840.1 29113.1.1 3.104.2.7 .3.662798 .8 [id number] [facility] 2022-07-04 00:00:00 2022-07-04 00:00:00 Travel 1.2.840.1 38352.1.1 3.104.2.7 .3.189700 .8 1.2.840.114 350.1.13.10 4.2.7.3.698 084.8 [id number] [facility] 2022-07-03 13:30:00 2022-07-03 13:30:00 Outpatient GABY CORBETT [facility] [id number] [facility] 2022-07-02 13:00:00 2022-07-02 13:00:00 Outpatient GABY CORBETT [facility] [id number] [facility] 2022-06-29 00:00:00 2022-06-29 00:00:00 Orders Only Doctor Unassigned, Amesti [facility] 1.2.840.114 350.1.13.10 4.2.7.2.686 [id number] [id number] [facility] 2022-06-27 11:00:00 2022-06-27 11:00:00 Outpatient MEME HOWE [facility] [id number] [facility] 2022-06-27 00:00:00 2022-06-27 00:00:00 Travel 1.2.840.1 48041.1.1 3.104.2.7 .3.128901 .8 1.2.840.114 350.1.13.10 4.2.7.3.698 084.8 [id number] [facility] 2022-06-25 09:15:00 2022-06-25 10:50:08 Outpatient MEME HOWE [facility] [id number] [facility] 2022-06-25 09:15:00 2022-06-25 10:50:08 Office Visit Meme Rees [facility] 1.2.840.114 350.1.13.10 4.2.7.2.686 [id number] [facility] 2022-06-25 09:15:00 2022-06-25 10:50:08 Office Visit Meme Rees 1.2.840.1 25614.1.1 3.104.2.7 .3.159514 .8 [id number] [facility] 2022-06-25 00:00:00 2022-06-25 00:00:00 Travel 1.2.840.1 64882.1.1 3.104.2.7 .3.292669 .8 1.2.840.114 350.1.13.10 4.2.7.3.698 084.8 [id number] [facility] 2022-06-22 00:00:00 2022-06-22 00:00:00 Telephone Gerardo Marie [facility] 1.2.840.114 350.1.13.10 4.2.7.2.686 [id number] [facility] 2022-06-22 00:00:00 2022-06-22 00:00:00 Telephone Annie Mariezia Santiago 1.2.840.1 96131.1.1 3.104.2.7 .3.190784 .8 [id number] [facility] 2022-06-19 15:00:00 2022-06-19 15:00:00 Outpatient APRIL ESQUIVEL [facility] [id number] [facility] 2022-06-18 12:58:34 2022-06-18 23:59:00 Hospital Encounter Lisa Isabelgillian Anderson [facility] 1.2.840.114 350.1.13.10 4.2.7.2.686 [id number] [facility] 2022-06-18 12:58:34 2022-06-18 23:59:00 Hospital Encounter Alyssia Isabel 1.2.840.1 89637.1.1 3.104.2.7 .3.580290 .8 [id number] [facility] 2022-06-18 12:58:23 2022-06-18 23:59:00 Outpatient R ALYSSIA ISABEL [facility] [id number] Kishor contreras [facility] 2022-06-18 12:58:23 2022-06-18 23:59:00 Hospital Encounter Alyssia Isabel [facility] 1.2.840.114 350.1.13.10 4.2.7.2.686 [id number] [facility] 2022-06-18 12:58:23 2022-06-18 23:59:00 Hospital Encounter Alyssia Isabel 1.2.840.1 62915.1.1 3.104.2.7 .3.413906 .8 [id number] [facility] 2022-06-15 14:53:00 2022-06-15 18:06:00 Emergency Long Araujo [facility] 1.2.840.114 350.1.13.10 4.2.7.2.686 [id number] [id number] [facility] 2022-06-15 14:53:00 2022-06-15 18:06:00 Emergency Long Araujo 1.2.840.1 55501.1.1 3.104.2.7 .3.662671 .8 [id number] [facility] 2022-06-15 14:00:00 2022-06-15 15:00:13 Outpatient R SHUKRI ANSARI [facility] ERT [id number] [facility] 2022-06-15 14:00:00 2022-06-15 15:00:13 Nurse [facility] 1.2840.1 41363.1.1 3.104.2.7 .3.347531 .8 [id number] [facility] 2022-06-15 14:20:00 2022-06-15 14:40:00 Urgent Care Provider, [facility] Shukri Ansari [facility] 1.2.840.114 350.1.13.10 4.2.7.2.686 [id number] [facility] 2022-06-15 14:20:00 2022-06-15 14:20:00 Outpatient R SHUKRI ANSARI [facility] [id number] [facility] 2022-06-15 14:00:00 2022-06-15 14:20:00 Nurse Visit Nurse, [facility] 1.2.840.114 350.1.13.10 4.2.7.2.686 [id number] [facility] 2022-06-15 14:00:00 2022-06-15 14:00:00 Outpatient R SHUKRI ANSARI [facility] [id number] [facility] 2022-06-15 00:00:00 2022-06-15 00:00:00 Orders Only Doctor Unassigned, Amesti [facility] 1.2.840.114 350.1.13.10 4.2.7.2.686 [id number] [facility] 2022-06-15 00:00:00 2022-06-15 00:00:00 Orders Only Doctor Unassigned, Amesti 1.2.840.1 76006.1.1 3.104.2.7 .3.910704 .8 [id number] [facility] 2022-06-15 00:00:00 2022-06-15 00:00:00 Travel 1.2.840.1 70321.1.1 3.104.2.7 .3.847258 .8 1.2.840.114 350.1.13.10 4.2.7.3.698 084.8 [id number] [facility] 2022-06-14 14:00:00 2022-06-14 14:00:00 Outpatient HAROLDO PEREZ [facility] [id number] [facility] 2022-06-13 10:45:00 2022-06-13 10:45:00 Outpatient R ALYSSIA ISABEL [facility] [id number] Kishor [facility] 2022-06-12 14:45:00 2022-06-12 14:45:00 Outpatient R ARACELY BEVERLY [facility] [id number] [facility] 2022-06-11 14:00:00 2022-06-11 14:00:00 Outpatient R JOVON CARO [facility] [id number] [facility] 2022-05-31 10:20:00 2022-05-31 23:59:00 Outpatient R GERARDO MARIE [facility] [id number] [facility] 2022-05-31 10:20:00 2022-05-31 23:59:00 Hospital Encounter Gerardo Marie 1.2.840.1 84126.1.1 3.104.2.7 .3.569961 .8 [id number] [facility] 2022-05-31 10:15:00 2022-05-31 10:50:37 Outpatient R GERARDO MARIE [facility] [id number] [facility] 2022-05-31 10:15:00 2022-05-31 10:50:37 Office Visit Gerardo Marie [facility] MEDICAL OFFICE BUILDING 1.2.840.114 350.1.13.10 4.2.7.2.686 [id number] [facility] 2022-05-31 10:15:00 2022-05-31 10:50:37 Office Visit Gerardo Marie 1.2.840.1 38646.1.1 3.104.2.7 .3.295575 .8 [id number] [facility] 2022-05-31 00:00:00 2022-05-31 00:00:00 Travel 1.2.840.1 77696.1.1 3.104.2.7 .3.012855 .8 1.2.840.114 350.1.13.10 4.2.7.3.698 [id number] [facility] 2022-05-30 00:00:00 2022-05-30 00:00:00 Outpatient Jesús ALYSSIA ISABEL [facility] [id number] [facility] 2022-05-25 00:00:00 2022-05-25 00:00:00 Orders Only Doctor Unassigned, Amesti [facility] 1.2.840.114 350.1.13.10 4.2.7.2.686 [id number] [facility] 2022-05-25 00:00:00 2022-05-25 00:00:00 Orders Only Doctor Unassigned, Amesti 1..840.1 23012.1.1 3.104.2.7 .3.893602 .8 [id number] [facility] 2022-05-22 15:45:00 2022-05-22 15:45:00 Outpatient Jesús [facility] [id number] [facility] 2022-05-22 15:45:00 2022-05-22 15:45:00 [facility] [id number] [facility] 2022-05-18 00:00:00 2022-05-18 00:00:00 Refill Pipes, April [facility] MEDICAL OFFICE BUILDING 1..840.114 350.1.13.10 4.2.7.2.686 [id number] [facility] 2022-05-18 00:00:00 2022-05-18 00:00:00 Refill Pipes, April 1..840.1 54170.1.1 3.104.2.7 .3.342725 .8 [id number] [facility] 2022-05-17 11:30:00 2022-05-17 11:30:00 Outpatient R VIN PEDRO [facility] [id number] [facility] 2022-05-10 08:30:00 2022-05-10 08:30:00 Outpatient R CHELSI ZAMUDIO [facility] [id number] [facility] 2022-05-09 00:00:00 2022-05-09 00:00:00 Refill Minal Manning KKikiHKiki [facility] BUILDING 1.2.840.114 350.1.13.10 4.2.7.2.686 [id number] [facility] 2022-05-09 00:00:00 2022-05-09 00:00:00 Refill Minal ManningHKiki 1.2.840.1 22346.1.1 3.104.2.7 .3.397708 .8 [id number] [facility] 2022-05-08 00:00:00 2022-05-08 00:00:00 Pre Visit Outreach Yady Goldman JALIL GONZALES 1.2.840.114 350.1.13.10 4.2.7.2.686 [id number] [facility] 2022-05-08 00:00:00 2022-05-08 00:00:00 Pre Visit Outreach Yady Goldamn 1.2.840.1 46989.1.1 3.104.2.7 .3.736956 .8 [id number] [facility] 2022 00:00:00 2022 00:00:00 Refill Minal Manning KKikiHKiki [facility] BUILDING 1.2.840.114 350.1.13.10 4.2.7.2.686 [id number] [facility] 2022 00:00:00 2022 00:00:00 Refill Manning, Sendil [facility] 1.2840.1 58445.1.1 3.104.2.7 .3.345278 .8 [id number] [facility] 2022-05-05 00:00:00 2022-05-05 00:00:00 Refill Manning, Sendil [facility] 1.840.114 350.1.13.10 4.2.7.2.686 [id number] [id number] [facility] 2022-05-05 00:00:00 2022-05-05 00:00:00 Refill Manning, Sendil [facility]. 1.840.1 44409.1.1 3.104.2.7 .3.450067 .8 [id number] [facility] 2022-05-05 00:00:00 2022-05-05 00:00:00 Patient Secure Msg Doctor Unassigned, Amesti [facility] 1.840.114 350.1.13.10 4.2.7.2.686 [id number] [facility] 2022-05-02 10:30:00 2022-05-02 10:30:00 Outpatient ALYSSIA CRONIN [facility] [id number] [facility] 2022-04-27 14:15:00 2022-04-27 14:30:00 Hepatology Physician Visit V[facility] Robbi Torres [facility] 1.0.114 350.1.13.10 4.2.7.2.686 [id number] [facility] 2022-04-27 14:15:00 2022-04-27 14:30:00 Hepatology Physician Visit Robbi Torres, [facility] 1.840.1 43803.1.1 3.104.2.7 .3.396295 .8 [id number] [facility] 2022-04-27 14:15:00 2022-04-27 14:15:00 Outpatient R ROBBI TORRES AKOLIVE [facility] [id number] [facility] 2022-04-27 13:00:00 2022-04-27 14:01:00 [facility] [id number] [facility] 2022-04-27 13:00:00 2022-04-27 14:01:00 Office Visit Chinmay Torresolive [facility] 1.2.840.114 350.1.13.10 4.2.7.2.686 [id number] [facility] 2022-04-27 13:00:00 2022-04-27 14:01:00 Office Visit Robbi Torres 1.2.840.1 25369.1.1 3.104.2.7 .3.691241 .8 [id number] [facility] 2022-04-27 00:00:00 2022-04-27 00:00:00 Travel 1.2.840.1 28221.1.1 3.104.2.7 .3.046471 .8 1.2.840.114 350.1.13.10 4.2.7.3.698 084.8 [id number] [facility] 2022-04-25 00:00:00 2022-04-25 00:00:00 Outpatient R ALYSSIA ISABEL [facility] [id number] Kishor contreras [facility] 2022-04-25 00:00:00 2022-04-25 00:00:00 Travel 1.2.840.1 18801.1.1 3.104.2.7 .3.282380 .8 1.2.840.114 350.1.13.10 4.2.7.3.698 084.8 [id number] [facility] 2022-04-17 00:00:00 2022-04-17 00:00:00 Telephone Minal Manning [facility] PROFESSIO NAL BUILDING 1.2.840.114 350.1.13.10 4.2.7.2.686 [id number] [facility] 2022-04-11 00:00:00 2022-04-11 00:00:00 Refill Minal Manning [facility] BUILDING 1.2.840.114 350.1.13.10 4.2.7.2.686 [id number] [facility] 2022-04-10 13:30:00 2022-04-10 13:30:00 Outpatient ARACELY RAMIRES [facility] [id number] [facility] 2022-04-09 14:00:00 2022-04-09 14:00:00 Outpatient LOREE VOGEL SHIWAN [facility] [id number] [facility] 2022-04-03 14:30:00 2022-04-03 14:30:00 Outpatient ARACELY RAMIRES [facility] [id number] [facility] 2022-03-28 14:00:00 2022-03-28 14:00:00 Outpatient MARIE LANCASTER [facility] [id number] [facility] 2022-03-21 13:00:00 2022-03-21 13:53:05 Office Visit Minal Manning [facility] 1.2.840.114 350.1.13.10 4.2.7.2.686 [id number] [facility] 2022-03-21 13:00:00 2022-03-21 13:53:05 Outpatient MINAL GRAHAM [facility] [id number] [facility] 2022-03-21 13:00:00 2022-03-21 13:00:00 Outpatient R MINAL MANNING [facility] [id number] [facility] 2022-03-20 13:30:53 2022-03-20 23:59:00 Outpatient R ROBBI TORRES CHINMAYOLIVE [facility] [id number] [facility] 2022-03-20 13:30:53 2022-03-20 23:59:00 Hospital Encounter Robbi Torres [facility] 1.2.840.114 350.1.13.10 4.2.7.2.686 [id number] [facility] 2022-03-20 13:30:53 2022-03-20 23:59:00 Outpatient R ROBBI TORRES [facility] [id number] [facility] 2022-03-20 00:00:00 2022-03-20 00:00:00 Orders Only Doctor Unassigned, Amesti [facility] 1.2.840.114 350.1.13.10 4.2.7.2.686 [id number] [facility] 2022-03-15 16:00:00 2022-03-15 16:00:00 Outpatient VIN YODER [facility] [id number] [facility] 2022-03-13 13:45:00 2022-03-13 13:45:00 Outpatient ARACELY RAMIRES [facility] [id number] [facility] 2022-03-06 15:15:00 2022-03-06 15:15:00 Outpatient ARACELY RAMIRES [facility] [id number] [facility] 2022-03-02 00:00:00 2022-03-02 00:00:00 Outpatient R VANESSAROD ROBBI TORRES [facility] [id number] [facility] 2022-03-01 10:20:00 2022-03-01 10:40:00 Nurse Visit Nurse, Geeta Valerio [facility] JIMMIE?[facility]AB [facility] BUILDING 1.2840.114 350.1.13.10 4.2.7.2.686 [id number] [facility] 2022-03-01 10:20:00 2022-03-01 10:20:00 Outpatient GEETA PHAM [facility] [id number] [facility] 2022-02-28 10:20:00 2022-02-28 10:20:00 Outpatient R [facility] [id number] [facility] 2022-02-26 00:00:00 2022-02-26 00:00:00 Patient Secure Msg Doctor Unassigned, Amesti [facility] 1.840.114 350.1.13.10 4.2.7.2.686 [id number] [facility] 2022-02-23 15:00:00 2022-02-23 15:15:00 Hepatology Physician Visit V[facility] [place] [facility] 1.2840.114 350.1.13.10 4.2.7.2.686 [id number] [facility] 2022-02-23 13:00:00 2022-02-23 13:30:00 Office Visit Melissa [facility] 1.2840.114 350.1.13.10 4.2.7.2.686 [id number] [facility] 2022-02-23 13:00:00 2022-02-23 13:00:00 Outpatient [facility] [id number] [facility] 2022-02-23 00:00:00 2022-02-23 00:00:00 Geeta Rao [facility] OFFICE BUILDING ONE 1..840.114 350.1.13.10 4.2.7.2.686 [id number] [facility] 2022-02-21 15:30:00 2022-02-21 16:00:00 Office Visit Kristopher Blackwell [facility] 1..840.114 350.1.13.10 4.2.7.2.686 [id number] [facility] 2022-02-21 15:30:00 2022-02-21 15:30:00 Outpatient KRISTOPHER TO [facility] [id number] [facility] 2022-02-12 14:30:00 2022-02-12 14:30:00 Outpatient JESSE TOMAD [facility] [id number] [facility] 2022-02-02 00:00:00 2022-02-02 00:00:00 Patient Secure Msg Doctor Unassigned, Amesti [facility] 1.840.114 350.1.13.10 4.2.7.2.686 [id number] [facility] 2022-01-31 11:40:00 2022-01-31 10:12:30 Outpatient GEETA PHAM [facility] [id number] [facility] 2022-01-30 11:00:00 2022-01-30 11:00:00 Outpatient JANI PHAMLOVE [facility] [id number] [facility] 2022-01-29 00:00:00 2022-01-29 00:00:00 Telephone Minal Manning [facility] BUILDING 1..840.114 350.1.13.10 4.2.7.2.686 [id number] [facility] 2022-01-26 15:00:00 2022-01-26 15:00:00 Outpatient R LUC DARIUS [facility] [id number] [facility] 2022-01-26 00:00:00 2022-01-26 00:00:00 Orders Only Doctor Unassigned, Amesti [facility] 1..840.114 350.1.13.10 4.2.7.2.686 [id number] [facility] 2022-01-24 13:00:00 2022-01-24 13:30:00 [facility] 1..840.114 350.1.13.10 4.2.7.2.686 [id number] [facility] 2022-01-24 13:00:00 2022-01-24 13:00:00 Outpatient LORY MENESES [facility] [id number] [facility] 2022-01-24 13:00:00 2022-01-24 13:00:00 Outpatient R LORY THAO [facility] [id number] [facility] 2022-01-23 15:00:00 2022-01-23 15:00:00 Outpatient R GALILEO KINCAID [facility] [id number] [facility] 2022-01-22 10:30:00 2022-01-22 10:30:00 Outpatient R GEETA CLARK [facility] [id number] [facility] 2022-01-17 13:00:00 2022-01-17 13:35:29 Outpatient R ALIYAH [facility] [id number] [facility] 2022-01-17 13:00:00 2022-01-17 13:35:29 Office Visit April Ly [facility] MEDICAL OFFICE BUILDING 1..840.114 350.1.13.10 4.2.7.2.686 [id number] [facility] 2022-01-12 14:25:32 2022-01-12 23:59:00 Hospital Encounter Amber, Wondiful A [facility] 1.840.114 350.1.13.10 4.2.7.2.686 [id number] [facility] 2022-01-12 14:24:53 2022-01-12 14:24:53 Outpatient R GEETA CLARK [facility] [id number] [facility] 2022-01-12 14:24:53 2022-01-12 14:24:53 Hospital Encounter Geeta Clark [facility] 1.840.114 350.1.13.10 4.2.7.2.686 [id number] [facility] 2022-01-12 00:00:00 2022-01-12 00:00:00 Orders Only Doctor Unassigned, Amesti [facility] 1.840.114 350.1.13.10 4.2.7.2.686 [id number] [facility] 2022-01-11 10:00:00 2022-01-11 10:00:00 Outpatient R [facility] [id number] [facility] 2022-01-09 13:30:00 2022-01-09 13:30:00 Outpatient R LOREE HARPER SHIWAN [facility] [id number] [facility] 2022-01-08 00:00:00 2022-01-08 00:00:00 Outpatient R GEETA CLARK [facility] [id number] [facility] 2022-01-05 00:00:00 2022-01-05 00:00:00 Case Management Geeta Clark [facility] OFF[facility] BUILDING 1.840.114 350.1.13.10 4.2.7.2.686 [id number] [facility] 2022-01-03 00:00:00 2022-01-03 00:00:00 Case Management AmberGeeta boston [facility] [place] JIMMIE?[facility] MEDICAL OFFICE BUILDING 1.2.840.114 350.1.13.10 4.2.7.2.686 [id number] [facility] 2022-01-01 00:00:00 2022-01-01 00:00:00 Patient Secure Msg Doctor Unassigned, Amesti [facility] 1.2.840.114 350.1.13.10 4.2.7.2.686 [id number] [facility] 2021-12-29 00:00:00 2021-12-29 00:00:00 Telephone AmberGeeta boston [facility] [place] JIMMIE?[facility] MEDICAL OFFICE BUILDING 1.2.840.114 350.1.13.10 4.2.7.2.686 [id number] [facility] 2021-12-28 16:45:00 2021-12-28 17:14:32 Hepatology Physician Visit Lab, Ang - Db BenzieGeeta boston [facility] [place] JIMMIE?[facility] MEDICAL OFFICE BUILDING 1.2.840.114 350.1.13.10 4.2.7.2.686 [id number] [facility] 2021-12-28 16:45:00 2021-12-28 17:00:00 Hepatology Physician Visit Lab, Ang - Simba PenningtonAbmerCordelia bostonful Dmitry [facility] [place] JIMMIE?[facility] MEDICAL OFFICE BUILDING 1.2.840.114 350.1.13.10 4.2.7.2.686 [id number] [facility] 2021-12-28 16:45:00 2021-12-28 16:45:00 Outpatient R AMBER JANICHARLOTTE [facility] [id number] [facility] 2021-12-28 16:00:00 2021-12-28 16:44:31 Office Visit AmberGeeta [facility]?SHAHAB [facility] MEDICAL OFFICE BUILDING 1..840.114 350.1.13.10 4.2.7.2.686 [id number] [facility] 2021-12-28 16:00:00 2021-12-28 16:44:31 Outpatient R GEETA CLARK [facility] [id number] [facility] 2021-12-06 14:30:00 2021-12-06 14:45:00 Laboratory Only Only, Ang Db Test Shukri Ansari [facility] OFF[facility] BUILDING 1..840.114 350.1.13.10 4.2.7.2.686 [id number] [facility] 2021-12-06 14:30:00 2021-12-06 14:30:00 Outpatient R SHUKRI ANSARI [facility] [id number] [facility] 2021-11-07 13:45:00 2021-11-07 13:57:29 Outpatient R ARACELY BEVERLY [facility] [id number] [facility] 2021-11-07 13:45:00 2021-11-07 13:57:29 Office Visit Aracely Beverly S [facility] NAL BUILDING 1..840.114 350.1.13.10 4.2.7.2.686 [id number] [facility] 2021-11-07 13:45:00 2021-11-07 13:57:29 Outpatient R ARACELY BEVERLY [facility] [id number] [facility] 2021-10-31 15:15:00 2021-10-31 15:15:00 Outpatient R ARACELY BEVERLY [facility] [id number] [facility] 2021-10-23 00:00:00 2021-10-23 00:00:00 Orders Only Doctor Unassigned, Amesti [facility] 1..840.114 350.1.13.10 4.2.7.2.686 [id number] [id number] [facility] 2021-10-17 14:33:10 2021-10-17 23:59:00 Hospital Encounter Aracely Beverly [facility] 1.0.114 350.1.13.10 4.2.7.2.686 [id number] [facility] 2021-10-17 13:34:45 2021-10-17 14:32:00 Outpatient R [facility] [id number] [facility] 2021-10-17 13:34:45 2021-10-17 14:32:00 [facility]..114 350.1.13.10 4.2.7.2.686 [id number] [facility] 2021-10-17 00:00:00 2021-10-17 00:00:00 Orders Only Doctor Unassigned, Amesti [facility] 1.114 350.1.13.10 4.2.7.2.686 [id number] [id number] [facility] 2021-09-07 07:30:00 2021-09-07 05:11:00 Inpatient Benito Bacon [facility] [id number] [facility] 2021-09-06 00:00:00 2021-09-06 00:00:00 Orders Only Doctor Unassigned, Amesti [facility] 1.114 350.1.13.10 4.2.7.2.686 [id number] [id number] [facility] 2021-09-05 00:00:00 2021-09-05 00:00:00 Telephone Geeta Clark [facility]?Shahab jorge Medical Office Building 1.114 350.1.13.10 4.2.7.2.686 [id number] [facility] 2021-08-30 00:00:00 2021-08-30 00:00:00 Telephone Minal Manning [facility] Building 1.2.840.114 350.1.13.10 4.2.7.2.686 [id number] [facility] 2021-08-22 00:00:00 2021-08-22 00:00:00 Telephone Lory Thao [facility] Building 1.2.840.114 350.1.13.10 4.2.7.2.686 [id number] [facility] 2021-08-21 00:00:00 2021-08-21 00:00:00 Telephone Aracely Beverly [facility] Building 1.2.840.114 350.1.13.10 4.2.7.2.686 [id number] [facility] 2021-08-17 00:00:00 2021-08-17 00:00:00 Telephone Minal Manning [facility] Building 1.2.840.114 350.1.13.10 4.2.7.2.686 [id number] [facility] 2021-08-15 11:17:00 2021-08-15 11:17:00 Outpatient BRIAN Benito Eric [facility] RADI [id number] [facility] 2021-08-14 13:12:40 2021-08-14 14:06:50 Office Visit Geeta Clark [facility] Jimmie?Shahab jorge Medical Office Building 1.2.840.114 350.1.13.10 4.2.7.2.686 [id number] [facility] 2021-08-14 13:15:00 2021-08-14 13:15:00 Outpatient R AMBERJANI BOSTONADRIANLOVE [facility] [id number] [facility] 2021-08-14 00:00:00 2021-08-14 00:00:[address] [facility] 1..840.114 350.1.13.10 4.2.7.2.686 [id number] [facility] 2021-08-11 13:41:00 2021-08-11 16:15:00 Emergency [place], Juliocesar [facility] 1..840.114 350.1.13.10 4.2.7.2.686 [id number] [facility] 2021-08-11 12:08:26 2021-08-11 13:00:05 Office Visit Giuliana Figueroa [facility]?Shahab karen Medical Office Building 1..840.114 350.1.13.10 4.2.7.2.686 [id number] [facility] 2021-08-11 12:30:00 2021-08-11 12:30:00 Outpatient R GIULIANA FIGUEROA [facility] [id number] [facility] 2021-08-08 14:09:58 2021-08-08 15:50:44 Office Visit Aracely Beverly [facility] Building 1..840.114 350.1.13.10 4.2.7.2.686 [id number] [facility] 2021-08-08 14:15:00 2021-08-08 14:15:00 Outpatient R ARACELY BEVERLY [facility] [id number] [facility] 2021-08-08 00:00:00 2021-08-08 00:00:00 Refill Pipes, [facility] Medical Office Building 1..840.114 350.1.13.10 4.2.7.2.686 [id number] [facility] 2021-08-08 00:00:00 2021-08-08 00:00:00 Refill Pipes, [facility] Medical Office Building 1.2.840.114 350.1.13.10 4.2.7.2.686 [id number] [facility] 2021-08-01 16:00:00 2021-08-01 16:00:00 Outpatient R TEREYUNARACELY [facility] [id number] [facility] 2021-07-20 11:45:51 2021-07-20 12:15:51 Office Visit Pipes, [facility] Medical Office Building 1.2.840.114 350.1.13.10 4.2.7.2.686 [id number] [facility] 2021-07-20 11:45:51 2021-07-20 12:15:51 Office Visit Pipes, [facility] Medical Office Building 1.2.840.114 350.1.13.10 4.2.7.2.686 [id number] [facility] 2021-07-20 12:00:00 2021-07-20 12:00:00 Outpatient R HERNANDEZLANI, [facility] [id number] [facility] 2021-07-20 00:00:00 2021-07-20 00:00:00 Telephone Minal Manning [facility] Building 1.2.840.114 350.1.13.10 4.2.7.2.686 [id number] [facility] 2021-07-20 00:00:00 2021-07-20 00:00:00 Telephone Minal Manning [facility] Building 1.2.840.114 350.1.13.10 4.2.7.2.686 [id number] [facility] 2021-07-20 00:00:00 2021-07-20 00:00:00 Orders Only Doctor Unassigned, Amesti [facility] 1.2.840.114 350.1.13.10 4.2.7.2.686 [id number] [facility] 2021-07-18 00:00:00 2021-07-18 00:00:00 Telephone Pipes, [facility] Office Building 1.2.840.114 350.1.13.10 4.2.7.2.686 [id number] 092 [id number] [facility] 2021-07-18 00:00:00 2021-07-18 00:00:00 Telephone Pipes, [facility] Medical Office Building 1.2.840.114 350.1.13.10 4.2.7.2.686 [id number] [facility] 2021-07-11 14:39:00 2021-07-11 15:45:55 Office Visit Aracely Beverly [facility] Building 1.2.840.114 350.1.13.10 4.2.7.2.686 [id number] [facility] 2021-07-11 14:45:00 2021-07-11 14:45:00 Outpatient R ARACELY BEVERLY [facility] [id number] [facility] 2021-07-04 00:00:00 2021-07-04 00:00:00 Orders Only Doctor Unassigned, Amesti [facility] 1.2.840.114 350.1.13.10 4.2.7.2.686 [id number] [facility] 2021-07-04 00:00:00 2021-07-04 00:00:00 Orders Only Doctor Unassigned, Amesti [facility] 1.2840.114 350.1.13.10 4.2.7.2.686 [id number] [facility] 2021-07-03 00:00:00 2021-07-03 00:00:[address] [facility] 1.2.840.114 350.1.13.10 4.2.7.2.686 [id number] [facility] 2021-06-29 13:18:20 2021-06-29 14:14:52 Office Visit Loree Harper [facility] Building 1.2.840.114 350.1.13.10 4.2.7.2.686 [id number] [facility] 2021-06-29 13:30:00 2021-06-29 13:30:00 Outpatient R [facility] [id number] [facility] 2021-06-26 10:04:21 2021-06-26 23:59:00 Hospital [facility] Erlin Nguyễn [facility] 1.2.840.114 350.1.13.10 4.2.7.2.686 [id number] [facility] 2021-06-26 00:00:00 2021-06-26 00:00:00 Outpatient ERLIN NGUYỄN [facility] [id number] [facility] 2021-06-15 00:00:00 2021-06-15 00:00:00 Refill Loree Harper [facility] Building 1.2.840.114 350.1.13.10 4.2.7.2.686 [id number] [facility] 2021-06-03 00:00:00 2021-06-03 00:00:00 Refill Amber Cordelialove Andres [facility] Office Building One 1.2.840.114 350.1.13.10 4.2.7.2.686 [id number] [facility] 2021-05-03 00:00:00 2021-05-03 00:00:00 Orders Only Doctor Unassigned, Amesti [facility] 1.2.840.114 350.1.13.10 4.2.7.2.686 [id number] [facility] 2021-04-28 00:00:00 2021-04-28 00:00:00 Telephone Pipes, April [facility] Office Building 1.2.840.114 350.1.13.10 4.2.7.2.686 [id number] [facility] 2021-04-26 14:13:16 2021-04-26 14:50:33 Office Visit Minal Manning [facility] Building 1.2.840.114 350.1.13.10 4.2.7.2.686 [id number] 059 [id number] [facility] 2021-04-26 14:13:16 2021-04-26 14:50:33 Office Visit Minal Manning [facility] Building 1.2.840.114 350.1.13.10 4.2.7.2.686 [id number] 059 [id number] [facility] 2021-04-26 14:13:16 2021-04-26 14:50:33 Office Visit Minal Manning [facility] Building 1.2.840.114 350.1.13.10 4.2.7.2.686 [id number] 059 [id number] [facility] 2021-04-26 14:13:16 2021-04-26 14:50:33 Office Visit Minal Manning [facility] 1.2.840.114 350.1.13.10 4.2.7.2.686 [id number] [facility] 2021-04-26 14:30:00 2021-04-26 14:30:00 Outpatient R MINAL MANNING [facility] [id number] [facility] 2021-04-26 00:00:00 2021-04-26 00:00:00 Travel 1.2.840.1 75933.1.1 3.104.2.7 .3.786423 .8 1.2.840.114 350.1.13.10 4.2.7.3.698 [id number] [facility] 2021-04-20 00:00:00 2021-04-20 00:00:00 Veronica Costa 1.2.840.1 15835.1.1 3.104.2.7 .3.081068 .8 [id number] [facility] 2021-03-29 00:00:00 2021-03-29 00:00:00 Patient Secure Msg Doctor Unassigned, Amesti [facility] 1.2.840.114 350.1.13.10 4.2.7.2.686 [id number] [facility] 2021-03-23 11:00:00 2021-03-23 11:00:00 Outpatient R MINAL MANNING [facility] [id number] [facility] 2021-03-22 00:00:00 2021-03-22 00:00:00 Telephone Minal Manning 1.2.840.1 66703.1.1 3.104.2.7 .3.664368 .8 [id number] [facility] 2021-03-21 00:00:00 2021-03-21 00:00:00 Orders Only Doctor Unassigned, Amesti 1.2.840.1 57574.1.1 3.104.2.7 .3.863120 .8 [id number] [facility] 2021-03-09 13:45:00 2021-03-09 13:45:00 Outpatient R MINAL MANNING [facility] [id number] [facility] 2021-03-09 11:54:42 2021-03-09 12:09:42 Hepatology Physician Visit Minal Manning Pob, [facility] 1.2.840.1 39823.1.1 3.104.2.7 .3.671690 .8 [id number] [facility] 2021-03-09 00:00:00 2021-03-09 00:00:00 Telephone Minal Manning 1.2.840.1 59998.1.1 3.104.2.7 .3.907434 .8 [id number] [facility] 2021-03-09 00:00:00 2021-03-09 00:00:00 Orders Only Doctor Unassigned, Amesti 1.2.840.1 19683.1.1 3.104.2.7 .3.852864 .8 [id number] [facility] 2021-03-09 00:00:00 2021-03-09 00:00:00 Travel 1.2.840.1 15890.1.1 3.104.2.7 .3.946542 .8 1.2.840.114 350.1.13.10 4.2.7.3.698 084.8 [id number] [facility] 2021-02-14 14:30:00 2021-02-14 14:30:00 Outpatient ARACELY RAMIRES [facility] [id number] [facility] 2021-02-13 13:30:00 2021-02-13 13:30:00 Outpatient APRIL ESQUIVEL [facility] [id number] [facility] 2021-02-07 14:15:00 2021-02-07 14:15:00 Outpatient R ARACELY BEVERLY [facility] [id number] [facility] 2021-02-06 12:00:00 2021-02-06 12:00:00 Outpatient R APRIL LY [facility] [id number] [facility] 2021-01-25 16:30:00 2021-01-25 16:30:00 [facility] [id number] [facility] 2021-01-11 08:50:19 2021-01-11 23:59:00 [facility] Encounter Alyssia Isabel [facility] .2.840.114 350.1.13.10 4.2.7.2.686 [id number] [facility] 2021-01-11 00:00:00 2021-01-11 00:00:00 Outpatient R ALYSSIA ISABEL [facility] [id number] [facility] 2021-01-09 14:15:00 2021-01-09 14:15:00 Outpatient GEETA PHAM [facility] [id number] [facility] 2021-01-09 00:00:00 2021-01-09 00:00:00 Telephone [facility]inal Manning [facility].114 350.1.13.10 4.2.7.2.686 [id number] [facility] 2021-01-06 14:00:00 2021-01-06 14:00:00 [id number] [facility] 2021-01-03 13:00:00 2021-01-03 13:00:00 Outpatient R APRIL LY [facility] [id number] [facility] 2020-12-29 12:58:44 2020-12-29 14:09:25 Office Visit Chacho Loree [facility] Building 1.2.840.114 350.1.13.10 4.2.7.2.686 [id number] [facility] 2020-12-29 13:40:00 2020-12-29 13:40:00 Outpatient R LOREE HARPER SHINDRadha [facility] [id number] [facility] 2020-12-29 00:00:00 2020-12-29 00:00:00 Telephone Minal Manning [facility] 1.2.840.114 350.1.13.10 4.2.7.2.686 [id number] [facility] 2020-12-26 14:40:00 2020-12-26 14:40:00 Outpatient CRISTY HADDAD [facility] [id number] [facility] 2020-12-01 00:00:00 2020-12-01 00:00:00 Refill Geeta Clark [facility] Office Building One 1.2.840.114 350.1.13.10 4.2.7.2.686 [id number] [facility] 2020-11-28 15:50:00 2020-11-28 15:50:00 Outpatient CRISTY HADDAD [facility] [id number] [facility] 2020-11-25 00:00:00 2020-11-25 00:00:00 Refill Minal Manning [facility] Building 1.2.840.114 350.1.13.10 4.2.7.2.686 [id number] [facility] 2020-11-25 00:00:00 2020-11-25 00:00:00 Refill Minal Manning [facility] Building 1.840.114 350.1.13.10 4.2.7.2.686 [id number] [facility] 2020-11-23 00:00:00 2020-11-23 00:00:00 Patient Secure Msg Geeta Clark [facility] ONE 1.2.114 350.1.13.10 4.2.7.2.686 [id number] [facility] 2020-11-07 10:57:40 2020-11-07 11:45:44 Urgent Care Provider, [facility] Annmarie Juan Miguel [facility] Office Building One 1..114 350.1.13.10 4.2.7.2.686 [id number] [facility] 2020-11-07 11:00:00 2020-11-07 11:00:00 Outpatient R ANNMARIE JUAN MIGUEL [facility] [id number] [facility] 2020-11-04 00:00:00 2020-11-04 00:00:00 Telephone Geeta Clark [facility] Building 1.84.114 350.1.13.10 4.2.7.2.686 [id number] 044 [id number] [facility] 2020-10-27 00:00:00 2020-10-27 00:00:00 Refill Minal Manning [facility] Building 1.284.114 350.1.13.10 4.2.7.2.686 [id number] 059 [id number] [facility] 2020-10-25 00:00:00 2020-10-25 00:00:00 Case Management Minal Manning [facility] Building 1.2.840.114 350.1.13.10 4.2.7.2.686 [id number] [id number] [facility] 2020-10-25 00:00:00 2020-10-25 00:00:00 Orders Only Doctor Unassigned, Amesti [facility] 1.114 350.1.13.10 4.2.7.2.686 [id number] [facility] 2020-10-19 13:00:00 2020-10-19 13:00:00 Outpatient R BEATRIZ SIMON [facility] [id number] [facility] 2020-10-19 00:00:00 2020-10-19 00:00:00 Orders Only Doctor Unassigned, Amesti [facility] 1.114 350.1.13.10 4.2.7.2.686 [id number] [facility] 2020-10-07 13:30:00 2020-10-07 13:30:00 Outpatient R MINAL MANNING [facility] [id number] [facility] 2020-10-03 11:41:22 2020-10-03 23:59:00 Hospital Encounter Shaun Bahena Edtolu [facility] 1.114 350.1.13.10 4.2.7.2.686 [id number] [facility] 2020-10-03 11:00:00 2020-10-03 11:00:00 Outpatient R SHRUTISHAUN [facility] [id number] [facility] 2020-10-03 10:42:01 2020-10-03 10:57:01 Office Visit ShrutiShaun tolu [facility] Office Building One 1.114 350.1.13.10 4.2.7.2.686 [id number] [facility] 2020-09-29 14:15:00 2020-09-29 14:15:00 Outpatient YASIR BECKER [facility] [id number] [facility] 2020-09-28 00:00:00 2020-09-28 00:00:00 Telephone Minal Manning 1.2.840.1 59799.1.1 3.104.2.7 .3.352736 .8 [id number] [facility] 2020-09-27 14:52:11 2020-09-27 15:42:26 Office Visit Aliyah [facility] Building 1.2.840.114 350.1.13.10 4.2.7.2.686 [id number] [facility] 2020-09-27 15:00:00 2020-09-27 15:00:00 Outpatient R ALIYAH [facility] [id number] [facility] 2020-09-27 00:00:00 2020-09-27 00:00:00 Travel 1.2.840.1 18102.1.1 3.104.2.7 .3.675090 .8 1.2.840.114 350.1.13.10 4.2.7.3.698 084.8 [id number] [facility] 2020-09-26 13:00:00 2020-09-26 13:00:00 Outpatient R ALIYAH [facility] [id number] [facility] 2020-09-23 12:29:59 2020-09-23 12:44:59 Hepatology Physician Visit Minal Manning 2, [facility] Lab 1.2.840.1 09921.1.1 3.104.2.7 .3.139889 .8 [id number] [facility] 2020-09-23 11:21:23 2020-09-23 11:52:02 Office Visit Minal Manning 1.2.840.1 89798.1.1 3.104.2.7 .3.555953 .8 [id number] [facility] 2020-09-23 11:30:00 2020-09-23 11:30:00 Outpatient R MINAL MANNING [facility] [id number] [facility] 2020-09-23 00:00:00 2020-09-23 00:00:00 Orders Only Doctor Unassigned, Amesti 1.2840.1 46366.1.1 3.104.2.7 .3.587121 .8 [id number] [facility] 2020-09-23 00:00:00 2020-09-23 00:00:00 Telephone Minal Manning.H. 1.2840.1 66281.1.1 3.104.2.7 .3.289848 .8 [id number] [facility] 2020-09-23 00:00:00 2020-09-23 00:00:00 Travel 1.2.840.1 74758.1.1 3.104.2.7 .3.861040 .8 1.2.840.114 350.1.13.10 4.2.7.3.698 084.8 [id number] [facility] 2020-09-22 15:00:00 2020-09-22 15:00:00 Outpatient CELINA MILLER [facility] [id number] [facility] 2020-09-14 00:00:00 2020-09-14 00:00:00 Telephone Amber Geeta Andres 1.2840.1 77645.1.1 3.104.2.7 .3.238771 .8 [id number] [facility] 2020-09-13 14:30:44 2020-09-13 16:32:14 Office Visit Aracely Beverly 1.2.840.1 44228.1.1 3.104.2.7 .3.750152 .8 [id number] [facility] 2020-09-13 14:45:00 2020-09-13 14:45:00 Outpatient R ARACELY BEVERLY [facility] [id number] [facility] 2020-09-13 00:00:00 2020-09-13 00:00:00 Travel 1.2.840.1 87916.1.1 3.104.2.7 .3.871926 .8 1.2.840.114 350.1.13.10 4.2.7.3.698 084.8 [id number] [facility] 2020-09-05 14:13:59 2020-09-05 15:07:43 Office Visit Geeta Clark A 1.2.840.1 33656.1.1 3.104.2.7 .3.670644 .8 [id number] [facility] 2020-09-05 14:15:00 2020-09-05 14:15:00 Outpatient R GEETA CLARK [facility] [id number] [facility] 2020-09-05 00:00:00 2020-09-05 00:00:00 Travel 1.2.840.1 43633.1.1 3.104.2.7 .3.767713 .8 1.2.840.114 350.1.13.10 4.2.7.3.698 084.8 [id number] [facility] 2020-09-02 00:00:00 2020-09-02 00:00:00 Telephone BenzieGeeta boston 1.2.840.1 01036.1.1 3.104.2.7 .3.285336 .8 [id number] [facility] 2020-09-01 14:46:18 2020-09-01 16:30:25 Office Visit Celina Cowan [place] [facility] Procedure 1.2.840.1 08427.1.1 3.104.2.7 .3.745215 .8 [id number] [facility] 2020-09-01 15:00:00 2020-09-01 15:00:00 Outpatient R CELINA COWAN [facility] [id number] [facility] 2020-09-01 00:00:00 2020-09-01 00:00:00 Orders Only Doctor Unassigned, Amesti 1.2.840.1 40287.1.1 3.104.2.7 .3.184434 .8 [id number] [facility] 2020-09-01 00:00:00 2020-09-01 00:00:00 Travel 1.2.840.1 21852.1.1 3.104.2.7 .3.116743 .8 1.2.840.114 350.1.13.10 4.2.7.3.698 084.8 [id number] [facility] 2020-08-30 13:00:00 2020-08-30 13:00:00 Outpatient ARACELY RAMIRES [facility] [id number] [facility] 2020-08-24 12:45:51 2020-08-24 23:59:00 Hospital Encounter Geeta Clark 1.2.840.1 84306.1.1 3.104.2.7 .3.844953 .8 [id number] [facility] 2020-08-24 12:44:54 2020-08-24 12:44:54 Hospital Encounter Geeta Clark A 1.2.840.1 55645.1.1 3.104.2.7 .3.986630 .8 [id number] [facility] 2020-08-24 00:00:00 2020-08-24 00:00:00 Outpatient R GEETA CLARK [facility] [id number] [facility] 2020-08-24 00:00:00 2020-08-24 00:00:00 Orders Only Doctor Unassigned, Amesti 1.2.840.1 82407.1.1 3.104.2.7 .3.201029 .8 [id number] [facility] 2020-08-18 10:00:00 2020-08-18 10:00:00 Outpatient CELINA MILLER [facility] [id number] [facility] 2020-08-17 00:00:00 2020-08-17 00:00:00 Telephone Celina Cowan 1.2.840.1 24416.1.1 3.104.2.7 .3.354495 .8 [id number] [facility] 2020-08-16 00:00:00 2020-08-16 00:00:00 Refill Minal Manning 1.2.840.1 40139.1.1 3.104.2.7 .3.000962 .8 [id number] [facility] 2020-08-11 09:00:00 2020-08-11 09:00:00 Outpatient CELINA MILLER [facility] [id number] [facility] 2020-08-04 13:14:38 2020-08-04 14:11:18 Office Visit Celina Cowan 1.2.840.1 59461.1.1 3.104.2.7 .3.828652 .8 [id number] [facility] 2020-08-04 13:14:38 2020-08-04 14:11:18 Office Visit Celina Cowan [facility] 1.2.840.114 350.1.13.10 4.2.7.2.686 [id number] 2020-08-04 13:30:00 2020-08-04 13:30:00 Outpatient CELINA MILLER [facility] [id number] [facility] 2020-08-04 00:00:00 2020-08-04 00:00:00 Telephone Geeta Clark 1.2.840.1 61770.1.1 3.104.2.7 .3.508156 .8 [id number] [facility] 2020-08-04 00:00:00 2020-08-04 00:00:00 Travel 1.2.840.1 15490.1.1 3.104.2.7 .3.662527 .8 1.2.840.114 350.1.13.10 4.2.7.3.698 084.8 [id number] [facility] 2020-08-03 13:30:00 2020-08-03 13:30:00 Outpatient KARLI CUNNINGHAM [facility] [id number] [facility] 2020-08-03 00:00:00 2020-08-03 00:00:00 Telephone Amber Janicharlotte A 1.840.1 58353.1.1 3.104.2.7 .3.476985 .8 [id number] [facility] 2020-08-01 00:00:00 2020-08-01 00:00:00 Orders Only Doctor Unassigned, Amesti 1.0.1 44570.1.1 3.104.2.7 .3.259636 .8 [id number] [facility] 2020-07-28 14:15:00 2020-07-28 14:15:00 Outpatient CELINA MILLER [facility] [id number] [facility] 2020-07-12 10:45:00 2020-07-12 10:45:00 [facility] [id number] 2020-07-12 00:00:00 2020-07-12 00:00:00 Case Management Lory Thao 1.0.1 54870.1.1 3.104.2.7 .3.689920 .8 [id number] [facility] 2020-06-29 00:00:00 2020-06-29 00:00:00 Telephone Kristopher Blackwell 1.0.1 04265.1.1 3.104.2.7 .3.791783 .8 [id number] [facility] 2020-06-29 00:00:00 2020-06-29 00:00:00 Telephone Minal Manning 1.840.1 83488.1.1 3.104.2.7 .3.123469 .8 [id number] [facility] 2020-06-24 00:00:00 2020-06-24 00:00:00 Telephone Lory Thao [facility] Building 1.2840.114 350.1.13.10 4.2.7.2.686 [id number] [facility] 2020-06-23 13:23:06 2020-06-23 17:07:03 Office Visit Aliyah [facility] Office Building 1.2840.114 350.1.13.10 4.2.7.2.686 [id number] [facility] 2020-06-23 14:00:00 2020-06-23 14:00:00 Outpatient R HERNANDEZLANI [facility] [id number] [facility] 2020-06-23 00:00:00 2020-06-23 00:00:00 Telephone Lory Thao [facility] 1.20.114 350.1.13.10 4.2.7.2.686 [id number] [facility] 2020-06-22 09:56:45 2020-06-22 10:58:31 Office Visit Lory Thao [facility] Building 1.2840.114 350.1.13.10 4.2.7.2.686 [id number] [facility] 2020-06-22 10:00:00 2020-06-22 10:00:00 Outpatient R KEESHALORY [facility] [id number] [facility] 2020-06-19 00:00:00 2020-06-19 00:00:00 Minal Andrade [facility] 1.20.114 350.1.13.10 4.2.7.2.686 [id number] [facility] 2020-06-17 13:30:00 2020-06-17 13:30:00 Outpatient AFSANEH CAMPBELL [facility] [id number] [facility] 2020-06-17 00:00:00 2020-06-17 00:00:00 Travel 1.2.840.1 34521.1.1 3.104.2.7 .3.194669 .8 1.2.840.114 350.1.13.10 4.2.7.3.698 084.8 [id number] [facility] 2020-06-16 00:00:00 2020-06-16 00:00:00 Patient Secure Msg Doctor Unassigned, Amesti [facility] 1.2.840.114 350.1.13.10 4.2.7.2.686 [id number] [id number] [facility] 2020-06-15 00:00:00 2020-06-15 00:00:00 Telephone Loree Harper 1.2.840.1 93062.1.1 3.104.2.7 .3.158130 .8 [id number] [facility] 2020-06-13 14:09:11 2020-06-13 16:20:47 Office Visit Kristopher Blackwell 1.2.840.1 37906.1.1 3.104.2.7 .3.686297 .8 [id number] [facility] 2020-06-13 14:30:00 2020-06-13 14:30:00 Outpatient KRISTOPHER TO [facility] [id number] [facility] 2020-06-13 00:00:00 2020-06-13 00:00:00 Travel 1.2.840.1 53313.1.1 3.104.2.7 .3.822935 .8 1.2.840.114 350.1.13.10 4.2.7.3.698 084.8 [id number] [facility] 2020-06-10 14:54:53 2020-06-10 15:54:12 Office Visit Loree Harper 1.2.840.1 44512.1.1 3.104.2.7 .3.070768 .8 [id number] [facility] 2020-06-10 15:00:00 2020-06-10 15:00:00 Outpatient R LOREE HARPER SHIWAN [facility] [id number] [facility] 2020-06-10 00:00:00 2020-06-10 00:00:00 Travel 1.2.840.1 86341.1.1 3.104.2.7 .3.969113 .8 1.2.840.114 350.1.13.10 4.2.7.3.698 084.8 [id number] [facility] 2020-06-09 12:45:00 2020-06-09 12:45:00 Outpatient R YASIR MERCEDES [facility] [id number] [facility] 2020-06-07 13:39:28 2020-06-07 14:18:02 Urgent Care Juan Miguel Anguiano, Acute Care Clinic 1.2.840.1 17867.1.1 3.104.2.7 .3.701531 .8 [id number] [facility] 2020-06-07 13:40:00 2020-06-07 13:40:00 Outpatient R [facility] [id number] [facility] 2020-06-07 00:00:00 2020-06-07 00:00:00 Travel 1.2.840.1 70351.1.1 3.104.2.7 .3.097466 .8 1.2.840.114 350.1.13.10 4.2.7.3.698 084.8 [id number] [facility] 2020-06-06 09:04:49 2020-06-06 13:55:37 Telemedici ne Visit Manning, Sendil K.H. 1.2.840.1 74916.1.1 3.104.2.7 .3.718662 .8 [id number] [facility] 2020-06-06 13:00:00 2020-06-06 13:00:00 Outpatient R KERRI MINAL [facility] [id number] [facility] 2020-06-06 09:00:00 2020-06-06 09:00:00 Outpatient Benito Eric [facility] [id number] [facility] 2020-06-03 13:30:00 2020-06-03 13:30:00 Outpatient R MINAL MANNING [facility] [id number] [facility] 2020-06-02 14:20:00 2020-06-02 14:20:00 Outpatient R LOREE HARPER SHIWAN [facility] [id number] [facility] 2020-05-31 07:56:30 2020-05-31 12:05:10 Nurse Visit Kristopher Blackwell Nurse, Bls [facility] End[facility] 1.2.840.1 84572.1.1 3.104.2.7 .3.347614 .8 [id number] [facility] 2020-05-31 08:30:37 2020-05-31 08:45:37 Hepatology Physician Visit Kristopher Blackwell Draw, Clc-Bls Lab 1.2.840.1 72554.1.1 3.104.2.7 .3.041410 .8 [id number] [facility] 2020-05-31 08:30:00 2020-05-31 08:30:00 Outpatient R KRISTOPHER BLACKWELL [facility] [id number] [facility] 2020-05-31 00:00:00 2020-05-31 00:00:00 Travel 1.2.840.1 05680.1.1 3.104.2.7 .3.063787 .8 1.2.840.114 350.1.13.10 4.2.7.3.698 084.8 [id number] [facility] 2020-05-26 00:00:00 2020-05-26 00:00:00 Orders Only Doctor Unassigned, Amesti 1.2.840.1 95672.1.1 3.104.2.7 .3.751541 .8 [id number] [facility] 2020-05-19 08:57:52 2020-05-19 09:42:32 Office Visit Geeta Clark 1.2.840.1 92758.1.1 3.104.2.7 .3.522111 .8 [id number] [facility] 2020-05-19 09:00:00 2020-05-19 09:00:00 Outpatient R JANI CLARKCHARLOTTE [facility] [id number] [facility] 2020-05-18 00:00:00 2020-05-18 00:00:00 Travel 1.2.840.1 91413.1.1 3.104.2.7 .3.813185 .8 1.2.840.114 350.1.13.10 4.2.7.3.698 084.8 [id number] [facility] 2020-05-17 07:50:00 2020-05-17 23:59:00 Hospital Encounter Aliyah April 1.2.840.1 39771.1.1 3.104.2.7 .3.452075 .8 [id number] [facility] 2020-05-17 10:45:00 2020-05-17 10:45:00 Outpatient R AMBERJANI BOSTONCHARLOTTE [facility] [id number] [facility] 2020-05-17 08:30:00 2020-05-17 08:30:00 Outpatient R APRIL LY [facility] [id number] [facility] 2020-05-17 07:49:00 2020-05-17 07:49:00 Hospital Encounter Kristopher Blackwell 1.2.840.1 17902.1.1 3.104.2.7 .3.944863 .8 [id number] [facility] 2020-05-17 07:49:00 2020-05-17 07:49:00 Hospital Encounter April Ly 1.2.840.1 81144.1.1 3.104.2.7 .3.265352 .8 [id number] [facility] 2020-05-12 00:00:00 2020-05-12 00:00:00 Refill Minal Manning 1.2.840.1 88518.1.1 3.104.2.7 .3.508652 .8 [id number] [facility] 2020-05-09 11:40:50 2020-05-09 13:38:53 Office Visit Darius Boykin Muhammad A 1.2.840.1 71466.1.1 3.104.2.7 .3.486374 .8 [id number] [facility] 2020-05-09 11:40:00 2020-05-09 11:40:00 Outpatient R DARIUS BOYKIN [facility] [id number] [facility] 2020-05-09 00:00:00 2020-05-09 00:00:00 Patient Secure Msg Doctor Unassigned, Amesti [facility] 1.2840.114 350.1.13.10 4.2.7.2.686 [id number] [facility] 2020-05-09 00:00:00 2020-05-09 00:00:00 Travel 1.2.840.1 87809.1.1 3.104.2.7 .3.969649 .8 1.2.840.114 350.1.13.10 4.2.7.3.698 084.8 [id number] [facility] 2020-05-05 00:00:00 2020-05-05 00:00:00 Telephone Geeta Clark 1.2.840.1 33722.1.1 3.104.2.7 .3.271709 .8 [id number] [facility] 2020-05-03 00:00:00 2020-05-03 00:00:00 Telephone Philip Barrientos 1.2.840.1 61365.1.1 3.104.2.7 .3.801605 .8 [id number] [facility] 2020-05-03 00:00:00 2020-05-03 00:00:00 Travel 1.2.840.1 90305.1.1 3.104.2.7 .3.020856 .8 1.2.840.114 350.1.13.10 4.2.7.3.698 084.8 [id number] [facility] 2020-04-29 00:00:00 2020-04-29 00:00:00 Minal Andrade 1.2.840.1 89691.1.1 3.104.2.7 .3.713236 .8 [id number] [facility] 2020-04-29 00:00:00 2020-04-29 00:00:00 Patient Secure Msg Doctor Unassigned, Amesti [facility] 1.2.840.114 350.1.13.10 4.2.7.2.686 [id number] [facility] 2020-04-28 07:41:18 2020-04-28 16:39:41 Nurse Visit Kristopher Blackwell Nurse, Bls [facility] Endo 1.2.840.1 26237.1.1 3.104.2.7 .3.293909 .8 [id number] [facility] 2020-04-28 08:18:59 2020-04-28 08:33:59 Hepatology Physician Visit Kristopher Blackwell Draw, Clc-Bls Lab 1.2.840.1 43370.1.1 3.104.2.7 .3.144108 .8 [id number] [facility] 2020-04-28 08:30:00 2020-04-28 08:30:00 Outpatient R ROSALVAKRISTOPHER PINO [facility] [id number] [facility] 2020-04-28 00:00:00 2020-04-28 00:00:00 Travel 1.2.840.1 85420.1.1 3.104.2.7 .3.744245 .8 1.2.840.114 350.1.13.10 4.2.7.3.698 084.8 [id number] [facility] 2020-04-27 00:00:00 2020-04-27 00:00:00 Orders Only Doctor Unassigned, Amesti 1.2840.1 66092.1.1 3.104.2.7 .3.488920 .8 [id number] [facility] 2020-04-26 14:53:04 2020-04-26 17:05:57 Office Visit Aliyah [facility] Office Building 1.2840.114 350.1.13.10 4.2.7.2.686 [id number] [facility] 2020-04-26 15:00:00 2020-04-26 15:00:00 Outpatient R ALIYAH [facility] [id number] [facility] 2020-04-26 00:00:00 2020-04-26 00:00:00 Patient Secure Msg Doctor Unassigned, Amesti [facility] 1.20.114 350.1.13.10 4.2.7.2.686 [id number] [facility] 2020-04-25 14:36:49 2020-04-25 15:53:10 Office Visit Kristopher Blackwell Dmitry 1.2.840.1 96849.1.1 3.104.2.7 .3.674648 .8 [id number] [facility] 2020-04-25 15:00:00 2020-04-25 15:00:00 Outpatient R SALLY BLACKWELLD [facility] [id number] [facility] 2020-04-25 00:00:00 2020-04-25 00:00:00 Travel 1.2.840.1 12762.1.1 3.104.2.7 .3.904461 .8 1.2.840.114 350.1.13.10 4.2.7.3.698 084.8 [id number] [facility] 2020-04-21 00:00:00 2020-04-21 00:00:00 Case Management Geeta Clark 1.2.840.1 17973.1.1 3.104.2.7 .3.126845 .8 [id number] [facility] 2020-04-20 00:00:00 2020-04-20 00:00:00 Minal Andrade 1.2.840.1 05851.1.1 3.104.2.7 .3.997285 .8 [id number] [facility] 2020-04-19 13:47:40 2020-04-19 15:18:58 Office Visit Aracely Beverly 1.2.840.1 78805.1.1 3.104.2.7 .3.529476 .8 [id number] [facility] 2020-04-19 14:00:00 2020-04-19 14:00:00 Outpatient ARACELY RAMIRES [facility] [id number] [facility] 2020-04-19 00:00:00 2020-04-19 00:00:00 Travel 1.2.840.1 68264.1.1 3.104.2.7 .3.339796 .8 1.2.840.114 350.1.13.10 4.2.7.3.698 084.8 [id number] [facility] 2020-04-18 09:13:35 2020-04-18 09:28:35 Hepatology Physician Visit Geeta Clark 2, [facility] 1.2.840.1 25794.1.1 3.104.2.7 .3.713490 .8 [id number] [facility] 2020-04-18 09:15:00 2020-04-18 09:15:00 Outpatient R GEETA CLARK [facility] [id number] [facility] 2020-04-18 07:46:29 2020-04-18 08:33:23 Office Visit Geeta Clark 1.2.840.1 95487.1.1 3.104.2.7 .3.415690 .8 [id number] [facility] 2020-04-18 00:00:00 2020-04-18 00:00:00 Orders Only Doctor Unassigned, Amesti 1.2.840.1 67700.1.1 3.104.2.7 .3.934288 .8 [id number] [facility] 2020-04-18 00:00:00 2020-04-18 00:00:00 Travel 1.2.840.1 85381.1.1 3.104.2.7 .3.971543 .8 1.2.840.114 350.1.13.10 4.2.7.3.698 084.8 [id number] [facility] 2020-04-15 00:00:00 2020-04-15 00:00:00 Telephone Pipes, April 1.2.840.1 47554.1.1 3.104.2.7 .3.518194 .8 [id number] [facility] 2020-04-06 08:01:01 2020-04-06 13:25:11 Telemedici ne Visit Philip Barrientos 1.2.840.1 91475.1.1 3.104.2.7 .3.549925 .8 [id number] [facility] 2020-04-06 10:59:51 2020-04-06 13:14:00 Emergency X MARII CATHERINE [facility] ERT [id number] [facility] 2020-04-06 10:59:51 2020-04-06 13:14:00 Emergency Marii Catherine G 1.2.840.1 49604.1.1 3.104.2.7 .3.765221 .8 [id number] [facility] 2020-04-06 10:39:49 2020-04-06 10:59:49 Urgent Care Philip Barrientos [facility] 1.2.840.1 46537.1.1 3.104.2.7 .3.990122 .8 [id number] [facility] 2020-04-06 09:40:00 2020-04-06 09:40:00 Outpatient R PHILIP BARRIENTOS [facility] [id number] [facility] 2020-04-06 00:00:00 2020-04-06 00:00:00 Travel 1.2.840.1 04689.1.1 3.104.2.7 .3.852436 .8 1.2.840.114 350.1.13.10 4.2.7.3.698 084.8 [id number] [facility] 2020-03-22 00:00:00 2020-03-22 00:00:00 Orders Only Doctor Unassigned, Amesti 1.2.840.1 97352.1.1 3.104.2.7 .3.818541 .8 [id number] [facility] 2020-03-20 00:00:00 2020-03-20 00:00:00 Telephone Geeta Clark 1.2.840.1 23203.1.1 3.104.2.7 .3.867594 .8 [id number] [facility] 2020-03-16 00:00:00 2020-03-16 00:00:[address] [facility] 1.2.840.114 350.1.13.10 4.2.7.2.686 [id number] [facility] 2020-03-14 00:00:00 2020-03-14 00:00:00 Telephone Geeta Clark [facility] 1.2.840.114 350.1.13.10 4.2.7.2.686 [id number] [facility] 2020-03-14 00:00:00 2020-03-14 00:00:00 Telephone Geeta Clark [facility] Office Building One 1.2840.114 350.1.13.10 4.2.7.2.686 [id number] [id number] [facility] 2020-03-07 13:30:00 2020-03-07 13:30:00 Outpatient R JANI CLARKADRIANLOVE [facility] [id number] [facility] 2020-03-07 07:25:58 2020-03-07 07:40:58 Telemedici ne Visit Geeta Clark [facility] Building 1.2840.114 350.1.13.10 4.2.7.2.686 [id number] 044 [id number] [facility] 2020-03-03 00:00:00 2020-03-03 00:00:00 Telephone Geeta Clark [facility] Building 1.2840.114 350.1.13.10 4.2.7.2.686 [id number] 044 [id number] [facility] 2020-02-26 00:00:00 2020-02-26 00:00:00 Orders Only Doctor Unassigned, Amesti [facility] 1.2840.114 350.1.13.10 4.2.7.2.686 [id number] 009 [id number] [facility] 2020-02-18 00:00:00 2020-02-18 00:00:00 Telephone Geeta Clark [facility] 1..840.114 350.1.13.10 4.2.7.2.686 [id number] 044 [id number] [facility] 2020-02-16 15:15:00 2020-02-16 15:15:00 Outpatient R JANI CLARKLOVE [facility] [id number] [facility] 2020-02-16 11:54:25 2020-02-16 12:09:25 Telemedici ne Visit Geeta Clark [facility] Building 1..840.114 350.1.13.10 4.2.7.2.686 [id number] 044 [id number] [facility] 2020-02-15 18:00:00 2020-02-15 18:00:00 Outpatient LILIAM HINTON [facility] [id number] [facility] 2020-02-15 00:00:00 2020-02-15 00:00:00 Telephone Geeta Clark [facility] 1..840.114 350.1.13.10 4.2.7.2.686 [id number] [id number] [facility] 2020-02-09 00:00:00 2020-02-09 00:00:00 Refill Beatriz Simon [facility] Building 1..840.114 350.1.13.10 4.2.7.2.686 [id number] 059 [id number] [facility] 2020-02-04 13:30:00 2020-02-04 13:30:00 Outpatient R YASIR MERCEDES [facility] [id number] [facility] 2020-02-03 00:00:00 2020-02-03 00:00:00 Refill Minal Manning 1.2.840.1 34049.1.1 3.104.2.7 .3.414674 .8 [id number] [facility] 2020-01-29 14:57:19 2020-01-29 16:21:38 Office Visit Loree Harper [facility] Pérez Carvalho 1.2.840.114 350.1.13.10 4.2.7.2.686 [id number] [facility] 2020-01-29 15:00:00 2020-01-29 15:00:00 Outpatient R LOREE HARPER SHINDRadha [facility] [id number] [facility] 2020-01-12 12:51:16 2020-01-28 10:44:34 Office Visit Aracely Beverly 1.2.840.1 41865.1.1 3.104.2.7 .3.629851 .8 [id number] [facility] 2020-01-25 00:00:00 2020-01-25 00:00:00 Telephone Minal Manning 1.2.840.1 09003.1.1 3.104.2.7 .3.259765 .8 [id number] [facility] 2020-01-21 14:57:35 2020-01-21 15:50:57 Office Visit Minal Manning 1.2.840.1 71513.1.1 3.104.2.7 .3.618429 .8 [id number] [facility] 2020-01-21 15:30:00 2020-01-21 15:30:00 Outpatient R MINAL MANNING [facility] [id number] [facility] 2020-01-21 00:00:00 2020-01-21 00:00:00 Case Management Lory Thao 1.2.840.1 96422.1.1 3.104.2.7 .3.248764 .8 [id number] [facility] 2020-01-21 00:00:00 2020-01-21 00:00:00 Mireille Alvarez 1.840.1 08980.1.1 3.104.2.7 .3.241906 .8 [id number] [facility] 2020-01-21 00:00:00 2020-01-21 00:00:00 Orders Only Doctor Unassigned, Amesti 1.840.1 66043.1.1 3.104.2.7 .3.600049 .8 [id number] [facility] 2020-01-12 15:36:47 2020-01-12 16:43:20 Office Visit Geeta Clark 1.840.1 35479.1.1 3.104.2.7 .3.927366 .8 [id number] [facility] 2020-01-12 16:00:00 2020-01-12 16:00:00 Outpatient R GEETA CLARK [facility] [id number] [facility] 2020-01-06 08:25:05 2020-01-06 09:58:41 Office Visit Philip Barrientos 1.840.1 97477.1.1 3.104.2.7 .3.284018 .8 [id number] [facility] 2020-01-06 00:00:00 2020-01-06 00:00:00 Orders Only Doctor Unassigned, Amesti 1.840.1 84592.1.1 3.104.2.7 .3.225957 .8 [id number] [facility] 2020-01-05 00:00:00 2020-01-05 00:00:00 Telephone Minal Manning 1.2840.1 11105.1.1 3.104.2.7 .3.027621 .8 [id number] [facility] 2019-12-29 13:10:34 2019-12-30 10:10:15 Office Visit Aracely Beverly 1.840.1 14135.1.1 3.104.2.7 .3.705170 .8 [id number] [facility] 2019-12-22 14:23:15 2019-12-25 10:54:14 Office Visit ShivabetseyAracely land 1.2.840.1 78442.1.1 3.104.2.7 .3.772624 .8 [id number] [facility] 2019-12-24 11:34:07 2019-12-24 13:01:41 Office Visit Veronica Hanson Emy 1.2.840.1 84297.1.1 3.104.2.7 .3.754510 .8 [id number] [facility] 2019-12-17 08:20:00 2019-12-17 23:59:00 Hospital Encounter Philip Barrientos Anesthesia- Yanira, Ep Lab Outpt-Yanira, Ep Lab 1.2840.1 85551.1.1 3.104.2.7 .3.171997 .8 [id number] [facility] 2019-12-17 12:18:38 2019-12-17 12:18:38 Anesthesia Event Shelly Evans 1.2.840.1 44113.1.1 3.104.2.7 .3.178625 .8 [id number] [facility] 2019-12-17 00:00:00 2019-12-17 00:00:00 Case Management Lory Thao 1.2.840.1 11974.1.1 3.104.2.7 .3.654820 .8 [id number] [facility] 2019-12-17 00:00:00 2019-12-17 00:00:00 Telephone Philip Barrientos 1.2.840.1 38270.1.1 3.104.2.7 .3.705356 .8 [id number] [facility] 2019-12-16 00:00:00 2019-12-16 00:00:00 Refill Geeta Clark A 1.2840.1 34439.1.1 3.104.2.7 .3.014994 .8 [id number] [facility] 2019-12-16 00:00:00 2019-12-16 00:00:00 Telephone Charlinedeonna Philip ramos 1.840.1 65079.1.1 3.104.2.7 .3.441707 .8 [id number] [facility] 2019-12-15 14:45:00 2019-12-15 16:13:21 Outpatient R ARACELY BEVERLY [facility] [id number] [facility] 2019-12-15 14:20:38 2019-12-15 16:13:21 Office Visit Aracely Beverly S 1.2840.1 98213.1.1 3.104.2.7 .3.390821 .8 [id number] [facility] 2019-12-12 00:00:00 2019-12-12 00:00:00 Refill Geeta Clark A 1.2840.1 84166.1.1 3.104.2.7 .3.225838 .8 [id number] [facility] 2019-12-11 00:00:00 2019-12-11 00:00:00 Refill Mireille Mclain 1.2840.1 74719.1.1 3.104.2.7 .3.215567 .8 [id number] [facility] 2019-12-08 00:00:00 2019-12-08 00:00:00 Orders Only Doctor Unassigned, Amesti 1.2840.1 57438.1.1 3.104.2.7 .3.068160 .8 [id number] [facility] 2019-12-04 00:00:00 2019-12-04 00:00:00 Telephone Geeta Clark A 1.2840.1 03864.1.1 3.104.2.7 .3.164959 .8 [id number] [facility] 2019-12-01 09:00:07 2019-12-01 16:14:20 Office Visit Philip Barrientos 1.2.840.1 86920.1.1 3.104.2.7 .3.661978 .8 [id number] [facility] 2019-12-01 15:27:53 2019-12-01 16:13:16 Office Visit Geeta Clark 1.2.840.1 32673.1.1 3.104.2.7 .3.671886 .8 [id number] [facility] 2019-12-01 00:00:00 2019-12-01 00:00:00 Telephone Philip Barrientos 1.2.840.1 93378.1.1 3.104.2.7 .3.535521 .8 [id number] [facility] 2019-11-25 00:00:00 2019-11-25 00:00:00 Telephone Geeta Clark 1.2.840.1 54392.1.1 3.104.2.7 .3.056631 .8 [id number] [facility] 2019-11-25 00:00:00 2019-11-25 00:00:00 Orders Only Doctor Unassigned, Amesti 1.2.840.1 10668.1.1 3.104.2.7 .3.269912 .8 [id number] [facility] 2019-11-24 13:12:26 2019-11-24 13:45:19 Office Visit Aracely Beverly 1.2.840.1 88232.1.1 3.104.2.7 .3.469883 .8 [id number] [facility] 2019-11-24 00:00:00 2019-11-24 00:00:00 Telephone Geeta Clark 1.2.840.1 01523.1.1 3.104.2.7 .3.806993 .8 [id number] [facility] 2019-11-24 00:00:00 2019-11-24 00:00:00 Telephone Geeta Clark 1.2.840.1 35737.1.1 3.104.2.7 .3.029699 .8 [id number] [facility] 2019-11-19 00:00:00 2019-11-19 00:00:00 Telephone Geeta Clark 1.2.840.1 96371.1.1 3.104.2.7 .3.577998 .8 [id number] [facility] 2019-11-18 00:00:00 2019-11-18 00:00:00 Case Management Geeta Clark 1.2.840.1 12052.1.1 3.104.2.7 .3.935896 .8 [id number] [facility] 2019-11-16 00:00:00 2019-11-16 00:00:00 Orders Only Doctor Unassigned, Amesti [facility] 1.2.840.114 350.1.13.10 4.2.7.2.686 [id number] 009 [id number] [facility] 2019-11-13 00:00:00 2019-11-13 00:00:00 Telephone Geeta Clark 1.2.840.1 01830.1.1 3.104.2.7 .3.120301 .8 [id number] [facility] 2019-11-13 00:00:00 2019-11-13 00:00:00 Telephone Minal Manning 1.2.840.1 06391.1.1 3.104.2.7 .3.973636 .8 [id number] [facility] 2019-11-13 00:00:00 2019-11-13 00:00:00 Patient Outreach Kamille cMwilliams 1.2.840.1 48881.1.1 3.104.2.7 .3.906591 .8 [id number] [facility] 2019-11-13 00:00:00 2019-11-13 00:00:00 Orders Only Doctor Unassigned, Amesti 1.2.840.1 04978.1.1 3.104.2.7 .3.545121 .8 [id number] [facility] 2019-11-12 00:00:00 2019-11-12 00:00:00 Refill Minal Manning 1.2.840.1 55394.1.1 3.104.2.7 .3.651689 .8 [id number] [facility] 2019-11-12 00:00:00 2019-11-12 00:00:00 Refill Geeta Clark 1.2.840.1 05043.1.1 3.104.2.7 .3.535851 .8 [id number] [facility] 2019-11-10 00:00:00 2019-11-10 00:00:00 Refill Minal Manning 1.2.840.1 29556.1.1 3.104.2.7 .3.369343 .8 [id number] [facility] 2019-11-09 10:28:00 2019-11-09 23:59:00 Hospital Encounter Geeta Clark 1.2.840.1 76806.1.1 3.104.2.7 .3.388037 .8 [id number] [facility] 2019-11-09 10:27:30 2019-11-09 10:27:00 Outpatient R GEETA CLARK [facility] [id number] [facility] 2019-11-09 10:27:00 2019-11-09 10:27:00 Hospital Encounter Benzie, Wondiful A 1.2.840.1 94415.1.1 3.104.2.7 .3.685251 .8 [id number] [facility] 2019-10-29 15:28:19 2019-10-29 16:29:47 Office Visit Geeta Clark 1.2.840.1 21250.1.1 3.104.2.7 .3.010405 .8 [id number] [facility] 2019-10-29 00:00:00 2019-10-29 00:00:00 Refill Geeta Clark A 1.2.840.1 91922.1.1 3.104.2.7 .3.235306 .8 [id number] [facility] 2019-10-29 00:00:00 2019-10-29 00:00:00 Refill Minal Manning 1.2.840.1 99240.1.1 3.104.2.7 .3.942631 .8 [id number] [facility] 2019-10-29 00:00:00 2019-10-29 00:00:00 Telephone Geeta Clark 1.2.840.1 35612.1.1 3.104.2.7 .3.797367 .8 [id number] [facility] 2019-10-28 09:04:35 2019-10-28 23:59:00 Outpatient R ALYSSIA ISABEL [facility] [id number] [facility] 2019-10-28 09:04:00 2019-10-28 23:59:00 Hospital Encounter Alyssia Isabel 1.2.840.1 37707.1.1 3.104.2.7 .3.966545 .8 [id number] [facility] 2019-10-26 00:00:00 2019-10-26 00:00:00 Refill Minal Manning 1.2.840.1 33079.1.1 3.104.2.7 .3.786726 .8 [id number] [facility] 2019-10-26 00:00:00 2019-10-26 00:00:00 Minal Andrade 1.840.1 60503.1.1 3.104.2.7 .3.324168 .8 [id number] [facility] 2019-10-23 00:00:00 2019-10-23 00:00:00 Telephone Geeta Clark 1.840.1 72856.1.1 3.104.2.7 .3.244147 .8 [id number] [facility] 2019-10-23 00:00:00 2019-10-23 00:00:00 Transition of Care Mili Eva 1.0.1 64210.1.1 3.104.2.7 .3.109284 .8 [id number] [facility] 2019-10-16 16:37:32 2019-10-22 18:29:00 Outpatient X ILAN LINDER [facility] [id number] [facility] 2019-10-16 16:37:32 2019-10-22 18:29:00 Emergency Mireille Saini, Ilan [place] 1.0.1 40929.1.1 3.104.2.7 .3.609099 .8 [id number] [facility] 2019-10-16 00:00:00 2019-10-16 00:00:00 Orders Only Doctor Unassigned, Amesti 1.840.1 60299.1.1 3.104.2.7 .3.575648 .8 [id number] [facility] 2019-10-14 00:00:00 2019-10-14 00:00:00 RefMireille Chopra 1.840.1 00985.1.1 3.104.2.7 .3.007860 .8 [id number] [facility] 2019-10-12 00:00:00 2019-10-12 00:00:00 Refill Manning Minal Nichols 1.2.840.1 42859.1.1 3.104.2.7 .3.529754 .8 [id number] [facility] 2019-10-08 00:00:00 2019-10-08 00:00:00 Telephone Manning Minal Nichols 1.2.840.1 58864.1.1 3.104.2.7 .3.667022 .8 [id number] [facility] 2019-10-02 08:54:08 2019-10-02 10:32:20 Office Visit Minal Manning 1.2.840.1 71734.1.1 3.104.2.7 .3.136770 .8 [id number] [facility] 2019-09-21 00:00:00 2019-09-21 00:00:00 Refill Kerri Minal Nichols 1.2.840.1 26889.1.1 3.104.2.7 .3.186320 .8 [id number] [facility] 2019-09-16 12:27:41 2019-09-16 14:38:56 Office Visit Katerina Saldana 1.2.840.1 14330.1.1 3.104.2.7 .3.912117 .8 [id number] [facility] 2019-09-15 00:00:00 2019-09-15 00:00:00 Refill Geeta Clark 1.2.840.1 26646.1.1 3.104.2.7 .3.968563 .8 [id number] [facility] 2019-08-26 00:00:00 2019-08-26 00:00:00 Refill Katerina Saldana 1.2.840.1 61110.1.1 3.104.2.7 .3.686396 .8 [id number] [facility] 2019-08-13 16:42:24 2019-08-20 09:15:45 Hepatology Physician Visit Geeta Clark 1, [facility] 1.2.840.1 51519.1.1 3.104.2.7 .3.654856 .8 [id number] [facility] 2019-08-17 11:57:37 2019-08-18 08:38:05 Office Visit Juan Miguel Anguiano 1.2.840.1 13075.1.1 3.104.2.7 .3.005402 .8 [id number] [facility] 2019-08-17 14:44:00 2019-08-17 23:59:00 Hospital Encounter Juan Miguel Anguiano 1.2.840.1 26394.1.1 3.104.2.7 .3.151304 .8 [id number] [facility] 2019-08-17 00:00:00 2019-08-17 00:00:00 Telephone Geeta Clark 1.2.840.1 94499.1.1 3.104.2.7 .3.968377 .8 [id number] [facility] 2019-08-15 00:00:00 2019-08-15 00:00:00 Refill Geeta Clark 1.2.840.1 28578.1.1 3.104.2.7 .3.999305 .8 [id number] [facility] 2019-08-13 15:49:29 2019-08-13 16:24:46 Office Visit Geeta Clark 1.2.840.1 55610.1.1 3.104.2.7 .3.517734 .8 [id number] [facility] 2019-08-10 00:00:00 2019-08-10 00:00:00 Refill Katerina Saldana 1.2.840.1 60611.1.1 3.104.2.7 .3.657121 .8 [id number] [facility] 2019-08-07 00:00:00 2019-08-07 00:00:00 Refill Marilia Manningil K.H. 1.2.840.1 93721.1.1 3.104.2.7 .3.250884 .8 [id number] [facility] 2019-08-07 00:00:00 2019-08-07 00:00:00 Refill Kerri Sendil K.H. 1.2.840.1 26888.1.1 3.104.2.7 .3.664880 .8 [id number] [facility] 2019-07-27 00:00:00 2019-07-27 00:00:00 Refill Kerri Sendil K.H. 1.2.840.1 68150.1.1 3.104.2.7 .3.625306 .8 [id number] [facility] 2019-07-23 14:24:45 2019-07-23 14:55:45 Office Visit Loree Harper 1.2.840.1 36014.1.1 3.104.2.7 .3.917604 .8 [id number] [facility] 2019-07-21 12:44:01 2019-07-21 13:41:23 Office Visit Geeta Clark 1.2.840.1 13498.1.1 3.104.2.7 .3.264668 .8 [id number] [facility] 2019-07-21 00:00:00 2019-07-21 00:00:00 Orders Only Doctor Unassigned, Amesti 1.2.840.1 70744.1.1 3.104.2.7 .3.600466 .8 [id number] [facility] 2019-07-08 00:00:00 2019-07-08 00:00:00 Refill Minal Manning 1.2.840.1 12994.1.1 3.104.2.7 .3.720887 .8 [id number] [facility] 2019-07-07 00:00:00 2019-07-07 00:00:00 Orders Only Doctor Unassigned, Amesti [facility] 1.2.840.114 350.1.13.10 4.2.7.2.686 [id number] [id number] [facility] 2019-07-06 15:01:00 2019-07-06 15:16:00 Office Visit Katerina Sladana 1.2.840.1 22475.1.1 3.104.2.7 .3.798979 .8 [id number] [facility] 2019-07-06 00:00:00 2019-07-06 00:00:00 Telephone Minal Manning 1.2.840.1 14881.1.1 3.104.2.7 .3.620376 .8 [id number] [facility] 2019-07-02 13:12:13 2019-07-02 13:55:01 Office Visit Juan Miguel Anguiano 1.2.840.1 40910.1.1 3.104.2.7 .3.830895 .8 [id number] [facility] 2019-07-02 00:00:00 2019-07-02 00:00:00 Telephone Minal Manning 1.2.840.1 49398.1.1 3.104.2.7 .3.720395 .8 [id number] [facility] 2019-06-26 13:29:26 2019-06-26 14:00:51 Office Visit Minal Manning [facility] 1.2.840.114 350.1.13.10 4.2.7.2.686 [id number] [facility] 2019-06-26 00:00:00 2019-06-26 00:00:00 Telephone Minal Manning 1.2.840.1 26001.1.1 3.104.2.7 .3.729619 .8 [id number] [facility] 2019-06-18 09:11:22 2019-06-18 16:12:17 Office Visit Shaun Bahena 1.840.1 01350.1.1 3.104.2.7 .3.088623 .8 [id number] [facility] 2019-06-10 00:00:00 2019-06-10 00:00:00 Telephone Karli Barros 1.840.1 15830.1.1 3.104.2.7 .3.930408 .8 [id number] [facility] 2019-04-16 14:23:48 2019-06-08 21:39:11 Office Visit Minal Manning 1..840.1 65015.1.1 3.104.2.7 .3.990269 .8 [id number] [facility] 2019-06-08 14:36:46 2019-06-08 14:51:46 Hepatology Physician Visit Karli Barros 1, [facility] Lab 1.840.1 44269.1.1 3.104.2.7 .3.114885 .8 [id number] [facility] 2019-06-08 13:28:05 2019-06-08 14:20:33 Office Visit Karli Barros 1.2840.1 16212.1.1 3.104.2.7 .3.208547 .8 [id number] [facility] 2019-06-08 00:00:00 2019-06-08 00:00:00 Orders Only Doctor Unassigned, Amesti 1.840.1 75319.1.1 3.104.2.7 .3.022440 .8 [id number] [facility] 2019-06-02 00:00:00 2019-06-02 00:00:00 Telephone Minal Manning 1.2.840.1 76430.1.1 3.104.2.7 .3.501046 .8 [id number] [facility] 2019-06-01 14:15:37 2019-06-01 14:45:37 Office Visit Les Katerina 1.2.840.1 20663.1.1 3.104.2.7 .3.474547 .8 [id number] [facility] 2019-05-28 00:00:00 2019-05-28 00:00:00 Refill Minal Manning 1.2.840.1 38007.1.1 3.104.2.7 .3.755425 .8 [id number] [facility] 2019-05-28 00:00:00 2019-05-28 00:00:00 Telephone Minal Manning 1.2.840.1 98048.1.1 3.104.2.7 .3.589277 .8 [id number] [facility] 2019-05-14 12:51:59 2019-05-14 13:39:00 Office Visit Karli Barros 1.2.840.1 72265.1.1 3.104.2.7 .3.984513 .8 [id number] [facility] 2019-05-08 13:36:06 2019-05-08 23:59:00 Hospital Encounter Karli Barros 1.2.840.1 58908.1.1 3.104.2.7 .3.003799 .8 [id number] [facility] 2019-05-08 00:00:00 2019-05-08 00:00:00 Orders Only Doctor Unassigned, Amesti 1.2.840.1 36604.1.1 3.104.2.7 .3.782949 .8 [id number] [facility] 2019-05-01 00:00:00 2019-05-01 00:00:00 Telephone Katerina Saldana 1.2.840.1 41896.1.1 3.104.2.7 .3.629829 .8 [id number] [facility] 2019-04-29 13:27:44 2019-04-29 14:50:21 Office Visit Katerina Saldana 1.2.840.1 54470.1.1 3.104.2.7 .3.251508 .8 [id number] [facility] 2019-04-24 00:00:00 2019-04-24 00:00:00 Telephone Karli Barros 1.2.840.1 57491.1.1 3.104.2.7 .3.299278 .8 [id number] [facility] 2019-04-24 00:00:00 2019-04-24 00:00:00 Telephone aKrli Barros 1.2.840.1 74688.1.1 3.104.2.7 .3.691173 .8 [id number] [facility] 2019-04-24 00:00:00 2019-04-24 00:00:00 Case Management Karli Barros 1.2.840.1 13766.1.1 3.104.2.7 .3.850422 .8 [id number] [facility] 2019-04-22 00:00:00 2019-04-22 00:00:00 Refill Geeta Clark 1.2.840.1 01247.1.1 3.104.2.7 .3.505080 .8 [id number] [facility] 2019-04-18 13:24:16 2019-04-18 15:50:35 Hepatology Physician Visit Karli Barros 1, [facility] 1.2.840.1 60982.1.1 3.104.2.7 .3.813028 .8 [id number] [facility] 2019-04-16 12:58:46 2019-04-16 13:37:36 Office Visit Franklin Waddell 1.2.840.1 80574.1.1 3.104.2.7 .3.590992 .8 [id number] [facility] 2019-04-15 14:13:47 2019-04-15 15:29:39 Office Visit Katerina Saldana 1.2.840.1 69603.1.1 3.104.2.7 .3.765965 .8 [id number] [facility] 2019-04-15 00:00:00 2019-04-15 00:00:00 Orders Only Doctor Unassigned, Amesti 1..840.1 36126.1.1 3.104.2.7 .3.708532 .8 [id number] [facility] 2019-04-11 00:00:00 2019-04-11 00:00:00 Case Management Karli Barros 1.2.840.1 39289.1.1 3.104.2.7 .3.961400 .8 [id number] [facility] 2019-04-10 13:18:18 2019-04-10 15:06:48 Office Visit Benito King 1.2.840.1 08658.1.1 3.104.2.7 .3.608725 .8 [id number] [facility] 2019-04-07 10:09:19 2019-04-07 10:44:32 Office Visit Geeta Clark 1.2.840.1 07626.1.1 3.104.2.7 .3.495150 .8 [id number] [facility] 2019-04-02 00:00:00 2019-04-02 00:00:00 Telephone Katerina Saldana 1.2.840.1 89865.1.1 3.104.2.7 .3.126907 .8 [id number] [facility] 2019-04-02 00:00:00 2019-04-02 00:00:00 Telephone Geeta Clark 1.2.840.1 24771.1.1 3.104.2.7 .3.243052 .8 [id number] [facility] 2015-11-24 00:00:00 2015-11-24 00:00:00 Orders Only Doctor Unassigned, Amesti [facility] 1.2.840.114 350.1.13.10 4.2.7.2.686 [id number] [facility] Results Test Description Test Time Test Comments Results Result Co mments Source [facility] (NA, K, CL, CO2, GLUCOSE, BUN, CREATININE, CA)2024-12-18 14:12:57* Test Item Value Reference Range Interpretation Comme nts NA (test code = 7016286077) 132 mmol/L 135-145 L K (test code = 2652013056) 3.9 mmol/L 3.5-5.0 CL (test code = 2570711558) 99 mmol/L 98-108 CO2 TOTAL (test code = 0514189631) 32 mmol/L 23-31 H AGAP (test code = 8225491956) 1 2-16 L BUN (test code = 6877170109) 3 mg/dL 7-23 L GLUCOSE (test code = 9408999453) 85 mg/dL 70-110 CREATININE (test code = 2160-0) 0.61 mg/dL 0.50-1.04 CALCIUM (test code = 2495690770) 8.8 mg/dL 8.6-10.6 eGFR (test code = 32651-9) 110.4 mL/min/1.73m2 CKD-EPI eGFR (2020). Assuming creatinine has been stable day-to-day for at least three months, the eGFR indicates Category G1 (>= 90 mL/min/1.73 m2) Lab Interpretation (test code = 59595-7) Abnormal [facility], [id number] 14:11:52* Test Item Value Reference Range Interpretation Comme nts PREG SERUM (test code = 6896863760) Negative HELEN (test code = HELEN) Less than 10 IU/L. ?If low titer or ectopic is suspected, resubmit specimen in 48-72 hours. [facility], [id number] 14:11:52* Test Item Value Reference Range Interpretation Comme nts PREG SERUM (test code = 5454339793) Negative HELEN (test code = HELEN) Less than 10 IU/L. ?If low titer or ectopic is suspected, resubmit specimen in 48-72 hours. [facility] [id number] 13:53:43 Tilt Table Test Procedure NoteProcedure: Tilt Table Test Indication: Palpitations, Near Syncope Technique: The risks, benefits, and alternatives of procedure were explained to patient. All questions were answered and informed consent obtained. The patient was brought to the electrophysiology lab romulo fasting, nonsedated state. The patient was placed supine for 10 minutes while baseline readings were obtained under continuous blood pressure, heart rate, EKG, and pulse oximeter monitoring. Baseline blood pressure was 131/99 and heart rate was 77. The patient was then tilted to 80 degrees. Immediately after tilt, the blood pressure was 145/127 and heart rate was 86. During the next five minutes, the blood pressure remained elevated at 145/123 and heart rate stable at 84. Patient noted dizziness, nausea, feeling warm - similar to clinical symptoms. During the next 15 minutes, the blood pressure remained elevated at 158/113 and heart rate stable a 78. Symptoms persistent during this period. The patient was subsequently returned to supine position with blood pressure returning to baselineat 140/100 and HR stable at 76 Impression: Significant elevation in diastolic blood pressure with tilting associated with clinical symptoms correlated with orthostatic hypertension. Plan: Discussed minimizing salt, graded exercise program, counter pressure maneuvers. Start amlodipine 5 mg daily, uptitrate as necessary. Continue rest of medications. Follow up with general cardiology Theodore Garay, MDCardiac ElectrophysiologyUnWise Health Surgical Hospital at ParkwayPROTHROMBIN TIME / [id number] 13:43:18* Test Item Value Reference Range Interpretation Comme nts PROTIME PATIENT (test code = 5964-2) 11.0 10.1-12.6 INR (test code = 6301-6) 1.0 Normal INR <1.1; Warfarin Therapeutic range 2.0 to 3.0 or 2.5 to 3.5, depending upon the indications. Lab Interpretation (test code = 32751-9) Normal [facility]PROTHROMBIN [facility] / [id number] 13:43:18* Test Item Value Reference Range Interpretation Comme nts PROTIME PATIENT (test code = 5964-2) 11.0 10.1-12.6 INR (test code = 6301-6) 1.0 Normal INR <1.1; Warfarin Therapeutic range 2.0 to 3.0 or 2.5 to 3.5, depending upon the indications. Lab Interpretation (test code = 51954-2) Normal [facility]roeCBC WITH [id number] 13:40:17* Test Item Value Reference Range Interpretation Comme nts WBC (test code = 6690-2) 9.46 4.30-11.10 RBC (test code = 789-8) 5.02 3.93-5.25 HGB (test code = 718-7) 15.4 g/dL 11.6-15.0 H HCT (test code = 4544-3) 43.7 % 35.7-45.2 MCV (test code = 787-2) 87.1 fL 80.6-95.5 MCH (test code = 785-6) 30.7 pg 25.9-32.8 MCHC (test code = 786-4) 35.2 g/dL 31.6-35.1 H RDW-SD (test code = 21759-8) 39.9 fL 39.0-49.9 RDW-CV (test code = 788-0) 12.6 % 12.0-15.5 PLT (test code = 777-3) 241 166-358 MPV (test code = 35916-7) 8.3 fL 9.5-12.9 L NRBC/100 WBC (test code = 2092197656) 0.0 0.0-10.0 NRBC x10^3 (test code = 7458110069) See_Comment [Automated messa ge] The system which generated this result transmitted reference range: 10*3/?L. The reference range was not used to interpret this result as normal/abnormal. GRAN MAT (NEUT) % (test code = 770-8) 51.3 % IMM GRAN % (test code = 7342083947) 0.30 % LYMPH % (test code = 736-9) 38.6 % MONO % (test code = 5905-5) 8.5 % EOS % (test code = 713-8) 0.6 % BASO % (test code = 706-2) 0.7 % GRAN MAT x10^3(ANC) (test code = 5106214256) 4.85 10*3/uL 1.88-7.09 IMM GRAN x10^3 (test code = 8057564124) 0.03 10*3/uL 0.00-0.06 LYMPH x10^3 (test code = 731-0) 3.65 10*3/uL 1.32-3.29 H MONO x10^3 (test code = 742-7) 0.80 10*3/uL 0.33-0.92 EOS x10^3 (test code = 711-2) 0.06 10*3/uL 0.03-0.39 BASO x10^3 (test code = 704-7) 0.07 10*3/uL 0.01-0.07 Lab Interpretation (test code = 00574-2) Abnormal [facility] WITH [id number] 13:40:17* Test Item Value Reference Range Interpretation Comme nts WBC (test code = 6690-2) 9.46 4.30-11.10 RBC (test code = 789-8) 5.02 3.93-5.25 HGB (test code = 718-7) 15.4 g/dL 11.6-15.0 H HCT (test code = 4544-3) 43.7 % 35.7-45.2 MCV (test code = 787-2) 87.1 fL 80.6-95.5 MCH (test code = 785-6) 30.7 pg 25.9-32.8 MCHC (test code = 786-4) 35.2 g/dL 31.6-35.1 H RDW-SD (test code = 36993-4) 39.9 fL 39.0-49.9 RDW-CV (test code = 788-0) 12.6 % 12.0-15.5 PLT (test code = 777-3) 241 166-358 MPV (test code = 71366-3) 8.3 fL 9.5-12.9 L NRBC/100 WBC (test code = 8372193443) 0.0 0.0-10.0 NRBC x10^3 (test code = 7024628050) See_Comment [Automated messa ge] The system which generated this result transmitted reference range: 10*3/?L. The reference range was not used to interpret this result as normal/abnormal. GRAN MAT (NEUT) % (test code = 770-8) 51.3 % IMM GRAN % (test code = 3291625690) 0.30 % LYMPH % (test code = 736-9) 38.6 % MONO % (test code = 5905-5) 8.5 % EOS % (test code = 713-8) 0.6 % BASO % (test code = 706-2) 0.7 % GRAN MAT x10^3(ANC) (test code = 1109727109) 4.85 10*3/uL 1.88-7.09 IMM GRAN x10^3 (test code = 6794570268) 0.03 10*3/uL 0.00-0.06 LYMPH x10^3 (test code = 731-0) 3.65 10*3/uL 1.32-3.29 H MONO x10^3 (test code = 742-7) 0.80 10*3/uL 0.33-0.92 EOS x10^3 (test code = 711-2) 0.06 10*3/uL 0.03-0.39 BASO x10^3 (test code = 704-7) 0.07 10*3/uL 0.01-0.07 Lab Interpretation (test code = 40344-3) Abnormal [facility] MOLECULAR [id number] 22:50:34* Test Item Value Reference Range Interpretation Comme nts POCT Molecular Strep (test c ode = 68787-6) Negative Negative Lab Interpretation (test cod e = 14970-9) Normal [facility] ConroeLipid Panel (75069)(Total Cholesterol, Triglycerides, HDL)2024-10-15 04:13:35* Test Item Value Reference Range Interpretation Comme nts CHOL (test code = 7129286361) 169 mg/dL 120-200 HDL (test code = 3761988710) 55 mg/dL >=50 HDLC RATIO (test code = 9046909745) 3.1 <=4.5 TRIG (test code = 1502864977) 220 mg/dL 30-170 H LDL CHOL (test code = 22265-9) 70 mg/dL <=160 VLDL (test code = 3664761640) 44 mg/dL 5-60 Lab Interpretation (test cod e = 32245-9) Abnormal [facility]roeCT ABDOMEN PELVIS W [id number] 02:42:20ORDERING PHYSICIAN:GABY MCINTYRE CLINICAL INFORMATION: ? LLQ pain COMPARISON: 03/20/2022 Technique: ? CT of the abdomen and pelvis was performed after theadministration of IV contrast. No p.o. contrast was used. Multiplanarreformats were also obtained. This study was performed according to ALARAprinciple for radiation dose reduction. Findings: There is no evidence of obstructive uropathy. No suspicious renalparenchymal abnormalities are seen. Gallbladder surgically absent. Liver,spleen, adrenal glands, and pancreas show no evidence of grossabnormalities. 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 Thereis no bowel obstruction. Appendix is normal. No free intraperitoneal air orfluid are present. No pathologically enlarged lymph nodes are seen in theabdomen or pelvis. The lung basesare clear. No suspicious focal osseous lesions.[facility] ConroeThyroid Stimulating Hormone 2024-10-14 23:18:45* Test Item Value Reference Range Interpretation Comme nts TSH (test code = 1805063708) 2.43 0.45-4.70 Biotin has been reported to cause a negative bias, interpret results relative to patient's use of biotin. Lab Interpretation (test code = 56684-6) Normal [facility]roeN-TERMINAL [id number] 22:56:22* Test Item Value Reference Range Interpretation Comme nts NT-proBNP (test code = 57099-0) 39 pg/mL <=125 Lab Interpretation (test cod e = 62393-2) Normal [facility] ConroeMAGNESIUM2024-11-27 22:51:43* Test Item Value Reference Range Interpretation Comme nts MAGNESIUM (test code = 3619515384) 1.8 mg/dL 1.7-2.4 Lab Interpretation (test cod e = 58183-3) Normal [facility] ConroeCOMP. METABOLIC PANEL (64315)2024-10-14 22:51:22* Test Item Value Reference Range Interpretation Comme nts NA (test code = 7387508714) 136 mmol/L 135-145 K (test code = 6059914298) 4.8 mmol/L 3.5-5.0 CL (test code = 7283756611) 100 mmol/L 98-108 CO2 TOTAL (test code = 8505976132) 30 mmol/L 23-31 AGAP (test code = 0309884353) 6 2-16 BUN (test code = 9271286847) 4 mg/dL 7-23 L GLUCOSE (test code = 4250462815) 86 mg/dL 70-110 CREATININE (test code = 2160-0) 0.69 mg/dL 0.50-1.04 TOTAL BILI (test code = 5703678296) 0.5 mg/dL 0.1-1.1 CALCIUM (test code = 5799534110) 9.4 mg/dL 8.6-10.6 T PROTEIN (test code = 2953836078) 6.5 g/dL 6.3-8.2 ALBUMIN (test code = 9391252621) 4.3 g/dL 3.5-5.0 ALK PHOS (test code = 1263640154) 67 U/L 34-122 ALTv (test code = 1742-6) 42 U/L 5-35 H AST(SGOT) (test code = 0881639098) 61 U/L 13-40 H eGFR (test code = 85423-1) 107.2 mL/min/1.73m2 CKD-EPI eGFR (2020). Assuming creatinine has been stable day-to-day for at least three months, the eGFR indicates Category G1 (>= 90 mL/min/1.73 m2) Lab Interpretation (test code = 58579-9) Abnormal [facility] ConroeXR CHEST 2 [id number] 20:17:52EXAM: XR CHEST 2 VW COMPARISON: Chest radiograph dated 09/06/2023 HISTORY: Complaints of stitch coming out of her lower abdomen. Concern forpneumonia. FINDINGS: Lungs: The lungs are well expanded andclear. No focal opacity. No pleuralabnormality. Heart/Mediastinum: The cardiomediastinal silhouetteis unremarkable. Bones and soft tissues: No acute osseous abnormality is visualized.[facility] ConroeFB Removal [id number] 17:32:59Vandana Green FNP ? ? 10/10/2024 12:53 PMFB Removal Embedded Date/Time: 10/10/2024 11:32 AM Performed by: Vandana Green FNPAuthorized by: Vandana Green FNP ?Consent: ?Consent obtained: ?Emergent situation and verbal ?Consent given by: ?Patient ?Risks, benefits, and alternatives were discussed: yes ? ?Risks discussed: ?Bleeding, infection, pain, poor cosmetic result and incomplete removal ?Alternatives discussed: ?ReferralUniversal protocol: ?Immediately prior to procedure, a time out was called: yes ? ?Patient identity confirmed: ?Arm bandLocation: ?Location: ?Trunk ?Trunk location: ?LLQ abd ?Depth: ?Intradermal ?Tendon involvement: ?NonePre-procedure details: ?Imaging: ?None ?Neurovascular status: intact ?Anesthesia: ?Anesthesia method: ?NoneProcedure details: ?Localization method: ?Visualized ?Dissection of underlying tissues: no ? ?Removal mechanism: scissors. ?Foreign bodies recovered: ?1 ?Description: ?Prolene suture ?Intact foreign body: unable to specify. ?Post-procedure details: ?Neurovascular status: intact ? ?Skin closure: ?NoneUnWise Health Surgical Hospital at ParkwayPOCT Molecular [id number] 20:44:55* Test Item Value Reference Range Interpretation Comme nts POCT Molecular FluA (test co de = 00607-8) Negative Negative POCT Molecular FluB (test co de = 97558-4) Negative Negative Lab Interpretation (test cod e = 43049-2) Normal [facility] ConroePHYSICIAN [id number] 19:00:48Ordered by an unspecified provider.[facility] Molecular Flu 2023-11-13 21:37:07* Test Item Value Reference Range Interpretation Comme nts POCT Molecular FluA (test co de = 38221-8) Negative Negative POCT Molecular FluB (test co de = 42936-2) Negative Negative Lab Interpretation (test cod e = 73021-0) Normal [facility] MOLECULAR [id number] 21:27:51* Test Item Value Reference Range Interpretation Comme nts POCT Molecular Strep (test c ode = 71528-8) Negative Negative Lab Interpretation (test cod e = 31222-9) Normal [facility] WITH [id number] 21:11:40* Test Item Value Reference Range Interpretation Comme nts WBC (test code = 6690-2) 6.86 See_Comment [Automated messa ge] The system which generated this result transmitted reference range: 4.30 - 11.10 10*3/?L. The reference range was not used to interpret this result as normal/abnormal. RBC (test code = 789-8) 4.70 See_Comment [Automated messa ge] The system which generated this result transmitted reference range: 3.93 - 5.25 10*6/?L. The reference range was not used to interpret this result as normal/abnormal. HGB (test code = 718-7) 14.7 g/dL 11.6-15.0 HCT (test code = 4544-3) 44.2 % 35.7-45.2 MCV (test code = 787-2) 94.0 fL 80.6-95.5 MCH (test code = 785-6) 31.3 pg 25.9-32.8 MCHC (test code = 786-4) 33.3 g/dL 31.6-35.1 RDW-SD (test code = 31879-2) 44.5 fL 39.0-49.9 RDW-CV (test code = 788-0) 13.0 % 12.0-15.5 PLT (test code = 777-3) 258 See_Comment [Automated messa ge] The system which generated this result transmitted reference range: 166 - 358 10*3/?L. The reference range was not used to interpret this result as normal/abnormal. MPV (test code = 81762-6) 9.6 fL 9.5-12.9 NRBC/100 WBC (test code = 2671588247) 0.0 See_Comment [Automated me ssage] The system which generated this result transmitted reference range: 0.0 - 10.0 /100 WBCs. The reference range was not used to interpret this result as normal/abnormal. NRBC x10^3 (test code = 2507747800) See_Comment [Automated me ssage] The system which generated this result transmitted reference range: 10*3/?L. The reference range was not used to interpret this result as normal/abnormal. GRAN MAT (NEUT) % (test code = 770-8) 54.6 % IMM GRAN % (test code = 3358823468) 0.10 % LYMPH % (test code = 736-9) 35.4 % MONO % (test code = 5905-5) 7.6 % EOS % (test code = 713-8) 1.6 % BASO % (test code = 706-2) 0.7 % GRAN MAT x10^3(ANC) (test code = 8199198440) 3.74 10*3/uL 1.88-7.09 IMM GRAN x10^3 (test code = 9361723056) 0.00-0.06 LYMPH x10^3 (test code = 731-0) 2.43 10*3/uL 1.32-3.29 MONO x10^3 (test code = 742-7) 0.52 10*3/uL 0.33-0.92 EOS x10^3 (test code = 711-2) 0.11 10*3/uL 0.03-0.39 BASO x10^3 (test code = 704-7) 0.05 10*3/uL 0.01-0.07 [facility]roeN-TERMINAL [id number] 20:06:43* Test Item Value Reference Range Interpretation Comme nts NT-proBNP (test code = 47570-9) 117 pg/mL <=125 Lab Interpretation (test cod e = 78020-3) Normal [facility] ConroeLIPID PANEL (12849)(TOTAL CHOLESTEROL, TRIGLYCERIDES, HDL)2023-10-18 19:58:20* Test Item Value Reference Range Interpretation Comme nts CHOL (test code = 0044747345) 181 mg/dL 120-200 HDL (test code = 7227933757) 49 mg/dL >=50 L HDLC RATIO (test code = 3608080556) 3.7 <=4.5 TRIG (test code = 9176840706) 336 mg/dL 30-170 H LDL CHOL (test code = 53993-3) 65 mg/dL <=160 VLDL (test code = 8174795595) 67 mg/dL 5-60 H Lab Interpretation (test cod e = 52289-8) Abnormal [facility] ConroeMAGNESIUM2023-12-01 19:58:04* Test Item Value Reference Range Interpretation Comme nts MAGNESIUM (test code = 0429930259) 1.7 mg/dL 1.7-2.4 Lab Interpretation (test cod e = 59374-5) Normal [facility] ConroeCOMP. METABOLIC PANEL (54121)2023-10-18 19:57:44* Test Item Value Reference Range Interpretation Comme nts NA (test code = 0948468062) 138 mmol/L 135-145 K (test code = 4103422326) 4.2 mmol/L 3.5-5.0 CL (test code = 0733209953) 100 mmol/L 98-108 CO2 TOTAL (test code = 3077208104) 34 mmol/L 23-31 H AGAP (test code = 5018152955) 4 2-16 BUN (test code = 5641224841) 4 mg/dL 7-23 L GLUCOSE (test code = 8394702929) 103 mg/dL 70-110 CREATININE (test code = 8582405993) 0.67 mg/dL 0.50-1.04 TOTAL BILI (test code = 4275837105) 0.5 mg/dL 0.1-1.1 CALCIUM (test code = 5550693279) 8.9 mg/dL 8.6-10.6 T PROTEIN (test code = 4880854685) 6.2 g/dL 6.3-8.2 L ALBUMIN (test code = 1997784894) 3.7 g/dL 3.5-5.0 ALK PHOS (test code = 8204441005) 61 U/L 34-122 ALTv (test code = 1742-6) 19 U/L 5-35 AST(SGOT) (test code = 6096662969) 23 U/L 13-40 eGFR (test code = 71850-5) 108.6 mL/min/1.73m2 CKD-EPI eGFR (2020). Assuming creatinine has been stable day-to-day for at least three months, the eGFR indicates Category G1 (>= 90 mL/min/1.73 m2) Lab Interpretation (test code = 46718-0) Abnormal [facility] MOLECULAR [id number] 20:45:42* Test Item Value Reference Range Interpretation Comme nts POCT Molecular Strep (test c ode = 80715-1) Negative Negative Lab Interpretation (test cod e = 74934-0) Normal [facility] MOLECULAR [id number] 20:37:34* Test Item Value Reference Range Interpretation Comme nts POCT Molecular FluA (test co de = 87679-1) Negative Negative POCT Molecular FluB (test co de = 25574-2) Negative Negative Lab Interpretation (test cod e = 15435-8) Normal [facility] SARS-COV-2 ANTIGEN (BINAX NOW)2023-09-23 18:26:00* Test Item Value Reference Range Interpretation Comme nts POCT SARS-COV-2 ANTIGEN (test code = 37920-4) Not Detected Not Detected On board controls acceptable with C Line (test code = 3574) Yes HELEN (test code = HELEN) accurate developme nt and interpretation of all internal controls Lab Interpretation (test code = 11222-7) Normal [facility] SARS-COV-2 ANTIGEN (BINAX NOW)2023-09-23 18:26:00* Test Item Value Reference Range Interpretation Comme nts POCT SARS-COV-2 ANTIGEN (test code = 73161-1) Not Detected Not Detected On board controls acceptable with C Line (test code = 3574) Yes HELEN (test code = HELEN) accurate developme nt and interpretation of all internal controls Lab Interpretation (test code = 24733-0) Normal [facility] MOLECULAR [id number] 18:24:39* Test Item Value Reference Range Interpretation Comme nts POCT Molecular FluA (test co de = 68551-7) Negative Negative POCT Molecular FluB (test co de = 26666-7) Negative Negative Lab Interpretation (test cod e = 15429-0) [facility] MOLECULAR [id number] 18:24:39* Test Item Value Reference Range Interpretation Comme nts POCT Molecular FluA (test co de = 60407-2) Negative Negative POCT Molecular FluB (test co de = 77260-8) Negative Negative Lab Interpretation (test cod e = 50504-5) [facility] MOLECULAR [id number] 18:17:22* Test Item Value Reference Range Interpretation Comme nts POCT Molecular Strep (test c ode = 97745-2) Negative Negative Lab Interpretation (test cod e = 56169-6) [facility] MOLECULAR [id number] 18:17:22* Test Item Value Reference Range Interpretation Comme nts POCT Molecular Strep (test c ode = 35827-4) Negative Negative Lab Interpretation (test cod e = 65799-2) [facility] 16:51:15* Test Item Value Reference Range Interpretation Comme nts Height (test code = 6789303325) 60 in Weight (test code = 4124801529) 249 lbs Systolic BP (test code = 2082016679) 116 mmHg Diastolic BP (test code = 3575941647) 76 mmHg Heart Rate (test code = 7340313414) 70 bpm BSA (test code = 0305268301) 2.05 m2 LVOT diameter (test code = 5485807589) 1.86 cm LVOT area (test code = 4675177337) 2.70 cm2 Ao root diam (test code = 5397449176) 2.80 cm Aortic root (test code = 6693483971) 2.8 cm Ao root annulus (test code = 9868989535) 2.8 cm LA size (test code = 7846664577) 4.7 cm ACS (test code = 8701331731) 2.19 cm PV PEAK VELOCITY (test code = 6009392419) 93.8 cm/s PV peak gradient (test code = 8897813215) 3.5 mmHg LAV(MOD-sp4) (test code = 9540671792) 34.20 mL MV E-F slope (test code = 5611020208) 50.90 cm/s MV Peak E Clinton (test code = 2782840402) 132.1 cm/s MV Peak A Clinton (test code = 0926361811) 95.4 cm/s E/A ratio (test code = 0611785129) 1.38 ratio MV valve area p 1/2 method (test code = 3852836622) 3.50 cm2 MV dec slope (test code = 6738551404) 602.90 cm/s2 MV P1/2t max clinton (test code = 8588033140) 131.00 cm/s MR max PG (test code = 2160150772) 77.20 mm[Hg] MR max clinton (test code = 6299027968) 439.30 cm/s Mr max clinton (test code = 8952036415) 439.3 m/s LVOT stroke volume (test code = 5210576738) 87.40 cm3 LVOT peak clinton (test code = 3915052348) 147.8 cm/s LVOT mn grad (test code = 0869263614) 4.5 mmHg AV LVOT peak gradient (test code = 5473485740) 8.7 mmHg LVOT peak VTI (test code = 1650784543) 32.2 cm LV V1 mean (test code = 9969742960) 98.40 cm/s Aortic valve mean velocity (test code = 4910385197) 118.3 cm/s Ao peak clinton (test code = 6020034153) 197.4 cm/s Ao VTI (test code = 4281176699) 46.2 cm AV area by cont VTI (test code = 6687536601) 1.9 cm2 AV area peak clinton (test code = 7867896573) 2.0 cm2 Ao max PG (test code = 6252326766) 15.60 mm[Hg] AV peak gradient (test code = 4872658549) 15.6 mmHg AV valve area (test code = 5228201766) 1.89 cm2 AV mean gradient (test code = 7645269476) 6.6 mmHg TR Peak Clinton (test code = 9058600771) 259.6 cm/s Triscuspid Valve Regurgitation Peak Gradient (test code = 5478329118) 31.4 mmHg LVIDD (test code = 3352603379) 5.10 cm Left Ventricular End Diastolic Volume by Teichholz Method (test code = 6730249) 123.8 mL IVS (test code = 4771569918) 1.02 cm Interventricular Septum Diastolic Thickness by 2D (test code = 7380765) 1.02 cm LVPWD (test code = 9356820249) 1.00 cm PW (test code = 1143776946) 1.00 cm 0.6-1.1 EF(Teich) (test code = 4900813434) 56.90 % LVIDS (test code = 2047837815) 3.60 cm Left Ventricular End Systolic Volume by Teichholz Method (test code = 7384981) 53.3 mL FS (test code = 3664773403) 30 % EF - 2D (test code = 51154748) 56.90 % LA Volume Index (BP) (test code = 5710554187) 17.1 mL/m2 LA volume (BP) (test code = 4182544167) 34.9 mL LAV(MOD-sp2) (test code = 3211579290) 33.60 mL Radiology Study observation (narrative) (test code = 97319-4) HELEN (test code = HELEN) ?Left?Ventricle: Left ventricle size is normal. Normal wall thickness. Normal wall motion. Normal systolic function with a visually estimated EF of 55 - 60%. Normal diastolic function. ?Tricuspid?Valve: Right ventricular systolic pressure is 30-35 mmHg. ?RA pressure is 5-10 mmHg. Left VentricleLeft ventricle size is normal. Normal wall thickness. Normal wall motion. Normal systolic function with a visually estimated EF of 55 - 60%. Normal diastolic function.Right VentricleRight ventricle size is normal. Normal systolic function.Left AtriumLeft atrium size is normal.Right AtriumRight atrium size is normal.IVC/SVCIVC diameter is less than or equal to 21 mm and decreases greater than 50% during inspiration; therefore the estimated right atrial pressure is normal (~0-5 mmHg).Mitral ValveMitral valve structure is normal. Trace transvalvular regurgitation.Tricusp id ValveTricuspid valve structure is normal. Trace transvalvular regurgitation. Right ventricular systolic pressure is 30-35 mmHg. RA pressure is 5-10 mmHg.Aortic ValveNot well visualized. Aortic valve opens well.Pulmonic ValveNot well visualized.Ascending AortaNormal sized aorta.PericardiumThe pericardium is normal. No pericardial effusion.Study DetailsStudy quality experienced technical difficulty. A complete echocardiogram was performed using 2D, color flow Doppler and spectral Doppler. 5 mL of Lumason ultrasound enhancing agent used. [facility] ConroeAUDELIA [id number] 00:38:26* Test Item Value Reference Range Interpretation Comme nts TROPONIN I (test code = 8610322412) 0.003 ng/mL <=0.034 HELEN (test code = HELEN) Reference (Normal) Range (defined by the 99th percentile reference limit): <= 0.034 ng/mL Note: Cardiac troponin begins to rise 3-4 hours after the onset of ischemia. Repeat in 4-6 hours if the sample was drawn within 3-4 hours of the onset of the symptom and found normal. Diagnosis of myocardial injury is made with acute changes in cTn concentrations with at least one serial sample above the 99th percentile upper reference limit (URL), taken together with the patient's clinical presentation. Biotin has been reported to cause a negative bias, interpret results relative to patient's use of biotin. Lab Interpretation (test code = 73029-7) Normal [facility] METABOLIC PANEL (NA, K, CL, CO2, GLUCOSE, BUN, CREATININE, CA)2023-09-15 00:27:04* Test Item Value Reference Range Interpretation Comme nts NA (test code = 9065487985) 135 mmol/L 135-145 K (test code = 3023788588) 3.7 mmol/L 3.5-5.0 CL (test code = 3966410558) 100 mmol/L 98-108 CO2 TOTAL (test code = 3265262702) 28 mmol/L 23-31 AGAP (test code = 0842679958) 7 2-16 BUN (test code = 6059072991) 6 mg/dL 7-23 L GLUCOSE (test code = 4855231210) 92 mg/dL 70-110 CREATININE (test code = 1599980912) 0.63 mg/dL 0.50-1.04 CALCIUM (test code = 7074131656) 8.7 mg/dL 8.6-10.6 eGFR (test code = 7207105835) 101.3 mL/min/1.73m2 HELEN (test code = HELNE) Association of Glomerular Filtration Rate (GFR) and Staging of Kidney Disease* + --+ --+ ------+| GFR (mL/min/1.73 m2) ?| With Kidney Damage ?| ?Without Kidney Damage+ --------+ --------+ +| ?>90 ?| ?Stage one ?| ? Normal ?+ ---+ ---+ -------+| ?60-89 ?| ?Stage two ?| ? Decreased GFR ? + --+ --+ ------+| ?30-59 ?| ?Stage three ?| ? Stage three ? + --+ --+ ------+| ?15-29 ?| ?Stage four ? | ? Stage four ?+ ---+ ---+ -------+| ?<15 (or dialysis) ? ?| ?Stage five ? | ? Stage five ?+ ---+ ---+ -------+ *Each stage assumes the associated GFR level has been in effect for at least three months. ?Stages 1 to 5, with or without kidney disease, indicate chronic kidney disease. Notes: Determination of stages one and two (with eGFR >59mL/min/1.73 m2) requires estimation of kidney damage for at least three months as defined by structural or functional abnormalities of the kidney, manifested by either:Pathological abnormalities or Markers of kidney damage (including abnormalities in the composition of the blood or urine or abnormalities in imaging tests). Lab Interpretation (test code = 76367-5) Abnormal [facility] WITH [id number] 00:26:13* Test Item Value Reference Range Interpretation Comme nts WBC (test code = 6690-2) 8.99 See_Comment [Automated [employer]] The system which generated this result transmitted reference range: 4.30 - 11.10 10*3/?L. The reference range was not used to interpret this result as normal/abnormal. RBC (test code = 789-8) 4.39 See_Comment [Automated Barnacle] The system which generated this result transmitted reference range: 3.93 - 5.25 10*6/?L. The reference range was not used to interpret this result as normal/abnormal. HGB (test code = 718-7) 13.9 g/dL 11.6-15.0 HCT (test code = 4544-3) 40.2 % 35.7-45.2 MCV (test code = 787-2) 91.6 fL 80.6-95.5 MCH (test code = 785-6) 31.7 pg 25.9-32.8 MCHC (test code = 786-4) 34.6 g/dL 31.6-35.1 RDW-SD (test code = 79484-4) 43.7 fL 39.0-49.9 RDW-CV (test code = 788-0) 13.1 % 12.0-15.5 PLT (test code = 777-3) 200 See_Comment [Automated messa ge] The system which generated this result transmitted reference range: 166 - 358 10*3/?L. The reference range was not used to interpret this result as normal/abnormal. MPV (test code = 16730-2) 9.6 fL 9.5-12.9 NRBC/100 WBC (test code = 2851397604) 0.0 See_Comment [Automated [employer] ssage] The system which generated this result transmitted reference range: 0.0 - 10.0 /100 WBCs. The reference range was not used to interpret this result as normal/abnormal. NRBC x10^3 (test code = 0320604203) See_Comment [Automated [employer] ge] The system which generated this result transmitted reference range: 10*3/?L. The reference range was not used to interpret this result as normal/abnormal. GRAN MAT (NEUT) % (test code = 770-8) 51.3 % IMM GRAN % (test code = 3075527510) 0.20 % LYMPH % (test code = 736-9) 38.2 % MONO % (test code = 5905-5) 7.2 % EOS % (test code = 713-8) 2.4 % BASO % (test code = 706-2) 0.7 % GRAN MAT x10^3(ANC) (test code = 3287922691) 4.61 10*3/uL 1.88-7.09 IMM GRAN x10^3 (test code = 7030056595) 0.00-0.06 LYMPH x10^3 (test code = 731-0) 3.43 10*3/uL 1.32-3.29 H MONO x10^3 (test code = 742-7) 0.65 10*3/uL 0.33-0.92 EOS x10^3 (test code = 711-2) 0.22 10*3/uL 0.03-0.39 BASO x10^3 (test code = 704-7) 0.06 10*3/uL 0.01-0.07 Lab Interpretation (test code = 25373-2) [facility] [id number] 16:44:00* Test Item Value Reference Range Interpretation Comme nts POCT U SP GRAV (test code = 3255) 1.010 mg/dl 1.005-1.025 POCT PH U (test code = 3254) 5 mg/dl 5-8 POCT U LEUK EST (test code = 3263) trace Negative - Negative POCT U NIT (test code = 3262) pos Negative - Negati ve POCT U PROT (test code = 3259) trace Negative - Negative POCT U GLU (test code = 3256) norm Negative - Negati ve POCT U KETONE (test code = 3258) small Negative - Negative POCT U UROBILI (test code = 3260) norm 0.2-1 POCT U BILI (test code = 3261) norm Negative - Negative POCT U BLD (test code = 3257) neg Negative - Negati ve POCT U COLOR (test code = 3266) dark yellow POCT U APPEAR (test code = 3267) cloudy Lab Interpretation (test cod e = 12007-4) [facility] [id number] 23:05:00* Test Item Value Reference Range Interpretation Comme nts POCT U SP GRAV (test code = 3255) 1.020 mg/dl 1.005-1.025 POCT PH U (test code = 3254) 5 mg/dl 5-8 POCT U LEUK EST (test code = 3263) neg Negative - Negative POCT U NIT (test code = 3262) neg Negative - Negative POCT U PROT (test code = 3259) neg Negative - Negative POCT U GLU (test code = 3256) normal Negative - Negative POCT U KETONE (test code = 3258) neg Negative - Negative POCT U UROBILI (test code = 3260) normal 0.2-1 POCT U BILI (test code = 3261) neg Negative - Negative POCT U BLD (test code = 3257) neg Negative - Negative POCT U COLOR (test code = 3266) dark yellow POCT U APPEAR (test code = 3267) clear HELEN (test code = HELEN) accurate developme nt and interpretation of all internal controls Lab Interpretation (test code = 64833-8) Normal [facility] [id number] 12:34:00* Test Item Value Reference Range Interpretation Comme nts POCT PREG (test code = 1605) Negative On board controls acceptable with C Line (test code = 3574) Yes POCT PREG LOT # (test code = 3575) POCT PREG TEST DATE ( test code = 3576) [facility] [id number] 12:34:00* Test Item Value Reference Range Interpretation Comme nts POCT PREG (test code = 1605) Negative On board controls acceptable with C Line (test code = 3574) Yes POCT PREG LOT # (test code = 3575) POCT PREG TEST DATE ( test code = 3576) [facility] MOLECULAR [id number] 17:30:18* Test Item Value Reference Range Interpretation Comme nts POCT Molecular Strep (test c ode = 72528-8) Negative Negative Lab Interpretation (test cod e = 64650-3) Normal [facility] URINALYSIS W SPECIFIC [id number] 17:22:00* Test Item Value Reference Range Interpretation Comme nts POCT U SP GRAV (test code = 3255) 1.010 mg/dl 1.005-1.025 POCT PH U (test code = 3254) 5 mg/dl 5-8 POCT U LEUK EST (test code = 3263) NEG Negative - Negative POCT U NIT (test code = 3262) NEG Negative - Negative POCT U PROT (test code = 3259) NEG Negative - Negative POCT U GLU (test code = 3256) NORMAL Negative - Negative POCT U KETONE (test code = 3258) NEG Negative - Negative POCT U UROBILI (test code = 3260) NORMAL 0.2-1 POCT U BILI (test code = 3261) NEG Negative - Negative POCT U BLD (test code = 3257) NEG Negative - Negative POCT U COLOR (test code = 3266) YELLOW POCT U APPEAR (test code = 3267) CLEAR HELEN (test code = HELEN) accurate developme nt and interpretation of all internal controls Lab Interpretation (test code = 13190-2) Normal [facility] SARS-COV-2 ANTIGEN (BINAX NOW)2023-01-26 22:15:00* Test Item Value Reference Range Interpretation Comme nts POCT SARS-COV-2 ANTIGEN (eber t code = 25808-7) Not Detected Not Detected On board controls acceptable with C Line (test code = 3574) Yes Lab Interpretation (test cod e = 67847-7) Normal [facility] MOLECULAR [id number] 21:54:49* Test Item Value Reference Range Interpretation Comme nts POCT Molecular Strep (test c ode = 59135-7) Positive Negative A Lab Interpretation (test cod e = 79137-0) Abnormal [facility] HEMOGLOBIN A1C [id number] 14:45:00* Test Item Value Reference Range Interpretation Comme nts POCT HBA1C (test code = 4548-4) 5.2 % 4-6 [facility] HEMOGLOBIN A1C [id number] 14:45:00* Test Item Value Reference Range Interpretation Comme nts POCT HBA1C (test code = 4548-4) 5.2 % 4-6 [facility] URINALYSIS W SPECIFIC [id number] 19:41:00* Test Item Value Reference Range Interpretation Comme nts POCT U SP GRAV (test code = 3255) 1.025 mg/dl 1.005-1.025 POCT PH U (test code = 3254) 5 mg/dl 5-8 POCT U LEUK EST (test code = 3263) TRACE Negative - Negative POCT U NIT (test code = 3262) NEG Negative - Negati ve POCT U PROT (test code = 3259) TRACE Negative - Negative POCT U GLU (test code = 3256) NEG Negative - Negati ve POCT U KETONE (test code = 3258) NEG Negative - Negative POCT U UROBILI (test code = 3260) NEG 0.2-1 POCT U BILI (test code = 3261) NEG Negative - Negative POCT U BLD (test code = 3257) NEG Negative - Negati ve POCT U COLOR (test code = 3266) DARK YELLOW POCT U APPEAR (test code = 3267) CLOUDY Lab Interpretation (test cod e = 34208-0) [facility] [id number] 19:41:00* Test Item Value Reference Range Interpretation Comme nts POCT U SP GRAV (test code = 3255) 1.025 mg/dl 1.005-1.025 POCT PH U (test code = 3254) 5 mg/dl 5-8 POCT U LEUK EST (test code = 3263) TRACE Negative - Negative POCT U NIT (test code = 3262) NEG Negative - Negati ve POCT U PROT (test code = 3259) TRACE Negative - Negative POCT U GLU (test code = 3256) NEG Negative - Negati ve POCT U KETONE (test code = 3258) NEG Negative - Negative POCT U UROBILI (test code = 3260) NEG 0.2-1 POCT U BILI (test code = 3261) NEG Negative - Negative POCT U BLD (test code = 3257) NEG Negative - Negati ve POCT U COLOR (test code = 3266) DARK YELLOW POCT U APPEAR (test code = 3267) CLOUDY Lab Interpretation (test cod e = 66805-8) [facility]normal [facility]OMETRIUM,[id number] 13:13:00* Test Item Value Reference Range Interpretation Comme nts ENDOMETRIUM,BIOPS Y (test code = ENDOMETBX) --------RUN DATE: 09/13/21 [facility] PAGE 1 RUN TIME: 42 Specimen Inquiry RUN USER: INTERFACE --------PATIENT: RAD[facility] EDMONDS [facility] #: [id number] AGE/SX: 46/F ROOM: RE09/07/21REG DR: Benito Eric III, MD : 77 BED: DIS: STATUS: [facility] TLOC: -------- SPEC #: [id number] RECD: 09/07/21 STATUS: GERI VINICIUS #: [id number] JOSE RAUL: 09/07/21- SUBM DR: Benito Eric III, MD ENTERED: 09/07/21 SP TYPE: ENDOMETBX OTHR DR: ORDERED: LEVEL IV/2 CODES: E23495 - ENDOMETRIUM, NO [id number] - OVARY, NOS PROCEDURES: LEVEL IV (Incomplete) TISSUES: ENDOMETRIUM, NOS - ENDOMETRIAL CURETTINGS OVARY, NOS - LEFT TUBE AND OVARY CLINICAL HISTORY 46 year old, pelvic pain (wpd) FINAL DIAGNOSIS Endometrial curettings: - few fragments of benign endometrium in background of mucus Left fallopian tube and ovary, salpingo-oophorectomy: - ovary: benign serous cystadenofibroma - fallopian tube: no significant pathologic alteration Comment: Specimen #1 shows scant fragments of benign endometrium in background of mucus. This sampling may not be entirely medical claims representative of the process in question. Clinical correlation is necessary. Specimen #2: The ovary is received in multiple pieces aggregating to 7 cm in greatest dimension. The cyst measured 8 cm in diameter per patient's electronic medical record. Clinical correlation is necessary. CPT: 05595 x2 ssa/wpd GROSS DESCRIPTION ANATOMIC SOURCE OF TISSUE (per Requisition): 1. Endometrial curettings 2. Left tube and ovary CONTINUED ON NEXT PAGE --------RUN DATE: 09/13/21 [facility] PAGE 2 RUN TIME: 42 Specimen Inquiry RUN USER: INTERFACE --------SPEC #: [id number] PATIENT: RADHA EDMONDS #[id number] (Continued) GROSS DESCRIPTION (Continued) Each specimen is labeled with the patient's name and medical record number. Specimen #1 is designated "endometrial curettings" and consists of scant red mucoid material on a piece of Telfa pad aggregating to 0.4 x 0.2 x 0.1 cm, submitted in toto in A1. Specimen #2 is designated "left tube and ovary" and consists of multiple pieces of partially morcellated multicystic, off-white ovarian tissue aggregating to 7 x 6 x 5 cm and two separate segments of unoriented fallopian tubes, one with fimbriae attached aggregating to 3 x 0.3 x 0.3 cm. The entire fimbriae and two cross-sections of the tube are submitted in B1. Examination of the ovarian tissue reveals multiple cysts ranging from 0.3 - 3.5 cm with pink, off-white, smooth and glistening internal lining, containing scant clear, thin fluid. A focal area of off-white, firm, papillary lesion is noted measuring up to 0.9 cm. [place] sections of the cyst wall with the entire area with papillary lesion are submitted in B2 - B7. christiano/jillian 09/07/21 Signed ____ Carine Baxter 09/11/21 1313 -------- END OF REPORT COVID 19 Asymptomatic IH [id number] 14:52:00* Test Item Value Reference Range Interpretation Comme nts COVID 19 Asymptomatic IH AG (test code = COVNONPUIAG) NEGATIVE NEGATIVE This test has be en authorized only for the detection ofproteins from SARS-CoV-2, not for any other viruses orpathogens. Negative results should be treated as presumptive andconfirmed with a molecular assay, if necessary for patientmanagement. Negative results do not rule out COVID-19 andshould not be used as the sole basis for treatment orpatient management decisions, including infection controldecisions. Negative results should be considered in thecontext of a patient's recent exposures, history and thepresence of clinical signs and symptoms consistent withCOVID-19. This test has not been FDA cleared or approved; the test hasbeen authorized by FDA under an Emergency Use Authorization(EUA) for use by laboratories certified under the CLIA thatmeet the requirements to perform moderate, high or waivedcomplexity tests. This test is authorized for use at thePoint of Care (POC), i.e., in patient care settingsoperating under a CLIA Certificate of Waiver, Certificate ofCompliance, or Certificate of Accreditation. This test is only authorized for the duration of thedeclaration that circumstances exist justifying theauthorization of emergency use of in vitro diagnostic testsfor detection and/or diagnosis of COVID-19 under Focustj938(b)(1) of the Act, 21 U.S.C. 360bbb-3(b)(1), unless theauthorization is terminated or revoked sooner. AB HIV 1 14:27:00* Test Item Value Reference Range Interpretation Comme nts AB HIV 1 2 (test code = ATA76AY) NONREACTIVE NONREACTIVE Done by [employer] 4th Gen HIV Ag/Ab Combo Screen BASIC METABOLIC [id number] 13:18:00* Test Item Value Reference Range Interpretation Comme nts SODIUM (test code = NA) 139 mEq/L 135-145 N POTASSIUM (test code = K) 4.0 mEq/L 3.5-5.0 N CHLORIDE (test code = CL) 102 mEq/L 100-115 N CARBON DIOXIDE (test code = CO2) 28 mEq/L 22-31 N ANION GAP (test code = GAP) 12.70 10-20 N GLUCOSE (test code = GLU) 115 mg/dL 65-110 H BLOOD UREA NITROGEN (test co de = BUN) 10 mg/dL 7-18 N GLOMERULAR FILTRATION RATE ( test code = GFR) 78 ml/min >60 N CREATININE (test code = CREAT) 0.8 mg/dL 0.5-1.0 N CALCIUM (test code = CA) 8.8 mg/dL 8.4-10.2 N HCG SERUM [id number] 13:18:00* Test Item Value Reference Range Interpretation Comme nts HCG SERUM QUAL (test code = HCGQL) NEGATIVE CBC W/AUTO [id number] 13:07:00* Test Item Value Reference Range Interpretation Comme nts WHITE BLOOD CELL (test code = WBC) 12.3 K/mm3 6.5-12.3 N RED BLOOD CELL (test code = RBC) 5.00 M/mm3 3.51-4.69 H HEMOGLOBIN (test code = HGB) 15.3 g/dL 10.1-13.8 H HEMATOCRIT (test code = HCT) 46.0 % 32.5-41.8 H MEAN CELL VOLUME (test code = MCV) 92.0 fL 84.6-96.6 N MEAN CELL HGB (test code = MCH) 30.6 pg 27.3-33.9 N MEAN CELL HGB CONCETRATION ( test code = MCHC) 33.3 gm/dL 32.0-34.2 N RED CELL DISTRIBUTION WIDTH (test code = RDW) 13.2 % 12.2-16.3 N PLATELET COUNT (test code = PLT) 271 K/mm3 134-363 N MEAN PLATELET VOLUME (test c ode = MPV) 9.1 fL 9.2-12.7 L NEUTROPHIL % (test code = NT%) 65.7 % 57.9-77.3 N LYMPHOCYTE % (test code = LY%) 25.2 % 14.5-29.7 N MONOCYTE % (test code = MO%) 7.1 % 3.6-10.2 N EOSINOPHIL % (test code = EO%) 1.0 % 0.0-3.0 N BASOPHIL % (test code = BA%) 0.4 % 0.1-0.9 N NEUTROPHIL # (test code = NT#) 8.1 K/mm3 LYMPHOCYTE # (test code = LY#) 3.1 K/mm3 MONOCYTE # (test code = MO#) 0.9 K/mm3 EOSINOPHIL # (test code = EO#) 0.12 K/mm3 BASOPHIL # (test code = BA#) 0.1 K/mm3 RBC MORPHOLOGY REQUIRED (eber t code = RBCM) NORMAL NORMAL PLATELET MORPHOLOGY REQUIRED (test code = PLTMR) NORMAL NORMAL - US PELVIS [id number] 00:00:00 [facility] : 1975 Sex: F Patient Name: RADHA EDMONDS Unit No: [id number] EXAMS: CPT CODE: [id number] US PELVIS COMPLETE 14793 PROCEDURE INFORMATION: Exam: US Duplex Artery or Vein of the Abdominal and/or Reproductive Organs, Limited Ovaries Exam date and time: 08/15/2021 2:43 PM Age: 46 years old Clinical indication:Pain and abnormal findings; Abnormal radiologic finding, abdomen and pelvic vessels; Abnormal imaging test; Abdominal pain; Right lower quadrant; Prior surgery; Additional info: Intra-abd and pel swelling, mass and lump. TECHNIQUE: Imaging protocol: Real-time duplex ultrasound scan of the arterial or venous flow with novoa scale, color Doppler flow and spectral waveform analysis with image documentation. Limited duplex exam focused on the ovaries. Duplex images required to evaluate for torsion and other vascular conditions. COMPARISON: [facility] DUP AB/PEL/SC [facility] 06/06/2020 9:06 AM FINDINGS: Right ovary Doppler: Right ovary is surgically absent. Left ovary Doppler: Doppler flow demonstrated in the left ovary. IMPRESSION: Surgically absent right ovary. PROCEDURE INFORMATION: Exam: US Pelvis Complete, Transabdominal and US Pelvis, Transvaginal Exam date and time: 08/15/2021 2:43 PM Age: 46 years old Clinical indication: Pain and abnormal findings; Abnormal radiologic finding, abdomen and pelvic vessels; Abnormal imaging test; Abdominal pain; Right lower quadrant; Priorsurgery; Additional info: Intra-abd and pel swelling, mass and lump. TECHNIQUE: Imaging protocol: Real-time transabdominal and transvaginal pelvic ultrasound (complete) with image documentation. Transvaginal imaging was used for better evaluation of the endometrium, adnexa, and/or cervix. COMPARISON: US DUP AB/PEL/SC [facility]TD 06/06/2020 9:06 AM FINDINGS: Examination is significantly limited due to patient body habitus. Uterus measures 6.7 x 3.3 x 3.8 cm but was not optimally visualized. No definite fibroids were seen. Endometrial thickness was approximately 6 mm. [facility] NAME:RUSTY EDMONDSSSICA Radiology Department PHYS: Benito Hobson III, MD [address] : 1975 AGE: 46 SEX: F [place], [place] [address] LOC: [facility] PHONE #: [phone] EXAM DATE: 08/15/2021 STATUS: REG CLI FAX #: [phone] RAD NO: [id number] Page 1 Signed Report (CONTINUED) Patient Name: RADHA EDMONDS Unit No: [id number] EXAMS: CPT CODE: [id number] US PELVIS COMPLETE 20501 <Continued> Right ovary is surgically absent. In the left adnexa, is a 9.8 x 6.2 x 6.8 cm complex septated cystic mass. No significant mural nodules are seen. This has increased in size when compared with the prior study. No free pelvic fluid noted. IMPRESSION: 9.8 cm complex multi septated cystic mass in the left adnexa. This has grown in size. The possibility of ovarian neoplastic process should be considered. Prior right oophorectomy. at 1600 Reported and signed by: Leland Tejeda MD CC: AMBER CONNOR MD; Benito Eric III, MD Technologist: Delmi Merritt RDMS Probe: Trnscrbd D/ (1600) GCD.CPS Orig Print D/T: S: 08/15/2021 (1603) [facility] NAME: RUSTY EDMONDSSSICA Radiology Department PHYS: Benito Hobson III, MD [address] : 1975 AGE: 46 SEX: F [place], [place] [address] LOC: F.RAD PHONE #: [phone] EXAM DATE: 08/15/2021 STATUS: REG CLI FAX #: [phone] RAD NO: [id number] Page 2 Signed Report Patient Name: RADHA EDMONDS Unit No: [id number] EXAMS: CPT CODE: [id number] US PELVIS COMPLETE 75006 <Continued> [facility] NAME: GREYRADHA Radiology Department PHYS: Benito Hobson III, MD [address]OB: 1975 AGE: 46 SEX: F [place], [place] [address] LOC: F.RAD PHONE #: [phone] EXAM DATE: 08/15/2021 STATUS: REG CLI FAX #: [phone] RAD NO: [id number] Page 3 Signed Report- US TRANSVAGINAL W/[id number] 00:00:00 [facility] : 1975 Sex: F Patient Name: RADHA EDMONDS Unit No: [id number] EXAMS: CPT CODE: [id number] US TRANSVAGINAL W/PELVIS 55544 PROCEDURE INFORMATION: Exam: US Duplex Artery or Vein of the Abdominal and/or Reproductive Organs, Limited Ovaries Exam date and time: 08/15/2021 2:43 PM Age: 46 years old Clinical indication: Pain and abnormal findings; Abnormal radiologic finding, abdomen and pelvic vessels; Abnormal imaging test; Abdominal pain; Right lower quadrant; Prior surgery; Additional info: Intra-abd and pel swelling, mass and lump. TECHNIQUE: Imaging protocol: Real-time duplex ultrasound scan of the arterial or venous flow with novoa scale, color Doppler flow and spectral waveform analysis with image documentation. Limited duplex exam focused on the ovaries. Duplex images required to evaluate for torsion and other vascular conditions. COMPARISON: [facility]/PEL/SC [facility] 06/06/2020 9:06 AM FINDINGS: Right ovary Doppler: Right ovary is surgically absent. Left ovary Doppler: Doppler flow demonstrated inthe left ovary. IMPRESSION: Surgically absent right ovary. PROCEDURE INFORMATION: Exam: US Pelvis Complete, Transabdominal and US Pelvis, Transvaginal Exam date and time: 08/15/2021 2:43 PM Age: 46 years old Clinical indication: Pain and abnormal findings; Abnormal radiologic finding, abdomen and pelvic vessels; Abnormal imaging test; Abdominal pain; Right lower quadrant; Prior surgery; Additional info: Intra-abd and pel swelling, mass and lump. TECHNIQUE: Imaging protocol: Real-time transabdominal and transvaginal pelvic ultrasound (complete) with image documentation. Transvaginal imaging was used for better evaluation of the endometrium, adnexa, and/or cervix. COMPARISON: [facility]/PEL/SC [facility] 06/06/2020 9:06 AM FINDINGS: Examination is significantly limited due to patient body habitus. Uterus measures 6.7 x 3.3 x 3.8 cm but was not optimally visualized. No definite fibroids were seen. Endometrial thickness was approximately 6 mm. [facility] NAME: RADHA EDMONDS Radiology Department PHYS: Benito Hobson III, MD [address] : 0 1975 AGE: 46 SEX: F [place], [place] [address] LOC: F.RAD PHONE #: [phone] EXAM DATE: 08/15/2021 STATUS: DEP CLI FAX #: [phone] RAD NO: [id number] Page 1 Signed Report (CONTINUED) Patient Name: RADHA EDMONDS Unit No: [id number] EXAMS: CPT CODE: [id number] US TRANSVAGINAL W/PELVIS 68399 <Continued> Right ovary is surgically absent. In the left adnexa, is a 9.8 x 6.2 x 6.8 cm complex septated cystic mass. No significant mural nodules are seen. This has increased in size when compared with the prior study. No free pelvic fluid noted. IMPRESSION: 9.8 cm complex multi septated cystic mass in the left adnexa. This has grown in size. The possibility of ovarian neoplastic process should be considered. Prior right oophorectomy. at 1600 Reported and signed by: Leland Tejeda MD CC: AMBER CONNOR MD; Benito Eric III, MD Technologist: Delmi Merritt RDMS Probe: [id number] Trnscrbd D/ (1599) GCD.CPS Orig Print D/T: S: 08/17/2021 (2024) [facility] NAME: NYA EDMONDSICA Radiology Department PHYS: Benito Hobson III, MD [address] : 1975 AGE: 46 SEX: F [place] [address] LOC: Azeb.RAD PHONE #: [phone] EXAM DATE: 08/15/2021 STATUS: DEP CLI FAX #: [phone] RAD NO: [id number] Page 2 Signed Report Patient Name: RADHA EDMONDS Unit No: [id number] EXAMS: CPT CODE: [id number] US TRANSVAGINAL W/PELVIS 27641 <Continued> [facility] NAME: GREYRADHA BUCIO Radiology Department PHYS: Benito Hobson III, MD [address] : 1975 AGE: 46 SEX: F [place], [place] [address] LOC: [facility] PHONE #: [phone] EXAM DATE: 08/15/2021 STATUS: DEP CLI FAX #: [phone] RAD NO: [id number] Page 3 Signed Report- DUP AB/PEL/SC/[id number] 00:00:00 [facility] : 1975 Sex: F Patient Name: RADHA EDMONDS Unit No: [id number] EXAMS: CPT CODE: [id number] DUP AB/PEL/SC/[id number] PROCEDURE INFORMATION: Exam: US Duplex Artery or Vein of the Abdominal and/or Reproductive Organs, Limited Ovaries Exam date and time: 08/15/2021 2:43 PM Age: 46 years old Clinical indication: Pain and abnormal findings; Abnormal radiologic finding, abdomen and pelvic vessels; Abnormal imagingtest; Abdominal pain; Right lower quadrant; Prior surgery; Additional info: Intra-abd and pel swelling, mass and lump. TECHNIQUE: Imaging protocol: Real-time duplex ultrasound scan of the arterial orvenous flow with novoa scale, color Doppler flow and spectral waveform analysis with image documentation. Limited duplex exam focused on the ovaries. Duplex images required to evaluate for torsion andother vascular conditions. COMPARISON: US DUP AB/PEL/SC [facility] 06/06/2020 9:06 AM FINDINGS: Right ovaryDoppler: Right ovary is surgically absent. Left ovary Doppler: Doppler flow demonstrated in the left ovary. IMPRESSION: Surgically absent right ovary. PROCEDURE INFORMATION:Exam: US Pelvis Complete, Transabdominal and US Pelvis, Transvaginal Exam date and time: 08/15/2021 2:43 PM Age: 46 years old Clinical indication: Pain and abnormal findings; Abnormal radiologic finding, abdomen and pelvic vessels; Abnormal imaging test; Abdominal pain; Right lower quadrant; Prior yee rgery; Additional info: Intra-abd and pel swelling, mass and lump. TECHNIQUE: Imaging protocol: Real-time transabdominal and transvaginal pelvic ultrasound (complete) with image documentation. Transvaginal imaging was used for better evaluation of the endometrium, adnexa, and/or cervix. COMPARISON:US DUP AB/PEL/SC LTD 06/06/2020 9:06 AM FINDINGS: Examination is significantly limited due to patient body habitus. Uterus measures 6.7 x 3.3 x 3.8 cm but was not optimally visualized. No definite fibroids were seen. Endometrial thickness was approximately 6 mm. [facility] NAME: RADHA EDMONDS Radiology Department PHYS: Benito Hobson III, MD [address] : 1975AGE: 46 SEX: F [place], [place] [address] LOC: F.RAD PHONE #: [phone] EXAM DATE: 08/15/2021 STATUS: DEP CLI FAX #: [phone] RAD NO: [id number] Page 1 Signed Report (CONTINUED) Patient Name: RADHA EDMONDS Unit No: [id number] EXAMS: CPT CODE: [id number] DUP AB/PEL/SC/LTD 13741 <Continued> Right ovary is surgically absent. In the left adnexa, is a 9.8 x 6.2 x 6.8 cm complex septated cystic mass. No significant mural nodules are seen. This has increased in size whencompared with the prior study. No free pelvic fluid noted. IMPRESSION: 9.8 cm complex multi septated cystic mass in the left adnexa. This has grown in size. The possibility of ovarian neoplastic process should be considered. Prior right oophorectomy. at 1600 Reported and signed by: Leland Tejeda MD CC: AMBER CONNOR MD; Benito Eric III, MD Technologist: Delmi Merritt RDMS Probe: Trnscrbd D/ (1600) GCD.CPS Orig Print D/T: S: 08/22/2021 (1520) [facility] NAME: NYA EDMONDSICA Radiology Department PHYS: Benito Hobson III, MD [address] : 1975 AGE: 46 SEX: F [place], [place] [address] LOC: Azeb.RAD PHONE #: [phone] EXAM DATE: 08/15/2021 STATUS: DEP CLI FAX #: [phone] RAD NO: [id number] Page 2 Signed Report Patient Name: RADHA EDMONDS Unit No: [id number] EXAMS: CPT CODE: [id number] DUP AB/PEL/SC/LTD 49185 <Continued> [facility] NAME: GREYRADHA BUCIO Radiology Department PHYS: Benito Hobson III, MD [address] :1975 AGE: 46 SEX: F [place], [place] [address] LOC: F.RAD PHONE #: [phone] EXAM DATE: 08/15/2021 STATUS: DEP CLI FAX #: [phone] RAD NO: [id number] Page 3 Signed Report- US ABDOMEN [id number] 00:00:00[facility] 1975 Sex: F Patient Name: RADHA EDMONDS Unit No: [id number] EXAMS: CPT CODE: [id number] US ABDOMEN COMPLETE 69913 PROCEDURE INFORMATION: Exam: US Abdomen Complete Exam date and time: 08/15/2021 3:13 PM Age: 46 years old Clinical indication: Abdominal pain; Tenderness; Right; Prior surgery; Surgery date: 6+ months; Additional info: Intra-abd and pel swelling, mass and lump TECHNIQUE: Imaging protocol: Real- time ultrasound of the abdomen with image documentation. COMPARISON: OT US PELVIS COMPLETE 08/15/2021 2:43 PM FINDINGS: LIVER: The visualized liver shows normal contour, size 17.5, and morphology with normal parenchymal echo texture. Common bile duct: The intrahepatic and extrahepatic bile ductsare not dilated with the common bile duct measuring 3 mm. The distal common bile duct is not well seen. GALLBLADDER: There are no gallstones, gallbladder sludge, pericholecystic fluid or wall thickening. PANCREAS: Pancreas was increased in echogenicity. This may represent fatty replacement of the pancreas. SPLEEN: Spleen is unremarkable and measures 11 cm. RIGHT KIDNEY: The right kidney measures 10.7 x 4.6 x 4.8 cm and is unremarkable without hydronephrosis. LEFT KIDNEY: The left kidney measures 11.3 x 5.2 x 4.1 cm and is unremarkable without hydropnephrosis. AORTA: Visualized portions appearunremarkable. INFERIOR VENA CAVA: Visualized portions appear unremarkable. INTRAPERITONEAL SPACE: There is no abdominal ascites. IMPRESSION: No acute abnormality identified. at 3371 Reported and signed by: Leland Tejeda MD [facility] NAME: RADHA EDMONDS Radiology Department PHYS: Benito Hobson III, MD [address] : 1975 AGE: 46 SEX: F [place], [place] [address] LOC: F.RAD PHONE #: [phone] EXAM DATE: 08/15/2021 STATUS: REG CLI FAX #: [phone] RAD NO: [id number] Page 1 Signed Report (CONTINUED) Patient Name: RADHA EDMONDS Unit No: [id number] EXAMS: CPT CODE: [id number] US ABDOMEN COMPLETE 40840 <Continued> CC: AMBER CONNOR MD; Benito Eric III, MD Technologist: Delmi Merritt RDMS Probe: Trnscrbd D/ (1607) GCD.CPS Orig Print D/T: S: 08/15/2021 (1607) [facility] NAME: RADHA EDMONDS Radiology Department PHYS: Benito Edwards III, MD [address] : 1975 AGE: 46 SEX: Azeb [place], [place] [id number] LOC: Azeb.RAD PHONE #: [phone] EXAM DATE: 08/15/2021 STATUS: REG CLI FAX #: [phone] RAD NO: [id number] Page 2 Signed Report Patient Name: RADHA EDMONDS Unit No: [id number] EXAMS: CPT CODE: [id number] US ABDOMEN COMPLETE 54115 <Continued> [facility] NAME: RADHA JAMISON Radiology Department PHYS: Benito Hobson III, MD [address] : 1975AGE: 46 SEX: F [place] [address] LOC: Azeb.RAD PHONE #: [phone] EXAM DATE: 08/15/2021 STATUS: REG CLI FAX #: [phone] RAD NO: [id number] Page 3 Signed Report- US PELVIS [id number] 10:52:00Patient Name: RADHA EDMONDS PORTER Unit No: [id number] EXAMS: CPT CODE: [id number] US PELVIS COMPLETE 99651 CLINICAL HISTORY: Left adnexal mass. COMPARISON: April 22, 2010. Patient also had recent computed tomography however, it is unavailable for comparison at this time. Real-time ultrasound examination of the pelvis was performed using transabdominal and endovaginal approach. Doppler evaluation of both ovaries was also performed. The uterus measures 6.7 x 4.3 x 4.4 cm in greatest dimensions with endometrium measuring 9 mm in AP dimension. There is no evidence of uterine fibroid or other significant uterine abnormality. The right ovary has been surgically removed. In the left adnexa, there is a 7.1 x 5.3 x 7.6 cm cystic mass with septation as well as some nodularity identified. Blood flow is identified in the left adnexa. Differential possibilities include cystic ovarian neoplasm suchas cystadenoma. Possibility of complicated ovarian cyst or endometrioma cannot be categorically excluded. There is no significant free fluid in the pelvis. IMPRESSION: 1. 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 Less likely possibility would be that of complicated cyst or endometrioma. 2. Normal sonographic appearance of uterus and status post right oophorectomy. at 1052 Reported and signed by: Akash salinas MD CC: AMBER CONNOR MD; Benito Eric III, MD Technologist: Yuliana Roger RDMS Probe: Trnscrbd D/ (1052) t.SDR.YOS Orig Print D/T: S: 06/06/2020 (1056) [facility] NAME: RADHA EDMONDS Radiology Department PHYS: Benito Hobson III, MD [address] : 1975 AGE: 45 SEX: F [place] [address] LOC: Azeb.RAD PHONE #: [phone] EXAM DATE: 06/06/2020 STATUS: PRE CLI FAX #: [phone] RAD NO: [id number] Page 1 Signed Report Patient Name: RADHA EDMONDS Unit No: [id number] EXAMS: CPT CODE: [id number] US PELVIS COMPLETE 27091 <Continued> [facility] NAME: NYA EDMONDSDINESH PORTER Radiology Department PHYS: Benito Hobson III, MD [address] : 1975 AGE: 45 SEX: F [place], [place] [address] LOC: F.RAD PHONE #: [phone] EXAM DATE: 06/06/2020 STATUS: PRECLI FAX #: [phone] RAD NO: [id number] Page 2 Signed Report- DUP AB/PEL/SC/[id number] 10:52:00Patient Name: RADHA EDMONDS Unit No: [id number] EXAMS: CPT CODE: [id number] DUP AB/PEL/SC/LTD 15149 CLINICAL HISTORY: Left adnexal mass. COMPARISON: April 22, 2010. Patient also had recent computed tomography however, it is unavailable for comparison at this time. Real-time ultrasound examination of the pelvis was performed using transabdominal and endovaginal approach. Doppler evaluationof both ovaries was also performed. The uterus measures 6.7 x 4.3 x 4.4 cm in greatest dimensions wi th endometrium measuring 9 mm in AP dimension. There is no evidence of uterine fibroid or other significant uterine abnormality. The right ovary has been surgically removed. In the left adnexa, thereis a 7.1 x 5.3 x 7.6 cm cystic mass with septation as well as some nodularity identified. Blood flow is identified in the left adnexa. Differential possibilities include cystic ovarian neoplasm such as cystadenoma. Possibility of complicated ovarian cyst or endometrioma cannot be categorically excluded. There is no significant free fluid in the pelvis. IMPRESSION: 1. Cystic left adnexal mass mostlikely representing cystic ovarian neoplasm. Less likely possibility would be that of complicated cyst or endometrioma. 2. Normal sonographic appearance of uterus and status post right oophorectomy. at 1052 Reported and signed by: Akash Harper MD CC: AMBER CONONR MD; Benito Eric III, MD Technologist: Yuliana Roger RDMS Probe: Trnscrbd D/ (1052) t.SDR.YOS Orig Print D/T: S: 06/06/2020 (1056) [facility] NAME: RADHA EDMONDS Radiology Department PHYS: Benito Hobson III, MD [address]OB: 1975 AGE: 45 SEX: F [place], [place] [address] LOC: Azeb.RAD PHONE #: [phone] EXAM DATE: 06/06/2020 STATUS: PRE CLI FAX #: [phone] RAD NO: [id number] Page 1 Signed Report Patient Name: RADHA EDMONDS PORTER Unit No: [id number] EXAMS: CPT CODE: [id number] DUP AB/PEL/SC/LTD 67285 <Continued> [facility] NAME: RADHA EDMODNS Radiology Department PHYS: Benito Hobson III, MD [address] : 1975 AGE: 45 SEX: F [place], [place] [address] LOC: F.RAD PHONE #: [phone] EXAM DATE: 06/06/2020 STATUS: PRE CLI FAX #: [phone] RAD NO: [id number] Page 2 Signed Report- US TRANSVAGINAL [id number] 10:52:00Patient Name: RADHA EDMONDS Unit No: [id number] EXAMS: CPT CODE: [id number] US TRANSVAGINAL W/PELVIS 70198 CLINICAL HISTORY: Left adnexal mass. COMPARISON: April 22, 2010. Patient also had recent computed tomography however, it is unavailable for comparison at this time. Real-time ultrasound examination of the pelvis was performed using transabdominal and endovaginal approach. Doppler evaluation of both ovaries was also performed. The uterus measures 6.7 x 4.3 x 4.4 cm in greatest dimensions with endometrium measuring 9 mm in AP dimension. There is no evidence of uterine fibroid or other significant uterine abnormality. The right ovary has been surgically removed. In the left adnexa, there is a 7.1 x 5.3 x 7.6 cm cystic mass with septation as well as some nodularity identified. Blood flow is identified in the left adnexa. Differential possibilities include cystic ovarian neoplasm such as cystadenoma. Possibility of complicated ovarian cyst or endometrioma cannot be categorically excluded. There is no significant free fluid in the pelvis. IMPRESSION: 1. 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 Less likely possibility would be that of complicated cyst or endometrioma. 2. Normal sonographic appearance of uterus and status post right oophorectomy. at 1052 Reported and signed by: Akash Harper MD CC: AMBER CONNOR MD; Benito Eric III, MD Technologist: Yuliana Roger RDMN Probe: [id number] Trnscrbd D/ (1052) erika.KRISTIER.YOS Orig Print D/T: S: 06/06/2020 (1056) [facility] NAME: GREYRADHADINESH PORTER Radiology Department PHYS: Benito Hobson III, MD [address] : 1975 AGE: 45 SEX: zAeb [place] [address] LOC: BenitaRAD PHONE #: [phone] EXAM DATE: 06/06/2020 STATUS: PRE CLI FAX #: [phone] RAD NO: [id number] Page 1 Signed Report Patient Name: RADHA EDMONDS PORTER Unit No: [id number] EXAMS: CPT CODE: [id number] US TRANSVAGINAL W/PELVIS 08416 <Continued> [facility] NAME: GREY,RADHA PORTER Radiology Department PHYS: Benito Hobson III, MD [address] : 1975 AGE: 45 SEX: Azeb [place] [address] LOC: BenitaRAD PHONE #: [phone] EXAM DATE: 06/06/2020 STATUS: PRE CLI FAX #: [phone] RAD NO: [id number] Page 2 Signed ReportOVARY W/WO TUBE,[id number] 17:41:00 RUN DATE: 07/13/19 [facility] PAGE 1 RUN TIME: 1455 Specimen Inquiry RUN USER: INTERFACE --------- ---PATIENT: RADHA EDMONDS LOC: KEVINU U #: [id number] AGE/SX: 44/F ROOM: RE07/09/19REG DR:Benito Erci III, MD : [birth year] BED: DIS: STATUS: PRE [facility] TLOC: SPEC #: [id number] RECD: 07/09/19 STATUS: GERI ELAINE #: [id number] JOSE RAUL: 07/09/19- SUBM DR: Benito Eric III, MD ENTERED: 07/09/19 SP TYPE: ADÁN FORTE DR: ORDERED: LEVEL IV CODES: [id number] - OVARY, NOS PROCEDURES: LEVEL IV (Incomplete) TISSUES: OVARY, NOS - RIGHT OVARY CLINICAL HISTORY 44 year old, pelvic pain, ovarian cyst(wpd) FINAL DIAGNOSIS Right ovary, oophorectomy: - ovarian parenchyma with serous cystadenofibroma CPT code(s): 02061 xi/gilda dt: 07/10/19 GROSS DESCRIPTION ANATOMIC SOURCE OF TISSUE (per Requisition):Right ovary The specimen is received in a formalin-filled container, labeled with the patient's name and designated "right ovary". The specimen consists a 6 x 4.5 x 4.0 cm ovary with adhesed yellow fatty tissue on the surface. The ovary contains multiple off-white cysts ranging from 0.4 - 2.0 cm and containing clear or light brown, thin fluid. Several cysts contain off-white, firm, papillary lesions on the internal lining measuring up to 0.3 cm. [place]per sections of the cyst wall with thefirm, papillary lesions are submitted in A1 - A6. hz/wpd 07/09/19 @ 1600 MICROSCOPIC DESCRIPTION The specimen consists of an ovary containing cysts and broad papillary structures lined by a single layer of serous epithelium without cytologic atypia. No atypia or malignancy is identified. xi/gilda dt: 07/10/19 Signed Kay Sheridan 07/10/19 1741 END OF REPORT UR HCG [id number] 10:02:00* Test Item Value Reference Range Interpretation Comme nts UR HCG QUAL (test code = HCGQLU) NEGATIVE 1. Very dilute u rine specimens, as indicated by a lowspecific gravity, may not contain medical claims representative levels ofhCG. 2. False negative results may occur when the levels of hCGare below the sensitivity level of the test. If is still suspected, a first morningurine specimen should be collected 48 hours later andtested. AB HIV 1 14:09:00* Test Item Value Reference Range Interpretation Comme nts AB HIV 1 2 (test code = FBI02DE) NONREACTIVE NONREACTIVE Done by [employer] 4th Gen HIV Ag/Ab Combo Screen IS CONSENT FORM SIGNED FOR HIV TESTING? YCHEMISTRY 7 [id number] 13:12:00 * Test Item Value Reference Range Interpretation Comme nts SODIUM (test code = NA) 142 mEq/L 135-145 N POTASSIUM (test code = K) 4.0 mEq/L 3.5-5.0 N CHLORIDE (test code = CL) 106 mEq/L 100-115 N CARBON DIOXIDE (test code = CO2) 27 mEq/L 22-31 N ANION GAP (test code = GAP) 12.70 10-20 N GLUCOSE (test code = GLU) 88 mg/dL 65-110 N BLOOD UREA NITROGEN (test co de = BUN) 10 mg/dL 7-18 N GLOMERULAR FILTRATION RATE ( test code = GFR) 68 ml/min >60 N CREATININE (test code = CREAT) 0.9 mg/dL 0.5-1.0 N CALCIUM (test code = CA) 8.5 mg/dL 8.4-10.2 N CBC W/AUTO [id number] 12:54:00* Test Item Value Reference Range Interpretation Comme nts WHITE BLOOD CELL (test code = WBC) 7.6 K/mm3 6.6-12.1 N RED BLOOD CELL (test code = RBC) 4.42 M/mm3 3.45-5.01 N HEMOGLOBIN (test code = HGB) 13.6 g/dL 10.7-13.9 N HEMATOCRIT (test code = HCT) 42.2 % 32.1-42.1 H MEAN CELL VOLUME (test code = MCV) 96 fL 84.1-94.8 H MEAN CELL HGB (test code = MCH) 30.8 pg 27-35 N MEAN CELL HGB CONCETRATION ( test code = MCHC) 32.2 gm/dL 32.2-34.1 N RED CELL DISTRIBUTION WIDTH (test code = RDW) 12.6 % 12.4-16.5 N PLATELET COUNT (test code = PLT) 217 K/mm3 133-385 N IMMATURE PLATELET FRACTION ( test code = IPF) 0.0 % 0.0-10.8 N MEAN PLATELET VOLUME (test c ode = MPV) 9.7 fl 9.1-12.7 N NEUTROPHIL % (test code = NT%) 52.8 % 56.5-79.4 L LYMPHOCYTE % (test code = LY%) 37.2 % 14.3-34.3 H MONOCYTE % (test code = MO%) 7.5 % 5.1-10.4 N EOSINOPHIL % (test code = EO%) 1.6 % 0.1-3.0 N BASOPHIL % (test code = BA%) 0.5 % 0.1-1.0 N NEUTROPHIL # (test code = NT#) 4.0 K/mm3 LYMPHOCYTE # (test code = LY#) 2.8 K/mm3 MONOCYTE # (test code = MO#) 0.6 K/mm3 EOSINOPHIL # (test code = EO#) 0.12 K/mm3 BASOPHIL # (test code = BA#) 0.0 K/mm3 RBC MORPHOLOGY REQUIRED (eber t code = RBCM) NORMAL NORMAL PLATELET MORPHOLOGY REQUIRED (test code = PLTMR) NORMAL NORMAL UR HCG [id number] 12:49:00* Test Item Value Reference Range Interpretation Comme nts UR HCG QUAL (test code = HCGQLU) NEGATIVE 1. Very dilute u rine specimens, as indicated by a lowspecific gravity, may not contain medical claims representative levels ofhCG. 2. False negative results may occur when the levels of hCGare below the sensitivity level of the test. If is still suspected, a first morningurine specimen should be collected 48 hours later andtested. Procedure Notes Date/Time Note Provider Source 2024-12-18 07:39:18 Tilt Table Test Procedure Note Procedure: Tilt Table Test Indication: Palpitations, Near Syncope Technique: The risks, benefits, and alternatives of procedure were explained to patient. All questions were answered and informed consent obtained. The patient was brought to the electrophysiology lab in a fasting, nonsedated state. The patient was placed supine for 10 minutes while baseline readings were obtained under continuous blood pressure, heart rate, EKG, and pulse oximeter monitoring. Baseline blood pressure was 131/99 and heart rate was 77. The patient was then tilted to 80 degrees. Immediately after tilt, the blood pressure was 145/127 and heart rate was 86. During the next five minutes, the blood pressure remained elevated at 145/123 and heart rate stable at 84. Patient noted dizziness, nausea, feeling warm - similar to clinical symptoms. During the next 15 minutes, the blood pressure remained elevated at 158/113 and heart rate stable a 78. Symptoms persistent during this period. The patient was subsequently returned to supine position with blood pressure returning to baseline at 140/100 and HR stable at 76 Impression: Significant elevation in diastolic blood pressure with tilting associated with clinical symptoms correlated with orthostatic hypertension. Plan: Discussed minimizing salt, graded exercise program, counter pressure maneuvers. Start amlodipine 5 mg daily, uptitrate as necessary. Continue rest of medications. Follow up with general cardiology Theodore Garay MD Cardiac Electrophysiology [facility] Notes Date/Time Note Provider Source 2025-01-15 11:57:24 Per COREEN 10/22/24 The dose of losartan has been increased to 50 mg b.i.d. Requested Prescriptions Signed Prescriptions Disp Refills losartan 25 mg tablet 90 tablet 1 Sig: Take 2 tablets by mouth in the morning and 2 tablets in the evening. Authorizing Provider: MINAL MANNING Ordering User: VIKTORIYA JENNINGS Informed patient the rx was sent to [facility]. [facility] 2025-01-15 10:25:17 Radha Porter is a 49 year old female [facility] pharmacy told her the dosage is wrong and they need a new script sent in [facility] 2 tables 2 times a day losartan 25 mg tablet [id number] - [place], [place] - [address] [facility] AN Jesus [facility] 2025-01-01 11:04:58 Images from the original note were not included. Meets [facility] guidelines for refills. AN Jennings RN [facility] 2024-12-21 12:11:30 Patient has received her medication from pharmacy and has received her heart monitor. Thank you. 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 Pt also states that she received her heart monitor in the mail Saturday12/19/24 and they told her the script is valid through 12/21/24 pt wants clarification she was told to wear the device for 30days and she just received it. Please advise AN Gupta [facility] 2024-12-18 08:22:58 Discharge instructions provided. Patient understands and her IV was removed. AN Durán RN [facility] 2024-12-15 15:53:59 Referral placed [facility] 2024-12-15 14:47:06 Radha Porter is a 49 year old female is requesting a referral to: Dept: General Surgery Specialty Reason for Referral: lipoma removal Duration of problem: N/A Internal / External referral: External Name of provider / location patient requesting: Gregory Jesus MD / [id number], [place] [address] Appt already scheduled?: No If yes, Date of Appt: N/A AN Jean [facility] 2024-12-14 15:30:00 Patient was enrolled for 30 day event monitor to be mailed to home for self hook-up. Patient, was already aware of plan from [facility]. HER GOODS ASSEMBLER Mireille Saldaña RN [facility] 2024-12-14 14:31:[address] [facility] EP LAB PRE-CALL INSTRUCTIONS EP Instructions were sent to patient via: Other telephone Your physician has determined that you need to undergo a(n) Tilt Test procedure. Listed below are some instructions for you to follow prior to the procedure. Do not eat or drink anything after midnight the night before the procedure, except for enough water to take your medications if so directed. Take all medications except do not take metformin (Glucophage) 2 days prior to the procedure and do not take insulin or furosemide (lasix) the day of the procedure. If you are on blood thinners special instructions will be given to you prior to the procedure. If you are allergic to iodine or shellfish, take pre-treatment medications as directed. Please call your referring physician for prescription. Bring a list of all current medications. Bring one adult family member or friend with you to drive you home, as you will be unable to drive for 48 hours after the procedure. Due to limited space and patient privacy, only one (1) visitor is permitted with the patient while they are recovering in the recovery area. No children under the age of 14 years will be allowed in recovery area. Please park in the Hospital Garage via [address] from either [address] or [address]. Bring your parking ticket with you to be validated, only one parking ticket may be validated per patient. There may be a possibility of hospital admission or late evening discharge; therefore, bring leisure reading and an overnight bag. On the day of your procedure, come directly to the Electrophysiology Lab gin pole operator desk, located on the 6th floor of [facility] (3V- [phone].) You will be escorted to the Cardiac Cath/EP recovery room. Please call the Electrophysiology Lab at if you have any questions regarding your procedure. Date of Procedure: 12/18/2024 Time of Procedure: 614 Vendors Needed: Vendors Verified: Anesthesia Verified: Anesthesia Consent: Drug Allergies? Labs Verified? Note in Chart and any Important Info needed for the case: Instructions given to patient: yes Patient provided with preferred teaching of verbal information on 12/14/2024. Shows readiness to learn. Verbal instruction teaching provided. Individual is able to read and verbalizes understanding of teaching provided. [employer] ASSEMBLER Betzaida Manrique RN [facility] 2024-12-01 09:24:05 I contacted the patient and scheduled her for the first available for the occipital nerve block and placed her on the wait list. 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 Cannot come in for nerve block. Will give steroid pack and patient will need to get on wait list for nerve block in office as helped. [facility] 2024-12-01 08:08:56 Spoke to Ms. Porter, she did go to ED in [place] as suggested by RN. Pt stated that they did not do anything for her. She is unable to come to the appointment due to transportation issues. Please review and advise, thank you. AN Ott RN [facility] 2024-11-30 12:21:07 Last Refilled: Disp Refills Start End GARY MONTELUKAST 10 mg tablet 90 tablet 0 08/31/2024 -- No Sig: TAKE 1 TABLET BY MOUTH EVERY EVENING Sent to pharmacy as: montelukast 10 mg tablet (SINGULAIR) Class: eRX Route: Oral Order: [id number] Date/Time Signed: 08/31/2024 09:15 E-Prescribing Status: Receipt confirmed by pharmacy (08/31/2024 9:15 AM CDT) Notes: Recent Visits Date Type Provider Dept 10/14/24 Office Visit Gaby Prather, WOMENS VOLLEYBALL COACH [facility] 10/01/24 Office Visit Juan Miguel Anguiano, WOMENS VOLLEYBALL COACH [facility] 05/29/24 Office Visit Gaby Prather, WOMENS VOLLEYBALL COACH [facility] 04/30/24 Office Visit Giuliana Figueroa PA [facility] 12/30/23 Office Visit Gaby Prather, WOMENS VOLLEYBALL COACH [facility] 12/04/23 Office Visit Giuliana Figueroa PA [facility] 11/28/23 Office Visit Juan Miguel Anguiano, WOMENS VOLLEYBALL COACH [facility] 11/21/23 Office Visit Giuliana Figueroa PA [facility] 10/18/23 Office Visit Giuliana Figueroa PA [facility] 07/24/23 Office Visit Gaby Prather, WOMENS VOLLEYBALL COACH [facility] Showing recent visits within past 540 days with a meds authorizing provider and meeting all other requirements Future Appointments No visits were found meeting these conditions. Showing future appointments within next 150 days with a meds authorizing provider and meeting all other requirements [facility] Deanna Dougherty RN [facility] 2024-11-20 13:20:53 Patient to contact insurance for further information regarding denial and to re notify them that she has an albuterol allergy. Allergy listed in previous PA denied. All was verbalized understanding and would callback with updates. [facility] 2024-11-19 11:55:43 Called patient to schedule their Tilt Test with Dr. Garay. Patient agreed to have procedure on 12/18/2024. AN Magana [facility] 2024-11-13 14:08:05 Spoke with pt. Pt reports having ear pain that travels to her head and chest. Nurse advised pt to go to ER due to her experiencing pain that radiates to chest. Pt then denied chest pain and stated the ER will not know how to treat her, only Ms. Ly and would like for nurse to overbook so pt can be seen MARIA R. Nurse advised pt, she does not have authority to overbook. Pt is requesting a call from Ms. Ly. Forwarding message to Ms. yL. Please review and advise. Thank you. HER GOODS ASSEMBLER Maria Sales RN [facility] 2024-11-13 13:52:35 Patient returning nurse call. Please advise AN Arechiga [facility] 2024-11-13 13:48:43 Attempted to contact pt, no answer. LM requesting a call back for further assessment. [facility] 2024-11-13 12:57:19 Patient calling stating she is having severe pain in her ear that is traveling to her head Patient scheduled next available apt for 12/01/24, but she is asking to speak with a nurse for recommendation. Please advise [facility] 2024-10-27 08:59:28 Last Refilled: Disp Refills Start End GARY LORATADINE 10 mg tablet 30 tablet 1 07/30/2024 -- No Sig: TAKE 1 TABLET BY MOUTH IN THE MORNING Sent to pharmacy as: loratadine 10 mg tablet (CLARITIN) Class: eRX Route: Oral Order: [id number] Date/Time Signed: 07/30/2024 08:59 E-Prescribing Status: Receipt confirmed by pharmacy (07/30/2024 9:00 AM CDT) Notes: Recent Visits Date Type Provider Dept 10/14/24 Office Visit Gaby Prather, WOMENS VOLLEYBALL COACH [facility] 10/01/24 Office Visit Juan Miguel Anguiano, WOMENS VOLLEYBALL COACH [facility] 05/29/24 Office Visit Gaby Prather, WOMENS VOLLEYBALL COACH [facility] 04/30/24 Office Visit Giuliana Figueroa PA [facility] 12/30/23 Office Visit Gaby Prather, WOMENS VOLLEYBALL COACH [facility] 12/04/23 Office Visit Giuliana Figueroa PA [facility] 11/28/23 Office Visit Juan Miguel Anguiano, WOMENS VOLLEYBALL COACH [facility] 11/21/23 Office Visit Giuliana Figueroa PA [facility] 10/18/23 Office Visit Giuliana Figueroa PA [facility] 07/24/23 Office Visit Crescencio Gaby, WOMENS VOLLEYBALL COACH [facility] Showing recent visits within past 540 days with a meds authorizing provider and meeting all other requirements Future Appointments No visits were found meeting these conditions. Showing future appointments within next 150 days with a meds authorizing provider and meeting all other requirements [facility] Deanna Dougherty RN [facility] 2024-10-23 08:24:59 Pt notes she only tolerates this form . Call and verify if not I can't change it [facility] 2024-10-22 11:35:07 Denial notification form recd Covered alternatives: Albuterol Sulfate HFA Ventolin HFA Please review and advise. [facility] 2024-10-19 10:57:35 PA for Xopenex initiated on 10/19/2024 Ware: [id number] Will provide updates as recd [facility] 2024-10-16 09:00:23 Images from the original note were not included. Patient was notified of the results below, she verbally understood and agreed to the plan. Thank you Minal Manning MD P Cardiology Nurse CMP within acceptable stable limits. ALT AST mildly elevated compared to 9 months ago. NT-proBNP within normal limits Magnesium levels normal. Minal Manning MD P Cardiology Nurse LDL elevated but acceptable. LDL at 70 noted from 65 noted from last time. Elevated Triglycerides but better from before. Goal TG < 150 and LDL < 70. [facility] Lise Jaeger MA [facility] 2024-10-14 13:39:09 Please review and alter order to STAT if appropriate. [facility] 2024-10-14 12:51:18 Pt states the order for the CT needs to be marked as STAT not MARIA R. She is schedule don Saturday and needs to have this before the appt. Please Advise. HER GOODS ASSEMBLER Lina Haq [facility] 2024-10-14 12:40:32 Radha Porter is a 49 year old female states she needs Prior Auth for levalbuteroL HFA 45 mcg/actuation aerosol inhaler (Xopenex HFA) Please advise [phone] (home) [id number] - [place] - [address] [employer] [address] [place] [address] AN Chavira [facility] 2024-10-14 12:00:00 Images from the original note were not included. Venipuncture collection performed by clean technique on the left anticubitus. Total of 1 attempts were made. Slight pressure and a bandage/dressing were applied to the site(s). The patient experienced no complications. The following specimens were processed according to instructions and sent to [facility] laboratories per lab order on today: LT BLUE SST 1 RED LAV 1 PPT DK GREEN (LiHep) DK GREEN (SodH) NOVOA DK BLUE (K2) DK BLUE (S) ACD Blood Culture NIPT/NTD [facility] 2024-10-14 12:00:00 CMP within acceptable stable limits. ALT AST mildly elevated compared to 9 months ago. NT-proBNP within normal limits Magnesium levels normal. [facility] 2024-10-14 12:00:00 Addended by: MINAL MANNING on: 10/14/2024 09:26 PM Modules accepted: Orders [facility] 2024-10-14 11:30:00 Addended by: GABY PRATHER on: 10/14/2024 02:46 PM Modules accepted: Orders [facility] 2024-10-10 12:55:17 Patient given discharge instructions on suture removal, cough. No prescriptions given. Pt advised to follow up with pcp. Pt left ER ambulatory, no signs of distress. [facility] Chely Gonzalez RN [facility] 2024-10-10 11:10:27 Pt arrived ambulatory with complaints of internal stitch coming out of old sx site. Pt has had multiple surgeries in the past few years so she isn't sure which procedure it was from. AN Stroud RN [facility] 2024-10-09 12:40:54 RX for Benzonatate 200mg sent to [facility] and patient stated will purchase with [employer] coupon. Patient has allergy to albuterol (hx of Prinzmetal angina) and unable to use Albuterol/Ventolin inhaler. Please review and advise. [facility] 2024-10-09 11:51:23 Radha Porter is a 49 year old female was seen in clinic on 10-01-24 and was prescribed some medication for a cough. Pt hasn't been able to get the medication for her cough because her insurance won't covered it without having a prior authorization. Please advise the pt if/when the prior authorization can be completed, thank you! AN Deluna [facility] 2024-10-06 08:05:05 Looks like you saw pt [facility] 2024-10-05 16:47:55 Notice recd from pharmacy that levalbuterol (XOPENEX HFA) 45 mcg/actuation inhaler is not covered by plan. Preferred alternate: Albuterol Sulfate HFA Ventolin HFA Please review and send in new RX if appropriate. COREEN 10/01/24 AN Sung LVN [facility] 2024-09-17 11:58:35 Refill request for imdur received. Refill sent to pharmacy of choice. Patient is compliant as per [facility] Cardiology Protocol. Hanna Vinson MA [facility] 2024-09-09 15:05:50 Refill requested for Ranexa COREEN 10/22/2023 Prescription was not cancelled on our end. Pharmacy telling patient no refills available. Refills sent. [facility] 2024-09-09 11:11:44 Patient stating she contacted her pharmacy to get her refill of ranolazine 1,000 mg tablet and they stated the provider canceled her medications. She has 2 days left of medications. She is asking if this can be sent into her pharmacy. Please advise [id number] - [facility] [place] - [address] [facility] Hodan Arechiga [facility] 2024-07-30 08:58:40 Last Refilled: Disp Refills Start End GARY LORATADINE 10 mg tablet 30 tablet 1 06/01/2024 -- No Sig: TAKE 1 TABLET BY MOUTH IN THE MORNING Sent to pharmacy as: loratadine 10 mg tablet (CLARITIN) Class: eRX Route: Oral Order: [id number] Date/Time Signed: 06/01/2024 10:00 E-Prescribing Status: Receipt confirmed by pharmacy (06/01/2024 10:00 AM CDT) Recent Visits Date Type Provider Dept 05/29/24 Office Visit Gaby Prather FNP [facility] 04/30/24 Office Visit Giuliana Figueroa PA [facility] 12/30/23 Office Visit Gaby Prather FNP [facility] 12/04/23 Office Visit Giuliana Figueroa PA [facility] 11/28/23 Office Visit SidrajodeeRosa IselaJuan Miguel [employer] [facility] 11/21/23 Office Visit Giuliana Figueroa PA [facility] 10/18/23 Office Visit Giuliana Figueroa PA [facility] 07/24/23 Office Visit Gaby Prather [employer] [facility] 05/28/23 Office Visit Gaby Prather, WOM[employer] V[employer]LEYB[employer] COACH [facility] Showing recent visits within past 540 days with a meds authorizing provider and meeting all other requirements Future Appointments Date Type Provider Dept 11/30/24 Appointment Gaby Prather FNP [facility] Showing future appointments within next 150 days with a meds authorizing provider and meeting all other requirements Paulina Santana [facility] 2024-07-13 13:46:16 Patient was called to r/s 1 yr post op. No answer, unable to reach patient. Letter sent to home address. Mere Quezada MA [facility] 2024-07-07 15:25:50 Patient was called to r/s 1 yr post op appointment with Dr. Seymour. Patient stated she did not want to r/s and hung up. Mere Quezada MA [facility] 2024-07-06 15:08:39 Was able to reach the [facility]. They do have her refills and will get this ready for her this afternoon. Mireille Saldaña RN [facility] 2024-07-06 11:28:49 Spoke with patient who states that the pharmacy is telling her that she does not have refills even though we sent refills in May. [facility] but [facility] computer system is down. Will try back later. Mireille Saldaña RN [facility] 2024-07-06 11:11:00 Radha Porter is a 49 year old female Pt calling to speak about her LOSARTAN 25 mg tablet Transferring to Mireille Khalida Jesus [facility] 2024-07-02 12:36:50 Refill request for losartan 25 mg COREEN 10/22/24 NOV 07/23/24 Labs 01/16/2024, [facility] WNPamela This medication was refilled on 06/01/24. 90 day plus 1 refill. Too soon to refill patient needs to contact the [facility]. T [facility] 2024-07-02 10:51:31 Radha Porter is a 49 year old female Pt requesting a refill LOSARTAN 25 mg tablet [facility] #[id number] - [facility] [place] - [address] AT [facility] [address] Savioke Khalida Jesus [facility] 2024-07-01 15:22:04 Access Center: [facility] Open Encounter Maintenance Nurse Note: RN closing encounter in EPIC r/t encounter created without notes, details, orders, future appointments, or clinical action items to be completed. Chasity Elmore RN [facility] Access Center Triage Nurse Chasity Elmore RN [facility] 2024-06-23 09:22:22 Radha Porter is a 49 year old female calling and [facility] pharmacy has not received medication isosorbide mononitrate ER 60 mg tablet,extended release 24 hr (IMDUR) that was sent on 06/19/24. Patient asking for clinic to resend please. [facility][id number] - [place], [place] - [address] AT [employer] [phone] (home) After placing on hold and returning to patient, patient states she got a call from pharmacy and says it is ready for medicinal plant picker to disregard this note. Tabby Chavira [facility] 2024-06-23 09:21:08 Summary: [facility] Specialty Pharmacy [facility] Specialty Pharmacy Monthly Clinical Assessment After reviewing the results of the administered survey, it is appropriate to continue the medication as prescribed. The [facility] Specialty Pharmacy will refill the medication and continue to follow this patient and address any concerns that arise while on therapy with Qulipta. Thank you, Alexandra Waters [facility] [[email or web address] Specialty Pharmacy Alexandra Waters [facility] 2024-06-19 09:50:07 Images from the original note were not included. Refill approved per cardiology protocol: Cardiovascular: Nitrates Oklqml4106/19/2024 09:27 AM Protocol Details Valid encounter within last 12 months Betzaida Raygoza MA [facility] 2024-06-19 09:25:42 Radha Porter is a 49 year old female Pt is calling request refill of RX isosorbide mononitrate 60 mg 24 hr tablet. Has enough to get to Saturday [facility] #[id number] - [place] - [address] AT [facility] [address] [place] [address] Please advise [facility] 2024-06-15 16:19:[address] [facility] Specialty Pharmacy Monthly Clinical Refill Assessment Radha Porter is a 49 year old female who is followed by the [facility] specialty pharmacy service for Qulipta. Am I speaking with the patient? Yes Have you missed any doses since the last fill? No Were any of the medications discontinued? No Have any changes been made to the medication, dose, or instructions on how to take it? No Have you started taking any new medications, herbals, or supplements? No Have you been diagnosed with any new medical conditions? No Are you experiencing any acute illness such as the common cold or flu-like symptoms? No Do you have any new allergies to medications or foods? No Have you been to the emergency room, hospital, or urgent care clinic since your last refill? No Have you experienced or do you have any concerns about side effects? No Do you have any concerns or questions about taking or administering the medication as prescribed? No Do you think the medication is working for you? Yes When is the next dose needed? The next dose is needed on tomorrow Would you prefer the medication be shipped to your address? YES, the confirmed shipping address is [address] [place], [place] [id number]. Do you have any specific shipping directions? No The results of this survey will be reviewed by a specialty pharmacist and the medication order will be refilled. Thank you, Shena Varela [facility] Specialty Pharmacy Shena Varela [facility] 2024-06-12 12:37:06 Patient has been scheduled 06/30/24 Mireille Saldaña RN [facility] 2024-06-11 13:32:53 I had reviewed with her regarding the interaction between Ranexa 1000 mg twice daily along with the diltiazem. She verbalized understanding. We did reduce the dose of Ranexa to 500 twice daily with which she felt her cardiac symptoms resurfaced. Hence she would prefer going back to the Ranexa 1000 mg twice daily along with the diltiazem. She did review the interaction and verbalized understanding regarding the interaction. Last seen by me dated October 2023. She is anyway due to for having a follow-up. Please make follow-up with the next available date. [facility] 2024-06-11 10:52:38 ok'd the self increase request for 1000mg tablets. New order Rx sent to pharmacy as requested. Was sent to [facility]. Will sent to [facility] specialty if not approved or affordable to [facility]. This is where was sent last refill. Attempted to call pt mailbox was full. [facility] 2024-06-05 14:59:01 Addended by: APRIL KOTHARI on: 06/05/2024 02:59 PM Modules accepted: Orders [facility] 2024-06-05 14:09:20 please review and advise, Markan is not listed on pt's medication. Do you wish to refill? NOV is with you 08/06/2024. Please advise, thank you. Chasity Ott RN [facility] 2024-06-05 11:09:31 Patient calling needing to speak with nurse to see if provider can refill a 30 day supply of her Zofran medication until she is able to get in to see the other provider. Please advise Hodan Arechiga [facility] 2024-06-05 09:46:00 Radha Porter is a 49 year old female Pt calling in regards to ranolazine pt states that she had an old script filled from [facility] since we never filled her script. Pt requesting a script for 1000mg to [facility]. Please advise. [facility] - [address] [facility] [place] [address] [facility] [place] [address] Thor Gupta [facility] 2024-06-04 09:21:59 Patient current prescription for 500 mg twice daily. She is on diltiazem 120 mg twice daily and previously Dr. Manning had stated dose was lowered due to interaction between diltiazem and ranolazine. Routing to Dr. Manning to verify that's it's ok for patient to continue ranolazine 1000 twice daily. Mireille Saldaña RN [facility] 2024-06-03 10:11:57 Radha Porter is a 49 year old female Pt is needing a refill for ranolazine. She said she needs it for 1000 mg and she is out. Please advise [facility][id number] - [place] - [address] [facility] [address] [employer] [address] [place] [address] Jovon Ortiz Primitivo [facility] 2024-06-01 09:59:04 Images from the original note were not included. Notes: 02/11/24, 03/12/24 Last Refilled: [facility] #[id number] - [place], [place] - [address] AT [facility] [employer] Recent Visits Date Type Provider Dept 05/29/24 Office Visit Gaby Prather, WOMENS V[employer]LEYBALL COACH [facility] 04/30/24 Office Visit Giuliana Figueroa PA [facility] 12/30/23 Office Visit Gaby Prather, WOM[employer] V[employer]LEYB[employer] COACH [facility] 12/04/23 Office Visit Giuliana Figueroa, PA [facility] 11/28/23 Office Visit Juan Miguel Anguiano [employer] [facility] 11/21/23 Office Visit Giuliana Figueroa PA [facility] 10/18/23 Office Visit Giuliana Figueroa, PA [facility] 07/24/23 Office Visit Gaby Prather [employer] [facility] 05/28/23 Office Visit Gaby Prather, WOMENS VOLLEYBALL COACH [facility] Showing recent visits within past 540 days with a meds authorizing provider and meeting all other requirements Future Appointments No visits were found meeting these conditions. Showing future appointments within next 150 days with a meds authorizing provider and meeting all other requirements Name from pharmacy: MONTELUKAST 10MG TABLETS Will file in chart as: MONTELUKAST 10 mg tablet Sig: TAKE 1 TABLET BY MOUTH EVERY EVENING Disp: 90 tablet Refills: 0 (Pharmacy requested: Not specified) Start: 05/31/2024 Class: eRX For: Perennial allergic rhinitis Last ordered: 3 months ago (02/11/2024) by DONI Miller Last refill: 02/11/2024 Rx #: [id number]|0|1 Allergy Nabpxy6705/31/2024 05:46 AM Protocol Details Valid encounter within last 12 months Name from pharmacy: LORATADINE 10MG TABLETS Will file in chart as: LORATADINE 10 mg tablet Sig: TAKE 1 TABLET BY MOUTH IN THE MORNING. Original sig: TAKE 1 TABLET BY MOUTH IN THE MORNING Disp: 30 tablet Refills: 1 (Pharmacy requested: Not specified) Start: 05/31/2024 Class: eRX For: Rash Last ordered: 2 months ago (03/12/2024) by DONI Miller Last refill: 04/06/2024 Rx #: [id number]|0|1 Allergy Bovtmu0405/31/2024 05:46 AM Protocol Details Valid encounter within last 12 months To be filled at: [facility] #[id number] - [place] - [address] AT [employer] [facility] 2024-05-14 15:00:00 Addended by: APRIL KOTHARI on: 05/14/2024 04:27 PM Modules accepted: Orders [facility] 2024-05-04 15:13:02 Refill request for atorvastatin COREEN 10/22/2023 Labs CMP (11/2023) Lipid (10/2023), LFT WNL Patient compliant with refill guidelines. Refill was already sent today. Mireille Saldaña RN [facility] 2024-05-04 12:29:53 Copied from [facility] #[id number]. 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 She has 3 pills left. Please advise [facility] #[id number] - [place], [place] - [address] AT [employer] Hodan Arechiga [facility] 2024-03-26 11:26:33 Images from the original note were not included. Patient should still have refills remaining of the losartan 25 mg. Patient was advised to call the pharmacy. Refill sent for Ranexa 500 mg per refill guidelines. [facility] 2024-03-26 11:01:18 Copied from CRM #[id number]. Topic: Clinical - Medical Advice >> March 26, 2024 11:00 AM Patient Household Refrigerator Mechanic wrote: Pt is calling needing a refill on medication losartan 25 mg tablet ranolazine 500 mg 12 hr tablet [facility] #[id number] - [place], [place] - [address] AT [facility] Dom Winslow [facility] 2024-03-16 16:13:07 Images from the original note were not included. Form was faxed back on 03/13/24. Will try to refax. Called Dr. Jesus office. They confirmed receipt of clearance. Patient notified. Mireille Saldaña RN [facility] 2024-03-16 09:21:24 Copied from CRM #[id number]. 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 Jesus's office and they haven't received her cardiac clearance yet and she is scheduled for surgery on Sat. Dr. Gregory Jesus' office in [place]. fax to . Please advise Nieves Patel [facility] 2024-03-13 14:15:44 Received a clearance, faxed back with progress note. Will scan in confirmation. Tried to call the office they are closed. Thank you Lise Jaeger MA [facility] 2024-03-13 14:14:44 Dr. Manning cleared the patient, will fax back with office note. Thank you Lise Jaeger MA [facility] 2024-03-13 12:23:27 Copied from [facility] #[id number]. 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 Gregory Jesus' office in [place] calling to verify if we received the clearance forms for the patient that they fax. Please advise Hodan Arechiga [facility] 2024-03-13 10:24:[address] Gregory Jesus' office in [place]. Form will be faxed to . Will fax back as soon as possible. clearance letter for biopsies Dr. Gregory Jesus fax [phone] Mireille Saldaña RN [facility] 2024-03-12 13:17:53 Pt requesting a cardiac clearance letter be sent to external provider for some biopsy orders that have been placed on her behalf. Requesting this be done maria r Noah Jaeger [facility] 2024-03-12 07:55:10 Last Refilled: Disp Refills Start End GARY LORATADINE 10 mg tablet 30 tablet 0 02/11/2024 -- No Sig: TAKE 1 TABLET BY MOUTH IN THE MORNING. Sent to pharmacy as: loratadine 10 mg tablet (CLARITIN) Class: eRX Route: Oral Order: [id number] Date/Time Signed: 02/11/2024 08:03 E-Prescribing Status: Receipt confirmed by pharmacy (02/11/2024 8:03 AM CDT) Recent Visits Date Type Provider Dept 12/30/23 Office Visit Gaby Prather [facility] 12/04/23 Office Visit Giuliana Figueroa PA [facility] 11/28/23 Office Visit Juan Miguel Anguiano [employer] 11/21/23 Office Visit Giuliana Figueroa PA [facility] 10/18/23 Office Visit Giuliana Figueroa PA [facility] 07/24/23 Office Visit Gaby Prather [facility] 05/28/23 Office Visit Gaby Prather [facility] 10/08/22 Office Visit Gaby Prather, [employer] Showing recent visits within past 540 days with a meds authorizing provider and meeting all other requirements Future Appointments Date Type Provider Dept 03/30/24 Appointment Gaby Prather FNP [facility] Showing future appointments within next 150 days with a meds authorizing provider and meeting all other requirements Paulina Santana [facility] 2024-01-31 11:08:24 Called pharmacy to assist pt with Renexa Rx coverage. Re ran under medicare part B. Was approved. Liviat msg pt to inform. Attempted to call. Unable to get through. Vm attempted to be left with information incase recorded. Rx Group : [id number] [employer] Medicare ID: [id number] [facility] [employer] 2024-01-31 10:31:13 Copied from [facility] #[id number]. 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 Requested Renewals levalbuterol (XOPENEX HFA) 45 mcg/actuation inhaler Sig: Inhale 2 Puffs every 6 (six) hours as needed for Wheezing. Disp: 15 g Refills: 0 Start: 01/21/2024 Class: eRX Non-formulary For: Moderate persistent asthma without complication Last ordered: 1 month ago (11/28/2023) by DONI Villafana Pulmonology & Allergy: Beta Agonists and Anti-muscarinics Bmiqov3301/21/2024 12:27 PM Protocol Details Manual Review: If patient not on inhaled steroid and using bronchodilator more than twice weekly for more than 4 weeks or is having a night cough patient should be seen immediately. Manual Review: Staff refilling for allergy - 1 month supply only unless insurance requires a 3 month supply, then 3 month supply approved. Valid encounter within last 12 months To be filled at: [id number] - [place], [place] - [address] AT [address] Recent Visits Date Type Provider Dept 12/30/23 Office Visit Gaby Prather FNP [facility] 12/04/23 Office Visit Giuliana Figueroa PA [facility] 11/28/23 Office Visit Juan Miguel Anguiano FNP [facility] 11/21/23 Office Visit Giuliana Figueroa PA [facility] 10/18/23 Office Visit Giuliana Figueroa PA [facility] 07/24/23 Office Visit Gaby Prather FNP [facility] 05/28/23 Office Visit Gaby Prather FNP [facility] 10/08/22 Office Visit Gaby Prather FNP [facility] 08/27/22 Office Visit Gaby Prather [employer] Showing recent visits within past 540 days with a meds authorizing provider and meeting all other requirements Future Appointments Date Type Provider Dept 03/30/24 Appointment Gaby Prather FNP [facility] Showing future appointments within next 150 days with a meds authorizing provider and meeting all other requirements [facility] 2024-01-20 10:04:18 Requested Prescriptions Pending Prescriptions Disp Refills SPIRONOLACTONE 50 mg tablet [Pharmacy Med Name: SPIRONOLACTONE 50MG TABLETS] 180 tablet 1 Sig: TAKE 1 TABLET BY MOUTH TWICE DAILY Cardiovascular: Diuretics - Potassium Sparing Passed - 01/17/2024 4:47 PM Passed - Valid encounter within last 12 months Recent Visits Date Type Provider Dept 10/22/23 Office Visit Minal Manning MD [facility] 09/18/23 Office Visit Minal Manning MD [facility] 06/13/23 Office Visit Minal Manning MD [facility] Showing recent visits within past 365 days and meeting all other requirements Future Appointments Date Type Provider Dept 02/25/24 Appointment Minal Manning MD [facility] Showing future appointments within next 365 days and meeting all other requirements Passed - K in normal range and within 180 days K Date Value Ref Range Status 01/16/2024 3.7 3.5 - 5.0 mmol/L Final Passed - Cr in normal range and within 180 days CREATININE Date Value Ref Range Status 01/16/2024 0.56 0.50 - 1.04 mg/dL Final POCT Creatinine Date Value Ref Range Status 03/20/2022 0.8 0.5 - 1.1 mg/dL Final AN Mercedes MA [facility] 2024-01-17 08:09:39 Images from the original note were not included. Refill approved per cardiology protocol: Cardiovascular: Antilipid - HMG-CoA Reductase Inhibitors Dykpow5601/17/2024 05:46 AM Protocol Details Valid encounter within last 12 months Total Cholesterol within 360 days LDL within 360 days HDL within 360 days Triglycerides within 360 days AST in normal range and within 360 days ALT in normal range and within 360 days AN Raygoza MA [facility] 2024-01-16 12:33:41 Refill request for losartan 25 mg BID COREEN 10/22/23, previously patient's dose was decreased to 25 mg daily during COREEN due to low BP However, see encounter encounter 10/24/23, patient's dose was changed back to losartan 25 twice daily due to elevated BP. Labs completed today. WNL Refill sent to [id number] - [place], [place] - [address] AT [facility] 2024-01-16 12:06:57 Patient is needing a refill on Losartan and for it be changed on how she takes the medication she takes it 2x a day instead of 1x a day like its prescribed. Please advise and contact patient. AN Magana [facility] 2024-01-16 11:45:00 Images from the original note were not included. Venipuncture collection performed by clean technique on the right anticubitus. Total of 1 attempts were made. Slight pressure and a bandage/dressing were applied to the site(s). The patient experienced no complications. The following specimens were processed according to instructions and sent to [facility] laboratories per lab order on 01/16/2024 : LT BLUE 1 SST 5 RED LAV 1 PPT DK GREEN (LiHep) DK GREEN (SodH) NOVOA DK BLUE (K2) DK BLUE (S) ACD Blood Culture NIPT/NTD [facility] 2024-01-15 10:46:48 losartan 25 mg tablet 90 tablet 1 11/28/2023 -- -- Sig: Take 1 tablet by mouth every day at 1200 (noon). Sent to pharmacy as: losartan 25 mg tablet (COZAAR) Class: eRX Route: Oral Order: [id number] Date/Time Signed: 11/28/2023 14:28 E-Prescribing Status: Receipt confirmed by pharmacy (11/28/2023 Pt needs to reach out to her pharmacy for refill. HER GOODS ASSEMBLER Shukri Gonzalez RN [facility] 2024-01-14 13:38:35 Copied from [facility] #[id number]. Topic: Clinical - Order >> Jan 14, 2024 1:37 PM [facility] wrote: Radha Porter is a 48 female Pt calling requesting a refill for Losartan. Pt states she takes the medicine 2x a day not 1x a day. Please advise. [id number] - [place] - [address] AT [address] [place] [address] AN Gupta [facility] 2024-01-08 14:07:35 Per COREEN: 10/03/23 - Continue proMETHazine 25 mg tablet; Take 1 tablet by mouth every 4 (four) hours as needed (N/V or migraine headache). Dispense: 90 tablet; Refill: 11 Medication refills given per neurology guidelines. AN Owens RN [facility] 2024-01-07 14:41:59 Radha Porter is a 48 year old female patient currently out of Phenergan and pharmacy says she has no refills. Please refill Phenergan 25 mg. Please call [phone] [facility][id number] - [place] - [address] AT [address] [place] [address] AN Bishop [facility] 2024-01-06 09:04:06 Cardiac Clearance/ Clinical notes faxed back to [facility] and scanned into chart along with fax confirmation. AN Raygoza MA [facility] 2024-01-04 20:09:24 Last office note updated. [facility] 2024-01-03 14:09:28 Cardiac Clearance Request received via fax from [facility] and placed in Dr Manning's folder to be reviewed. Last O/V - 10/22/2023 Last EKG - 09/14/2023 Last ECHO - 09/15/2023 AN Raygoza MA [facility] 2024-01-02 08:40:[address] Isabel's office with [facility]. Clearance request was sent to incorrect fax number. They are re faxing today 01/02/24. HER GOODS ASSEMBLER Mireille Saldaña RN [facility] 2023-12-31 13:03:37 Spoke with Patient, she Stated that it was "figured out". I voiced understanding and advised her to call if she had any other questions or concerns. She voiced understanding. HER GOODS ASSEMBLER Deanna Dougherty RN [facility] 2023-12-30 14:30:00 Images from the original note were not included. Venipuncture collection performed by clean technique on the right anticubitus. Total of 1 attempts were made. Slight pressure and a bandage/dressing were applied to the site(s). The patient experienced no complications. The following specimens were processed according to instructions and sent to [facility] laboratories per lab order on 12/30/2023 : LT BLUE SST 3 RED LAV PPT DK GREEN (LiHep) DK GREEN (SodH) NOVOA DK BLUE (K2) DK BLUE (S) ACD Blood Culture NIPT/NTD [facility] 2023-12-30 13:59:06 Attempt made to contact pt, unable to leave message at this time. HER GOODS ASSEMBLER Chasity Ott RN [facility] 2023-12-27 16:52:27 I Dont have any this should go to lab, to see if they received it [facility] 2023-12-27 14:31:05 Contacted patient for further information and she stated she took order form to [facility] "professional building" on 12/25/23 and currently waiting for call back due to the lab needing "to look up order and certain labs". Informed patient I would give her call with results once reviewed by provider after they were collected. HER GOODS ASSEMBLER Cathy Apple MA [facility] 2023-12-26 12:56:50 Called and spoke with pt. Advised her per provider April Ly to come into clinic today for a headache booster. Pt verbalized understanding. Pt placed on schedule for 2pm. HER GOODS ASSEMBLER Radha Owens RN [facility] 2023-12-26 11:16:36 Migraine x 5 days, pain scale 9/10 She stating the urgent care does not give shots for her migraine and she does not want to go to ED She is asking to speak with a nurse. Please advise AN Arechiga [facility] 2023-12-26 11:15:00 Waiting to here from office of Dr Alyssia Isabel for clarificarion of orders. AN Chang [facility] 2023-12-26 10:15:33 Radha Porter is a 48 year old female Pt calling was disconnected with nurse during triage. Pt needs sooner appt than 01/06/24 epic shows further date. Please advise. AN Gupta [facility] 2023-12-26 09:59:07 Adult Triage Assessment Last Clinic Visit: 12/04/2023 family medicine in office visit Dx: URI Primary Symptom: spoke with patient stated " my head is hurting really bad." Onset / Duration: 5 days ago Location / Description: headache, behind my left eye Pain / Severity: 9/10, constant, throbbing, stabbing and shoots, sharp pains Associated Symptoms: nausea and vomiting, vomited this morning Fever / Method: denies, but has really bad night sweats Hydration: "48 ounces, urinating normally, normal bowel movements." Treatment so far: "tylenol 3 I havent taken it the last couple of days. Ibuprofen 800mg hasn't taken it for a couple of days ,nertec 1 tablet this morning qulipta1 this morning." Effect on ADL's: moderately LMP: caller disconnected call before I could assess question. Pre-existing condition / Immunocompromised: insomnia, panic disorder, pseudoseizures, TIA, Migraine without aura and without status migrainosus, tension type headache, Reason for Disposition Caller hangs up Protocols used: Difficult [id number] AN Chi RN [facility] 2023-12-26 09:29:00 Regarding: APPT [facility] Neuro ----- Message from Tabby Raygoza sent at 12/26/2023 9:25 AM LEATHER GOODS ASSEMBLER ----- Radha Porter is a 48 year old female Specific Symptoms: 5 days Specific Duration: migraine Patient is currently scheduled for 01/06/24 and on wait list. Please call at [phone] (home) AN Chi RN [facility] 2023-12-26 09:29:00 Adult Triage Assessment Last Clinic Visit: 12/04/2023 family medicine in office visit Dx: URI Primary Symptom: spoke with patient stated " my head is hurting really bad." Onset / Duration: 5 days ago Location / Description: headache, behind my left eye Pain / Severity: 9/10, constant, throbbing, stabbing and shoots, sharp pains Associated Symptoms: nausea and vomiting, vomited this morning Fever / Method: denies, but has really bad night sweats Hydration: "48 ounces, urinating normally, normal bowel movements." Treatment so far: "tylenol 3 I havent taken it the last couple of days. Ibuprofen 800mg hasn't taken it for a couple of days ,nertec 1 tablet this morning qulipta1 this morning." Effect on ADL's: moderately LMP: caller disconnected call before I could assess question. Pre-existing condition / Immunocompromised: insomnia, panic disorder, pseudoseizures, TIA, Migraine without aura and without status migrainosus, tension type headache, Reason for Disposition Caller hangs up Protocols used: Difficult [id number] [facility] 2023-12-25 16:44:09 Radha Porter is a 48 year old female Pt is wanting Dr. Manning to send over a cardiac clearance to Dr. Keenan's Office for a endoscopy. Fx:[phone] Ph: [phone] AN Langford [facility] 2023-12-25 16:41:03 Radha Porter is a 48 year old female and is calling stating that her GI Doctor was going to be sending in lab orders today and would like to know if they have been received. Dr. Keenan in [place] AN Coon [facility] 2023-12-06 16:03:26 Patient was called to be rescheduled for her missed 6 mo pop appt. Patient stated that she did not wish to do that at this time, she will call us once she is ready. AN Quezada MA [facility] 2023-12-06 11:15:00 Images from the original note were not included. Venipuncture collection performed by clean technique on the left anticubitus. Total of 1 attempts were made. Slight pressure and a bandage/dressing were applied to the site(s). The patient experienced no complications. The following specimens were processed according to instructions and sent to [facility] laboratories per lab order on 12/06/2023 : LT BLUE SST 6 RED 1 LAV 1 PPT DK GREEN (LiHep) DK GREEN (SodH) NOVOA DK BLUE (K2) DK BLUE (S) ACD Blood Culture NIPT/NTD [facility] 2023-11-28 11:53:31 Radha Porter is a 48 year old female Pt calling to request a refill for Losartan 25mg 2x a day. Please advise [id number] - [place], [place] - [address] [place] [address] [facility] 2023-11-25 13:24:32 Medication refilled per policy: Last office visit: 11/21/23 Next office visit: not scheduled Requested Prescriptions Pending Prescriptions Disp Refills MONTELUKAST 10 mg tablet [Pharmacy Med Name: MONTELUKAST 10MG TABLETS] 90 tablet 3 Sig: TAKE 1 TABLET BY MOUTH EVERY EVENING Last fill date: 01/01/23 HER GOODS ASSEMBLER Elvira Sung LVN [facility] 2023-08-06 15:10:24 Formatting of this n ote might be different from the original. Last office note updated. Please fax. [facility] 2023-08-05 15:05:57 Formatting of this n ote might be different from the original. Received preop clearance and anticoagulation guidance request for Radha Edmonds from Dr. Isabel. Medical clearance form placed in nurse basket at [facility]. COREEN: 06/13/23 NOV: 10/14/23 Anticoagulation: plavix 75, aspirin 81 Date of last echocardiogram: 09/04/22 Date of last stress test: 10/24/22, LHC 11/14/22 Date of last EK06/13/23 Mireille Saldaña RN [facility] 2023-08-02 09:10:27 Formatting of this n ote might be different from the original. Radha Edmonds is a 48 year old female Patient calling requesting cardiac clearance for upcoming endoscopy be sent to Dr. Alyssia Isabel, Dental Office Manager in [place]. Patient is scheduled for 09/10/2023. Please advise. Dr. Alyssia Isabel Dental Office Manager in [place] t: [phone] f: [phone] [facility] 06/13/2023 NOV 10/14/2023 Radha Magana [facility] 2023-07-25 16:09:21 Formatting of this n ote might be different from the original. Patient paid wilkerson for the medication, it was 5.26 with discount card. No PA needed. [facility] 2023-07-24 14:00:45 Formatting of this n ote might be different from the original. Pt called and states that medication is needing a prior authorization. Please advise. fluconazole (DIFLUCAN) 150 mg tablet [id number] - [place], [place] - [address] AT [facility] [employer] [address] Kelsey Garcia [facility] 2023-07-24 11:00:00 Addended by: Alex MUÑOZ on: 07/24/2023 11:45 AM Modules accepted: Orders [facility] 2023-07-05 11:55:07 Formatting of this n ote might be different from the original. Referral faxed to [facility] Family Support Coordinator Services for 6 post op nutrition visits. Faxed confirmation received. Referral and confirmation scanned to [facility] for upload to medical record. Shukri Macdonald RN [facility] 2023-07-05 11:36:16 Formatting of this n ote might be different from the original. Call placed to patient with Ashwin Rees NP. Patient reports on her soft diet she is eating pancakes and tuna fish sandwiches. Patient advised pancakes are not part of her diet post op gastric sleeve (soft diet). Patient was advised she needs to attend additional nutrition visits to assist with nutrition. Patient was advised a refill for Zofran would be sent but she needs to follow up with Gastroenterology regarding her nausea and diarrhea which she reports she had prior to bariatric surgery. Patient has an appointment on 07/31/2023 with Gastroenterology. Patient was thankful for call. Shukri Macdonald RN [facility] 2023-07-05 10:40:38 Formatting of this n ote might be different from the original. Call placed to patient. Patient is s/p VSG on 04/30/2023. Patient was advised on 06/12/2023 office visit to revert back to clear liquid diet X 3 days due to episodes of diarrhea and vomiting and diarrhea, take Zofran 8 mg tablet PO Q 6 hrs prn, take immodium as directed and record meals. Patient is requesting a refill on the 4 mg of Zofran as she reports the 4 mg tablets dissolve better and she takes 2 of them (more effective per patient). Patient reports she had nausea even on the clear liquid diet for 3 days. Nurse requested patient upload a copy of her food diary to [email or web address] or email it to nurse. Patient reports she has advanced to soft foods and added only one food at a time but cannot determine what is causing her nausea as she is nauseated first thing in the mornings. Patient reports she has an appointment with Gastroenterology on 07/31/2023. Patient advised a message would be sent to Ashwin Rees NP regarding refill of Zofran. T [facility] 2023-07-05 09:43:18 Formatting of this n ote might be different from the original. Radha Edmonds is a 48 year old female Pt is still having nausea and she is losing weight but not in a good way and needing zofran med Please advise [phone] (home) Dom Winslow [facility] 2023-07-04 16:26:21 Formatting of this n ote might be different from the original. Spironolactone refilled, Losartan refill sent prior by Dr Manning to [id number] [place] [address] [address] [facility] [employer] [facility] 2023-06-21 08:27:46 Formatting of this n ote is different from the original. Images from the original note were not included. Refill approved per cardiology protocol: Cardiovascular: ?Angiotensin Receptor Blockers Passed 06/21/2023 05:46 AM Protocol Details Valid encounter within last 12 months K in normal range and within 360 days Cr in normal range and within 360 days Betzaida Raygoza MA [facility] 2023-06-13 14:00:00 Addended by: MINAL MANNING on: 06/13/2023 10:40 PM Modules accepted: Orders [facility] 2021-09-07 10:57:00 [id number] [facility] [address] [place], [place] [address] PATIENT NAME: RADHA EDMONDS ADMIT DATE: 09/07/21 ACCOUNT NO: [id number] ROOM NO: AGE: 46 SEX: F ADMITTING PHYSICIAN: ATTENDING PHYSICIAN: Benito Eric III, MD OPERATION DATE: 09/07/2021 PREOPERATIVE DIAGNOSES: Left adnexal mass, morbid obesity, hypertension, cardiovascular disease, postural orthostatic tachycardia syndrome, diabetes. POSTOPERATIVE DIAGNOSES: Left adnexal mass, morbid obesity, hypertension, cardiovascular disease, postural orthostatic tachycardia syndrome, diabetes, omental adhesions. PROCEDURE: SURGEON: Benito Eric III, M.D. ANDROID ARCHITECT: Shaun Muniz M.D. ANESTHESIA: General. FINDINGS: Multiple omental adhesions, morbid obesity and left adnexal mass. PROCEDURE IN DETAIL: The patient was taken to the operating room. After approximately 45 minutes of anesthesia preparation, she was placed under general anesthesia. Two IVs were necessary. Attention was turned to the vaginal area where a weighted speculum was placed in the posterior, [place] anterior. Cervix was grasped with single tooth tenaculum on the anterior lip, sounded to approximately 6 cm. A KAREY manipulator was placed without difficulty. Bladder was drained with a Ramos catheter. Attention was then turned to the abdominal area where she had a previous abdominoplasty. Using Allis clamps and graspers, an incision was made through the umbilical area. Several attempts were made to place a Felecia cannula under direct vision; however, this was not successful. A left upper quadrant incision was made at Ortiz's point, a 5 mm was under direct vision at this time and adequate insufflation was achieved and Felecia cannula was used after adhesions were taken down, omental against the abdominal wall. Dr. Dan investigated the right lower quadrant for hernia recurrence and did not see anything. A second and third 5-mm ports were placed laterally under direct vision. The procedure was begun by using some Trendelenburg. Because of the patient's obesity and adhesions, it was difficult to first visualize the ovary. The uterus was very small. The right ovary had been previously removed. With great deal of attention and detail, the infundibulopelvic ligament was finally isolated. It was cauterized and transected with the Harmonic scalpel. Likewise, the utero-ovarian ligament. The ovary was freed up along with the left tube. A 15 ____ size bag was then placed and under direct vision, the ovary was contained within that bag. A previous 10 ____ bag was too small for this particular ovary. The bag was brought to the surface through the umbilical PATIENT NAME: RADHA EDMONDS incision and morcellated through the incision and submitted to pathology in multiple pieces. The trocar was then replaced. No evidence of bleeding of the IP or the utero-ovarian ligament. Dr. Muniz did the cystoscopy. I closed the umbilicus with 2-[address]-2 needle. The other incisions were closed with 4-0 Monocryl and Steri-Strips. Marcaine was then injected in each incision site, total of approximately 35 mL. Sponge and instrument counts were correct at the end of the case. Estimated blood loss less than 25 mL. Urine output was excellent. The Ramos had been removed in the OR. Total operating time approximately 2 hours. Dictated By: Benito Eric III, MD WT: OP:F.STEFANO/SCOTT/MEI Conf#: [id number]/DID#: [id number] Authenticated by Benito Eric MD On 09/12/2021 12:45:14 PM at 1245 PATIENT NAME: RADHA EDMONDS [facility] 2021-09-07 10:11:00 [id number] [facility] [address] [place], [place] [address] PATIENT NAME: RADHA EDMONDS ADMIT DATE: 09/07/21 ACCOUNT NO: [id number] ROOM NO: AGE: 46 SEX: F ADMITTING PHYSICIAN: ATTENDING PHYSICIAN: Benito Eric III, MD OPERATION DATE: 09/07/2021 PREOPERATIVE DIAGNOSES: 1. Chronic pelvic pain. 2. Large left ovarian mass. POSTOPERATIVE DIAGNOSES: 1. Chronic pelvic pain. 2. Large left ovarian mass. PROCEDURES: Cystoscopy. SURGEON: Shaun Muinz Jr., MD. ANDROID ARCHITECT: ANESTHESIA: General. PREOPERATIVE ANTIBIOTICS: 2 grams of Ancef prior to the surgical procedure. CYSTOSCOPY REQUIRED: Cystoscopy was required in order to discern the etiology of this patient's chronic pain, mostly on the right side, and an existing very large left ovarian mass. This was done to be sure there was no endometriosis or other issues going on with her bladder as a cause of her pelvic pain. Also, because of the extensive dissection around the left ureter, it was really required as well to be sure the integrity of the left ureter was good. PROCEDURE IN DETAIL: With the patient already prepped and draped and the operative procedure of laparoscopy and left salpingo-oophorectomy having been done, I performed a cystoscopy. I used a 30-degree cystoscope with saline. During the operative procedure, it was noted that there was bilateral vigorous ureteral jets seen. There was no injury to the bladder and no sutures in the bladder. With these findings being very normal, the procedure was completed and the patient will eventually be sent to recovery in satisfactory condition debriefing no specimens removed for my procedure and blood loss was zero. COMPLICATIONS: None. Dictated By: Shaun Muniz Jr, MD WT: OP:FJAZMYNE/EDGARDO/MEI PATIENT NAME: RADHA EDMONDS Conf#: [id number]/DID#: [id number] Authenticated by Shaun Muniz Jr, MD On 09/07/2021 01:22:53 PM at 0123 PATIENT NAME: RADHA EDMONDS [facility] 2021-09-05 13:33:00 [id number] [facility] [address] [address] PATIENT NAME: RADHA EDMONDS ADMIT DATE: ACCOUNT NO: [id number] ROOM NO: AGE: 46 SEX: F ADMITTING PHYSICIAN: ATTENDING PHYSICIAN: Benito Eric III, MD Order: [id number] Test Reason : PRE-OP / HX. KS /CAD- STENTS/OBESITY Test Date/Time Stamp: SatSep 05 2021 13:33:03 Blood Pressure : / mmHG Vent. Rate : 086 BPM Atrial Rate : 086 BPM P-R Int : 124 ms QRS Dur : 078 ms QT Int : 368 ms P-R-T Axes : 062 003 045 degrees QTc Int : 440 ms Normal sinus rhythm Normal ECG No previous ECGs available Confirmed by ADELAIDE BUITRAGO MD ([id number]) on 09/05/2021 5:48:46 PM Referred By: Benito Eric Confirmed by:ADELAIDE BUITRAGO MD at 1748 PATIENT NAME: RADHA EDMONDS [facility] 2021-09-05 11:14:00 [id number] [place] [address] PATIENT NAME: RADHA EDMONDS ADMIT DATE: 09/07/21 ACCOUNT NO: [id number] ROOM NO: AGE: 46 SEX: F ADMITTING PHYSICIAN: ATTENDING PHYSICIAN: Benito Eric III, MD ADMISSION DATE: 09/07/2021 ANTICIPATED DATE OF SURGERY: 09/06/2021 ADMITTING DIAGNOSIS: Left adnexal mass. HISTORY OF PRESENT ILLNESS: The patient is a 46-year-old 2, para 1, last menstrual period was several weeks ago, has been followed at [facility] for an enlarging left adnexal mass. 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 This mass is enlarging, approximately 8 cm in diameter, changed approximately 1 cm over the last year. Her tumor markers were negative and the patient now wishes for this to be removed. She has also had a hernia [place] [address] Russell and the area is also causing her some pain. Dr. Dan will be at the surgery time to investigate and see whether or not this needs further attention. PAST MEDICAL HISTORY: The patient has had a laparoscopic RSO in the past. She has multiple health problems including POTS disease, cardiovascular disease, COPD, sleep apnea, mitral valve prolapse and POTS syndrome. CURRENT MEDICINES: She is on is aspirin, Lipitor, BuSpar, Azo-Gesic, Voltaren, Advair Diskus, Neurontin, S[place], Imdur, albuterol, magnesium sulfate, Singulair, Nitrostat, Protonix, Mysoline, and occasional Phenergan. ALLERGIES: THE MEDICATIONS SHE IS ALLERGIC TO INCLUDE SILICONE TAPES, AMITRIPTYLINE, DOXYCYCLINE, ERYTHROMYCIN, LYRICA, AND FOOD ALLERGIES TO MUSHROOMS. PHYSICAL EXAMINATION: VITAL SIGNS: Blood pressure 130/90, weight 273 pounds. GENERAL: Well-developed, well-nourished, obese female, and currently in no distress. HEENT: Normocephalic. PERRLA. EOMs intact. Sclerae are nonicteric. Oropharynx is clear. HEART: Regular rate and rhythm without murmur. LUNGS: Clear with coughing. No rales or rhonchi. ABDOMEN: Obese. Previous surgical scars noted. PELVIS: External BUS, normal female. Vagina pink, rugated lesions. Cervix without lesions. Uterus is normal size on ultrasound. A large left adnexal mass by ultrasound is noted. RECTOVAGINAL: Deferred. NEUROLOGIC: Grossly intact. MUSCULOSKELETAL: Grossly intact. PATIENT NAME: RADHA EDMONDS IMPRESSION: Enlarging left adnexal mass, history of serous cyst ovarian fibroma, hypertension, cardiovascular disease, postural orthostatic tachycardia disease, and asthma. PLAN: Laparoscopic LSO. Informed consent after extensive discussion. Because of the patient's multiple disease problems, it was decided to do a minimum surgery on this patient as opposed to complete hysterectomy. The patient agrees with the above. She has a cardiac clearance from [facility]. Dr. Dan was advised at the time of surgery to investigate whether any repair was needed for the hernia. Risks and benefits of the procedure were discussed in detail with the patient, also the need for possible gynecologic oncology. The plan at the moment is to do permanent sections with a prior history of serous fibroma of the ovary. Considering that her tumor markers were all negative and no history of free fluid at that time, the possibility of ovarian carcinoma has been considered. Dictated By: Beinto Eric III, MD WT: HP:F.STEFANO/SCOTT/MEI Conf#: [id number]/DID#: [id number] Authenticated by Benito Eric MD On 09/07/2021 07:20:36 AM at 0720 PATIENT NAME: RADHA EDMONDS [facility] 2019-07-09 15:00:00 [id number] [place] [address] PATIENT NAME: RADHA EDMONDS ADMIT DATE: ACCOUNT NO: [id number] ROOM NO: AGE: 44 SEX: F ADMITTING PHYSICIAN: ATTENDING PHYSICIAN: Benito Eric III, MD ADMITTING PHYSICIAN: BENITO Eric III, MD CONSULTATION DATE: 07/09/2019 CONSULTING PHYSICIAN: Fan Do MD PHYSICIAN REQUESTING CONSULTATION: Benito Eric III, MD REASON FOR CONSULTATION: Pelvic pain, right lower quadrant and status post multiple oophorectomies in the ovaries for polycystic ovaries. HISTORY OF PRESENT ILLNESS: Radha Edmonds is 44-year-old female under the care of Dr. Eric who was diagnosed to have polycystic ovaries. She has got a and one section and had laparoscopic oophorectomy that is drilling of the ovaries in order to make it ovulate and subsequent to that, she has developed pelvic pain to the right lower quadrant. It is suspected that secondary to the ovarian drilling, there are pelvic ovarian adhesions. She also had previous surgery of abdominoplasty and a gastric band. REVIEW OF SYSTEMS: Otherwise, unremarkable and noncontributory. PAST MEDICAL HISTORY: Otherwise, unremarkable and noncontributory. FAMILY HISTORY: Otherwise, unremarkable and noncontributory. PHYSICAL EXAMINATION: VITAL SIGNS: Stable. HEENT: Head is normocephalic. Pupils PERRLA. NECK: Supple. No thyromegaly. Trachea in the midline. LUNGS: Clean to percussion and auscultation. HEART: With a normal sinus rhythm. ABDOMEN: Obese. There is a previous scar of the abdominoplasty. PELVIC: Cervix with no lesions. Uterus in mid position, mobile and no adnexal masses. IMPRESSION: Pelvic adhesions and postoperative ovarian drilling. PLAN: Exploratory laparoscopy with adhesiolysis, ovariolysis and possible right salpingo-oophorectomy. Her surgery was performed by Dr. Eric on the morning of 07/09/2019 in the operating room under general anesthesia and indeed was found extensive and cohesive vascular adhesions on both adnexa. The left ovary also multicystic and almost with a 180-degree torsion. The right ovary anterior and abnormal position covered by omental adhesions, dense, and as well the ovary to PATIENT NAME: RADHA EDMONDS the anterior abdominal wall next to the bladder peritoneum. It did require to have the dissection with the use of the Harmonic scalpel and after oriental orthodox of the anatomy and removal of the pelvic adhesions, right salpingo-oophorectomy performed. For the contralateral ovary, multiple oophorectomies and drainage of the multiple cysts present, this polycystic ovary reduced in size more than 50% and became into a more normal position. The ovary that was captured by Endobag infraumbilical and the incision. Inframumbilical needed to be increased by opening into the fascia and removing the ovary intact with the fallopian tube. Closure of the defect in the umbilical area and reconstruction of the umbilical area was performed and the patient is stable, has been transferred to PACU and will go to the med-surg floor for the postoperative and followup care with Dr. Eric. Thank you for allowing me to participate in the care of Radha Edmonds. Dictated By: Fan Do MD WT: CON:EVGENY/KAIDEN/MEI Conf#: [id number]/DID#: [id number] Authenticated and Edited by Fan Do MD On 07/10/19 3:03:31 PM at 1506 PATIENT NAME: RADHA EDMONDS [facility] 2019-07-09 13:16:00 [id number] [facility] [address] [place], [place] [address] PATIENT NAME: RADHA EDMONDS ADMIT DATE: ACCOUNT NO: [id number] ROOM NO: AGE: 44 SEX: F ADMITTING PHYSICIAN: ATTENDING PHYSICIAN: Benito Eric III, MD OPERATION DATE: 07/09/2019 ADMITTING DIAGNOSES: Chronic right lower pelvic pain, right ovarian cyst, history of polycystic ovary, heart disease, and hyperlipidemia. POSTOPERATIVE DIAGNOSES: Omental right ovarian adhesions. Multiple left polycystic ovarian cysts. SURGEON: Benito Eric III, MD. ANDROID ARCHITECT: Fan. ANESTHESIA: PROCEDURES: Diagnostic scope, lysis of omental right ovarian adhesions, right salpingectomy, drainage of multiple left ovarian PCO cysts. PROCEDURE IN DETAIL: The patient was brought to the operating room, prepped in sterile manner for a vaginal procedure. A sponge stick was placed in the vagina and the bladder was drained with a red rubber catheter of clear urine. Attention turned to the abdominal area where 0.25% Marcaine was injected periumbilically. The patient had a previous abdominoplasty circular incision. A vertical incision was made within this after injecting with 5 mL of 0.25% Marcaine. Veress needle hanging drop irrigation was placed without difficulty with free flow. A 10-11 trocar was placed without incident and with the aid of two 5-mm laterally placed ports. The following findings were noted. The left ovary was multicystic and large in size with filmy avascular adhesions. The uterus was normal. The right ovary was covered over by an omental mass attachment to the abdominal wall adjacent to the bladder. Appendix was normal. Upper abdomen was normal. The procedure was begun by first dissecting free the omentum from the anterior abdominal wall that was attached to the ovary. The ovary was then revealed. Omental adhesions were removed using Harmonic energy. This freed up the ovary. It was then relatively mobile. The infundibulopelvic ligament was taken with Harmonic energy followed by the uteroovarian ligament. It was placed aside the drainage using Harmonic scalpel creating 3 mm openings and approximately 6 of the ovarian cysts drained. The ovary down to normal size. A 5-mm scope was placed laterally. A Cook bag was then placed with the ovary being captured. The ovary was then removed through the 10-11 port by extending approximately 2 cm. Specimen sent to pathology. The umbilical incision closed with 0 Vicryl in 2 layers for the fascia, 3-0 Vicryl on the subcutaneous, and 4-0 Monocryl on the skin. The 5-mm sites were closed with 4-0 Monocryl. Hemostasis was excellent at the end of the case. Sponge counts were PATIENT NAME: RADHA EDMONDS correct at the end of the case. Estimated blood loss was approximately 25 mL. The patient tolerated the procedure well and went to recovery in good condition. Dictated By: Benito Eric III, MD WT: OP:FJAZMYNE/SCOTT/MEI Conf#: [id number]/DID#: [id number] Authenticated by Benito Eric MD On 07/17/2019 07:23:12 AM at 0723 PATIENT NAME: RADHA EDMONDS [facility] 2019-07-08 16:20:00 [id number] [facility] [place] [address] PATIENT NAME: RADHA EDMONDS ADMIT DATE: ACCOUNT NO: [id number] ROOM NO: AGE: 44 SEX: F ADMITTING PHYSICIAN: ATTENDING PHYSICIAN: Benito Eric III, MD ADMISSION DATE: 07/09/2019 DATE OF ADMISSION: 07/09/2019 ADMITTING DIAGNOSES: Pelvic pain, right ovarian cyst. HISTORY OF PRESENT ILLNESS: The patient is a 44-year-old 2, para 1, section x1, last menstrual period was approximately 2 weeks ago, has a long-term history of chronic pelvic right lower quadrant pain. She has been seen on and off for several years by different physicians; however, the pain is getting extremely worse, very tender on the right side. The patient has a significant surgical history and workup for PCOS and history of laser drilling, the pain now is becoming incapacitating, and she wishes for a laparoscopic procedure done with removal of the right ovary. ALLERGIES: E-MYCIN. PAST SURGICAL HISTORY: Abdominal scar revision 1997, section in 1995, colonoscopy, conization of the cervix, contracture release of the hand, D and C, laser drilling of the ovaries, right inguinal hernia repair, laparoscopic gastric band with removal, carpal tunnel surgery. He has also had coronary artery stents placed in 2014, tear duct revision, tendon repair of her ankle, and trigger finger release. CURRENT MEDICATIONS: She takes aspirin 81 mg a day, atorvastatin 40 mg a day, bumetanide 1 mg twice a day, Cartia XT 240 mg a day, diltiazem XR 140 mg a day, clopidogrel 75 mg a day, isosorbide mononitrate 120 mg a day, losartan 25 mg a day, and Ranexa. She also takes meclizine, albuterol inhaler as needed, gabapentin, hydrocortisone, and tizanidine 4 mg a day, Advair Diskus, CPAP machine as needed, trazodone and also buspirone for depression. The patient has also received a cardiac clearance at [facility] in May of this year, having currently no history of shortness of breath or current active cardiovascular symptoms. PHYSICAL EXAMINATION: VITAL SIGNS: Blood pressure was 124/81, weight 255 pounds, height 4 feet 11 inches. GENERAL: Obese white female, in slight distress. HEENT: Normocephalic. PERRLA. EOMs intact. Sclerae nonicteric. Oropharynx clear. HEART: Regular rate and rhythm. No murmur or gallop. LUNGS: Clear. EXTREMITIES: No clubbing, cyanosis, or edema. BREASTS: Without masses or discharge. PATIENT NAME: RADHA EDMONDS ABDOMEN: Bowel sounds are positive. PELVIS: External BUS, and female. Vagina pink, rugated without lesions. Cervix, no lesions. Uterus, tubes, and ovaries difficult to palpate secondary to truncal obesity; however, there is marked tenderness on the right side. RECTOVAGINAL: Deferred. NEUROLOGIC: Grossly intact. MUSCULOSKELETAL: Grossly intact. IMPRESSION: Chronic right-sided pelvic pain with ultrasound confirmation of 4 to 5 cm adnexal cyst, probable peripheral arterial disease, coronary artery disease, morbid obesity, and hyperlipidemia. PLAN: Laparoscope with removal of the right ovary. Informed consent, risks and benefits of the procedure were explained to the patient including the risk of blood loss, injury to bowel, bladder, and ureter. The patient also was told if there were extensive adhesions, the right ovary may not be able to be removed if it endangers the bowel. The patient understands these risks and wished to proceed with above operation. I have answered all her questions. Dictated By: Benito Eric III, MD WT: HP:F.STEFANO/SCOTT/MEI Conf#: [id number]/DID#: [id number] Authenticated by Benito Eric MD On 07/09/2019 01:23:14 PM at 1323 PATIENT NAME: RADHA EDMONDS [facility] 2019-06-09 13:10:00 [id number] [place] [address] PATIENT NAME: RADHA EDMONDS ADMIT DATE: ACCOUNT NO: [id number] ROOM NO: AGE: 44 SEX: F ADMITTING PHYSICIAN: ATTENDING PHYSICIAN: Benito Eric III, MD Order: [id number] Test Reason : PRE OP Test Date/Time Stamp: SatJun 09 2019 13:10:16 Blood Pressure : / mmHG Vent. Rate : 073 BPM Atrial Rate : 073 BPM P-R Int : 140 ms QRS Dur : 082 ms QT Int : 424 ms P-R-T Axes : 056 017 031 degrees QTc Int : 467 ms Normal sinus rhythm Low voltage QRS Borderline ECG No previous ECGs available Confirmed by ADELAIDE BUITRAGO MD ([id number]) on 06/11/2019 7:54:23 AM Referred By: Benito Eric Confirmed by:ADELAIDE BUITRAGO MD at 7060 PATIENT NAME: RADHA EDMONDS [facility]
[2025-01-19 20:30] LABS: Absolute Lymphocytes (CBC) 1.2 K/uL (0.7-4.9); Basophils % 0.3 % (0-1.3); Eosinophils % 0.1 % (0-4.4); Hematocrit 44.9 % (36.0-45.0); Hemoglobin 15.3 g/dL (12.0-15.0); Lymphocytes % 7.1 % (15.3-44.8); MCH 30.9 pg (27.0-35.0); MCHC 34.1 g/dL (32.0-36.0); MCV 90.8 fL (80-100); MPV 7.1 fL (7.6-11.3); Monocytes % 5.5 % (3.3-12.3); Platelets 181 thou/uL (152-406); RBC Red Blood Cell Count 4.95 M/uL (3.86-4.86); Red Cell Distribution Width 13.2 % (12.1-15.2)
[2025-01-19] MEDS ORDERED: ONDANSETRON 4 MG/2 ML VIAL ONE (20:32)
[2025-01-19 20:40] LABS: PT Prothrombin Time 11.4 SECONDS (10.0-13.0); PTT, Activated Partial Thromb 31.6 SECONDS (24.3-36.9)
[2025-01-19 20:50] LABS: Albumin 3.4 g/dL (3.4-5.0); Anion Gap 8.4 mEq/L (5.0-15.0); Bilirubin Total 0.8 mg/dL (0.2-1.0); Globulin 3.3 g/dL (2.3-3.5); Protein, Total 6.7 g/dL (6.4-8.2)
[2025-01-19 20:54] LABS: Potassium 4.4 mEq/L (3.5-5.1)
--- NOTE | 2025-01-19 21:59 | RAD REPORT ---
EXAMINATION: CT ABDOMEN AND PELVIS WITH CONTRAST CLINICAL INDICATION: Abdominal pain. Rectal bleeding TECHNIQUE: CT abdomen and pelvis was performed, after the administration of 100 cc Isovue-300.. Sagit christine and coronal reconstructions were obtained. One or more of the following dose reduction techniques were used: Automated exposure control, adjustment of the mA and kV according to patient si ze, and iterative reconstruction. Unless otherwise specified, incidental findings do not require dedicated imaging follow-up. [id number]. Oral contrast was not given which limits evaluation of bowel and appendix. COMPARISON: .None FINDINGS: Liver, spleen, pancreas, adrenals and left kidney appear unremarkable Cholecystectomy. Small hiatal hernia 3 mm left renal calculus. No hydronephrosis No evidence of diverticulitis. The rectum is distended with stool measuring 6.2 cm. Mild presacral edema. [id number] hernia contains fat Mild bladder distention : IMPRESSION: Rectum is distended with stool which may indicate a fecal impaction. Small nonobstructing left renal calculus.
--- NOTE | 2025-01-19 22:49 | EDPHYS ---
Physician Documentation [facility] Name: Radha Ruth Age: 49 yrs Sex: Female : 1975 Arrival Date: 01/19/2025 Time: 18:18 Bed 19 Private MD: ED Physician Manuel Lopez HPI: 01/19 18:54 This 49 yrs old Female presents to ER via EMS with complaints of abd pain. rn 18:54 The patient presents with abdominal pain in the lower abdomen. Onset: The rn symptoms/episode began/occurred 3 day(s) ago. The symptoms do not radiate. Associated signs and symptoms: Pertinent positives: blood in stools, Pertinent negatives: fever, hematuria, shortness of breath. Modifying factors: The symptoms are alleviated by nothing, the symptoms are aggravated by nothing. The patient has not experienced similar symptoms in the past. Patient reports a few days of constipation, finally went to the bathroom the other day. Now having diarrhea. Has noticed about 6 episodes of small amount of maroon blood. No melena. No fever or chills. No trauma. Reports lower abdominal pain. Reports generalized weakness and malaise.. 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 - Social history:: Smoking status: unknown. - Family history:: not pertinent. - Hospitalizations: : No recent hospitalization is reported. ROS: 18:54 Constitutional: Negative for fever, chills, and weight loss, Cardiovascular: Negative rn for chest pain, palpitations, and edema, Respiratory: Negative for shortness of breath, cough, wheezing, and pleuritic chest pain, Abdomen/GI: Positive for abdominal pain with diarrhea and blood in stool MS/Extremity: Negative for injury and deformity, Skin: Negative for injury, rash, and discoloration, Neuro: Positive for generalized weakness and malaise Exam: 18:56 Constitutional: This is a well developed, well nourished patient who is awake, alert, rn and in no acute distress. Cardiovascular: Regular rate and rhythm. No pulse deficits. Respiratory: Lungs have equal breath sounds bilaterally, clear to auscultation and percussion. No rales, rhonchi or wheezes noted. No increased work of breathing, no retractions or nasal flaring. Abdomen/GI: Soft, lower abdominal tenderness. No rebound or guarding. No evidence of external hemorrhoids. Nonbloody stool noted around anus, liquid stool that is brown Vital Signs: 18:32 BP 131 / 90; Pulse 84; Resp 18; Temp 98.1; Pulse Ox 97% on R/A; ap3 20:45 BP 137 / 81; Pulse 84; Resp 18; Temp 98.4; Pulse Ox 96% on R/A; MAP 103 mmHg; aa10 23:18 BP 167 / 99; Pulse 81; Resp 20; Temp 98.6; Pulse Ox 95% on R/A; MAP 124 mmHg; aa10 Procedures: 22:47 Fecal disimpaction: digital disimpaction was performed, with a moderate amount of stool sp4 expressed. The patient tolerated the intervention well, Significant amount of dry stool pellets alleviated on fecal disimpaction. Patient felt improved.. MDM: 18:25 Medical Screening Exam initiated rn 22:37 ED course: COMPARISON: .None FINDINGS: Liver, spleen, pancreas, adrenals and left sp4 kidney appear unremarkable Cholecystectomy. Small hiatal hernia 3 mm left renal calculus. No hydronephrosis No evidence of diverticulitis. The rectum is distended with stool measuring 6.2 cm. Mild presacral edema. [id number] hernia contains fat Mild bladder distention : IMPRESSION: Rectum is distended with stool which may indicate a fecal impaction. Small nonobstructing left renal calculus. . 22:51 Differential diagnosis: diverticulitis, gastritis, gastroesophageal reflux disease, GI sp4 Bleed, Hepatitis, Impaction of fecum. Data reviewed: vital signs, nurses notes, old medical records, lab test result(s), radiologic studies, CT scan. Consideration of Admission/Observation Escalation of care including admission/observation considered. ED course: Stable for discharge home after fecal disimpaction. 01/19 18:54 Order name: CBC with Diff rn 01/19 18:54 Order name: CMP; Complete Time: 21:15 rn 01/19 18:54 Order name: Lipase; Complete Time: 21:15 rn 01/19 18:54 Order name: Protime (+inr); Complete Time: 21:15 rn 01/19 18:54 Order name: Ptt, Activated; Complete Time: 21:15 rn 01/19 22:41 Order name: Manual Differential EDMS 01/19 18:54 Order name: CT Abd/Pelvis - IV Contrast Only; Complete Time: 22:37 rn 01/19 18:54 Order name: IV Saline Lock; Complete Time: 20:26 rn 01/19 18:54 Order name: Labs collected and sent; Complete Time: 20:26 rn Administered Medications: 18:55 CANCELLED (Duplicate Order): ns 0.9% 1000 ml IV at 1 bolus Per protocol; to be given as rn a bolus over 60 minutes 20:33 Drug: Ondansetron IVP 4 mg IVP once; over 2 minutes Route: IVP; Site: left forearm; aa10 23:11 Follow up: Response: No adverse reaction; Marked relief of symptoms aa10 23:02 Drug: Ibuprofen PO 800 mg PO once Route: PO; aa10 23:11 Follow up: Response: Medication administered at discharge. aa10 23:02 Drug: Acetaminophen PO 1000 mg PO once Route: PO; aa10 23:10 Follow up: Response: Medication administered at discharge. aa10 23:02 Drug: Dulcolax PO Delayed Release Tablet 5 mg PO once Route: PO; aa10 23:10 Follow up: Response: Medication administered at discharge. aa10 Disposition Summary: 01/19/25 22:49 Discharge Ordered Notes: Location: Home sp4 Problem: new sp4 Symptoms: have improved sp4 Condition: Stable sp4 Diagnosis - Fecal impaction sp4 - Acute proctitis secondary to fecal impaction, rectal bleeding acute sp4 Followup: sp4 - With: Private Physician - When: 7 - 10 days - Reason: Recheck today's complaints Discharge Instructions: - Discharge Summary Sheet sp4 - Fecal Impaction sp4 Forms: - Patient Portal Instructions sp4 Prescriptions: - docusate sodium 100 mg Oral tablet - take 1 tablet ORAL route daily PRN constipation; 30 tablet; Refills: 0, Product sp4 Selection Permitted Signatures: Dispatcher [employer] EDMS Maximus Cevallos MD MD rn Prokisch, Amanda RN RN ap3 Manuel Lopez MD MD sp4 Yamileth Sultana RN RN aa10 Corrections: (The following items were deleted from the chart) 18:54 18:54 CBC+H.LAB.BRZ ordered. EDMS EDMS 18:54 18:54 COMPREHENSIVE METABOLIC PANEL+C.LAB.BRZ ordered. EDMS EDMS 18:54 18:54 LIPASE+C.LAB.BRZ ordered. EDMS EDMS 18:54 18:54 Abdomen Pelvis W Con+CT.RAD.BRZ ordered. EDMS EDMS 18:54 18:54 PROTIME (+INR)+COAG.LAB.BRZ ordered. EDMS EDMS 18:54 18:54 PTT, ACTIVATED+COAG.LAB.BRZ ordered. EDMS EDMS 18:55 18:54 NS 0.9% IV 1000 ml IV at 1 bolus Per protocol; to be given as a bolus over 60 rn minutes ordered. rn
--- NOTE | 2025-01-19 22:49 | ER ---
Nurse's Notes [facility] Name: Radha Ruth Age: 49 yrs Sex: Female : 1975 Arrival Date: 01/19/2025 Time: 18:18 Bed 19 Private MD: Diagnosis: Fecal impaction;Acute proctitis secondary to fecal impaction, rectal bleeding acute Presentation: 01/19 18:32 Chief complaint: Patient states: she has been constipated for a few days, and finally ap3 was able to go today. patient reports having bloody stool today and then started having diarrhea this afternoon. patient also reports low back pressure. Coronavirus screen: At this time, the client does not indicate any symptoms associated with coronavirus-19. Ebola Screen: No symptoms or risks identified at this time. Initial Sepsis Screen:. Risk Assessment: Do you want to hurt yourself or someone else? Patient reports no desire to harm self or others. Onset of symptoms was January 19, 2025. 18:32 Method Of Arrival: EMS: [facility] ap3 18:32 Acuity: SOFIA 3 ap3 20:46 Initial Sepsis Screen: Does the patient meet any 2 criteria? No. Patient's initial aa10 sepsis screen is negative. Does the patient have a suspected source of infection? No. Patient's initial sepsis screen is negative. Triage Assessment: 18:34 General: Appears in no apparent distress. Behavior is calm, cooperative, appropriate ap3 for age. Pain: Complains of pain in low back area. Neuro: Level of Consciousness is awake, alert, obeys commands, Oriented to person, place, time, situation, Appropriate for age Gait is steady, Speech is normal. Cardiovascular: Patient's skin is warm and dry. Respiratory: Airway is patent Respiratory effort is even, unlabored, Respiratory pattern is regular, symmetrical. GI: Reports constipation, cramping, diarrhea, bloody stool. 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 - Social history:: Smoking status: unknown. - Family history:: not pertinent. - Hospitalizations: : No recent hospitalization is reported. Screenin:35 [facility] ED Fall Risk Assessment (Adult) History of falling in the last 3 months, ap3 including since admission No falls in past 3 months (0 pts) Confusion or Disorientation No (0 pts) Intoxicated or Sedated No (0 pts) Impaired Gait No (0 pts) Mobility Assist Device Used No (0 pt) Altered Elimination No (0 pt) Score/Fall Risk Level 0 - 2 = Low Risk Oriented to surroundings, Maintained a safe environment, Educated pt \T\ family on fall prevention, incl call for assistance when getting out of bed, Assessed \T\ reinforced patient's understanding of fall precautions, Hourly rounding (assess needs \T\ fall precautionary measures) done, Used ambulatory aids as needed (educated on \T\ assisted with). Abuse screen: Denies threats or abuse. Nutritional screening: No deficits noted. Tuberculosis screening: No symptoms or risk factors identified. Assessment: 20:43 General: Appears in no apparent distress. Behavior is calm, cooperative, appropriate aa10 for age. Neuro: No deficits noted. Level of Consciousness is awake, alert, obeys commands, Oriented to person, place, time, situation, Appropriate for age Store Hand are equal bilaterally Moves all extremities. Full function Gait is steady, Speech is normal. Cardiovascular: No deficits noted. Capillary refill < 3 seconds. 23:08 Reassessment: Patient appears in no apparent distress at this time. No changes from aa10 previously documented assessment. Patient and/or family updated on plan of care and expected duration. Pain level reassessed. Patient is alert, oriented x 3, equal unlabored respirations, skin warm/dry/pink. Vital Signs: 18:32 BP 131 / 90; Pulse 84; Resp 18; Temp 98.1; Pulse Ox 97% on R/A; ap3 20:45 BP 137 / 81; Pulse 84; Resp 18; Temp 98.4; Pulse Ox 96% on R/A; MAP 103 mmHg; aa10 23:18 BP 167 / 99; Pulse 81; Resp 20; Temp 98.6; Pulse Ox 95% on R/A; MAP 124 mmHg; aa10 ED Course: 18:20 Patient arrived in ED. ap3 18:25 Maximus Cevallos MD is Attending Physician. rn 18:33 Triage completed. ap3 18:36 Arm band placed on right wrist. ap3 19:42 Radiology exam delayed due to lab results not completed at this time. IV insertion jc4 attempt and/or patient not having appropriate IV at this time. 20:26 Protime (+inr) Sent. aa10 20:26 Ptt, Activated Sent. aa10 20:26 CBC with Diff Sent. aa10 20:26 CMP Sent. aa10 20:26 Lipase Sent. aa10 20:46 Patient has correct armband on for positive identification. Allergy band placed. Fall aa10 risk band placed. Placed in gown. Bed in low position. Call light in reach. Side rails up X2. Provided Education on: about plan of care. 21:15 Attending Physician role handed off by Maximus Cevallos MD sp4 21:15 Manuel Lopez MD is Attending Physician. sp4 21:32 CT Abd/Pelvis - IV Contrast Only In Process Unspecified. 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 Assisted provider with: manual fecal aa10 de-impaction. IV discontinued. 23:11 Manual Differential Sent. aa10 Administered Medications: 18:55 CANCELLED (Duplicate Order): ns 0.9% 1000 ml IV at 1 bolus Per protocol; to be given as rn a bolus over 60 minutes 20:33 Drug: Ondansetron IVP 4 mg IVP once; over 2 minutes Route: IVP; Site: left forearm; aa10 23:11 Follow up: Response: No adverse reaction; Marked relief of symptoms aa10 23:02 Drug: Ibuprofen PO 800 mg PO once Route: PO; aa10 23:11 Follow up: Response: Medication administered at discharge. aa10 23:02 Drug: Acetaminophen PO 1000 mg PO once Route: PO; aa10 23:10 Follow up: Response: Medication administered at discharge. aa10 23:02 Drug: Dulcolax PO Delayed Release Tablet 5 mg PO once Route: PO; aa10 23:10 Follow up: Response: Medication administered at discharge. aa10 Medication: 20:46 VIS not applicable for this client. aa10 Outcome: 22:49 Discharge ordered by . sp4 23:09 Discharged to home ambulatory, aa10 23:09 Condition: good 23:09 Discharge instructions given to patient, Instructed on discharge instructions, Demonstrated understanding of instructions, 23:24 Prescriptions given X 1, aa10 23:24 Patient left the ED. aa10 Signatures: Dispatcher [employer] EDMS Maximus Cevallos MD MD rn Prokisch, Amanda, RN RN ap3 Potepalov, Sergey, MD MD sp4 Dimas Molina jc4 Yamileth Sultana RN RN aa10
[2025-01-19] MEDS ORDERED: IBUPROFEN 400 MG TAB ONE (23:01)
[2025-01-19] MEDS ORDERED: BISACODYL E.C. 5 MG TAB PO ONE (23:01)
[2025-01-19] MEDS ORDERED: ACETAMINOPHEN 500 MG TAB ONE (23:01)
[2025-01-19 23:12] LABS: Band Neutrophils 2 % (0-1); Differential Total Cells Count 100; Lymphocytes 8 % (15-42); Monocytes 6 % (0-10); Reactive Lymphocytes 7 %; Segmented Neutrophils 76 % (40-80)
[2025-01-19 23:13] LABS: Blood Morphology Comment NOT SEEN (NOT SEEN); Platelet Estimate ADEQ
[2025-01-19 23:44] VITALS: BP 167/99; TEMP 98.6; O2SAT 95
== END 2025-01-19 23:24 | disposition home or self-care (01) ==
LOC: ER 18:18
DX: K56.41 Fecal impaction (principal); K62.89 Other specified diseases of anus and rectum
CPT/HCPCS: 85025; 36415; 85610; 85730; 83690; 80053; 74177; 96374; 99284; Q9967; J2405

== ENCOUNTER 2025-06-30 08:34 | Day surgery (SDC) | payer OTHER ==
[2025-06-29 14:17] LABS: Absolute Lymphocytes (CBC) 3.0 K/uL (0.7-4.9); Hematocrit 42.1 % (36.0-45.0); Hemoglobin 14.6 g/dL (12.0-15.0); MCH 32.6 pg (27.0-35.0); MCHC 34.7 g/dL (32.0-36.0); MCV 94.1 fL (80-100); MPV 7.2 fL (7.6-11.3); Nucleated RBC Absolute Count 0.0 (0-0); Nucleated Red Blood Cells % 0.0 % (0-0); RBC Red Blood Cell Count 4.48 M/uL (3.86-4.86); White Blood Count 8.90 thou/uL (4.3-10.9)
[2025-06-29 14:27] LABS: PT Prothrombin Time 11.5 SECONDS (10-13.0); PTT, Activated Partial Thromb 31.9 SECONDS (27.2-37.4); Protime INR 1.02
[2025-06-29 14:32] LABS: Anion Gap 9.5 mEq/L (5.0-15.0); BUN Blood Urea Nitrogen 5.0 mg/dL (7-18); Glucose Level 82.0 mg/dL (74-106); Potassium 3.5 mEq/L (3.5-5.1)
[2025-06-30] MEDS: Ringers Lactate 1,000 ML IV ONE (09:10)
[2025-06-30] MEDS: ONDANSETRON 4 MG/2 ML VIAL ONE (09:30)
[2025-06-30] MEDS ORDERED: FENTANYL CITR 100 MCG/2 ML ONE (10:03)
[2025-06-30] MEDS ORDERED: LIDOCAINE 2% MPF 5 ML VIAL ONE (10:03)
[2025-06-30] MEDS ORDERED: MIDAZOLAM HCL 2 MG/2 ML INJ ONE (10:04)
[2025-06-30] MEDS: CEFAZOLIN SODIUM 1 GM/VIAL ONE (10:34)
[2025-06-30] MEDS ORDERED: ONDANSETRON 4 MG/2 ML VIAL ONE (10:39)
--- NOTE | 2025-06-30 11:12 | P.BOP ---
Preoperative diagnosis: four tender left upper arm subQ masses Postoperative diagnosis: same Primary procedure: Excisional biopsy tender subQ masses: 1. left upper arm 3x3cm Secondary procedure: 2. left posterior proximal arm 2x2cm, 3. left inner arm 3x3cm Other procedure(s): 4. left distal posterior arm 2x2cm Estimated blood loss: <10cc Specimen: masses x 4 Findings: masses x 4 Anesthesia: General Complications: Other Transferred to: Recovery Room Condition: Good
[2025-06-30] MEDS ORDERED: HYDROMORPHONE HCL 0.5 MG/0.5 ML INJ ONE (11:55)
[2025-06-30] MEDS: PROMETHAZINE INJ 25 MG/ML AMP ONE (12:00)
[2025-06-30] MEDS: FENTANYL CITR 100 MCG/2 ML ONE (12:03)
--- NOTE | 2025-06-30 12:56 | OP ---
Date of Procedure: 06/30/2025 Surgeon: Gregory Jesus MD Preoperative Diagnosis: Four tender left upper arm tender subcutaneous masses. Postoperative Diagnosis: Four tender left upper arm tender subcutaneous masses. Procedures: 1. Excisional biopsy of tender subcutaneous mass, left upper arm, 3 x 3 cm. 2. Excisional biopsy of tender subcutaneous mass, left posterior proximal arm, 2 x 2 cm. 3. Excisional biopsy of tender subcutaneous mass, left inner arm, 3 x 3 cm. 4. Excisional biopsy of tender subcutaneous mass, left distal posterior arm, 2 x 2 cm. Estimated Blood Loss: Less than 10 cc. Specimen: Masses x4. Findings: Fatty tumors. Anesthesia: General plus local. Indications: This is a case of a 50-year-old patient who came to us with pain and discomf ort. They are palpable. She has been trying to observe them, but it was just getting bigger and too tender. She wants them excised. The benefits, alternatives, and risks of excision fully explained, which include, but not limited to, infection, bleeding, damage to adjacent structures, anesthesia co mplication, recurrence, [place], and even . She also understands this may not relieve any symptoms. She might need more than one surgical intervention. She signed a consent. Description Of Procedure: The area of concern was marked by me and the patient in the holding room. The patient was brought to the operating room, placed in supine position. Anesthesia was induced wi thout complication. A time-out was called. Left arm was prepped and draped in a sterile fashion. A fter that, we removed each mass individually, but all using the same technique, which was after time- out. We proceeded then to make an incision in the skin, identified the mass palpated, removed the ma ss, obtained hemostasis, irrigated, injected local anesthetic, and then closed the subcutaneous tissu e with 3-0 chromic and the skin with 3-0 nylon running. Each mass was done individually, 1, 2, 3, an d 4, with the same result of each one. Hemostasis was obtained and each one was covered with sterile dressings. The patient tolerated the procedure well. The patient was sent to Recovery in [facility] co ndition. DANYEL/FATOU Voice ID: [id number] Report ID: [id number]
--- NOTE | 2025-06-30 13:00 | DS ---
Diagnosis: Left upper arm tender subcutaneous masses x4. Procedure: Excisional biopsy of upper arm tender subcutaneous masses. Condition: Stable. Disposition: Home. Activity: As tolerated. No heavy lifting. Discharge Instructions: Follow up in my office in 1 week. Call for appointment at [phone]. Keep a silvino dry for 48 hours, then may remove outer dressing and shower. Clean the area with soap and water and cover with antibiotic ointment and gauze. The patient tolerated the procedure well. Medications were called to her pharmacy. DANYEL/FATOU Voice ID: [id number] Report ID: [id number]
[2025-06-30] MEDS: HYDROCODONE/APAP 10/325 TAB ONE (13:27)
[2025-06-30 14:40] VITALS: BP 138/98; TEMP 97; O2SAT 97
== END 2025-06-30 13:45 | disposition home or self-care (01) ==
LOC: OR 08:34
PROVIDERS: ATTEND Surgery
DX: D17.22 Benign lipomatous neoplasm of skin and subcutaneous tissue of left arm (principal)
CPT/HCPCS: 85025; 80048; 36415; 85610; 88304; 85730; J2550; J2704; J1100; J2003; J2250; J3010 ×2; J2405 ×2; J7120; J0690; J1171